=== PATIENT | male | born 1960 | race Caucasian/White ===

== ENCOUNTER 2017-09-04 14:44 | Emergency (ER) | payer BC, SELFPAY ==
[2017-09-04 14:47] VITALS: BP 144/66; PULSE 79; RESP 16; TEMP 37.3; O2SAT 97; BMI 28.1
--- NOTE | 2017-09-04 16:08 | VDLE_ITS ---
Reason For Study: LLE pain RIGHT LEFT CFV is compressible, spontaneous, phasic, GSV is normal. competent and demonstrates normal CFV is compressible, spontaneous, phasic, augmentation. competent, and demonstrates normal Procedure augmentation. Exam performed portable in ED. FV is compressible, spontaneous, phasic, The exam was diagnostic. competent and demonstrates normal A preliminary report was called and/or faxed augmentation. to Dr. Ackerman @ 4:25 pm. T/P Trunk is compressible. Image # 14 is LT PTVs. PTV is compressible. LT PerV is compressible. POP V is partially compressible with area of chronic wall thickening C/W previous DVT. POP V demonstrates reflux > 1.0 seconds upon augmentation. Interpretation Summary Chronic venous changes are noted in the left popliteal vein, which is partially compressible, incompetent, and demonstrates chronic vein wall thickening. The remainder of the left lower extremity deep venous system is patent and compressible. The left common femoral vein and femoral vein are competent. The left greater saphenous vein appears patent and compressible segmentally. Ordering Physician: Alirio Ackerman Referring Physician: Samuel Casarez Performed By: Mckayla Her, LASHAY, RVT
[2017-09-04 16:14] VITALS: BP 144/60; PULSE 90; RESP 14; O2SAT 98
--- NOTE | 2017-09-04 16:30 | ED.VISSUMM ---
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 He reports he has pain in his left calf that began 2 days ago. It is a burning, aching pain that is 5 out of 10 at worst and 2 out of 10 currently. Reports pain is worse when he first begins walking, but improves if he continues moving. She relieved by rest. He denies any paresthesias distally. No trauma. No fall or MVA. Reports he has been on his feet a great deal more than usual over the past 6 months. Physical Examination: Vitals: Stable. Afebrile. General: Well-nourished and well-developed. Head: Normocephalic atraumatic. Neck: Supple, no lymphadenopathy. No JVD. Nontender. Cardiovascular: Regular rate and rhythm. No murmurs. Respiratory: No respiratory distress. Clear to auscultation bilaterally. Abdominal: Soft, nontender, nondistended, normal bowel sounds. No guarding, rebound, or peritoneal signs. Back: Nontender. Extremities: Mild tenderness to palpation over his left calf, no edema. 2+ dorsalis pedis pulses bilaterally. Skin: Normal color, no rash. Neurologic: Alert and oriented ?3. Cranial nerves II through XII are intact. Normal strength and sensation. Psych: Normal affect. Test Results: Left lower extremity Doppler was negative. Emergency Department Course and Treatment: Patient refused pain medications. He is resting comfortably. Treatment Plan: He will be discharged instructions to follow-up Dr. Carpenter in 1 week if not improving. Disposition: To home in improved and stable condition. Impression: 1. Left calf pain, acute. This note was generated with [employer] dictation software. It may contain incorrect words, spelling, and punctuation that were not noted in review of the chart prior to signing ED Disposition - Plan for ED Patient: Chief Complaint: Lower Extremity Injury Instructions: ED Strain Muscle Ext Referrals: Nahum Casarez MD [Primary Care Provider] - 1 Week if not improving
[2017-09-04 16:37] VITALS: BP 135/70; PULSE 85; RESP 14; O2SAT 99
== END 2017-09-04 16:37 | disposition home or self-care (01) ==
PROVIDERS: Emergency Provider Emergency Medicine; Family Provider Family Medicine; PCP Family Medicine
DX: M79.662 Pain in left lower leg (principal); F17.200 Nicotine dependence, unspecified, uncomplicated
CPT/HCPCS: 93971; 99282

== ENCOUNTER → 2018-03-30 16:54 | Outpatient (CLI) | payer BC, SELFPAY ==
--- NOTE | 2018-03-30 16:59 | RAD_ITS ---
STUDY: X-RAY - LUMBAR SPINE REASON FOR EXAM: Male, 57 years old. Back pain. TECHNIQUE: 5 view(s) of the lumbar spine were obtained. COMPARISON: None FINDINGS: Normal lumbar lordosis. There is no substantial scoliosis. There is 1.5 cm anterolisthesis of L5 on S1 probably from bilateral pars defects although this cannot be confirmed on the oblique views because of marked facet joint degenerative disease at all levels. There is multilevel spondylosis. There is moderate to severe multilevel degenerative disc disease and loss of disc height. The soft tissue structures are unremarkable. RAD/L/S Spine Min 4 Views IMPRESSION: Moderate to severe multilevel degenerative changes. 1.5 cm anterolisthesis of L5 on S1. No definite acute abnormalities. Electronically Signed: Narayan Flowers MD at 22:36 EDT , Service support ,
== END ==
PROVIDERS: Family Provider Family Medicine; PCP Family Medicine; Referring Provider Family Medicine; Visit Provider Family Medicine
DX: M54.41 Lumbago with sciatica, right side (principal)
CPT/HCPCS: 72110

== ENCOUNTER 2018-05-31 17:00 | Outpatient (RCR) | payer BC, SELFPAY ==
--- NOTE | 2018-04-24 18:19 | HP.PTEVAL ---
Patient's Visit Information AVRIL ANDERSON is a 57 year old M referred to Physical Therapy by Samuel Casarez with a diagnosis of LB DDD. Date of Evaluation: 04/24/18 Physical Therapist: Angelito Burgess DPT, OC - Visit Plan Frequency: 1-2x /Week Duration: 4-6 Weeks Plan: 1-2x/week for 4-6 for initially weekly progression with list/pics of: LB AROM. HS, piriformis, glut adn quad/hip flexor stretches. Core strength for neutral spine and progression. Next session teach LB AROM and yoga flow. - Subjective Subjective: Has R leg pain whole leg hurts but mostly lateral hip and has been that way all summer. Insidious onset. No specific injury. New job working 50 hrs week on concrete one year ago. Has no back pain. Pain is OK in am and worse as days goes on. Worse on work days. 2 miles dog walk not as bad but worse monday then Monday. Week days are worse. 10 hour days . Walk to truck 50 yards is rough. Sleep is difficult to get comfy but not losing any sleep. Has problems in sciatic 30 years ago and no trouble since. 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 basic ADLs are OK just painful. No hobbies anymore. Lives with and dogs. - Pain R lateral leg. Pain Intensity (Out of 10): 5 Pain Intensity Range: 0, 9 Comment: bettter with stretching(lying) - Objective R leg 8 mm shorter vs L. hunches over to walk and it feels better. LB AROM flexion tight adn not painful, R SB painful and mod limitied, L SB min limited, ext painful and mod limited. gluts, quads and HS mod tight with -30 90/90 test. reflexes 2/3 patella and achilles B. Sensation in LE B grossly WNL to light touch. strength 4+/5 in B LE without myotomal abnormalities. Hunched forward posture but finds post pelvic tilt well. Walks I with slight R antalgia and avoidance of ext of hip at end of swing. - Goals Goal 1:: Pain in LB and R posterior hip 75% better at 2/10 at worst and intermittent. Goal Time Frame: 4-6 Weeks Goal 2:: I approp HEP to limit future problems with his degeneration. Goal Time Frame: 4-6 Weeks Goal 3:: Patient work without noticing increase in LBP Goal Time Frame: 4-6 Weeks Goal 4:: Walk dog on Monday without pain in LB Goal Time Frame: 4-6 Weeks - Rehabilitation Potential Physical Therapy Diagnosis: LB DDD Rehabilitation Potential: Fair - Anticipated Interventions Patient/Client Instruction: Educate patient on: Condition For the Purpose of:: To decrease pain, To increase ROM, To improve ability of physical actions for home/community/work/leisure Therapeutic Exercise to Include: Strength training, Flexibilty training, Gait and locomotor training, Passive ROM, Active ROM, Dynamic Lumbar Stabilization For the Purpose of:: To decrease pain, To improve muscle performance and motor function, To increase tolerance to activity/condition/position, To improve ability of physical actions for home/community/work/leisure Thank you for the opportunity to evaluate your patient. For Medicare and Medicare HMO plans, please review the plan of care and approve it. It will need to be FAXED BACK to us at [phone] for Medicare purposes. Please let me know if there are questions or concerns regarding this plan of care. Physician Signature: Date:
--- NOTE | 2018-05-31 17:31 | HP.PTDCSUM ---
HP - PT D/C Summary It has been my pleasure to treat EMBER ANDERSON under orders from Samuel Casarez, for the diagnosis of LB DDD for a total of 3 visit(s). Discharge Date: 05/31/18 Please see the following information for a summary of their discharge status. - Subjective Subjective: Been doing exercises. Haven't noticed a whole lot of difference. They don't hurt anything. No f/u with doctor. Running around since 3:30 this am. - Pain R lateral leg. Pain Intensity (Out of 10): 10 - Overall Improvement % Improvement: 5 - Objective Objective/Function: Pt not feeling any better or moving any better overall. Limited by few visits due to large co-pay but consistent with HEP and not improving. recommend back to doctor for other options due to lack of progress. - Goals Goal 1:: Pain in LB and R posterior hip 75% better at 2/10 at worst and intermittent. Goal Progress: Not Progressing Goal 2:: I approp HEP to limit future problems with his degeneration. Goal Progress: Goal Met Goal 3:: Patient work without noticing increase in LBP Goal Progress: Not Progressing Goal 4:: Walk dog on Monday without pain in LB Goal Progress: Not Progressing - Plan Plan: D/C, pt to call and schedule with doc. - D/C Information Discharge Comments: Pt back to doctor for next medical step. He has been consistent with home ex but not improving. If there are questions or concerns regarding this patient's physical therapy, please feel free to call me at [phone]. Thank you for the referral of this patient. Sincerely, Angelito Burgess, DPT, OC
== END 2018-05-31 19:00 | disposition home or self-care (01) ==
LOC: PT 17:00
PROVIDERS: Family Provider Family Medicine; PCP Family Medicine; Referring Provider Family Medicine; Visit Provider Family Medicine
DX: M51.36 Other intervertebral disc degeneration, lumbar region (principal)
CPT/HCPCS: 97110; 97162

== ENCOUNTER → 2018-06-08 13:50 | Outpatient (CLI) | payer BC, SELFPAY ==
--- NOTE | 2018-06-10 23:40 | LEAS_ITS ---
Arterial Study - Arterial Study Arterial Study: This is a 57-year-old male with a history of smoking. He presents with an ulceration in the left lower extremity. Suspecting the presence of atherosclerotic peripheral arterial occlusive disease, the patient was brought to the noninvasive vascular laboratory at this time for the purpose of bilateral noninvasive lower extremity arterial assessment. Doppler signal assessment was used to evaluate the pulses at ankle level bilaterally. The posterior tibial and dorsalis pedis pulses were triphasic bilaterally. Segmental limb pressures were obtained at ankle level bilaterally. The right ankle pressure, as determined by posterior tibial pulse, was measured at 169 m mHg. The right ankle pressure, as determined by dorsalis pedis pulse, was measured at 188 mmHg. The left ankle pressure, as determined by posterior tibial pulse, was measured at 186 mmHg. The left ankle pressure, as determined by dorsalis pedis pulse, was measured at 184 mmHg. Pulse?volume recordings were obtained bilaterally and segmentally. Waveform amplitudes appeared to be satisfactory at all levels bilaterally. Resting ankle?brachial indices were calculated bilaterally. The resting right ankle?brachial index was calculated to be 1.14. The resting left ankle?brachial index was calculated to be 1.13. The patient was exercised on a treadmill at 1.8 mph and a 5% grade. Exercise was terminated after 1 minute and 40 seconds due to lower extremity pain. Ankle pressures were obtained 1 minute following cessation of exercise. The right ankle pressure was measured at 175 mmHg. The left ankle pressure was measured at 183 mmHg. Impression: Based upon the findings of this resting and exercise noninvasive lower extremity arterial study, the resting component of this arterial study is normal. Triphasic waveforms were noted at ankle level bilaterally. Resting ankle?brachial indices were bilaterally normal. However, following exercise, ankle pressures diminished slightly bilaterally, which is an abnormal physiological response, and may be indicative of mild arterial occlusive disease in the lower extremities bilaterally, for which clinical correlation is advised.
== END ==
PROVIDERS: Family Provider Family Medicine; PCP Family Medicine; Referring Provider Family Medicine; Visit Provider Family Medicine
DX: I83.003 Varicose veins of unspecified lower extremity with ulcer of ankle (principal)
CPT/HCPCS: 93924

== ENCOUNTER 2018-06-11 16:19 | Emergency (ER) | payer BC, SELFPAY ==
[2018-06-11 16:20] VITALS: BP 142/108; PULSE 85; RESP 16; TEMP 36.4; O2SAT 98; BMI 27.3
--- NOTE | 2018-06-11 16:52 | ED.VIS.GEN ---
History of Present Illness Chief Complaint: Wound Informant: Patient, PCP Onset: Weeks - 1-2 Context: Gradual Onset Timing: Continuous Quality: burning, sore/deep ache Location: left ankle ulcer Current Severity: Moderate Maximum Severity: Severe Worsened by: walking, palpation Relieved by: resting Associated Symptoms: fever of 100 in PCP office today. occasional discharge. Narrative: Patient has had this ulcer on his left ankle for about a month, it spontaneously appeared. He was initially put on a twice daily antibiotic that he does not know what the name of, it was twice daily, it seemed to help, but then it started getting worse on its own again, he was started on Levaquin and he has been on that for 5 days and states in that amount of time, the pain is continued to worsen, no aspect of it has improved, and in the office today he had a fever. Past Medical History - Allergies and Home Meds Allergies/Adverse Reactions: Allergies No Known Allergies Allergy (Verified 09/04/17 14:46) Primary Care Physician: Nahum Casarez MD [Primary Care Provider] - Past Medical History: None Lives: Spouse/ Significant Other Smoking Status: Current every day smoker Review of Systems All systems negative except as indicated General: Reports: Fever. Denies: Malaise, Sweats Eyes: Denies: Visual changes - bilaterally, Diplopia ENT: Denies: Rhinorrhea, Sore throat Cardiovascular: Denies: Chest pain, Palpitations Respiratory: Denies: Dyspnea, Cough, Dyspnea on exertion Gastrointestinal: Denies: Abdominal pain, Nausea, Vomiting, Diarrhea, Melena, Hematochezia Genitourinary: Denies: Dysuria, Hematuria, Frequency Musculoskeletal: Reports: Extremity Pain - left ankle. Denies: Back pain, Swelling Skin: Reports: Wounds - ulcer left ankle. Denies: Rash Neurological: Denies: Headache, Weakness, Numbness Physical Exam Vital Signs/Narrative: Vital Signs Temp Pulse Resp BP Pulse Ox 06/11/18 16:20 97.5 F L 85 16 142/108 H 98 Inital Vital Signs reviewed: Yes General: Well nourished, Well developed Head: Normocephalic, Atraumatic Eyes: Perrl, EOMI ENT: Moist mucous membranes, No rhinorrhea Neck: Supple, Nontender Cardiovascular: Regular rate, Regular rhythm, No murmurs Respiratory: No distress, CTA bilaterally, Chest nontender Abdomen: Soft, Nontender, Nondistended, Normal bowel sounds Back: Nontender, Normal Inspection Extremities: No edema, Tenderness - at left medial-posterior ankle ulceration, containing granulation tissue, no expressible discharge, no abcess. Good ROM of left ankle w/o difficulty., - - no inguinal LAD Skin: Normal color, No rash, - - ulceration as described above LLE. not over malleolus; is posterior to it. mild surrounding erythema, very tender. no lymphangitis or abscess. Neurological: Alert, Oriented x3, Cranial nerves II-XII grossly intact, Normal Strength, Normal Sensation Psychological: Normal affect Diagnostic/Tx/Re-eval Impressions Ankle X-Ray 06/11/18 16:53 IMPRESSION: Normal x-ray examination of the ankle. Electronically Signed: Narayan Flowers MD at 17:25 EST , Service support , 06/11/18 16:53 Ankle min 3 Views [RAD] Stat Laboratory Results 06/11/18 06/11/18 16:44 16:44 WBC 5.8 RBC 3.96 L Hgb 13.7 Hct 38.9 L MCV 98.2 H MCH 34.6 H MCHC 35.2 RDW 12.5 RDW Differential 44.5 H Plt Count 272 MPV 8.6 Immature Gran % (Auto) 0.300 Neut % (Auto) 55.5 Lymph % (Auto) 28.6 [place] % (Auto) 14.6 H Eos % (Auto) 0.5 Baso % (Auto) 0.5 Absolute Neuts (auto) 3.2 Absolute Lymphs (auto) 1.67 Total Counted Not Reportable ESR 17 Sodium 139 Potassium 3.5 Chloride 102 Carbon Dioxide 27.0 Anion Gap 10 BUN 12 Creatinine 0.82 Estim Creat Clear Calc 95.00 Est GFR (MDRD) Af Amer 123 Est GFR (MDRD) Non-Af 102 BUN/Creatinine Ratio 14.6 Glucose 83 Calcium 9.2 C-React Prot Ext Range 4.68 H Clinical Impression(s) from Imaging Studies Ankle X-Ray 06/11/18 16:53 IMPRESSION: Normal x-ray examination of the ankle. Electronically Signed: Narayan Flowers MD at 17:25 EST , Service support , - Medical Decision Making Labs are very normal including a white blood count in the 5 range with no left shift, ESR, CRP which is just barely abnormal around 4. He is feeling better after a [place]. He was given empiric IV vancomycin. His x-ray shows no evidence of osteomyelitis and I am at a low suspicion of early osteomyelitis with these normal labs. I do suspect he could have a soft tissue infection at this ulcer given the pain he is having though. However, I do not think he needs to be admitted. I discussed with Dr. Casarez, who is the patient's PCP and was [facility], he agrees with sending him home on Augmentin, which is what he was on before, for 14 days and following up in the office in about 1 week. They will contact him for the appointment, the patient is okay with this plan. ED Disposition - Plan for ED Patient: Disposition: Home or Assisted Living Chief Complaint: Lower Extremity Injury Diagnosis: Infected ulcer of skin Instructions: ED Infec Skin Cellulitis Prescriptions: Hydrocodone Bitart/Apap 5-325 [[place] 5MG-325MG] 1 tab PO Q6H PRN PRN 4 Days #16 tab PRN Reason: Pain Amox/Clavulanate Tablet [Augmentin Tablet] 875 mg PO Q12H #28 tab Referrals: Nahum Casarez MD [Primary Care Provider] - 1 Week
--- NOTE | 2018-06-11 16:53 | RAD_ITS ---
STUDY: X-RAY - LEFT ANKLE REASON FOR EXAM: Male, 57 years old. Infection. Skin wound. TECHNIQUE: 3 view(s) of the ankle. COMPARISON: None. FINDINGS: Normal visualized distal tibia and fibula. Normal medial and lateral malleoli. Normal tibiotalar articulation and ankle mortise. Normal visualized talus and calcaneus. The visualized subtalar, talonavicular, calcaneocuboid and tarsal articulations are normal. There is no demonstrated fracture. The soft tissue structures are unremarkable. RAD/Ankle min 3 Views IMPRESSION: Normal x-ray examination of the ankle. Electronically Signed: Narayan Flowers MD at 17:25 EST , Service support ,
--- NOTE | 2018-06-11 16:57 | ED.DCSUM_ITS ---
History of Present Illness Chief Complaint: Wound Informant: Patient, PCP Onset: Weeks - 1-2 Context: Gradual Onset Timing: Continuous Quality: burning, sore/deep ache Location: left ankle ulcer Current Severity: Moderate Maximum Severity: Severe Worsened by: walking, palpation Relieved by: resting Associated Symptoms: fever of 100 in PCP office today. occasional discharge. Narrative: Patient has had this ulcer on his left ankle for about a month, it spontaneously appeared. He was initially put on a twice daily antibiotic that he does not know what the name of, it was twice daily, it seemed to help, but then it started getting worse on its own again, he was started on Levaquin and he has been on that for 5 days and states in that amount of time, the pain is continued to worsen, no aspect of it has improved, and in the office today he had a fever. Past Medical History - Allergies and Home Meds Allergies/Adverse Reactions: Allergies No Known Allergies Allergy (Verified 09/04/17 14:46) Primary Care Physician: Nahum Casarez MD [Primary Care Provider] - Past Medical History: None Lives: Spouse/ Significant Other Smoking Status: Current every day smoker Review of Systems All systems negative except as indicated General: Reports: Fever. Denies: Malaise, Sweats Eyes: Denies: Visual changes - bilaterally, Diplopia ENT: Denies: Rhinorrhea, Sore throat Cardiovascular: Denies: Chest pain, Palpitations Respiratory: Denies: Dyspnea, Cough, Dyspnea on exertion Gastrointestinal: Denies: Abdominal pain, Nausea, Vomiting, Diarrhea, Melena, Hematochezia Genitourinary: Denies: Dysuria, Hematuria, Frequency Musculoskeletal: Reports: Extremity Pain - left ankle. Denies: Back pain, Swelling Skin: Reports: Wounds - ulcer left ankle. Denies: Rash Neurological: Denies: Headache, Weakness, Numbness Physical Exam Vital Signs/Narrative: Vital Signs Temp Pulse Resp BP Pulse Ox 06/11/18 16:20 97.5 F L 85 16 142/108 H 98 Inital Vital Signs reviewed: Yes General: Well nourished, Well developed Head: Normocephalic, Atraumatic Eyes: Perrl, EOMI ENT: Moist mucous membranes, No rhinorrhea Neck: Supple, Nontender Cardiovascular: Regular rate, Regular rhythm, No murmurs Respiratory: No distress, CTA bilaterally, Chest nontender Abdomen: Soft, Nontender, Nondistended, Normal bowel sounds Back: Nontender, Normal Inspection Extremities: No edema, Tenderness - at left medial-posterior ankle ulceration, containing granulation tissue, no expressible discharge, no abcess. Good ROM of left ankle w/o difficulty., - - no inguinal LAD Skin: Normal color, No rash, - - ulceration as described above LLE. not over malleolus; is posterior to it. mild surrounding erythema, very tender. no lymphangitis or abscess. Neurological: Alert, Oriented x3, Cranial nerves II-XII grossly intact, Normal Strength, Normal Sensation Psychological: Normal affect Diagnostic/Tx/Re-eval Impressions Ankle X-Ray 06/11/18 16:53 IMPRESSION: Normal x-ray examination of the ankle. Electronically Signed: Narayan Flowers MD at 17:25 EST , Service support , 06/11/18 16:53 Ankle min 3 Views [RAD] Stat Laboratory Results 06/11/18 06/11/18 16:44 16:44 WBC 5.8 RBC 3.96 L Hgb 13.7 Hct 38.9 L MCV 98.2 H MCH 34.6 H MCHC 35.2 RDW 12.5 RDW Differential 44.5 H Plt Count 272 MPV 8.6 Immature Gran % (Auto) 0.300 Neut % (Auto) 55.5 Lymph % (Auto) 28.6 [place] % (Auto) 14.6 H Eos % (Auto) 0.5 Baso % (Auto) 0.5 Absolute Neuts (auto) 3.2 Absolute Lymphs (auto) 1.67 Total Counted Not Reportable ESR 17 Sodium 139 Potassium 3.5 Chloride 102 Carbon Dioxide 27.0 Anion Gap 10 BUN 12 Creatinine 0.82 Estim Creat Clear Calc 95.00 Est GFR (MDRD) Af Amer 123 Est GFR (MDRD) Non-Af 102 BUN/Creatinine Ratio 14.6 Glucose 83 Calcium 9.2 C-React Prot Ext Range 4.68 H Clinical Impression(s) from Imaging Studies Ankle X-Ray 06/11/18 16:53 IMPRESSION: Normal x-ray examination of the ankle. Electronically Signed: Narayan Flowers MD at 17:25 EST , Service support , - Medical Decision Making Labs are very normal including a white blood count in the 5 range with no left shift, ESR, CRP which is just barely abnormal around 4. He is feeling better after a [place]. He was given empiric IV vancomycin. His x-ray shows no evidence of osteomyelitis and I am at a low suspicion of early osteomyelitis with these normal labs. I do suspect he could have a soft tissue infection at this ulcer given the pain he is having though. However, I do not think he needs to be admitted. I discussed with Dr. Casarez, who is the patient's PCP and was [facility]n [facility], he agrees with sending him home on Augmentin, which is what he was on before, for 14 days and following up in the office in about 1 week. They will contact him for the appointment, the patient is okay with this plan. ED Disposition - Plan for ED Patient: Disposition: Home or Assisted Living Chief Complaint: Lower Extremity Injury Diagnosis: Infected ulcer of skin Instructions: ED Infec Skin Cellulitis Prescriptions: Hydrocodone Bitart/Apap 5-325 [[place] 5MG-325MG] 1 tab PO Q6H PRN PRN 4 Days #16 tab PRN Reason: Pain Amox/Clavulanate Tablet [Augmentin Tablet] 875 mg PO Q12H #28 tab Referrals: Nahum Casarez MD [Primary Care Provider] - 1 Week
[2018-06-11 17:01] LABS: Absolute Lymphocyte Count 1.67 X10^3/ul (0.83-4.51); Absolute Neutrophil Count 3.2 X10^3/uL (2.0-7.7); Basophil# 0.03 X10^3/uL; Basophil% 0.5 % (0-1); Eosinophil# 0.03 X10^3/uL; Eosinophils% 0.5 % (0-5); Hematocrit 38.9 % (40-54); Hemoglobin 13.7 g/dl (13.0-16.5); Lymphocyte # 1.67 X10^3/ul (4.0); Lymphocyte % 28.6 % (19-41); Mean Corp Hgb Conc 35.2 g/gl (32-36); Mean Corpuscular Hgb 34.6 pg (27.0-32.0); Mean Corpuscular Volume 98.2 fL (80-94); Mean Platelet Vol. 8.6 fl (6.2-12.0); Monocyte# 0.85 X10^3/uL; Monocyte% 14.6 % (0-10); Neutrophil # 3.24 X10^3/uL (2.7-7.7); Neutrophil % 55.5 % (47-70); Platelet Count 272 K/mm3 (150-450); RBC Distribution Width CV 12.5 % (11.6-14.6); RBC Distribution Width SD 44.5 fl (35.1-43.9); Red Blood Count 3.96 M/mm3 (4.6-6.2); White Blood Count 5.8 K/mm3 (4.4-11.0)
[2018-06-11] MEDS: HYDROcodone Bitartrate/Apap 5/325 Tablet PO (17:07)
[2018-06-11 17:10] LABS: POSITIVE COUNT NO; POSITIVE DIFFERENTIAL NO; POSITIVE MORPHOLOGY NO
[2018-06-11 17:16] LABS: Anion Gap 10 (5-15); BUN 12 mg/dL (7-18); BUN/Creat Ratio 14.6 RATIO (10-20); CRP 4.68 mg/L (0.0-3.0); Calcium,Total 9.2 mg/dL (8.5-10.1); Chloride 102 mmol/L (98-107); Creatinine, Serum 0.82 mg/dL (0.70-1.30); EST Glomerular Filtration Rate 102 mL/min (>60); Est Glom Filt Rate - Afr Amer 123 mL/min (>60); Glucose 83 mg/dL (74-106); Potassium 3.5 mmol/L (3.5-5.1); Sodium Level 139 mmol/L (136-145)
[2018-06-11 17:34] LABS: Erythrocyte Sedimentation Rate 17 mm/hr (0-20)
[2018-06-11 18:23] VITALS: RESP 16
[2018-06-11 19:44] VITALS: BP 131/91; PULSE 97; RESP 18; O2SAT 97
--- OUTSIDE RECORDS SUMMARY | 2018-07-29 02:20 | XMS RPT_ITS ---
:1960 Author Organization [facility] Care Team Providers Name Role Phone Milesdaniela, Christopher Primary Care Unavailable HAL, OSCAR Attending Unavailable Ranney, Christopher Attending Unavailable Ranney, Christopher Referring Unavailable Ranney, Christopher Primary Care Unavailable Kenny, Dinesh Attending Unavailable Ranney, Christopher Primary Care Unavailable Kenny, Dinesh Referring Unavailable Kenny, Dinesh Attending Unavailable Kenny, Dinesh Referring Unavailable Ranney, Christopher Primary Care Unavailable Ranney, Christopher Primary Care Unavailable Alirio Ackerman Attending Unavailable Ranney, Christopher Attending Unavailable Ranney, Christopher Referring Unavailable Ranney, Christopher Primary Care Unavailable Ranney, Christopher Attending Unavailable Ranney, Christopher Referring Unavailable Ranney, Christopher Primary Care Unavailable Ranney, Christopher Attending Unavailable Ranney, Christopher Referring Unavailable Ranney, Christopher Primary Care Unavailable PROBLEMS PROBLEMS DATE TYPE CONDITION / CODE ATTENDING STATUS SOURCE 06/11/2018 Unknown L08.9 - Local OSCAR HONG Active [place] infection of the Community skin and Hospital subcutaneous tissue, Repository unspecified / L08.9(ICD-10) 06/11/2018 Unknown L98.499 - OSCAR HONG Active [place] Non-pressure chronic Community ulcer of skin of Hospital other sites with Repository unspecified severity / L98.499(ICD-10) 06/04/2018 Unknown M51.36 - Other Leida, Active [place] 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, lumbar Hospital region / Repository M51.36(ICD-10) 03/30/2018 Unknown Z72.0 - Tobacco use Leida, Active [place] / Z72.0(ICD-10) [facility] Repository PROCEDURES PROCEDURES No Procedure Records FoundRESULTS RESULTS VENOUS DUPLEX LOWER Observed: 06/27/2018 Status: F Source: [place] EXTREMITY 10:05 PM [facility] HOSPITAL REPOSITORY [facility] Cardiovascular Services [address] [place] [address] Venous Duplex - Cam Extrem 06/27/18 1450 MR#: [id number] Acct: [id number] Name: EMBER ANDERSON Rep #: [id number] : 1960 57 From: Gilbert Shlutz MD Attending Dr: Dinesh Cox DPM Status: REG RCR Ordering Dr: Dinesh Cox DPEliazar Date: 06/27/18 Location: CVS Sex: M C Admitted: Reason For Study: LLE ulcer RIGHT LEFT GSV is normal. GSV is normal. Acute deep vein thrombosis is noted in the CFV is compressible, spontaneous, phasic, right common femoral vein. competent, and demonstrates normal FV is compressible, spontaneous, phasic, augmentation. competent and demonstrates normal FV, POP V and T/P trunk are partially augmentation. compressible with bright intraluminal echoes POP V is compressible, spontaneous, phasic, consistant with chronic clot. POP V competent and demonstrates normal demonstrates INCOMPETENCY with augmentation. augmentation. PTV is compressible T/P Trunk is compressible. PER V is compressible PTV is compressible. SFJ is competent RT PerV is compressible. GSV is INCOMPETENT with refluxgreater than .5 SFJ is competent sec and diameter of .46 x .48 cm GSV is competent SSV is INCOMPETENT with reflux greater SSV is competent. than .5 sec and diameter of .26 x .28 cm. Procedure Exam performed in department. A preliminary report was called and/or faxed to [facility]. Interpretation Summary Acute deep vein thrombosis is noted in the right common femoral vein. The remainder of the right lower extremity deep venous system is patent and compressible. The right femoral vein and popliteal vein are competent. Chronic venous changes are noted in the left femoral vein, popliteal vein, and tibio-peroneal trunk, which are partially compressible and demonstrate bright intraluminal echogenicity. The remainder of the left lower extremity deep venous system is patent and compressible. The left common femoral vein is competent. The greater saphenous veins appear bilaterally patent and compressible segmentally. Sapheno-femoral junctions are bilaterally competent . The right greater saphenous vein appears segmentally competent. The left greater saphenous vein appears segmentally incompetent. The right small saphenous vein is patent and competent. The left small saphenous vein is patent and incompetent. Ordering Physician: Dinesh Cox Referring Physician: Samuel Casarez MD Performed By: Opal Stoddard RVT 06/27/182204 Date Gilbert Shultz MD CC: DPEliazar Cox; Samuel Casarez MD Date Dictated: 06/27/18 1450 Date Transcribed: 06/27/182204 [employer] Laborer: Signed SPINE LUMBAR Observed: 06/22/2018 Status: F Source: [place] (ROUTINE) 4:38 PM [facility] Imaging Services [address] [place] [address] Spine Lumbar (Routine) MR#: [id number] Acct: [id number] Name: JUSTINEMBER Gelacio Rep #: [id number] : 1960 M 57 From: Danis Enciso PCP: Samuel Casarez MD Status: REG CLI Study: Spine Lumbar (Routine) Date of Exam: 06/22/18 Exam# [id number] Ordering Dr: Nahum Casarez MD STUDY: MRI LUMBAR SPINE WITHOUT CONTRAST REASON FOR EXAM: Male, 57 years old. Back pain TECHNIQUE: Standardized fat and water weighted pulse sequences were obtained in the sagittal and axial planes. COMPARISON: None FINDINGS: There is exaggerated lumbar lordosis. There are NO acute compression fractures. There is generalized osteopenia. The conus medullaris ends at L1 and is normal in configuration. L1-2: There is moderate loss of disc height and disc bulging. There is mild facet arthropathy. There is NO spinal stenosis. There is severe LEFT foraminal stenosis. L2-3: There is significant loss of disc height. There is diffuse disc bulging and osteophytic ridging. There is moderate facet arthropathy. There is mild spinal stenosis and severe bilateral lateral recess stenosis and severe bilateral foraminal stenosis worse on the RIGHT. L3-4: There is significant loss of disc height. There is mild diffuse osteophytic ridging. There is mild facet arthropathy. There is moderate bilateral lateral recess stenosis greater on the LEFT. There is NO significant spinal stenosis. There is severe RIGHT foraminal stenosis. L4-5: There is significant loss of disc height. There is a focal posterior central disc herniation. The herniated fragment measures 9 mm. This causes bilateral lateral recess stenosis but NO significant spinal stenosis. There is bilateral facet hypertrophy. There is moderate RIGHT foraminal stenosis and mild LEFT foraminal stenosis. L5-S1: There is grade 1 anterior spondylolisthesis due to bilateral spondylolysis. There is diffuse disc bulging and bilateral facet hypertrophy. There is NO spinal stenosis. There is severe bilateral foraminal stenosis. Sacrum and sacroiliac joints are intact. There is NO paraspinal or epidural soft tissue abnormality or fluid collection. MRI/Spine Lumbar (Routine) IMPRESSION: There are chronic multilevel degenerative changes as described detail above. There is spondylolisthesis at L5-S1 due to spondylolysis. There is NO acute fracture. There is NO cord compression. Electronically Signed: Danis Enciso MD at 4:03 EST , Service support , CC: Samuel Casarez MD [employer] Laborer: Signed WOUND CTR HISTORY Observed: 06/21/2018 Status: F Source: [place] [facility] 12:01 PM [facility] HOSPITAL REPOSITORY [facility] Wound Healing Center [address] [place] [address] Wound Ctr History AND Physical 06/21/18 1145 MR#: [id number] Acct: [id number] Name: EMBER ANDERSON Rep #: [id number] : 1960 57 From: Dinesh Cox DPM PCP: Samuel Casarez MD Status: REG RCR Y Location: WC (1) Ulcer of left lower extremity with fat layer exposed Status: Acute Current Visit: Yes Code(s): L97.922 - Non- pressure chronic ulcer of unspecified part of left lower leg with fat layer exposed (2) Venous (peripheral) insufficiency Status: Acute Current Visit: Yes Code(s): I87.2 - Venous insufficiency (chronic) (peripheral) (3) Pain in left leg Status: Acute Current Visit: Yes Code(s): M79.605 - Pain in left leg (4) Lower extremity edema Status: Acute Current Visit: Yes Code(s): R60.0 - Localized edema (5) Delayed wound healing Status: Acute Current Visit: Yes Code(s): T14.8XXD - Other injury of unspecified body region, subsequent encounter History of Present Illness Date of Service: 06/21/18 Chief Complaint: left lower leg ulcers History of Wound: This 57-year-old male presents to the wound healing center after being referred here for two smaller nonhealing left lower medial leg ulcers. Patient says he had no trauma or injury to the area and that they came on out of nowhere and have stayed about the same for the last month and a half. Patient says about 10 days ago he noticed some slight redness around the area and increased pain so he went to the emergency room. Patient had x-rays taken that were negative for osteomyelitis and he was placed on a 14-day course of Augmentin. Patient says he has been doing well since the visit, but relates that the ulcer sites continue to stay the same size. He admits to using compression stockings in the past, but recently he has not been wearing them. Patient also recently had LEAS study completed and the results of this test are in the patient's chart. Patient denies any purulence to the area and denies any redness since his emergency room visit. Patient currently denies any feelings of nausea, vomiting, fever, chills. Past Medical History Allergies/Adverse Reactions: Allergies No Known Allergies Allergy (Verified 06/21/18 10:11) Home Medications: Ambulatory Orders Medication Instructions Recorded Amox/Clavulanate Tablet [Augmentin 875 mg PO Q12H #28 tab 06/11/18 Tablet] Aspirin [Aspirin, Baby] 81 mg PO DAILY@0800 06/11/18 Hydrocodone/Acetaminophen 1 each PO Q6H PRN 06/21/18 Smoking Status: Current every day smoker Review of Systems Constitutional: Denies: Chills, Fever, Weight Change Cardiovascular: Denies: Chest Pain, Palpitations Respiratory: Denies: Cough, Shortness of Breath Gastrointestinal: Denies: Diarrhea, Nausea, Vomiting Skin: Reports: - - Ulcers to left medial lower leg - Physical Exam Vital Signs Temp Pulse Resp BP 100 F H 77 18 139/87 H 06/21/18 09:48 12 09:48 06/21/18 09:48 06/21/18 09:48 General: Alert, Oriented x3, Cooperative, No apparent distress Extremities: No cyanosis, Capillary Refill Less than 3 Seconds - To distal digits, No Calf Tenderness - Negative Anastasiya and Echevarria sign, Diminished Peripheral Pulses - DP pulses palpable and PT pulses nonpalpable bilateral, Edema - Lower extremity edema appreciated Skin: Ulcer/ Wound - Ulcers with fat layer exposed and noted to left medial ankle one is inferior and one is superior. The base is noted to be a mixture of adherent slough, fibrin, biofilm, hyperkeratotic tissue surrounding. There is no probing to bone, no tracking, no undermining, no purulence, no malodor, no surrounding or extending cellulitis, no increase in warmth. Wound Measurements and Assessment WC - Nurse 1 - General Ulcer Measurement Start: 06/21/18 09:48 Freq: Status: Active Protocol: Activity Type Activity Date Activity User E-Sign Co-Sign Detail Recorded Client Recorded Date Recorded By Document 06/21/18 09:48 [facility] [id number] 06/21/18 10:08 [facility] - Nurse 2 - General Ulcer CM Notes Start: 06/21/18 09:48 Freq: Status: Active Protocol: Activity Type Activity Date Activity User E-Sign Co-Sign Detail Recorded Client Recorded Date Recorded By Document 06/21/18 10:32 DV [id number] 06/21/18 10:44 [facility] Nurse 2 [Procedure/Treatment] #2- LLE MEDIAL -Time 10:33 Musculoskeletal: Tenderness - With manipulation of ulcer sites Neurological: Sensory exam intact to light touch and pain Psych/Mental Status: Normal Affect, Appropriate Debridement Note Post-Debridement Measurements/Treatment WC - Nurse 2 - General Ulcer CM Notes Start: 06/21/18 09:48 Freq: Status: Active Protocol: Activity Type Activity Date Activity User E-Sign Co-Sign Detail Recorded Client Recorded Date Recorded By Document 06/21/18 10:32 DV [id number] 06/21/18 10:44 [facility] W[facility] Nurse 2 #2- LLE MEDIAL -Time 10:33 -Correct Patient Yes -Correct Side, Site, Position Yes -Correct Procedure Yes Wound debrided: Left medial ankle superior Laterality: Left Type of Debridement: Excisional debridement Anesthesia Used: 4% Lidocaine Solution Depth: in the subcutaneous layer Percentage of wound debrided: 100 Tissue Removed: Adherent slough, fibrin, biofilm, hyperkeratotic tissue Severity: Fat Layer Exposed Amount of bleeding with debridement: Mild Bleeding Controlled with: Pressure Patient tolerated procedure well - Additional Wound Wound debrided: Left medial ankle inferior Laterality: Left Type of Debridement: Excisional debridement Anesthesia Used: 4% Lidocaine Solution Depth: in the subcutaneous layer Percentage of wound debrided: 100 Instrument Used: 7mm curette Tissue Removed: Adherent slough, fibrin, biofilm, hyperkeratotic tissue Severity: Fat Layer Exposed Amount of bleeding with debridement: Mild Bleeding Controlled with: Pressure Patient tolerated procedure: Patient tolerated procedure well Assessment/Plan Active Problems Ulcer of left lower extremity with fat layer exposed (Acute) Venous (peripheral) insufficiency (Acute) Pain in left leg (Acute) Lower extremity edema (Acute) Delayed wound healing (Acute) Assessment: Ulcer with fat layer exposed left lower leg, venous insufficiency, lower extremity edema, pain left lower leg Plan: Initial patient examination and evaluation was performed. A subcutaneous debridement was performed as noted in the clinical panel. Once complete, the ulcer sites were carefully cleansed and then dressed with silvercel, followed by dry sterile dressing and Tubigrip for compression. Patient is to change the dressing in this manner on a daily basis. Dressing supplies were ordered for the patient. Keeping compression to the lower extremities was discussed at length today and the importance of this was stressed to the patient. Patient is to offload the ulcer site at all times as well keeping shoe gear from rubbing the area as well as pressure while seated or laying down. Patient still has 4 days left of Augmentin. Currently, there are no signs of acute bacterial infection so no cultures or further antibiotics were prescribed today. Pre-albumin was ordered for the patient. Patient's baseline lab work from the emergency room was reviewed. Results are in the patient's chart. LEAS studies were performed with ABIs in the normal range. The full report is in the patient's chart. X-rays taken at the emergency room show no signs of osteomyelitis or gas in the soft tissue. Venous Doppler studies were ordered today for the patient and we will monitor for the results of the study. I also recommend nutritional supplementation with a high protein diet in order to optimize ulcer healing potential. Smoking cessation was discussed with this patient as well today. Patient was educated on all signs and symptoms of local and systemic infection, and he is instructed to go to the emergency room immediately should he notice any these. All other questions were answered to the patient's satisfaction. The patient will follow up at the wound healing center in 1 week to check on progress, or sooner if needed. 06/21/18 1201 <Electronically signed by Dinesh Cox DPM> Date Dinesh Cox DPM CC: Signed PREALBUMIN Collected: 06/21/2018 Status: F Source: [place] 10:50 AM [facility] TYPE CODE TESTS RESULT OUT OF RANGE REFERENCE UNITS LAB L506.0500 20.0-40.0 mg/dL Normal PREALBUMIN 24.7 Performed By: #### L506.0500 #### [facility] [address] [facility] [place], [address] EMERGENCY DEPARTMENT Observed: 06/11/2018 Status: F Source: [place] SUMMARY 7:34 PM [facility] Medical Records Department [address] [place] [address] Emergency Department Summary 06/11/18 1652 MR#: [id number] Acct: [id number] Name: EMBER ANDERSON Rep #: [id number] : 1960 57 From: Oscar Hong MD PCP: Samuel Casarez MD Status: REG ER History of Present Illness Chief Complaint: Wound Informant: Patient, PCP Onset: Weeks - 1-2 Context: Gradual Onset Timing: Continuous Quality: burning, sore/deep ache Location: left ankle ulcer Current Severity: Moderate Maximum Severity: Severe Worsened by: walking, palpation Relieved by: resting Associated Symptoms: fever of 100 in PCP office today. occasional discharge. Narrative: Patient has had this ulcer on his left ankle for about a month, it spontaneously appeared. He was initially put on a twice daily antibiotic that he does not know what the name of, it was twice daily, it seemed to help, but then it started getting worse on its own again, he was started on Levaquin and he has been on that for 5 days and states in that amount of time, the pain is continued to worsen, no aspect of it has improved, and in the office today he had a fever. Past Medical History - Allergies and Home Meds Allergies/Adverse Reactions: Allergies No Known Allergies Allergy (Verified 09/04/17 14:46) Primary Care Physician: Nahum Casarez MD [Primary Care Provider] - Past Medical History: None Lives: Spouse/ Significant Other Smoking Status: Current every day smoker Review of Systems All systems negative except as indicated General: Reports: Fever. Denies: Malaise, Sweats Eyes: Denies: Visual changes - bilaterally, Diplopia ENT: Denies: Rhinorrhea, Sore throat Cardiovascular: Denies: Chest pain, Palpitations Respiratory: Denies: Dyspnea, Cough, Dyspnea on exertion Gastrointestinal: Denies: Abdominal pain, Nausea, Vomiting, Diarrhea, Melena, Hematochezia Genitourinary: Denies: Dysuria, Hematuria, Frequency Musculoskeletal: Reports: Extremity Pain - left ankle. Denies: Back pain, Swelling Skin: Reports: Wounds - ulcer left ankle. Denies: Rash Neurological: Denies: Headache, Weakness, Numbness Physical Exam Vital Signs/Narrative: Vital Signs 06/11/18 16:20 97.5 F L 85 16 142/108 H 98 Inital Vital Signs reviewed: Yes General: Well nourished, Well developed Head: Normocephalic, Atraumatic Eyes: Perrl, EOMI ENT: Moist mucous membranes, No rhinorrhea Neck: Supple, Nontender Cardiovascular: Regular rate, Regular rhythm, No murmurs Respiratory: No distress, CTA bilaterally, Chest nontender Abdomen: Soft, Nontender, Nondistended, Normal bowel sounds Back: Nontender, Normal Inspection Extremities: No edema, Tenderness - at left medial-posterior ankle ulceration, containing granulation tissue, no expressible discharge, no abcess. Good ROM of left ankle w/o difficulty., - - no inguinal LAD Skin: Normal color, No rash, - - ulceration as described above LLE. not over malleolus; is posterior to it. mild surrounding erythema, very tender. no lymphangitis or abscess. Neurological: Alert, Oriented x3, Cranial nerves II-XII grossly intact, Normal Strength, Normal Sensation Psychological: Normal affect Diagnostic/Tx/Re-eval Impressions Ankle X-Ray 06/11/18 16:53 IMPRESSION: Normal x-ray examination of the ankle. Electronically Signed: Narayan Flowers MD at 17:25 EST , Service support , 06/11/18 16:53 Ankle min 3 Views [RAD] Stat Laboratory Results WBC 5.8 RBC 3.96 L Hgb 13.7 Hct 38.9 L MCV 98.2 H MCH 34.6 H MCHC 35.2 RDW 12.5 RDW Differential 44.5 H Clinical Impression(s) from Imaging Studies Ankle X-Ray 06/11/18 16:53 IMPRESSION: Normal x-ray examination of the ankle. Electronically Signed: Narayan Flowers MD at 17:25 EST , Service support , - Medical Decision Making Labs are very normal including a white blood count in the 5 range with no left shift, ESR, CRP which is just barely abnormal around 4. He is feeling better after a Toluca. He was given empiric IV vancomycin. His x-ray shows no evidence of osteomyelitis and I am at a low suspicion of early osteomyelitis with these normal labs. I do suspect he could have a soft tissue infection at this ulcer given the pain he is having though. However, I do not think he needs to be admitted. I discussed with Dr. Casarez, who is the patient's PCP and was training consultant tonight, he agrees with sending him home on Augmentin, which is what he was on before, for 14 days and following up in the office in about 1 week. They will contact him for the appointment, the patient is okay with this plan. ED Disposition - Plan for ED Patient: Disposition: Home or Assisted Living Chief Complaint: Lower Extremity Injury Diagnosis: Infected ulcer of skin Instructions: ED Infec Skin Cellulitis Prescriptions: Hydrocodone Bitart/Apap 5-325 [Toluca 5MG-325MG] 1 tab PO Q6H PRN PRN 4 Days #16 tab PRN Reason: Pain Amox/Clavulanate Tablet [Augmentin Tablet] 875 mg PO Q12H #28 tab Referrals: Nahum Casarez MD [Primary Care Provider] - 1 Week What to do if you have Problems For any increased pain, shortness of breath, bleeding, nausea or vomiting, chest pain, or any unexpected problems, contact your Primary Care Provider. Call [facility] ([phone]) or report to the closest Emergency Room. Call 911 if necessary. 06/11/181933 <Electronically signed by Oscar Hong MD> Date Oscar Hong MD Cosigner Signature (If Indicated): Date CC: Samuel Casarez MD ANKLE MIN 3 VIEWS Observed: 06/11/2018 Status: F Source: [place] 4:54 PM [facility] Imaging Services [address] [place] [id number] Ankle min 3 Views MR#: [id number] Acct: [id number] Name: EMBER ANDERSON Rep #: [id number] : 1960 M 57 From: Narayan Flowers MD PCP: Samuel Casarez MD Status: REG ER Study: Ankle min 3 Views Date of Exam: 06/11/18 Exam# [id number] Ordering Dr: Oscar Hong MD STUDY: X-RAY - LEFT ANKLE REASON FOR EXAM: Male, 57 years old. Infection. Skin wound. TECHNIQUE: 3 view(s) of the ankle. COMPARISON: None. FINDINGS: Normal visualized distal tibia and fibula. Normal medial and lateral malleoli. Normal tibiotalar articulation and ankle mortise. Normal visualized talus and calcaneus. The visualized subtalar, talonavicular, calcaneocuboid and tarsal articulations are normal. There is no demonstrated fracture. The soft tissue structures are unremarkable. RAD/Ankle min 3 Views IMPRESSION: Normal x-ray examination of the ankle. Electronically Signed: Narayan Flowers MD at 17:25 EST , Service support , CC: OSCAR HONG MD; Samuel Casarez MD [employer] Laborer: Signed CBC W/DIFF, AUTOMATED Collected: 06/11/2018 Status: F Source: [place] 4:44 PM [facility] TYPE CODE TESTS RESULT OUT OF RANGE REFERENCE UNITS LAB L100.1000 4.4-11.0 K/mm3 Normal WBC 5.8 LAB L100.1200 4.6-6.2 M/mm3 Low RBC 3.96 LAB L100.1300 13.0-16.5 g/dl Normal HGB 13.7 LAB L100.1400 40-54 % Low HCT 38.9 LAB L100.1500 80-94 fL High MCV 98.2 LAB L100.1600 27.0-32.0 pg High MCH 34.6 LAB L100.1700 32-36 g/gl Normal MCHC 35.2 LAB L100.1810 11.6-14.6 % Normal RDW CV 12.5 LAB L100.1820 35.1-43.9 fl High RDW SD 44.5 LAB L100.1900 150-450 K/mm3 Normal PLT 272 LAB L100.2000 6.2-12.0 fl Normal MPV 8.6 LAB L100.2100 47-70 % Normal NEUT% 55.5 LAB L100.2200 19-41 % Normal LY% 28.6 LAB L100.2300 0-10 % High MONO% 14.6 LAB L100.2400 0-5 % Normal EO% 0.5 LAB L100.2500 0-1 % Normal BASO% 0.5 LAB L100.2550 0.0-0.9 % Normal IM GRAN % 0.300 Result Comment: IG% - Immature Granulocytes (promyelocytes, myelocytes and metamyelocytes) > 1% indicates that a LEFT SHIFT is Present. LAB L100.2620 2.0-7.7 X10 3/uL Normal Absolute Neut 3.2 LAB L100.2720 0.83-4.51 X10 3/ul Normal Absolute Lymph 1.67 Performed By: #### L100.0100, L101.9900 #### [facility] [address] [place], [address] ERYTHROCYTE SED RATE Collected: 06/11/2018 Status: F Source: [place] 4:44 PM [facility] TYPE CODE TESTS RESULT OUT OF RANGE REFERENCE UNITS LAB L102.0000 0-20 mm/hr Normal SED RATE 17 Performed By: #### L100.0100, L101.9900 #### [facility] [address] [place], [address] BASIC METABOLIC Collected: 06/11/2018 Status: F Source: [place] PROFILE (BMP) 4:44 PM [facility] TYPE CODE TESTS RESULT OUT OF RANGE REFERENCE UNITS LAB L501.0100 74-106 mg/dL Normal GLU 83 Result Comment: Please note revised GLUCOSE reference range effective 2017. LAB L501.1000 7-18 mg/dL Normal BUN 12 LAB L501.1100 0.70-1.30 mg/dL Normal CREAT,SERUM 0.82 Result Comment: The validity of the calculated GFR AND GFRAA in patients over 70 years has not been determined. Clinical correlation is essential. LAB L501.1110 >60 mL/min Normal EST GFR 102 Result Comment: Non- GFR Calc LAB L501.1115 >60 mL/min Normal EST GFR - AA 123 Result Comment: GFR Calc LAB L501.1255 ml/min Normal Estimated CRCL 95.00 LAB L501.1300 10-20 RATIO Normal BUN/CRE 14.6 LAB L501.2200 8.5-10 mg/dL Normal .1 CA 9.2 LAB L501.5300 136-14 mmol/L Normal 5 NA 139 LAB L501.5600 3.5-5. mmol/L Normal 1 K 3.5 LAB L501.5900 98-107 mmol/L Normal CL 102 LAB L501.6100 21.0-3 mmol/L Normal 2.0 CO2 27.0 LAB L501.6200 5-15 Normal GAP 10 Performed By: #### L500.2500, L501.6710 #### [facility] [address] [place], [address] CRP Collected: 06/11/2018 Status: F Source: [place] 4:44 PM [facility] [place] TYPE CODE TESTS RESULT OUT OF RANGE REFERENCE UNITS LAB L501.6710 0.0-3.0 mg/L High 4.68 C-REACTIVE PROT Result Comment: C-Reactive Protein (CRP) provides useful information for the diagnosis, therapy and monitoring of inflammatory processes and associated diseases. For the evaluation of Relative Risk for Cardiovascular Disease, a High Sensitivity CRP (HSCRP) should be ordered. Performed By: #### L500.2500, L501.6710 #### [facility] [address] [place], [address] LOWER EXT ARTERIAL Observed: 06/10/2018 Status: F Source: [facility] 11:40 PM [facility] Cardiovascular Services [address] [place] [address] 06/10/18 2332 MR#: [id number] Acct: [id number] Name: EMBER ANDERSON Rep #: [id number] : 1960 57 From: Gilbert Shultz MD Attending Dr: Samuel Casarez MD Status: [facility] CLI Ordering Dr: Date: 06/10/18 Location: [facility] Sex: M C Admitted: Arterial Study - Arterial Study Arterial Study: This is a 57-year-old male with a history of smoking. He presents with an ulceration in the left lower extremity. Suspecting the presence of atherosclerotic peripheral arterial occlusive disease, the patient was brought to the noninvasive vascular laboratory at this time for the purpose of bilateral noninvasive lower extremity arterial assessment. Doppler signal assessment was used to evaluate the pulses at ankle level bilaterally. The posterior tibial and dorsalis pedis pulses were triphasic bilaterally. Segmental limb pressures were obtained at ankle level bilaterally. The right ankle pressure, as determined by posterior tibial pulse, was measured at 169 mmHg. The right ankle pressure, as determined by dorsalis pedis pulse, was measured at 188 mmHg. The left ankle pressure, as determined by posterior tibial pulse, was measured at 186 mmHg. The left ankle pressure, as determined by dorsalis pedis pulse, was measured at 184 mmHg. Pulse volume recordings were obtained bilaterally and segmentally. Waveform amplitudes appeared to be satisfactory at all levels bilaterally. Resting ankle brachial indices were calculated bilaterally. The resting right ankle brachial index was calculated to be 1.14. The resting left ankle brachial index was calculated to be 1.13. The patient was exercised on a treadmill at 1.8 mph and a 5% grade. Exercise was terminated after 1 minute and 40 seconds due to lower extremity pain. Ankle pressures were obtained 1 minute following cessation of exercise. The right ankle pressure was measured at 175 mmHg. The left ankle pressure was measured at 183 mmHg. Impression: Based upon the findings of this resting and exercise noninvasive lower extremity arterial study, the resting component of this arterial study is normal. Triphasic waveforms were noted at ankle level bilaterally. Resting ankle brachial indices were bilaterally normal. However, following exercise, ankle pressures diminished slightly bilaterally, which is an abnormal physiological response, and may be indicative of mild arterial occlusive disease in the lower extremities bilaterally, for which clinical correlation is advised. 06/10/18 2340 <Electronically signed by Gilbert Shultz MD> Date Gilbert Shlutz MD CC: Samuel Casarez MD Date Dictated: 06/10/182331 Date Transcribed: 06/10/182331 [employer] Laborer: LY Signed PT D/C SUMMARY (1) Observed: 06/04/2018 Status: F Source: [place] 6:49 AM [facility] Physical Therapy [facility] [address] [place] [address]. [address] [place], [place] [address] Fax REHABILITATION SERVICES DISCHARGE SUMMARY MR#: [id number] Acct: [id number] Name: EMBER ANDERSON Rep #: [id number] : 1960 57 From: Angelito Burgess DPT, OCS, CSCS Referring Dr.: Samuel Casarez MD Status: REG RCR Insurance: [employer] SELF PAY INSURANCE HP - PT D/C Summary It has been my pleasure to treat EMBER ANDERSON under orders from Samuel Casarez, for the diagnosis of LB DDD for a total of 3 visit(s). Discharge Date: 05/31/18 Please see the following information for a summary of their discharge status. - Subjective Subjective: Been doing exercises. Haven't noticed a whole lot of difference. They don't hurt anything. No f/u with doctor. Running around since 3:30 this am. - Pain R lateral leg. Pain Intensity (Out of 10): 10 - Overall Improvement % Improvement: 5 - Objective Objective/Function: Pt not feeling any better or moving any better overall. Limited by few visits due to large co-pay but consistent with HEP and not improving. recommend back to doctor for other options due to lack of progress. - Goals Goal 1:: Pain in LB and R posterior hip 75% better at 2/10 at worst and intermittent. Goal Progress: Not Progressing Goal 2:: I approp HEP to limit future problems with his degeneration. Goal Progress: Goal Met Goal 3:: Patient work without noticing increase in LBP Goal Progress: Not Progressing Goal 4:: Walk dog on Monday without pain in LB Goal Progress: Not Progressing - Plan Plan: D/C, pt to call and schedule with doc. - D/C Information Discharge Comments: Pt back to doctor for next medical step. He has been consistent with home ex but not improving. If there are questions or concerns regarding this patient's physical therapy, please feel free to call me at [phone]. Thank you for the referral of this patient. Sincerely, Angelito Burgess, DPT, OC <Electronically signed by Angelito Burgess DPT, OCS, CSCS> 06/04/18 0649 CC: Samuel Casarez MD EBG Signed INITAL EVALUATION (1) Observed: 04/25/2018 Status: F Source: [place] - PT 7:10 AM [facility] Physical Therapy [address] [place] [address] Fax REHABILITATION SERVICES INITIAL EVALUATION MR#: [id number] Acct: [id number] Name: AVRIL ANDERSON Rep #: [id number] : 1960 57 From: Angelito Burgess DPT, OCS, CSCS Referring Dr.: Samuel Casarez MD Status: REG R Insurance: [employer] SELF PAY INSURANCE Patient's Visit Information AVRIL ANDERSON is a 57 year old M referred to Physical Therapy by Samuel Casarez with a diagnosis of LB DDD. Date of Evaluation: 04/24/18 Physical Therapist: Angelito Burgess DPT, OC - Visit Plan Frequency: 1-2x /Week Duration: 4-6 Weeks Plan: 1-2x/week for 4-6 for initially weekly progression with list/pics of: LB AROM. HS, piriformis, glut adn quad/hip flexor stretches. Core strength for neutral spine and progression. Next session teach LB AROM and yoga flow. - Subjective Subjective: Has R leg pain whole leg hurts but mostly lateral hip and has been that way all summer. Insidious onset. No specific injury. New job working 50 hrs week on concrete one year ago. Has no back pain. Pain is OK in am and worse as days goes on. Worse on work days. 2 miles dog walk not as bad but worse monday then Monday. Week days are worse. 10 hour days . Walk to truck 50 yards is rough. Sleep is difficult to get comfy but not losing any sleep. Has problems in sciatic 30 years ago and no trouble since. 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 No hobbies anymore. Lives with and dogs. - Pain R lateral leg. Pain Intensity (Out of 10): 5 Pain Intensity Range: 0, 9 Comment: bettter with stretching(lying) - Objective R leg 8 mm shorter vs L. hunches over to walk and it feels better. LB AROM flexion tight adn not painful, R SB painful and mod limitied, L SB min limited, ext painful and mod limited. gluts, quads and HS mod tight with -30 90/90 test. reflexes 2/3 patella and achilles B. Sensation in LE B grossly WNL to light touch. strength 4+/5 in B LE without myotomal abnormalities. Hunched forward posture but finds post pelvic tilt well. Walks I with slight R antalgia and avoidance of ext of hip at end of swing. - Goals Goal 1:: Pain in LB and R posterior hip 75% better at 2/10 at worst and intermittent. Goal Time Frame: 4-6 Weeks Goal 2:: I approp HEP to limit future problems with his degeneration. Goal Time Frame: 4-6 Weeks Goal 3:: Patient work without noticing increase in LBP Goal Time Frame: 4-6 Weeks Goal 4:: Walk dog on Monday without pain in LB Goal Time Frame: 4-6 Weeks - Rehabilitation Potential Physical Therapy Diagnosis: LB DDD Rehabilitation Potential: Fair - Anticipated Interventions Patient/Client Instruction: Educate patient on: Condition For the Purpose of:: To decrease pain, To increase ROM, To improve ability of physical actions for home/community/work/leisure Therapeutic Exercise to Include: Strength training, Flexibilty training, Gait and locomotor training, Passive ROM, Active ROM, Dynamic Lumbar Stabilization For the Purpose of:: To decrease pain, To improve muscle performance and motor function, To increase tolerance to activity/condition/position, To improve ability of physical actions for home/community/work/leisure Thank you for the opportunity to evaluate your patient. For Medicare and Medicare HMO plans, please review the plan of care and approve it. It will need to be FAXED BACK to us at [phone] for Medicare purposes. Please let me know if there are questions or concerns regarding this plan of care. Physician Signature: Date: <Electronically signed by Angelito SHAHT, OCS, CSCS> 04/25/18 0710 CC: Samuel Casarez MD EBCheryl Signed For Medicare only, by signing this I certify the plan of care. Physicians Signature Date L/S SPINE MIN 4 Observed: 03/30/2018 Status: F Source: [place] VIEWS 4:59 PM [facility] HOSPITAL REPOSITORY [facility] Imaging Services [address] [place] [address] L/S Spine Min 4 Views MR#: [id number] Acct: [id number] Name: AVRIL ANDERSON Rep #: [id number] : 1960 M 57 From: Narayan Flowers MD PCP: Samuel Casarez MD Status: REG CLI Study: L/S Spine Min 4 Views Date of Exam: 03/30/18 Exam# [id number] Ordering Dr: Nahum Casarez MD STUDY: X-RAY - LUMBAR SPINE REASON FOR EXAM: Male, 57 years old. Back pain. TECHNIQUE: 5 view(s) of the lumbar spine were obtained. COMPARISON: None FINDINGS: Normal lumbar lordosis. There is no substantial scoliosis. There is 1.5 cm anterolisthesis of L5 on S1 probably from bilateral pars defects although this cannot be confirmed on the oblique views because of marked facet joint degenerative disease at all levels. There is multilevel spondylosis. There is moderate to severe multilevel degenerative disc disease and loss of disc height. The soft tissue structures are unremarkable. RAD/L/S Spine Min 4 Views IMPRESSION: Moderate to severe multilevel degenerative changes. 1.5 cm anterolisthesis of L5 on S1. No definite acute abnormalities. Electronically Signed: Narayan Flowers MD at 22:36 EDT , Service support , CC: Samuel Casarez MD [employer] Laborer: Signed EMERGENCY DEPARTMENT Observed: 09/05/2017 Status: F Source: [place] SUMMARY 12:46 AM [facility] HOSPITAL REPOSITORY [facility] Medical Records Department [address] [place] [address] Emergency Department Summary 09/04/17 1630 MR#: [id number] Acct: [id number] Name: AVRIL ANDERSON Rep #: [id number] : 1960 56 From: Alirio Ackerman MD PCP: Samuel Casarez MD Status: DEP ER 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 He reports he has pain in his left calf that began 2 days ago. It is a burning, aching pain that is 5 out of 10 at worst and 2 out of 10 currently. Reports pain is worse when he first begins walking, but improves if he continues moving. She relieved by rest. He denies any paresthesias distally. No trauma. No fall or MVA. Reports he has been on his feet a great deal more than usual over the past 6 months. Physical Examination: Vitals: Stable. Afebrile. General: Well-nourished and well-developed. Head: Normocephalic atraumatic. Neck: Supple, no lymphadenopathy. No JVD. Nontender. Cardiovascular: Regular rate and rhythm. No murmurs. Respiratory: No respiratory distress. Clear to auscultation bilaterally. Abdominal: Soft, nontender, nondistended, normal bowel sounds. No guarding, rebound, or peritoneal signs. Back: Nontender. Extremities: Mild tenderness to palpation over his left calf, no edema. 2+ dorsalis pedis pulses bilaterally. Skin: Normal color, no rash. Neurologic: Alert and oriented 3. Cranial nerves II through XII are intact. Normal strength and sensation. Psych: Normal affect. Test Results: Left lower extremity Doppler was negative. Emergency Department Course and Treatment: Patient refused pain medications. He is resting comfortably. Treatment Plan: He will be discharged instructions to follow- up Dr. Carpenter in 1 week if not improving. Disposition: To home in improved and stable condition. Impression: 1. Left calf pain, acute. This note was generated with [employer] dictation software. It may contain incorrect words, spelling, and punctuation that were not noted in review of the chart prior to signing ED Disposition - Plan for ED Patient: Chief Complaint: Lower Extremity Injury Instructions: ED Strain Muscle Ext Referrals: Nahum Casarez MD [Primary Care Provider] - 1 Week if not improving What to do if you have Problems For any increased pain, shortness of breath, bleeding, nausea or vomiting, chest pain, or any unexpected problems, contact your Primary Care Provider. Call [facility] ([phone]) or report to the closest Emergency Room. Call 911 if necessary. 09/05/17 0046 <Electronically signed by Alirio Ackerman MD> Date Aliroi Ackerman MD Cosigner Signature (If Indicated): Date CC: Samuel Casarez MD VENOUS DUPLEX LOWER Observed: 09/04/2017 Status: F Source: [place] EXTREMITY 8:19 PM [facility] Cardiovascular Services [address] [place] [address] Venous Duplex US, Unilateral 09/04/17 1616 MR#: [id number] Acct: [id number] Name: AVRIL ANDERSON Rep #: [id number] : 1960 56 From: Gilbert Shultz MD Attending Dr: Status: DEP ER Ordering Dr: Alirio Ackerman MD Date: 09/04/17 Location: ED Sex: M C Admitted: Reason For Study: LLE pain RIGHT LEFT CFV is compressible, spontaneous, phasic, GSV is normal. competent and demonstrates normal CFV is compressible, spontaneous, phasic, augmentation. competent, and demonstrates normal Procedure augmentation. Exam performed portable in ED. FV is compressible, spontaneous, phasic, The exam was diagnostic. competent and demonstrates normal A preliminary report was called and/or faxed augmentation. to Dr. Ackerman @ 4:25 pm. T/P Trunk is compressible. Image # 14 is LT PTVs. PTV is compressible. LT PerV is compressible. POP V is partially compressible with area of chronic wall thickening C/W previous DVT. POP V demonstrates reflux > 1.0 seconds upon augmentation. Interpretation Summary Chronic venous changes are noted in the left popliteal vein, which is partially compressible, incompetent, and demonstrates chronic vein wall thickening. The remainder of the left lower extremity deep venous system is patent and compressible. The left common femoral vein and femoral vein are competent. The left greater saphenous vein appears patent and compressible segmentally. Ordering Physician: Alirio Ackerman Referring Physician: Samuel Casarez Performed By: Mckayla Her RDCS, RVT 09/04/172018 Date Gilbert Shultz MD CC: Samuel Casarez MD; Alirio Ackerman MD Date Dictated: 09/04/17 1616 Date Transcribed: 09/04/172018 [employer] Laborer: Signed ALLERGIES ALLERGIES DATE TYPE / CODE NAME / CODE REACTION SEVERITY SOURCE 06/21/2018 Drug No Known Unknown [facility] Allergy/4160 Allergies/F00 Hospital 80491(SNOMED 4898711(RXNOR Repository CT) M) ENCOUNTERS ENCOUNTERS ADMIT/DISCHARGE ACCOUNT ADMITTING ENCOUNTER LOCATION SOURCE NUMBER CLASS 07/19/2018 [id number] Ambulatory [place] 6 [facility] ing:WC Repository 06/28/2018/ [id number] Ambulatory [place] 8 1 [facility] ing:WC Repository 06/22/2018 [id number] Ambulatory [place] 6 [facility] ing:MRI Repository 06/11/2018/ [id number] Emergency [place] 8 0 [facility] ing:ED Repository 06/08/2018 [id number] Ambulatory [place] 7 [facility] ing:CVS Repository 05/31/2018/ [id number] Ambulatory [place] 8 2 [facility] ing:PT Repository 03/30/2018 [id number] Ambulatory [place] 0 [facility] ing:MTRAD Repository 09/04/2017/ [id number] Emergency [place] 8 3 [facility] ing:ED Repository PAYERS PAYERS ENCOUNTER GUARANTOR PAYER SUBSCRIBER SOURCE 07/19/2018 EMBER E Primary EMBER E [place] [id number] CAMP Insurance:ANTHEMPolic BROOKSDOB: [facility] id y Number: [id number] Hospital 04[address]Fjb: 330 [id number] Repository [phone] () Date:4185-25-34LU [address] [place] [address] 18380NQ: 07/19/2018 Secondary EMBER E [place] Insurance:STANDARD [place]OOK[place]OB: [facility] LIFE ACCIDENTPolicy [id number] Hospital Number: Repository [id number] Date:7853-00-49NB [address] [address]XM, [place] [address]SK: 07/19/2018 Tertiary NOT GIVENUNK [place] Insurance:SELF PAY [facility] Number: Effective Repository Date:2018-07-03 06/28/2018 EMBER E Primary EMBER E [place] [id number] CAMP Insurance:ANTHEMPolic BROOKSDOB: [facility] id y Number: [id number] Hospital [address]Gsa: (330 [id number] Repository [phone] () Date:5763-41-69GQ [address] [place] [address]IZ: 06/28/2018 Secondary EMBER E [place] Insurance:STANDARD [place]OOK[place]OB: [facility] LIFE ACCIDENTPolicy [id number] Hospital Number: Repository [id number] Date:9654-49-94TK [address] [address], [address]XR: 06/28/2018 Tertiary NOT GIVENUNK [place] Insurance:SELF PAY [facility]: Effective Repository Date:2018-06-19 06/22/2018 EMBER E Primary EMBER E [place] [id number] C[address] Insurance:ANTHEMPolic [place]: [facility] [place] Number: [id number] Hospital [address]Mqv: (709) [id number] Repository [phone] () Date:5483-78-81CH [address] [place] [address]GR: 06/22/2018 Secondary EMBER E [place] Insurance:STANDARD [place]OOK[place]OB: [facility] LIFE ACCIDENTPoly [id number] Hospital Number: Repository [id number] Date:3187-82-33BO [address] [address] GUNNAR [address]ZP: 06/22/2018 Tertiary EMBER E [place] Insurance:[facility] PACKAGE [facility]OB[facility] Number: [id number] Hospital [id number] Repository Date:2018-06-11 06/22/2018 Tertiary NOT GIVENUNK [place] Insurance:SELF PAY [facility] Number: Effective Repository Date:2018-06-11 06/11/2018 EMBER E Primary EMBER E [place] [id number] CAMP Insurance:ANTHEMPolic [place]: [facility] [place] Number: [id number] Hospital 7[address]Mmg: (330 [id number] Repository [phone] () Date:2514-37-13XQ [address]FMQYC, [place] [address]NQ: 06/11/2018 Secondary NOT GIVENUNK [place] Insurance:SELF PAY [facility] Number: Effective Repository Date:2018-06-11 06/08/2018 EMBER E Primary EMBER E [place] [id number] CAMP Insurance:ANTHEMPolic [place]: [facility] [place] Number: [id number] Hospital 184[address]Thn: (111) [id number] Repository [phone] () Date:3978-29-45FX [address], [place] [address]GV: 06/08/2018 Secondary NOT GIVENUNK [place] Insurance:SELF PAY [facility] Number: Effective Repository Date:2018-05-22 05/31/2018 EMBER E Primary EMBER Brizuela [place] [id number] CAMP Insurance:ANTHEMPolic [place]: [facility] [place] Number: [id number] Hospital 34[address]Ulp: (330 [id number] Repository [phone] () Date:2254-32-73YC [address] [place] [address] 15[address]AG: 05/31/2018 Secondary NOT GIVENUNK [place] Insurance:SELF PAY [facility] Number: Effective Repository Date:2018-04-05 03/30/2018 AVRIL E Primary AVRIL Brizuela [place] [id number] CAMP Insurance:ANTHEMPolic [place]: [facility] [place] Number: [id number] Hospital [address]Mfy: (330 [id number] Repository [phone] () Date:3511-64-19JP [address] [place] [address]PW: 03/30/2018 Secondary NOT GIVENUNK [place] Insurance:SELF PAY [facility] Number: Effective Repository Date:2018-03-30 09/04/2017 AVRIL E Primary AVRIL Brizuela Tr[place] [id number] CAMP Insurance:ANTHEMPolic [place] Number: [id number] Hospital [address]Zem: (330 [id number] Repository [phone] () Date:5788-79-85XM [address] [place] [address] 984[address]IF: 09/04/2017 Secondary NOT GIVENUNK [place] Insurance:SELF PAY [facility] Number: Effective Repository Date:2017-09-04
== END 2018-06-11 19:46 | disposition home or self-care (01) ==
PROVIDERS: Emergency Provider Emergency Medicine; Family Provider Family Medicine; PCP Family Medicine
DX: L97.329 Non-pressure chronic ulcer of left ankle with unspecified severity (principal); L08.9 Local infection of the skin and subcutaneous tissue, unspecified; F17.200 Nicotine dependence, unspecified, uncomplicated
CPT/HCPCS: 73610; 80048; 85025; 85652; 86140; 99283; J7050; A4216

== ENCOUNTER → 2018-06-22 16:25 | Outpatient (CLI) | payer BC, OTHER, SELFPAY ==
[2018-06-21 09:48] VITALS: BMI 27.3
--- NOTE | 2018-06-22 16:37 | MRI_ITS ---
STUDY: MRI LUMBAR SPINE WITHOUT CONTRAST REASON FOR EXAM: Male, 57 years old. Back pain TECHNIQUE: Standardized fat and water weighted pulse sequences were obtained in the sagittal and axial planes. COMPARISON: None FINDINGS: There is exaggerated lumbar lordosis. There are NO acute compression fractures. There is generalized osteopenia. The conus medullaris ends at L1 and is normal in configuration. L1-2: There is moderate loss of disc height and disc bulging. There is mild facet arthropathy. There is NO spinal stenosis. There is severe LEFT foraminal stenosis. L2-3: There is significant loss of disc height. There is diffuse disc bulging and osteophytic ridging. There is moderate facet arthropathy. There is mild spinal stenosis and severe bilateral lateral recess stenosis and severe bilateral foraminal stenosis worse on the RIGHT. L3-4: There is significant loss of disc height. There is mild diffuse osteophytic ridging. There is mild facet arthropathy. There is moderate bilateral lateral recess stenosis greater on the LEFT. There is NO significant spinal stenosis. There is severe RIGHT foraminal stenosis. L4-5: There is significant loss of disc height. There is a focal posterior central disc herniation. The herniated fragment measures 9 mm. This causes bilateral lateral recess stenosis but NO significant spinal stenosis. There is bilateral facet hypertrophy. There is moderate RIGHT foraminal stenosis and mild LEFT foraminal stenosis. L5-S1: There is grade 1 anterior spondylolisthesis due to bilateral spondylolysis. There is diffuse disc bulging and bilateral facet hypertrophy. There is NO spinal stenosis. There is severe bilateral foraminal stenosis. Sacrum and sacroiliac joints are intact. There is NO paraspinal or epidural soft tissue abnormality or fluid collection. MRI/Spine Lumbar (Routine) IMPRESSION: There are chronic multilevel degenerative changes as described detail above. There is spondylolisthesis at L5-S1 due to spondylolysis. There is NO acute fracture. There is NO cord compression. Electronically Signed: Danis Enciso MD at 4:03 EST , Service support ,
== END ==
PROVIDERS: Family Provider Family Medicine; PCP Family Medicine; Referring Provider Family Medicine; Visit Provider Family Medicine
DX: M54.41 Lumbago with sciatica, right side (principal)
CPT/HCPCS: 72148

== ENCOUNTER 2018-06-28 09:15 | Outpatient (RCR) | payer BC, OTHER, SELFPAY ==
[2018-06-21 09:48] VITALS: BP 139/87; PULSE 77; RESP 18; TEMP 37.7; BMI 27.3
--- NOTE | 2018-06-21 10:14 | WC ---
DID NOT PERFORM LE EVALUATION. PT HAD ARTERIAL STUDIES JUN 2018.
--- NOTE | 2018-06-21 11:51 | HP.PCM_ITS ---
(1) Ulcer of left lower extremity with fat layer exposed Status: Acute Current Visit: Yes Code(s): L97.922 - Non-pressure chronic ulcer of unspecified part of left lower leg with fat layer exposed (2) Venous (peripheral) insufficiency Status: Acute Current Visit: Yes Code(s): I87.2 - Venous insufficiency (chronic) (peripheral) (3) Pain in left leg Status: Acute Current Visit: Yes Code(s): M79.605 - Pain in left leg (4) Lower extremity edema Status: Acute Current Visit: Yes Code(s): R60.0 - Localized edema (5) Delayed wound healing Status: Acute Current Visit: Yes Code(s): T14.8XXD - Other injury of unspecified body region, subsequent encounter History of Present Illness Date of Service: 06/21/18 Chief Complaint: left lower leg ulcers History of Wound: This 57-year-old male presents to the wound healing center after being referred here for two smaller nonhealing left lower medial leg ulcers. Patient says he had no trauma or injury to the area and that they came on out of nowhere and have stayed about the same for the last month and a half. Patient says about 10 days ago he noticed some slight redness around the area and increased pain so he went to the emergency room. Patient had x-rays taken that were negative for osteomyelitis and he was placed on a 14-day course of Augmentin. Patient says he has been doing well since the visit, but relates that the ulcer sites continue to stay the same size. He admits to using compression stockings in the past, but recently he has not been wearing them. Patient also recently had LEAS study completed and the results of this test are in the patient's chart. Patient denies any purulence to the area and denies any redness since his emergency room visit. Patient currently denies any feelings of nausea, vomiting, fever, chills. Past Medical History Allergies/Adverse Reactions: Allergies No Known Allergies Allergy (Verified 06/21/18 10:11) Home Medications: Ambulatory Orders Medication Instructions Recorded Amox/Clavulanate Tablet [Augmentin 875 mg PO Q12H #28 tab 06/11/18 Tablet] Aspirin [Aspirin, Baby] 81 mg PO DAILY@0800 06/11/18 Hydrocodone/Acetaminophen 1 each PO Q6H PRN 06/21/18 [Hydrocodon-Acetaminophen 5-325] Meloxicam [Mobic] 15 mg PO DAILY 06/21/18 Multivitamin [One Daily 1 each PO DAILY 06/21/18 Multivitamin] Smoking Status: Current every day smoker Review of Systems Constitutional: Denies: Chills, Fever, Weight Change Cardiovascular: Denies: Chest Pain, Palpitations Respiratory: Denies: Cough, Shortness of Breath Gastrointestinal: Denies: Diarrhea, Nausea, Vomiting Skin: Reports: - - Ulcers to left medial lower leg - Physical Exam Vital Signs Temp Pulse Resp BP 100 F H 77 18 139/87 H 06/21/18 09:48 06/21/18 09:48 06/21/18 09:48 06/21/18 09:48 General: Alert, Oriented x3, Cooperative, No apparent distress Extremities: No cyanosis, Capillary Refill Less than 3 Seconds - To distal digits, No Calf Tenderness - Negative Anastasiya and Echevarria sign, Diminished Peripheral Pulses - DP pulses palpable and PT pulses nonpalpable bilateral, Edema - Lower extremity edema appreciated Skin: Ulcer/ Wound - Ulcers with fat layer exposed and noted to left medial ankle one is inferior and one is superior. The base is noted to be a mixture of adherent slough, fibrin, biofilm, hyperkeratotic tissue surrounding. There is no probing to bone, no tracking, no undermining, no purulence, no malodor, no surrounding or extending cellulitis, no increase in warmth. Wound Measurements and Assessment WC - Nurse 1 - General Ulcer Measurement Start: 06/21/18 09:48 Freq: Status: Active Protocol: Activity Type Activity Date Activity User E-Sign Co-Sign Detail Recorded Client Recorded Date Recorded By Document 06/21/18 09:48 [facility] [id number] 06/21/18 10:08 [facility] 06/21/18 09:48 Wound Center Nurse 1 [Ulcer Assessment] #2- LLE MEDIAL -Combined with other wound No -Current Size (cm) - Length 0.4 -Current Size (cm) - Width 1.1 -Current Size (cm) - Depth 0.1 -Total Square Cm 0.44 -Date of Last Picture (Recall this 06/21/18 field) -Photo Taken Yes -Epithelialization None Present -Tunneling No -Undermining/Tunneling No -Circular Undermining No -Exudate Amt Small (1-33%) -Exudate Type Serosanguineous -Wound Margin Distinct, Outline Attached -Granulation Amt Small (1-33%) -Granulation Quality Red -Slough/Fibrin Yes -Necrosis Amt Large (67-100%) -Necrotic Tissue Type Adherent Slough -Texture (Justa-wound Skin Appearance) Scarring -Moisture (Justa-wound Skin Appearance Assessed ) Dry/Scaly -Color (Justa-wound Skin Appearance) Assessed Hemosiderin Staining -Temperature (Justa-wound Skin No Abnormality Appearance) (Pt Warm) -Tenderness on Palpation (Justa-wound No Skin Appearance) -Ulcer Cleansing Rinsed/ Irrigated with Saline -Foul Odor after Cleansing No -Anesthetic Used 5% Lidocaine Gel #1- LT ANKLE -Combined with other wound No -Current Size (cm) - Length 1.2 -Current Size (cm) - Width 1.5 -Current Size (cm) - Depth 0.2 -Total Square Cm 1.80 -Date of Last Picture (Recall this 06/21/18 field) -Photo Taken Yes -Epithelialization None Present -Tunneling No -Undermining/Tunneling No -Circular Undermining No -Exudate Amt Small (1-33%) -Exudate Type Serosanguineous -Wound Margin Distinct, Outline Attached -Granulation Amt Small (1-33%) -Granulation Quality Red -Slough/Fibrin Yes -Necrosis Amt Large (67-100%) -Necrotic Tissue Type Adherent Slough -Texture (Justa-wound Skin Appearance) Scarring -Moisture (Justa-wound Skin Appearance Assessed ) -Color (Justa-wound Skin Appearance) Assessed Hemosiderin Staining -Temperature (Justa-wound Skin No Abnormality Appearance) (Pt Warm) -Tenderness on Palpation (Justa-wound No Skin Appearance) -Ulcer Cleansing Rinsed/ Irrigated with Saline -Foul Odor after Cleansing No -Anesthetic Used 5% Lidocaine Gel [Edema Assessment] -Lower Limb Edema Present Yes -Right Calf (cm) 36.9 -Right Ankle (cm) 22.5 -Left Calf (cm) 38 -Left Ankle (cm) 25.1 WC - Nurse 2 - General Ulcer CM Notes Start: 06/21/18 09:48 Freq: Status: Active Protocol: Activity Type Activity Date Activity User E-Sign Co-Sign Detail Recorded Client Recorded Date Recorded By Document 12/20/18 10:32 DV [id number] 06/21/18 10:44 DV 06/21/18 10:32 Wound Center Nurse 2 [Procedure/Treatment] #2- LLE MEDIAL -Time 10:33 -Correct Patient Yes -Correct Side, Site, Position Yes -Correct Procedure Yes -Procedure Performed Yes -Type of Procedure Debridement -Clinical Debridement Subcutaneous -Post Debridement Size (cm) - Length 0.5 -Post Debridement Size (cm) - Width 1.1 -Post Debridement Size (cm) - Depth 0.2 -Total Square Cm 0.55 -Wound/Ulcer Outcome Not Healed -Ulcer Cleansing Rinsed/ Irrigated with Saline -Foul Odor after Cleansing No -Bioengineered Tissue No -Bleeding Controlled with Pressure -Offloading No -Treatment Response Procedure Not Tolerated Well #1- LT ANKLE -Time 10:34 -Correct Patient Yes -Correct Side, Site, Position Yes -Correct Procedure Yes -Procedure Performed Yes -Type of Procedure Debridement -Clinical Debridement Subcutaneous -Post Debridement Size (cm) - Length 1.5 -Post Debridement Size (cm) - Width 1.5 -Post Debridement Size (cm) - Depth 0.2 -Total Square Cm 2.25 -Wound/Ulcer Outcome Not Healed -Ulcer Cleansing Rinsed/ Irrigated with Saline -Foul Odor after Cleansing No -Bioengineered Tissue No -Bleeding Controlled with Pressure -Offloading No -Treatment Response Procedure Tolerated Well [See Physician Procedure note for Specifics] Pain Scale: 0-10 Numeric [Pain] -Is Patient Pain Free? Yes Musculoskeletal: Tenderness - With manipulation of ulcer sites Neurological: Sensory exam intact to light touch and pain Psych/Mental Status: Normal Affect, Appropriate Debridement Note Post-Debridement Measurements/Treatment WC - Nurse 2 - General Ulcer CM Notes Start: 06/21/18 09:48 Freq: Status: Active Protocol: Activity Type Activity Date Activity User E-Sign Co-Sign Detail Recorded Client Recorded Date Recorded By Document 06/21/18 10:32 DV [id number] 06/21/18 10:44 DV 06/21/18 10:32 Wound Center Nurse 2 #2- LLE MEDIAL -Time 10:33 -Correct Patient Yes -Correct Side, Site, Position Yes -Correct Procedure Yes -Procedure Performed Yes -Type of Procedure Debridement -Clinical Debridement Subcutaneous -Post Debridement Size (cm) - Length 0.5 -Post Debridement Size (cm) - Width 1.1 -Post Debridement Size (cm) - Depth 0.2 -Total Square Cm 0.55 -Wound/Ulcer Outcome Not Healed -Ulcer Cleansing Rinsed/ Irrigated with Saline -Foul Odor after Cleansing No -Bioengineered Tissue No -Bleeding Controlled with Pressure -Offloading No -Treatment Response Procedure Not Tolerated Well #1- LT ANKLE -Time 10:34 -Correct Patient Yes -Correct Side, Site, Position Yes -Correct Procedure Yes -Procedure Performed Yes -Type of Procedure Debridement -Clinical Debridement Subcutaneous -Post Debridement Size (cm) - Length 1.5 -Post Debridement Size (cm) - Width 1.5 -Post Debridement Size (cm) - Depth 0.2 -Total Square Cm 2.25 -Wound/Ulcer Outcome Not Healed -Ulcer Cleansing Rinsed/ Irrigated with Saline -Foul Odor after Cleansing No -Bioengineered Tissue No -Bleeding Controlled with Pressure -Offloading No -Treatment Response Procedure Tolerated Well Pain Scale: 0-10 Numeric Is Patient Pain Free? Yes Wound debrided: Left medial ankle superior Laterality: Left Type of Debridement: Excisional debridement Anesthesia Used: 4% Lidocaine Solution Depth: in the subcutaneous layer Percentage of wound debrided: 100 Tissue Removed: Adherent slough, fibrin, biofilm, hyperkeratotic tissue Severity: Fat Layer Exposed Amount of bleeding with debridement: Mild Bleeding Controlled with: Pressure Patient tolerated procedure well - Additional Wound Wound debrided: Left medial ankle inferior Laterality: Left Type of Debridement: Excisional debridement Anesthesia Used: 4% Lidocaine Solution Depth: in the subcutaneous layer Percentage of wound debrided: 100 Instrument Used: 7mm curette Tissue Removed: Adherent slough, fibrin, biofilm, hyperkeratotic tissue Severity: Fat Layer Exposed Amount of bleeding with debridement: Mild Bleeding Controlled with: Pressure Patient tolerated procedure: Patient tolerated procedure well Assessment/Plan Active Problems Ulcer of left lower extremity with fat layer exposed (Acute) Venous (peripheral) insufficiency (Acute) Pain in left leg (Acute) Lower extremity edema (Acute) Delayed wound healing (Acute) Assessment: Ulcer with fat layer exposed left lower leg, venous insufficiency, lower extremity edema, pain left lower leg Plan: Initial patient examination and evaluation was performed. A subcutaneous debridement was performed as noted in the clinical panel. Once complete, the ulcer sites were carefully cleansed and then dressed with silvercel, followed by dry sterile dressing and Tubigrip for compression. Patient is to change the dressing in this manner on a daily basis. Dressing supplies were ordered for the patient. Keeping compression to the lower extremities was discussed at length today and the importance of this was stressed to the patient. Patient is to offload the ulcer site at all times as well keeping shoe gear from rubbing the area as well as pressure while seated or laying down. Patient still has 4 days left of Augmentin. Currently, there are no signs of acute bacterial infection so no cultures or further antibiotics were prescribed today. Pre- albumin was ordered for the patient. Patient's baseline lab work from the emergency room was reviewed. Results are in the patient's chart. LEAS studies were performed with ABIs in the normal range. The full report is in the patient's chart. X-rays taken at the emergency room show no signs of osteomyelitis or gas in the soft tissue. Venous Doppler studies were ordered today for the patient and we will monitor for the results of the study. I also recommend nutritional supplementation with a high protein diet in order to optimize ulcer healing potential. Smoking cessation was discussed with this patient as well today. Patient was educated on all signs and symptoms of local and systemic infection, and he is instructed to go to the emergency room immediately should he notice any these. All other questions were answered to the patient's satisfaction. The patient will follow up at the wound healing center in 1 week to check on progress, or sooner if needed.
[2018-06-21 16:22] LABS: Prealbumin 24.7 mg/dL (20.0-40.0)
--- NOTE | 2018-06-27 14:47 | VDLE_ITS ---
Reason For Study: LLE ulcer RIGHT LEFT GSV is normal. GSV is normal. Acute deep vein thrombosis is noted in the CFV is compressible, spontaneous, phasic, right common femoral vein. competent, and demonstrates normal FV is compressible, spontaneous, phasic, augmentation. competent and demonstrates normal FV, POP V and T/P trunk are partially augmentation. compressible with bright intraluminal echoes POP V is compressible, spontaneous, phasic, consistant with chronic clot. POP V competent and demonstrates normal demonstrates INCOMPETENCY with augmentation. augmentation. PTV is compressible T/P Trunk is compressible. PER V is compressible PTV is compressible. SFJ is competent RT PerV is compressible. GSV is INCOMPETENT with refluxgreater than .5 SFJ is competent sec and diameter of .46 x .48 cm GSV is competent SSV is INCOMPETENT with reflux greater SSV is competent. than .5 sec and diameter of .26 x .28 cm. Procedure Exam performed in department. A preliminary report was called and/or faxed to [facility]. Interpretation Summary Acute deep vein thrombosis is noted in the right common femoral vein. The remainder of the right lower extremity deep venous system is patent and compressible. The right femoral vein and popliteal vein are competent. Chronic venous changes are noted in the left femoral vein, popliteal vein, and tibio-peroneal trunk, which are partially compressible and demonstrate bright intraluminal echogenicity. The remainder of the left lower extremity deep venous system is patent and compressible. The left common femoral vein is competent. The greater saphenous veins appear bilaterally patent and compressible segmentally. Sapheno-femoral junctions are bilaterally competent . The right greater saphenous vein appears segmentally competent. The left greater saphenous vein appears segmentally incompetent. The right small saphenous vein is patent and competent. The left small saphenous vein is patent and incompetent. Ordering Physician: Dinesh Cox Referring Physician: Samuel Casarez MD Performed By: Opal Stoddard RVT
[2018-06-28 09:13] VITALS: BP 139/85; PULSE 91; RESP 16; TEMP 37.2; BMI 27.3
--- NOTE | 2018-06-28 10:28 | PCM.WC.PN ---
(1) Ulcer of left lower extremity with fat layer exposed Status: Acute Current Visit: Yes Code(s): L97.922 - Non-pressure chronic ulcer of unspecified part of left lower leg with fat layer exposed (2) Venous (peripheral) insufficiency Status: Acute Current Visit: Yes Code(s): I87.2 - Venous insufficiency (chronic) (peripheral) (3) Pain in left leg Status: Acute Current Visit: Yes Code(s): M79.605 - Pain in left leg (4) Lower extremity edema Status: Acute Current Visit: Yes Code(s): R60.0 - Localized edema (5) Delayed wound healing Status: Acute Current Visit: Yes Code(s): T14.8XXD - Other injury of unspecified body region, subsequent encounter Type of Wound Chief Complaint: left lower leg ulcers History of Wound: This 57-year-old male presents to the wound healing center after being referred here for two smaller nonhealing left lower medial leg ulcers. Patient says he had no trauma or injury to the area and that they came on out of nowhere and have stayed about the same for the last month and a half. Patient says about 10 days ago he noticed some slight redness around the area and increased pain so he went to the emergency room. Patient had x-rays taken that were negative for osteomyelitis and he was placed on a 14-day course of Augmentin. Patient says he has been doing well since the visit, but relates that the ulcer sites continue to stay the same size. He admits to using compression stockings in the past, but recently he has not been wearing them. Patient also recently had LEAS study completed and the results of this test are in the patient's chart. Patient denies any purulence to the area and denies any redness since his emergency room visit. Patient currently denies any feelings of nausea, vomiting, fever, chills. Progress of Wound: Ulcers to left lower leg show improvement this week. Patient has been following dressing instructions and denies any feelings of nausea, vomiting, fever, or chills. He also relates his pain is getting a little better as well. - Physical Exam Vital Signs Temp Pulse Resp BP 98.9 F 91 16 139/85 H 06/28/18 09:13 06/28/18 09:13 06/28/18 09:13 06/28/18 09:13 General: Alert, Oriented x3, Cooperative, No apparent distress Extremities: No cyanosis, Capillary Refill Less than 3 Seconds, No Calf Tenderness - Negative Anastasiya and Echevarria sign, Diminished Peripheral Pulses - DP pulses palpable and PT pulses nonpalpable bilateral, Edema - Lower extremity edema noted Skin: Ulcer/ Wound - Ulcers with fat layer exposed and noted to left medial ankle one is inferior and one is superior. Improvement appreciated this week. The bases of each site continue to be a mixture of adherent slough, fibrin, biofilm, hyperkeratotic tissue surrounding. There is no probing to bone, no tracking, no undermining, no purulence, no malodor, no surrounding or extending cellulitis, no increase in warmth. Wound Measurements and Assessment WC - Nurse 1 - General Ulcer Measurement Start: 06/21/18 09:48 Freq: Status: Active Protocol: Activity Type Activity Date Activity User E-Sign Co-Sign Detail Recorded Client Recorded Date Recorded By Document 06/28/18 09:13 [facility] [id number] 06/28/18 09:24 [facility] 06/28/18 09:13 Wound Center Nurse 1 [Ulcer Assessment] #2- LLE MEDIAL -Combined with other wound No -Current Size (cm) - Length 0.3 -Current Size (cm) - Width 1.2 -Current Size (cm) - Depth 0.2 -Total Square Cm 0.36 -Photo Taken No -Epithelialization None Present -Tunneling No -Undermining/Tunneling No -Circular Undermining No -Exudate Amt Small (1-33%) -Exudate Type Serosanguineous -Wound Margin Distinct, Outline Attached -Granulation Amt None Present (0 %) -Slough/Fibrin Yes -Necrosis Amt Large (67-100%) -Necrotic Tissue Type Adherent Slough -Texture (Justa-wound Skin Appearance) Scarring -Moisture (Justa-wound Skin Appearance Dry/Scaly ) -Color (Justa-wound Skin Appearance) Hemosiderin Staining -Temperature (Justa-wound Skin No Abnormality Appearance) (Pt Warm) -Tenderness on Palpation (Justa-wound Yes Skin Appearance) -Ulcer Cleansing Rinsed/ Irrigated with Saline -Foul Odor after Cleansing No -Anesthetic Used 5% Lidocaine Gel #1- LT ANKLE -Combined with other wound No -Current Size (cm) - Length 0.9 -Current Size (cm) - Width 1.5 -Current Size (cm) - Depth 0.2 -Total Square Cm 1.35 -Photo Taken No -Epithelialization None Present -Tunneling No -Undermining/Tunneling No -Circular Undermining No -Exudate Amt Small (1-33%) -Exudate Type Serosanguineous -Wound Margin Distinct, Outline Attached -Granulation Amt None Present (0 %) -Slough/Fibrin Yes -Necrosis Amt Large (67-100%) -Necrotic Tissue Type Adherent Slough -Texture (Justa-wound Skin Appearance) Scarring -Moisture (Justa-wound Skin Appearance Dry/Scaly ) -Color (Justa-wound Skin Appearance) Hemosiderin Staining -Temperature (Justa-wound Skin No Abnormality Appearance) (Pt Warm) -Tenderness on Palpation (Justa-wound Yes Skin Appearance) -Ulcer Cleansing Rinsed/ Irrigated with Saline -Foul Odor after Cleansing No -Anesthetic Used 5% Lidocaine Gel [Edema Assessment] -Lower Limb Edema Present Yes -Right Calf (cm) 36.6 -Right Ankle (cm) 22.3 -Left Calf (cm) 36.6 -Left Ankle (cm) 24.4 WC - Nurse 2 - General Ulcer CM Notes Start: 06/21/18 09:48 Freq: Status: Active Protocol: Activity Type Activity Date Activity User E-Sign Co-Sign Detail Recorded Client Recorded Date Recorded By Document 06/28/18 09:52 DV [id number] 06/28/18 09:54 DV 06/28/18 09:52 Wound Center Nurse 2 [Procedure/Treatment] #2- LLE MEDIAL -Time 09:52 -Correct Patient Yes -Correct Side, Site, Position Yes -Correct Procedure Yes -Procedure Performed Yes -Type of Procedure Debridement -Clinical Debridement Subcutaneous -Post Debridement Size (cm) - Length 0.5 -Post Debridement Size (cm) - Width 1.0 -Post Debridement Size (cm) - Depth 0.2 -Total Square Cm 0.50 -Wound/Ulcer Outcome Not Healed -Ulcer Cleansing Rinsed/ Irrigated with Saline -Foul Odor after Cleansing No -Bioengineered Tissue No -Bleeding Controlled with Pressure -Offloading No -Treatment Response Procedure Tolerated Well #1- LT ANKLE -Time 09:53 -Correct Patient Yes -Correct Side, Site, Position Yes -Correct Procedure Yes -Procedure Performed Yes -Type of Procedure Debridement -Clinical Debridement Subcutaneous -Post Debridement Size (cm) - Length 1.1 -Post Debridement Size (cm) - Width 1.4 -Post Debridement Size (cm) - Depth 0.2 -Total Square Cm 1.54 -Wound/Ulcer Outcome Not Healed -Ulcer Cleansing Rinsed/ Irrigated with Saline -Foul Odor after Cleansing No -Bioengineered Tissue No -Bleeding Controlled with Pressure -Offloading No -Treatment Response Procedure Tolerated Well [See Physician Procedure note for Specifics] Pain Scale: 0-10 Numeric [Pain] -Is Patient Pain Free? Yes Musculoskeletal: Tenderness - With manipulation of ulcer sites Neurological: Sensory exam intact to light touch and pain Psych/Mental Status: Normal Affect, Appropriate Debridement Note Post-Debridement Measurements/Treatment WC - Nurse 2 - General Ulcer CM Notes Start: 06/21/18 09:48 Freq: Status: Active Protocol: Activity Type Activity Date Activity User E-Sign Co-Sign Detail Recorded Client Recorded Date Recorded By Document 06/21/18 10:32 DV [id number] 06/21/18 10:44 DV Document 06/28/18 09:52 DV [id number] 06/28/18 09:54 DV 06/21/18 06/28/18 10:32 09:52 Wound Center Nurse 2 #2- LLE MEDIAL -Time 10:33 09:52 -Correct Patient Yes Yes -Correct Side, Site, Position Yes Yes -Correct Procedure Yes Yes -Procedure Performed Yes Yes -Type of Procedure Debridement Debridement -Clinical Debridement Subcutaneous Subcutaneous -Post Debridement Size (cm) - Length 0.5 0.5 -Post Debridement Size (cm) - Width 1.1 1.0 -Post Debridement Size (cm) - Depth 0.2 0.2 -Total Square Cm 0.55 0.50 -Wound/Ulcer Outcome Not Healed Not Healed -Ulcer Cleansing Rinsed/ Rinsed/ Irrigated with Irrigated with Saline Saline -Foul Odor after Cleansing No No -Bioengineered Tissue No No -Bleeding Controlled with Pressure Pressure -Offloading No No -Treatment Response Procedure Not Procedure Tolerated Well Tolerated Well #1- LT ANKLE -Time 10:34 09:53 -Correct Patient Yes Yes -Correct Side, Site, Position Yes Yes -Correct Procedure Yes Yes -Procedure Performed Yes Yes -Type of Procedure Debridement Debridement -Clinical Debridement Subcutaneous Subcutaneous -Post Debridement Size (cm) - Length 1.5 1.1 -Post Debridement Size (cm) - Width 1.5 1.4 -Post Debridement Size (cm) - Depth 0.2 0.2 -Total Square Cm 2.25 1.54 -Wound/Ulcer Outcome Not Healed Not Healed -Ulcer Cleansing Rinsed/ Rinsed/ Irrigated with Irrigated with Saline Saline -Foul Odor after Cleansing No No -Bioengineered Tissue No No -Bleeding Controlled with Pressure Pressure -Offloading No No -Treatment Response Procedure Procedure Tolerated Well Tolerated Well Pain Scale: 0-10 Numeric Is Patient Pain Free? Yes Yes Wound debrided: Left medial ankle superior Laterality: Left Type of Debridement: Excisional debridement Anesthesia Used: 4% Lidocaine Solution, - - 2cc 1% lidocaine plain with epinephrine Depth: in the subcutaneous layer Percentage of wound debrided: 100 Instrument Used: 7mm curette Tissue Removed: Adherent slough, fibrin, biofilm, hyperkeratotic tissue Severity: Fat Layer Exposed Amount of bleeding with debridement: Mild Bleeding Controlled with: Pressure Patient tolerated procedure well - Additional Wound Wound debrided: Left medial ankle inferior Laterality: Left Type of Debridement: Excisional debridement Anesthesia Used: 4% Lidocaine Solution, - - 2 cc of 1% lidocaine with epinephrine Depth: in the subcutaneous layer Percentage of wound debrided: 100 Instrument Used: 7mm curette Tissue Removed: Adherent slough, fibrin, biofilm, hyperkeratotic tissue Severity: Fat Layer Exposed Amount of bleeding with debridement: Mild Bleeding Controlled with: Pressure Patient tolerated procedure: Patient tolerated procedure well Assessment/Plan Active Problems Ulcer of left lower extremity with fat layer exposed (Acute) Venous (peripheral) insufficiency (Acute) Pain in left leg (Acute) Lower extremity edema (Acute) Delayed wound healing (Acute) Assessment: Ulcer with fat layer exposed left lower leg, venous insufficiency, lower extremity edema, pain left lower leg Plan: Patient was carefully examined and evaluated again today. A subcutaneous debridement was performed as noted in the clinical panel. Once complete, the ulcer sites were carefully cleansed and then dressed with silvercel, followed by dry sterile dressing and Tubigrip for compression. Patient is to continue to change the dressing in this manner on a daily basis. Keeping compression to the left lower extremity was discussed at length today and the importance of this was stressed to the patient. Patient is to offload the ulcer site at all times as well keeping shoe gear from rubbing the area as well as pressure while seated or laying down. Patient finished his prescription of Augmentin. Currently, there are no signs of acute bacterial infection so no cultures or further antibiotics were prescribed today. LEAS studies were performed with ABIs in the normal range. The full report is in the patient's chart. X-rays taken at the emergency room show no signs of osteomyelitis or gas in the soft tissue. Venous Doppler studies were ordered. Acute DVT was noted in the right common femoral vein. Patient was seen by his primary care who placed him on blood thinners and is monitoring the situation. 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 We will discuss potential vascular consult in the future. The remaining venous Doppler report is in the patient's chart. I also recommend nutritional supplementation with a high protein diet in order to optimize ulcer healing potential. Smoking cessation was discussed with this patient again today. Patient was educated on all signs and symptoms of local and systemic infection, and he is instructed to go to the emergency room immediately should he notice any these. All other questions were answered to the patient's satisfaction. The patient will follow up at the wound healing center in 1 week to check on progress, or sooner if needed.
== END 2018-07-02 23:59 ==
LOC: WC 09:15
PROVIDERS: Family Provider Family Medicine; PCP Family Medicine; Referring Provider Podiatrist; Visit Provider Podiatrist
DX: I87.2 Venous insufficiency (chronic) (peripheral) (principal); M79.605 Pain in left leg; R60.0 Localized edema; F17.200 Nicotine dependence, unspecified, uncomplicated; L97.322 Non-pressure chronic ulcer of left ankle with fat layer exposed
CPT/HCPCS: 11042; 84134; 93970; 99214; G0463

== ENCOUNTER 2018-08-02 09:15 | Outpatient (RCR) | payer BC, OTHER, SELFPAY ==
[2018-07-03 01:36] VITALS: BP 139/85; PULSE 91; RESP 16; TEMP 37.2
[2018-07-05 09:13] VITALS: BP 153/85; PULSE 87; RESP 20; TEMP 36.4; BMI 27.3
--- NOTE | 2018-07-05 14:01 | PN.PCM_ITS ---
(1) Ulcer of left lower extremity with fat layer exposed Status: Acute Current Visit: No Code(s): L97.922 - Non-pressure chronic ulcer of unspecified part of left lower leg with fat layer exposed (2) Venous (peripheral) insufficiency Status: Acute Current Visit: No Code(s): I87.2 - Venous insufficiency (chronic) (peripheral) (3) Pain in left leg Status: Acute Current Visit: No Code(s): M79.605 - Pain in left leg (4) Lower extremity edema Status: Acute Current Visit: No Code(s): R60.0 - Localized edema (5) Delayed wound healing Status: Acute Current Visit: No Code(s): T14.8XXD - Other injury of unspecified body region, subsequent encounter Type of Wound Chief Complaint: left lower leg ulcers History of Wound: This 57-year-old male presents to the wound healing center after being referred here for two smaller nonhealing left lower medial leg ulcers. Patient says he had no trauma or injury to the area and that they came on out of nowhere and have stayed about the same for the last month and a half. Patient says about 10 days ago he noticed some slight redness around the area and increased pain so he went to the emergency room. Patient had x-rays taken that were negative for osteomyelitis and he was placed on a 14-day course of Augmentin. Patient says he has been doing well since the visit, but relates that the ulcer sites continue to stay the same size. He admits to using compression stockings in the past, but recently he has not been wearing them. Patient also recently had LEAS study completed and the results of this test are in the patient's chart. Patient denies any purulence to the area and denies any redness since his emergency room visit. Patient currently denies any feelings of nausea, vomiting, fever, chills. Progress of Wound: Ulcers to left lower leg stable. Patient has been following dressing instructions and denies any feelings of nausea, vomiting, fever, or chills. - Physical Exam Vital Signs Temp Pulse Resp BP 97.5 F L 87 20 H 153/85 H 07/05/18 09:13 07/05/18 09:13 07/05/18 09:13 07/05/18 09:13 General: Alert, Oriented x3, Cooperative, No apparent distress Extremities: No cyanosis, Capillary Refill Less than 3 Seconds, No Calf Tenderness, Diminished Peripheral Pulses - Negative Anastasiya and Echevarria sign DP pulses palpable and PT pulses nonpalpable bilateral, Edema - Lower extremity edema noted Skin: Ulcer/ Wound - Ulcers with fat layer exposed and noted to left medial ankle one is inferior and one is superior. Ulcers appear stable this week. The bases of each site continue to be a mixture of adherent slough, fibrin, biofilm, hyperkeratotic tissue surrounding. There is no probing to bone, no tracking, no undermining, no purulence, no malodor, no surrounding or extending cellulitis, no increase in warmth. Wound Measurements and Assessment WC - Nurse 1 - General Ulcer Measurement Start: 07/05/18 09:13 Freq: Status: Active Protocol: Activity Type Activity Date Activity User E-Sign Co-Sign Detail Recorded Client Recorded Date Recorded By Document 07/05/18 09:13 DL [id number] 07/05/18 09:22 DL 07/05/18 09:13 Wound Center Nurse 1 [Ulcer Assessment] #2- LLE MEDIAL -Current Size (cm) - Length 0.7 -Current Size (cm) - Width 1 -Current Size (cm) - Depth 0.2 -Total Square Cm 0.7 -Photo Taken No -Exudate Amt Small (1-33%) -Exudate Type Serosanguineous -Wound Margin Distinct, Outline Attached -Granulation Amt None Present (0 %) -Necrosis Amt Large (67-100%) -Necrotic Tissue Type Adherent Slough -Structure Exposed N/A -Texture (Justa-wound Skin Appearance) Scarring -Moisture (Justa-wound Skin Appearance Dry/Scaly ) -Color (Justa-wound Skin Appearance) Hemosiderin Staining Rubor -Temperature (Justa-wound Skin No Abnormality Appearance) (Pt Warm) -Tenderness on Palpation (Justa-wound Yes Skin Appearance) -Ulcer Cleansing Rinsed/ Irrigated with Saline -Foul Odor after Cleansing No -Anesthetic Used 5% Lidocaine Gel #1- LT ANKLE -Current Size (cm) - Length 1 -Current Size (cm) - Width 1.4 -Current Size (cm) - Depth 0.2 -Total Square Cm 1.4 -Photo Taken No -Exudate Amt Small (1-33%) -Exudate Type Serosanguineous -Wound Margin Distinct, Outline Attached -Granulation Amt Small (1-33%) -Granulation Quality [place] -Necrosis Amt Large (67-100%) -Necrotic Tissue Type Adherent Slough -Structure Exposed N/A -Texture (Justa-wound Skin Appearance) Localized Edema Scarring -Moisture (Justa-wound Skin Appearance Dry/Scaly ) -Color (Justa-wound Skin Appearance) Hemosiderin Staining Rubor -Temperature (Justa-wound Skin No Abnormality Appearance) (Pt Warm) -Tenderness on Palpation (Justa-wound No Skin Appearance) -Ulcer Cleansing Rinsed/ Irrigated with Saline -Foul Odor after Cleansing No -Anesthetic Used 5% Lidocaine Gel [Edema Assessment] -Left Calf (cm) 35 -Left Ankle (cm) 23.3 WC - Nurse 2 - General Ulcer CM Notes Start: 07/05/18 09:13 Freq: Status: Active Protocol: Activity Type Activity Date Activity User E-Sign Co-Sign Detail Recorded Client Recorded Date Recorded By Document 07/05/18 09:54 DV [id number] 07/05/18 09:57 DV 07/05/18 09:54 Wound Center Nurse 2 [Procedure/Treatment] #2- LLE MEDIAL -Time 09:55 -Correct Patient Yes -Correct Side, Site, Position Yes -Correct Procedure Yes -Procedure Performed Yes -Type of Procedure Debridement -Clinical Debridement Subcutaneous -Post Debridement Size (cm) - Length 1.0 -Post Debridement Size (cm) - Width 1.5 -Post Debridement Size (cm) - Depth 0.2 -Total Square Cm 1.50 -Wound/Ulcer Outcome Not Healed -Ulcer Cleansing Rinsed/ Irrigated with Saline -Foul Odor after Cleansing No -Bioengineered Tissue No -Bleeding Controlled with Pressure -Offloading No -Treatment Response Procedure Not Tolerated Well #1- LT ANKLE -Time 09:56 -Correct Patient Yes -Correct Side, Site, Position Yes -Correct Procedure Yes -Procedure Performed Yes -Type of Procedure Debridement -Clinical Debridement Subcutaneous -Post Debridement Size (cm) - Length 0.5 -Post Debridement Size (cm) - Width 1.0 -Post Debridement Size (cm) - Depth 0.2 -Total Square Cm 0.50 -Foul Odor after Cleansing No -Bioengineered Tissue No -Bleeding Controlled with Pressure -Offloading No -Treatment Response Procedure Not Tolerated Well [See Physician Procedure note for Specifics] Pain Scale: 0-10 Numeric [Pain] -Is Patient Pain Free? Yes Musculoskeletal: Tenderness - With manipulation of ulcer sites Neurological: Sensory exam intact to light touch and pain Psych/Mental Status: Normal Affect, Appropriate Debridement Note Post-Debridement Measurements/Treatment WC - Nurse 2 - General Ulcer CM Notes Start: 07/05/18 09:13 Freq: Status: Active Protocol: Activity Type Activity Date Activity User E-Sign Co-Sign Detail Recorded Client Recorded Date Recorded By Document 07/05/18 09:54 DV [id number] 07/05/18 09:57 DV 07/05/18 09:54 Wound Center Nurse 2 #2- LLE MEDIAL -Time 09:55 -Correct Patient Yes -Correct Side, Site, Position Yes -Correct Procedure Yes -Procedure Performed Yes -Type of Procedure Debridement -Clinical Debridement Subcutaneous -Post Debridement Size (cm) - Length 1.0 -Post Debridement Size (cm) - Width 1.5 -Post Debridement Size (cm) - Depth 0.2 -Total Square Cm 1.50 -Wound/Ulcer Outcome Not Healed -Ulcer Cleansing Rinsed/ Irrigated with Saline -Foul Odor after Cleansing No -Bioengineered Tissue No -Bleeding Controlled with Pressure -Offloading No -Treatment Response Procedure Not Tolerated Well #1- LT ANKLE -Time 09:56 -Correct Patient Yes -Correct Side, Site, Position Yes -Correct Procedure Yes -Procedure Performed Yes -Type of Procedure Debridement -Clinical Debridement Subcutaneous -Post Debridement Size (cm) - Length 0.5 -Post Debridement Size (cm) - Width 1.0 -Post Debridement Size (cm) - Depth 0.2 -Total Square Cm 0.50 -Foul Odor after Cleansing No -Bioengineered Tissue No -Bleeding Controlled with Pressure -Offloading No -Treatment Response Procedure Not Tolerated Well Pain Scale: 0-10 Numeric Is Patient Pain Free? Yes Wound debrided: Left medial ankle superior Laterality: Left Type of Debridement: Excisional debridement Anesthesia Used: 4% Lidocaine Solution Depth: in the subcutaneous layer Percentage of wound debrided: 100 Instrument Used: 7mm curette Tissue Removed: Adherent slough, fibrin, biofilm, hyperkeratotic tissue Severity: Fat Layer Exposed Amount of bleeding with debridement: Mild Bleeding Controlled with: Pressure Patient tolerated procedure well - Additional Wound Wound debrided: Left medial ankle inferior Laterality: Left Type of Debridement: Excisional debridement Anesthesia Used: 4% Lidocaine Solution Depth: in the subcutaneous layer Percentage of wound debrided: 100 Instrument Used: 7mm curette Tissue Removed: Adherent slough, fibrin, biofilm, hyperkeratotic tissue Severity: Fat Layer Exposed Amount of bleeding with debridement: Mild Bleeding Controlled with: Pressure Patient tolerated procedure: Patient tolerated procedure well Assessment/Plan Assessment: Ulcer with fat layer exposed left lower leg, venous insufficiency, lower extremity edema, pain left lower leg Plan: Patient was carefully examined and evaluated again today. A subcutaneous debridement was performed as noted in the clinical panel. Once complete, the ulcer sites were carefully cleansed and then dressed with silvercel, followed by dry sterile dressing and Tubigrip for compression. Patient is to continue to change the dressing in this manner on a daily basis. Keeping compression to the left lower extremity was discussed at length today and the importance of this was stressed to the patient. Patient is to offload the ulcer site at all times as well keeping shoe gear from rubbing the area as well as pressure while seated or laying down. LEAS studies were performed with ABIs in the normal range. The full report is in the patient's chart. X-rays taken at the emergency room show no signs of osteomyelitis or gas in the soft tissue. Venous Doppler studies were ordered. Acute DVT was noted in the right common femoral vein. Patient was seen by his primary care who placed him on blood thinners and is monitoring the situation. 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 We will discuss potential vascular consult in the future. The remaining venous Doppler report is in the patient's chart. I also recommend nutritional supplementation with a high protein diet in order to optimize ulcer healing potential. Smoking cessation was discussed with this patient again today. Patient was educated on all signs and symptoms of local and systemic infection, and he is instructed to go to the emergency room immediately should he notice any these. All other questions were answered to the patient's satisfaction. The patient will follow up at the wound healing center in 1 week to check on progress, or sooner if needed.
[2018-07-12 08:06] VITALS: BP 131/87; PULSE 78; RESP 18; TEMP 36.5; BMI 27.3
--- NOTE | 2018-07-12 08:34 | PN.PCM_ITS ---
(1) Ulcer of left lower extremity with fat layer exposed Status: Acute Current Visit: No Code(s): L97.922 - Non-pressure chronic ulcer of unspecified part of left lower leg with fat layer exposed (2) Venous (peripheral) insufficiency Status: Acute Current Visit: No Code(s): I87.2 - Venous insufficiency (chronic) (peripheral) (3) Pain in left leg Status: Acute Current Visit: No Code(s): M79.605 - Pain in left leg (4) Lower extremity edema Status: Acute Current Visit: No Code(s): R60.0 - Localized edema (5) Delayed wound healing Status: Acute Current Visit: No Code(s): T14.8XXD - Other injury of unspecified body region, subsequent encounter Type of Wound Chief Complaint: left lower leg ulcers History of Wound: This 57-year-old male presents to the wound healing center after being referred here for two smaller nonhealing left lower medial leg ulcers. Patient says he had no trauma or injury to the area and that they came on out of nowhere and have stayed about the same for the last month and a half. Patient says about 10 days ago he noticed some slight redness around the area and increased pain so he went to the emergency room. Patient had x-rays taken that were negative for osteomyelitis and he was placed on a 14-day course of Augmentin. Patient says he has been doing well since the visit, but relates that the ulcer sites continue to stay the same size. He admits to using compression stockings in the past, but recently he has not been wearing them. Patient also recently had LEAS study completed and the results of this test are in the patient's chart. Patient denies any purulence to the area and denies any redness since his emergency room visit. Patient currently denies any feelings of nausea, vomiting, fever, chills. Progress of Wound: Ulcers to left lower leg stable. Patient says he stopped using the silvercel 3 days after his last visit and just switched to neosporin and bandage. He said that he also is refusing debridement today. He denies any feelings of nausea, vomiting, fever, or chills. - Physical Exam Vital Signs Temp Pulse Resp BP 97.7 F L 78 18 131/87 H 07/12/18 08:06 07/12/18 08:06 07/12/18 08:06 07/12/18 08:06 General: Alert, Oriented x3, Cooperative, No apparent distress Extremities: Capillary Refill Less than 3 Seconds, No Calf Tenderness - Negative Anastasiya and Echevarria sign, Diminished Peripheral Pulses - DP pulses palpable and PT pulses nonpalpable bilateral, Edema - Slight lower extremity edema Skin: Ulcer/ Wound - Ulcers with fat layer exposed noted to left medial ankle with one inferior and one superior. Ulcer stable this week again. The bases of each ulcer site are a mixture of adherent slough, fibrin, biofilm, hyp erkeratotic tissue. There continues to be no probing to bone, no tracking, no undermining, no purulence, no malodor, no surrounding or extending cellulitis, no increase in warmth. Wound Measurements and Assessment WC - Nurse 1 - General Ulcer Measurement Start: 07/05/18 09:13 Freq: Status: Active Protocol: Activity Type Activity Date Activity User E-Sign Co-Sign Detail Recorded Client Recorded Date Recorded By Document 07/12/18 08:06 DV [id number] 07/12/18 08:15 DV 07/12/18 08:06 Wound Center Nurse 1 [Ulcer Assessment] #2- LLE MEDIAL -Combined with other wound No -Current Size (cm) - Length 0.6 -Current Size (cm) - Width 1.0 -Current Size (cm) - Depth 0.2 -Total Square Cm 0.60 -Photo Taken No -Epithelialization Small 1-33% -Tunneling No -Undermining/Tunneling No -Circular Undermining No -Classification - Thickness Full Thickness without Exposed Support Structure -Exudate Amt None Present -Exudate Type Serosanguineous -Wound Margin Indistinct, Non -Visible -Granulation Amt None Present (0 %) -Granulation Quality N/A -Slough/Fibrin Yes -Necrosis Amt Large (67-100%) -Necrotic Tissue Type Adherent Slough -Structure Exposed None/Limited to Skin Breakdown -Texture (Justa-wound Skin Appearance) Assessed Localized Edema Scarring -Moisture (Justa-wound Skin Appearance No Abnormality ) Assessed -Color (Justa-wound Skin Appearance) Assessed Erythema -Temperature (Justa-wound Skin No Abnormality Appearance) (Pt Warm) -Tenderness on Palpation (Justa-wound Yes Skin Appearance) -Ulcer Cleansing Rinsed/ Irrigated with Saline -Foul Odor after Cleansing No #1- LT ANKLE -Combined with other wound No -Current Size (cm) - Length 0.9 -Current Size (cm) - Width 1.4 -Current Size (cm) - Depth 0.2 -Total Square Cm 1.26 -Photo Taken No -Epithelialization None Present -Tunneling No -Undermining/Tunneling No -Circular Undermining No -Classification - Thickness Full Thickness without Exposed Support Structure -Exudate Amt Small -Exudate Type Serosanguineous -Granulation Amt None Present (0 %) -Granulation Quality N/A -Slough/Fibrin Yes -Necrosis Amt Large (67-100%) -Necrotic Tissue Type Adherent Slough -Structure Exposed None/Limited to Skin Breakdown -Texture (Justa-wound Skin Appearance) Assessed Localized Edema Scarring -Moisture (Justa-wound Skin Appearance Assessed ) -Color (Justa-wound Skin Appearance) Assessed -Temperature (Justa-wound Skin No Abnormality Appearance) (Pt Warm) -Tenderness on Palpation (Justa-wound No Skin Appearance) -Ulcer Cleansing Rinsed/ Irrigated with Saline -Foul Odor after Cleansing No WC - Nurse 2 - General Ulcer CM Notes Start: 07/05/18 09:13 Freq: Status: Active Protocol: Activity Type Activity Date Activity User E-Sign Co-Sign Detail Recorded Client Recorded Date Recorded By Document 07/12/18 08:16 DV [id number] 07/12/18 08:26 DV 07/12/18 08:16 Wound Center Nurse 2 [Procedure/Treatment] #2- LLE MEDIAL -Time 08:18 -Correct Patient Yes -Correct Side, Site, Position Yes -Procedure Performed No -Wound/Ulcer Outcome Not Healed -Other Pt refused treatment #1- LT ANKLE -Time 08:18 -Correct Patient Yes -Correct Side, Site, Position Yes -Procedure Performed No -Wound/Ulcer Outcome Not Healed -Other Pt refused treatment [See Physician Procedure note for Specifics] Pain Scale: 0-10 Numeric [Pain] -Is Patient Pain Free? Yes Musculoskeletal: Tenderness - With manipulation of ulcer sites Neurological: Sensory exam intact to light touch and pain Psych/Mental Status: Normal Affect, Appropriate Debridement Note Post-Debridement Measurements/Treatment WC - Nurse 2 - General Ulcer CM Notes Start: 07/05/18 09:13 Freq: Status: Active Protocol: Activity Type Activity Date Activity User E-Sign Co-Sign Detail Recorded Client Recorded Date Recorded By Document 07/05/18 09:54 DV [id number] 07/05/18 09:57 DV Document 07/12/18 08:16 DV [id number] 07/12/18 08:26 DV 07/05/18 07/12/18 09:54 08:16 Wound Center Nurse 2 #2- LLE MEDIAL -Time 09:55 08:18 -Correct Patient Yes Yes -Correct Side, Site, Position Yes Yes -Correct Procedure Yes -Procedure Performed Yes No -Type of Procedure Debridement -Clinical Debridement Subcutaneous -Post Debridement Size (cm) - Length 1.0 -Post Debridement Size (cm) - Width 1.5 -Post Debridement Size (cm) - Depth 0.2 -Total Square Cm 1.50 -Wound/Ulcer Outcome Not Healed Not Healed -Ulcer Cleansing Rinsed/ Irrigated with Saline -Foul Odor after Cleansing No -Bioengineered Tissue No -Bleeding Controlled with Pressure -Other Pt refused treatment -Offloading No -Treatment Response Procedure Not Tolerated Well #1- LT ANKLE -Time 09:56 08:18 -Correct Patient Yes Yes -Correct Side, Site, Position Yes Yes -Correct Procedure Yes -Procedure Performed Yes No -Type of Procedure Debridement -Clinical Debridement Subcutaneous -Post Debridement Size (cm) - Length 0.5 -Post Debridement Size (cm) - Width 1.0 -Post Debridement Size (cm) - Depth 0.2 -Total Square Cm 0.50 -Wound/Ulcer Outcome Not Healed -Foul Odor after Cleansing No -Bioengineered Tissue No -Bleeding Controlled with Pressure -Other Pt refused treatment -Offloading No -Treatment Response Procedure Not Tolerated Well Pain Scale: 0-10 Numeric Is Patient Pain Free? Yes Yes No debridement was completed today Assessment/Plan Assessment: Ulcer with fat layer exposed left lower leg, venous insufficiency, lower extremity edema, pain left lower leg Plan: Patient was carefully examined and evaluated again today. Patient has been noncompliant in his care over the last week. He stopped daily dressing changes with silvercel as instructed. Patient also denies debridement today. He is wondering what other options he has other than debridement. I again discussed the reason for debriding on a weekly basis as well as its importance in ulcer healing. Patient still denies at this time. We will proceed with prescribing the patient Santyl. Santyl will be applied to the base per recommended guidelines, and then dressed with a dry sterile dressing. Patient is to continue to change the dressing in this manner on a daily basis. Keeping compression to the left lower extremity was discussed at length today and the importance of this was stressed to the patient. Patient is to offload the ulcer site at all times as well keeping shoe gear from rubbing the area as well as pressure while seated or laying down. LEAS studies were performed with ABIs in the normal range. The full report is in the patient's chart. X-rays taken at the emergency room show no signs of osteomyelitis or gas in the soft tissue. Venous Doppler studies were ordered. Acute DVT was noted in the right common femoral vein. Patient was seen by his primary care who placed him on blood thinners and is monitoring the situation. 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 We will discuss potential vascular consult in the future. The remaining venous Doppler report is in the patient's chart. I also recommend nutritional supplementation with a high protein diet in order to optimize ulcer healing potential. Smoking cessation was discussed with this patient again today. Patient was educated on all signs and symptoms of local and systemic infection, and he is instructed to go to the emergency room immediately should he notice any these. All other questions were answered to the patient's satisfaction. The patient will follow up at the wound healing center in 1 week to check on progress, or sooner if needed.
[2018-07-19 09:15] VITALS: RESP 16; TEMP 37.2; BMI 27.3
--- NOTE | 2018-07-19 09:41 | PN.PCM_ITS ---
(1) Ulcer of left lower extremity with fat layer exposed Status: Acute Current Visit: No Code(s): L97.922 - Non-pressure chronic ulcer of unspecified part of left lower leg with fat layer exposed (2) Venous (peripheral) insufficiency Status: Acute Current Visit: No Code(s): I87.2 - Venous insufficiency (chronic) (peripheral) (3) Pain in left leg Status: Acute Current Visit: No Code(s): M79.605 - Pain in left leg (4) Lower extremity edema Status: Acute Current Visit: No Code(s): R60.0 - Localized edema (5) Delayed wound healing Status: Acute Current Visit: No Code(s): T14.8XXD - Other injury of unspecified body region, subsequent encounter Type of Wound Chief Complaint: left lower leg ulcers History of Wound: This 57-year-old male presents to the wound healing center after being referred here for two smaller nonhealing left lower medial leg ulcers. Patient says he had no trauma or injury to the area and that they came on out of nowhere and have stayed about the same for the last month and a half. Patient says about 10 days ago he noticed some slight redness around the area and increased pain so he went to the emergency room. Patient had x-rays taken that were negative for osteomyelitis and he was placed on a 14-day course of Augmentin. Patient says he has been doing well since the visit, but relates that the ulcer sites continue to stay the same size. He admits to using compression stockings in the past, but recently he has not been wearing them. Patient also recently had LEAS study completed and the results of this test are in the patient's chart. Patient denies any purulence to the area and denies any redness since his emergency room visit. Patient currently denies any feelings of nausea, vomiting, fever, chills. Progress of Wound: Ulcers to left lower leg stable with maybe slight improvement since last week. Patient has been using santyl. Patient refusing debridement again today. He denies any feelings of nausea, vomiting, fever, or chills. - Physical Exam Vital Signs Temp Pulse Resp BP 98.9 F 78 16 131/87 H 07/19/18 09:15 07/12/18 08:06 07/19/18 09:15 07/12/18 08:06 General: Alert, Oriented x3, Cooperative, No apparent distress Extremities: Capillary Refill Less than 3 Seconds, No Calf Tenderness, Diminished Peripheral Pulses - Negative Anastasiya and Echevarria sign DP pulses palpable PT pulses nonpalpable bilateral, Edema - Slight lower extremity edema Skin: Ulcer/ Wound - Ulcers with fat layer exposed noted to left medial ankle with one inferior and one superior. Ulcers stable again this week with very slight improvement noted. The bases of each site are noted to be a mixture of adherent slough, fibrin, biofilm, hyperkeratotic tissue. There continues to be no probing to bone, no tracking, no undermining, no purulence, no malodor, no surrounding or extending cellulitis, no increase in warmth. Wound Measurements and Assessment WC - Nurse 1 - General Ulcer Measurement Start: 07/05/18 09:13 Freq: Status: Active Protocol: Activity Type Activity Date Activity User E-Sign Co-Sign Detail Recorded Client Recorded Date Recorded By Document 07/19/18 09:15 [facility] [id number] 07/19/18 09:23 [facility] 07/19/18 09:15 Wound Center Nurse 1 [Ulcer Assessment] #2- LLE MEDIAL -Combined with other wound No -Current Size (cm) - Length 0.3 -Current Size (cm) - Width 1 -Current Size (cm) - Depth 0.2 -Total Square Cm 0.3 -Photo Taken No -Epithelialization None Present -Tunneling No -Undermining/Tunneling No -Circular Undermining No -Exudate Amt Small -Exudate Type Serous -Wound Margin Distinct, Outline Attached -Granulation Amt Medium (34-66%) -Granulation Quality Red -Slough/Fibrin Yes -Necrosis Amt Medium (34-66%) -Necrotic Tissue Type Adherent Slough -Texture (Justa-wound Skin Appearance) Scarring -Moisture (Justa-wound Skin Appearance Dry/Scaly ) -Color (Justa-wound Skin Appearance) Hemosiderin Staining -Temperature (Justa-wound Skin No Abnormality Appearance) (Pt Warm) -Tenderness on Palpation (Justa-wound Yes Skin Appearance) -Ulcer Cleansing Rinsed/ Irrigated with Saline -Foul Odor after Cleansing No -Anesthetic Used 5% Lidocaine Gel #1- LT ANKLE -Combined with other wound No -Current Size (cm) - Length 1.1 -Current Size (cm) - Width 1.4 -Current Size (cm) - Depth 0.2 -Total Square Cm 1.54 -Photo Taken No -Epithelialization None Present -Tunneling No -Undermining/Tunneling No -Circular Undermining No -Exudate Amt Small -Exudate Type Serous -Wound Margin Distinct, Outline Attached -Granulation Amt None Present (0 %) -Slough/Fibrin Yes -Necrosis Amt Large (67-100%) -Necrotic Tissue Type Adherent Slough -Texture (Justa-wound Skin Appearance) Scarring -Moisture (Justa-wound Skin Appearance Dry/Scaly ) -Color (Justa-wound Skin Appearance) Hemosiderin Staining -Temperature (Justa-wound Skin No Abnormality Appearance) (Pt Warm) -Tenderness on Palpation (Justa-wound Yes Skin Appearance) -Ulcer Cleansing Rinsed/ Irrigated with Saline -Foul Odor after Cleansing No -Anesthetic Used 5% Lidocaine Gel [Edema Assessment] -Lower Limb Edema Present Yes -Left Calf (cm) 37.5 -Left Ankle (cm) 24 Musculoskeletal: Tenderness - With manipulation of ulcer sites Neurological: Sensory exam intact to light touch and pain Psych/Mental Status: Normal Affect, Appropriate Debridement Note Post-Debridement Measurements/Treatment WC - Nurse 2 - General Ulcer CM Notes Start: 07/05/18 09:13 Freq: Status: Active Protocol: Activity Type Activity Date Activity User E-Sign Co-Sign Detail Recorded Client Recorded Date Recorded By Document 07/05/18 09:54 DV [id number] 07/05/18 09:57 DV Document 07/12/18 08:16 DV [id number] 07/12/18 08:26 DV 07/05/18 07/12/18 09:54 08:16 Wound Center Nurse 2 #2- LLE MEDIAL -Time 09:55 08:18 -Correct Patient Yes Yes -Correct Side, Site, Position Yes Yes -Correct Procedure Yes -Procedure Performed Yes No -Type of Procedure Debridement -Clinical Debridement Subcutaneous -Post Debridement Size (cm) - Length 1.0 -Post Debridement Size (cm) - Width 1.5 -Post Debridement Size (cm) - Depth 0.2 -Total Square Cm 1.50 -Wound/Ulcer Outcome Not Healed Not Healed -Ulcer Cleansing Rinsed/ Irrigated with Saline -Foul Odor after Cleansing No -Bioengineered Tissue No -Bleeding Controlled with Pressure -Other Pt refused treatment -Offloading No -Treatment Response Procedure Not Tolerated Well #1- LT ANKLE -Time 09:56 08:18 -Correct Patient Yes Yes -Correct Side, Site, Position Yes Yes -Correct Procedure Yes -Procedure Performed Yes No -Type of Procedure Debridement -Clinical Debridement Subcutaneous -Post Debridement Size (cm) - Length 0.5 -Post Debridement Size (cm) - Width 1.0 -Post Debridement Size (cm) - Depth 0.2 -Total Square Cm 0.50 -Wound/Ulcer Outcome Not Healed -Foul Odor after Cleansing No -Bioengineered Tissue No -Bleeding Controlled with Pressure -Other Pt refused treatment -Offloading No -Treatment Response Procedure Not Tolerated Well Pain Scale: 0-10 Numeric Is Patient Pain Free? Yes Yes No debridement was completed today Assessment/Plan Assessment: Ulcer with fat layer exposed left lower leg, venous insufficiency, lower extremity edema, pain left lower leg Plan: Patient was carefully examined and evaluated again today. Patient refuses debridement again today. I again discussed the reason for debriding on a weekly basis as well as its importance in ulcer healing. We will continue with Santyl. Santyl will be applied to the base per recommended guidelines, and then dressed with a dry sterile dressing. Patient is to continue to change the dressing in this manner on a daily basis. Keeping compression to the left lower extremity was discussed at length today and the importance of this was stressed to the patient. Patient is to offload the ulcer site at all times as well keeping shoe gear from rubbing the area as well as pressure while seated or laying down. LEAS studies were performed with ABIs in the normal range. The full report is in the patient's chart. X-rays taken at the emergency room show no signs of osteomyelitis or gas in the soft tissue. Venous Doppler studies were ordered. Acute DVT was noted in the right common femoral vein. Patient was seen by his primary care who placed him on blood thinners and is monitoring the situation. 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 We will discuss potential vascular consult in the future. The remaining venous Doppler report is in the patient's chart. I also recommend nutritional supplementation with a high protein diet in order to optimize ulcer healing potential. Smoking cessation was discussed with this patient again today. Patient was educated on all signs and symptoms of local and systemic infection, and he is instructed to go to the emergency room immediately should he notice any these. All other questions were answered to the patient's satisfaction. The patient will follow up at the wound healing center in 1 week to check on progress, or sooner if needed.
[2018-08-02 09:15] VITALS: BP 131/81; PULSE 78; RESP 18; TEMP 36.4; BMI 27.3
--- NOTE | 2018-08-02 09:57 | PN.PCM_ITS ---
(1) Ulcer of left lower extremity with fat layer exposed Status: Acute Current Visit: No Code(s): L97.922 - Non-pressure chronic ulcer of unspecified part of left lower leg with fat layer exposed (2) Venous (peripheral) insufficiency Status: Acute Current Visit: No Code(s): I87.2 - Venous insufficiency (chronic) (peripheral) (3) Pain in left leg Status: Acute Current Visit: No Code(s): M79.605 - Pain in left leg (4) Lower extremity edema Status: Acute Current Visit: No Code(s): R60.0 - Localized edema (5) Delayed wound healing Status: Acute Current Visit: No Code(s): T14.8XXD - Other injury of unspecified body region, subsequent encounter Type of Wound Chief Complaint: left lower leg ulcers History of Wound: This 57-year-old male presents to the wound healing center after being referred here for two smaller nonhealing left lower medial leg ulcers. Patient says he had no trauma or injury to the area and that they came on out of nowhere and have stayed about the same for the last month and a half. Patient says about 10 days ago he noticed some slight redness around the area and increased pain so he went to the emergency room. Patient had x-rays taken that were negative for osteomyelitis and he was placed on a 14-day course of Augmentin. Patient says he has been doing well since the visit, but relates that the ulcer sites continue to stay the same size. He admits to using compression stockings in the past, but recently he has not been wearing them. Patient also recently had LEAS study completed and the results of this test are in the patient's chart. Patient denies any purulence to the area and denies any redness since his emergency room visit. Patient currently denies any feelings of nausea, vomiting, fever, chills. Progress of Wound: Ulcers to left lower leg show improvement since patient was last seen. Patient has been using santyl daily to the areas. Patient refusing debridement again today. Patient missed his appointment last week. He denies any feelings of nausea, vomiting, fever, or chills. - Physical Exam Vital Signs Temp Pulse Resp BP 97.5 F L 78 18 131/81 H 08/02/18 09:15 08/02/18 09:15 08/02/18 09:15 08/02/18 09:15 General: Alert, Oriented x3, Cooperative, No apparent distress Extremities: Capillary Refill Less than 3 Seconds, No Calf Tenderness - Negative Anastasiya and Echevarria sign, Diminished Peripheral Pulses - DP pulses palpable and PT pulses nonpalpable bilateral, Edema - Slight lower extremity edema Skin: Ulcer/ Wound - Ulcers with fat layer exposed noted to left medial ankle with one inferior and one superior. Ulcers show improvement this week. The bases of each site are noted to be a mixture of adherent slough, fibrin, granular tissue, and surrounding hyperkeratotic tissue. There continues to be no probing to bone, no tracking, no undermining, no purulence, no malodor, no surrounding or extending cellulitis, no increase in warmth. Wound Measurements and Assessment WC - Nurse 1 - General Ulcer Measurement Start: 07/05/18 09:13 Freq: Status: Active Protocol: Activity Type Activity Date Activity User E-Sign Co-Sign Detail Recorded Client Recorded Date Recorded By Document 08/02/18 09:15 DL [id number] 08/02/18 09:21 DL 08/02/18 09:15 Wound Center Nurse 1 [Ulcer Assessment] #2- LLE MEDIAL -Current Size (cm) - Length 0.4 -Current Size (cm) - Width 0.6 -Current Size (cm) - Depth 0.1 -Total Square Cm 0.24 -Photo Taken No -Exudate Amt None Present -Wound Margin Flat & Intact -Granulation Amt Small (1-33%) -Granulation Quality [place] -Necrosis Amt Small (1-33%) -Necrotic Tissue Type Adherent Slough -Structure Exposed N/A -Texture (Justa-wound Skin Appearance) Scarring -Moisture (Justa-wound Skin Appearance No Abnormality ) -Color (Justa-wound Skin Appearance) Hemosiderin Staining -Temperature (Justa-wound Skin No Abnormality Appearance) (Pt Warm) -Tenderness on Palpation (Justa-wound No Skin Appearance) -Ulcer Cleansing Rinsed/ Irrigated with Saline -Foul Odor after Cleansing No -Anesthetic Used 5% Lidocaine Gel #1- LT ANKLE -Current Size (cm) - Length 0.3 -Current Size (cm) - Width 0.7 -Current Size (cm) - Depth 0.1 -Total Square Cm 0.21 -Photo Taken No -Exudate Amt Small -Exudate Type Serosanguineous -Wound Margin Flat & Intact -Granulation Amt Small (1-33%) -Granulation Quality [place] -Necrosis Amt Small (1-33%) -Necrotic Tissue Type Adherent Slough -Structure Exposed N/A -Texture (Justa-wound Skin Appearance) Scarring -Moisture (Justa-wound Skin Appearance No Abnormality ) -Color (Justa-wound Skin Appearance) Hemosiderin Staining -Temperature (Justa-wound Skin No Abnormality Appearance) (Pt Warm) -Tenderness on Palpation (Justa-wound No Skin Appearance) -Ulcer Cleansing Rinsed/ Irrigated with Saline -Foul Odor after Cleansing No -Anesthetic Used 5% Lidocaine Gel [Edema Assessment] -Left Calf (cm) 35 -Left Ankle (cm) 23.5 - Nurse 2 - General Ulcer CM Notes Start: 07/05/18 09:13 Freq: Status: Active Protocol: Activity Type Activity Date Activity User E-Sign Co-Sign Detail Recorded Client Recorded Date Recorded By Document 08/02/18 09:34 HALIE [id number] 08/02/18 09:35 08/02/18 09:34 Wound Center Nurse 2 [Procedure/Treatment] #2- LLE MEDIAL -Correct Patient No -Correct Side, Site, Position No -Correct Procedure No -Procedure Performed No -Wound/Ulcer Outcome Not Healed #1- LT ANKLE -Correct Patient No -Correct Side, Site, Position No -Correct Procedure No -Procedure Performed No -Wound/Ulcer Outcome Not Healed [See Physician Procedure note for Specifics] Pain Scale: 0-10 Numeric [Pain] -Is Patient Pain Free? Yes Musculoskeletal: Tenderness - With manipulation of ulcer sites Neurological: Sensory exam intact to light touch and pain Psych/Mental Status: Normal Affect, Appropriate Debridement Note Post-Debridement Measurements/Treatment - Nurse 2 - General Ulcer CM Notes Start: 07/05/18 09:13 Freq: Status: Active Protocol: Activity Type Activity Date Activity User E-Sign Co-Sign Detail Recorded Client Recorded Date Recorded By Document 07/05/18 09:54 DV [id number] 07/05/18 09:57 DV Document 07/12/18 08:16 DV [id number] 07/12/18 08:26 DV Document 08/02/18 09:34 JF [id number] 08/02/18 09:35 JF 07/05/18 07/12/18 08/02/18 09:54 08:16 09:34 Wound Center Nurse 2 #2- LLE MEDIAL -Time 09:55 08:18 -Correct Patient Yes Yes No -Correct Side, Site, Position Yes Yes No -Correct Procedure Yes No -Procedure Performed Yes No No -Type of Procedure Debridement -Clinical Debridement Subcutaneous -Post Debridement Size (cm) - Length 1.0 -Post Debridement Size (cm) - Width 1.5 -Post Debridement Size (cm) - Depth 0.2 -Total Square Cm 1.50 -Wound/Ulcer Outcome Not Healed Not Healed Not Healed -Ulcer Cleansing Rinsed/ Irrigated with Saline -Foul Odor after Cleansing No -Bioengineered Tissue No -Bleeding Controlled with Pressure -Other Pt refused treatment -Offloading No -Treatment Response Procedure Not Tolerated Well #1- LT ANKLE -Time 09:56 08:18 -Correct Patient Yes Yes No -Correct Side, Site, Position Yes Yes No -Correct Procedure Yes No -Procedure Performed Yes No No -Type of Procedure Debridement -Clinical Debridement Subcutaneous -Post Debridement Size (cm) - Length 0.5 -Post Debridement Size (cm) - Width 1.0 -Post Debridement Size (cm) - Depth 0.2 -Total Square Cm 0.50 -Wound/Ulcer Outcome Not Healed Not Healed -Foul Odor after Cleansing No -Bioengineered Tissue No -Bleeding Controlled with Pressure -Other Pt refused treatment -Offloading No -Treatment Response Procedure Not Tolerated Well Pain Scale: 0-10 Numeric Is Patient Pain Free? Yes Yes Yes No debridement was completed today Assessment/Plan Assessment: Ulcer with fat layer exposed left lower leg, venous insufficiency, lower extremity edema, pain left lower leg Plan: Patient was carefully examined and evaluated again today after missing his appointment last week. Improvement appreciated today. Patient refuses debridement again today. I again discussed the reason for debriding on a weekly basis as well as its importance in ulcer healing. We will continue with Santyl again at this time. Santyl will be applied to the base per recommended guidelines, and then dressed with a dry sterile dressing. Patient is to continue to change the dressing in this manner on a daily basis. Keeping compression to the left lower extremity was discussed at length today and the importance of this was stressed to the patient again today. Patient is to offload the ulcer site at all times as well keeping shoe gear from rubbing the area as well as pressure while seated or laying down. LEAS studies were performed with ABIs in the normal range. The full report is in the patient's chart. X-rays taken at the emergency room show no signs of osteomyelitis or gas in the soft tissue. Venous Doppler studies were ordered. Acute DVT was noted in the right common femoral vein. Patient was seen by his primary care who placed him on blood thinners and is monitoring the situation. 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 We will discuss potential vascular consult in the future. The remaining venous Doppler report is in the patient's chart. I also recommend nutritional supplementation with a high protein diet in order to optimize ulcer healing potential. Smoking cessation was discussed with this patient again today. Patient was educated on all signs and symptoms of local and systemic infection, and he is instructed to go to the emergency room immediately should he notice any these. All other questions were answered to the patient's satisfaction. The patient will follow up at the wound healing center in 1 week to check on progress, or sooner if needed.
== END 2018-08-02 23:59 ==
LOC: WC 09:15
PROVIDERS: Family Provider Family Medicine; PCP Family Medicine; Referring Provider Podiatrist; Visit Provider Podiatrist
DX: I87.2 Venous insufficiency (chronic) (peripheral) (principal); M79.605 Pain in left leg; R60.0 Localized edema; F17.200 Nicotine dependence, unspecified, uncomplicated; L97.322 Non-pressure chronic ulcer of left ankle with fat layer exposed
CPT/HCPCS: 11042; 97602; 99213; 99214; G0463

== ENCOUNTER → 2018-08-09 09:39 | Outpatient (CLI) | payer BC, OTHER, SELFPAY ==
[2018-08-09 08:46] VITALS: BMI 27.3
--- NOTE | 2018-08-09 09:44 | VDLE_ITS ---
Reason For Study: F/U RT CFV clot RIGHT LEFT GSV is normal. CFV is compressible, spontaneous, phasic, CFV is compressible, spontaneous, phasic, competent, and demonstrates normal competent and demonstrates normal augmentation. augmentation. FV is compressible, spontaneous, phasic, competent and demonstrates normal augmentation. POP V is compressible, spontaneous, phasic, competent and demonstrates normal augmentation. T/P Trunk is compressible. PTV is compressible. RT PerV is compressible. Apparent resolution of CFV thrombus. CFV is now compressible. Procedure Exam performed in department. A preliminary report was called and/or faxed to Dr. Casarez. Interpretation Summary Deep veins of the right lower extremity are patent and compressible segmentally. There is no evidence of right lower extremity deep vein thrombosis. Valvular competence appears intact within the proximal deep venous system on the right . The right greater saphenous vein appears patent and compressible segmentally. There has been resolution of the acute deep vein thrombosis in the right common femoral vein which was previously noted on a prior study dated 06/27/2018. Ordering Physician: Samuel Casarez Referring Physician: Nahum Casarez Performed By: Opal Stoddard RVT
== END ==
PROVIDERS: Family Provider Family Medicine; PCP Family Medicine; Referring Provider Family Medicine; Visit Provider Family Medicine
DX: I82.409 Acute embolism and thrombosis of unspecified deep veins of unspecified lower extremity (principal)
CPT/HCPCS: 93971

== ENCOUNTER 2018-08-23 09:15 | Outpatient (RCR) | payer BC, OTHER, SELFPAY ==
[2018-08-03 01:35] VITALS: BP 131/81; PULSE 78; RESP 18; TEMP 36.4
[2018-08-09 08:46] VITALS: BP 145/76; PULSE 72; RESP 18; TEMP 36.9; BMI 27.3
--- NOTE | 2018-08-09 09:00 | PCM.WC.PN ---
(1) Ulcer of left lower extremity with fat layer exposed Status: Acute Current Visit: No Code(s): L97.922 - Non-pressure chronic ulcer of unspecified part of left lower leg with fat layer exposed (2) Venous (peripheral) insufficiency Status: Acute Current Visit: No Code(s): I87.2 - Venous insufficiency (chronic) (peripheral) (3) Pain in left leg Status: Acute Current Visit: No Code(s): M79.605 - Pain in left leg (4) Lower extremity edema Status: Acute Current Visit: No Code(s): R60.0 - Localized edema (5) Delayed wound healing Status: Acute Current Visit: No Code(s): T14.8XXD - Other injury of unspecified body region, subsequent encounter Type of Wound Chief Complaint: left lower leg ulcers History of Wound: This 57-year-old male presents to the wound healing center after being referred here for two smaller nonhealing left lower medial leg ulcers. Patient says he had no trauma or injury to the area and that they came on out of nowhere and have stayed about the same for the last month and a half. Patient says about 10 days ago he noticed some slight redness around the area and increased pain so he went to the emergency room. Patient had x-rays taken that were negative for osteomyelitis and he was placed on a 14-day course of Augmentin. Patient says he has been doing well since the visit, but relates that the ulcer sites continue to stay the same size. He admits to using compression stockings in the past, but recently he has not been wearing them. Patient also recently had LEAS study completed and the results of this test are in the patient's chart. Patient denies any purulence to the area and denies any redness since his emergency room visit. Patient currently denies any feelings of nausea, vomiting, fever, chills. Progress of Wound: Ulcers to left lower leg show improvement again this week. Patient has continued santyl daily to the areas. Patient refusing debridement again today. Patient missed his appointment last week. He denies any feelings of nausea, vomiting, fever, or chills. - Physical Exam Vital Signs Temp Pulse Resp BP 98.4 F 72 18 145/76 H 08/09/18 08:46 08/09/18 08:46 08/09/18 08:46 08/09/18 08:46 General: Alert, Oriented x3, Cooperative, No apparent distress Extremities: Capillary Refill Less than 3 Seconds, No Calf Tenderness, Diminished Peripheral Pulses - Negative Anastasiya and Echevarria sign DP pulses palpable and PT pulses nonpalpable bilateral, Edema - Slight lower extremity edema Skin: Ulcer/ Wound - Ulcers with fat layer exposed noted to left medial ankle with one inferior and one superior. Ulcers show improvement again this week. The bases of each site are noted to be a mixture of adherent slough, fibrin, granular tissue, and surrounding hyperkeratotic tissue. There continues to be no probing to bone, no tracking, no undermining, no purulence, no malodor, no surrounding or extending cellulitis, no increase in warmth. Wound Measurements and Assessment WC - Nurse 1 - General Ulcer Measurement Start: 08/09/18 08:46 Freq: Status: Active Protocol: Activity Type Activity Date Activity User E-Sign Co-Sign Detail Recorded Client Recorded Date Recorded By Document 08/09/18 08:46 RB [id number] 08/09/18 08:57 RB 08/09/18 08:46 Wound Center Nurse 1 [Ulcer Assessment] #2- LLE MEDIAL -Combined with other wound No Musculoskeletal: Tenderness - With manipulation of ulcer sites Neurological: Sensory exam intact to light touch and pain Psych/Mental Status: Normal Affect, Appropriate Debridement Note No debridement was completed today Assessment/Plan Assessment: Ulcer with fat layer exposed left lower leg, venous insufficiency, lower extremity edema, pain left lower leg Plan: Patient was carefully examined and evaluated again today. Improvement appreciated again today. Patient refuses debridement again today. I again discussed the reason for debriding on a weekly basis as well as its importance in ulcer healing. We will continue with Santyl again at this time. Santyl will be applied to the base per recommended guidelines, and then dressed with a dry sterile dressing. Patient is to continue to change the dressing in this manner on a daily basis. Keeping compression to the left lower extremity was discussed at length today and the importance of this was stressed to the patient again today. Patient is to offload the ulcer site at all times as well keeping shoe gear from rubbing the area as well as pressure while seated or laying down. LEAS studies were performed with ABIs in the normal range. The full report is in the patient's chart. X-rays taken at the emergency room show no signs of osteomyelitis or gas in the soft tissue. Venous Doppler studies were ordered. Acute DVT was noted in the right common femoral vein. Patient was seen by his primary care who placed him on blood thinners and is monitoring the situation. 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 We will discuss potential vascular consult in the future. The remaining venous Doppler report is in the patient's chart. Patient has follow up study for DVT again today. I also recommend nutritional supplementation with a high protein diet in order to optimize ulcer healing potential. Smoking cessation was discussed with this patient again today. Patient was educated on all signs and symptoms of local and systemic infection, and he is instructed to go to the emergency room immediately should he notice any these. All other questions were answered to the patient's satisfaction. The patient will follow up at the wound healing center in 1 week to check on progress, or sooner if needed.
[2018-08-23 09:17] VITALS: BP 142/88; PULSE 92; RESP 16; TEMP 37.2; BMI 27.3
--- NOTE | 2018-08-23 09:35 | PCM.WC.PN ---
(1) Ulcer of left lower extremity with fat layer exposed Status: Acute Current Visit: No Code(s): L97.922 - Non-pressure chronic ulcer of unspecified part of left lower leg with fat layer exposed (2) Venous (peripheral) insufficiency Status: Acute Current Visit: No Code(s): I87.2 - Venous insufficiency (chronic) (peripheral) (3) Pain in left leg Status: Acute Current Visit: No Code(s): M79.605 - Pain in left leg (4) Lower extremity edema Status: Acute Current Visit: No Code(s): R60.0 - Localized edema (5) Delayed wound healing Status: Acute Current Visit: No Code(s): T14.8XXD - Other injury of unspecified body region, subsequent encounter Type of Wound Chief Complaint: left lower leg ulcers History of Wound: This 57-year-old male presents to the wound healing center after being referred here for two smaller nonhealing left lower medial leg ulcers. Patient says he had no trauma or injury to the area and that they came on out of nowhere and have stayed about the same for the last month and a half. Patient says about 10 days ago he noticed some slight redness around the area and increased pain so he went to the emergency room. Patient had x-rays taken that were negative for osteomyelitis and he was placed on a 14-day course of Augmentin. Patient says he has been doing well since the visit, but relates that the ulcer sites continue to stay the same size. He admits to using compression stockings in the past, but recently he has not been wearing them. Patient also recently had LEAS study completed and the results of this test are in the patient's chart. Patient denies any purulence to the area and denies any redness since his emergency room visit. Patient currently denies any feelings of nausea, vomiting, fever, chills. Progress of Wound: Ulcers to left lower leg appear healed without any signs of local infection appreciated. - Physical Exam Vital Signs Temp Pulse Resp BP 98.9 F 92 16 142/88 H 08/23/18 09:17 08/23/18 09:17 08/23/18 09:17 08/23/18 09:17 General: Alert, Oriented x3, Cooperative, No apparent distress Extremities: Capillary Refill Less than 3 Seconds, No Calf Tenderness - Negative Anastasiya and Echevarria sign, Diminished Peripheral Pulses - DP pulses palpable and PT pulses nonpalpable, Edema - Slight lower extremity edema Skin: Ulcer/ Wound - Previous ulcers to left medial ankle are healed today without any surrounding signs or symptoms of local infection appreciated. Wound Measurements and Assessment WC - Nurse 1 - General Ulcer Measurement Start: 08/09/18 08:46 Freq: Status: Active Protocol: Activity Type Activity Date Activity User E-Sign Co-Sign Detail Recorded Client Recorded Date Recorded By Document 08/23/18 09:17 [facility] [id number] 08/23/18 09:22 [facility] 08/23/18 09:17 Wound Center Nurse 1 [Ulcer Assessment] #2- LLE MEDIAL -Combined with other wound No -Current Size (cm) - Length 0.1 -Current Size (cm) - Width 0.1 -Current Size (cm) - Depth 0.1 -Total Square Cm 0.01 -Date of Last Picture (Recall this 08/23/18 field) -Epithelialization Large 67-100% -Tunneling No -Undermining/Tunneling No -Circular Undermining No #1- LT ANKLE -Combined with other wound No -Current Size (cm) - Length 0.1 -Current Size (cm) - Width 0.1 -Current Size (cm) - Depth 0.1 -Total Square Cm 0.01 -Date of Last Picture (Recall this 08/23/18 field) -Photo Taken Yes -Epithelialization Large 67-100% -Tunneling No -Undermining/Tunneling No -Circular Undermining No [Edema Assessment] -Lower Limb Edema Present No -Left Calf (cm) 36.5 -Left Ankle (cm) 23.5 Musculoskeletal: - - Improved tenderness in areas of previous ulcers Neurological: Sensory exam intact to light touch and pain Psych/Mental Status: Normal Affect, Appropriate Debridement Note Post-Debridement Measurements/Treatment WC - Nurse 2 - General Ulcer CM Notes Start: 08/09/18 08:46 Freq: Status: Active Protocol: Activity Type Activity Date Activity User E-Sign Co-Sign Detail Recorded Client Recorded Date Recorded By Document 08/09/18 09:02 [id number] 08/09/18 09:03 DV 08/09/18 09:02 Wound Center Nurse 2 #2- LLE MEDIAL -Time 09:02 -Correct Patient Yes -Correct Side, Site, Position Yes -Procedure Performed No -Wound/Ulcer Outcome Not Healed #1- LT ANKLE -Time 09:02 -Correct Patient Yes -Correct Side, Site, Position Yes -Procedure Performed No -Wound/Ulcer Outcome Not Healed Pain Scale: 0-10 Numeric Is Patient Pain Free? Yes No debridement was completed today Assessment/Plan Assessment: Ulcer with fat layer exposed left lower leg, venous insufficiency, lower extremity edema, pain left lower leg Plan: Patient was carefully examined and evaluated again today. Patient appears healed at this time without any signs or symptoms of local bacterial infection noted. Patient said an area to his lower leg looked as though it was breaking out over a week ago, but he saw a doctor at [place] who prescribed him triamcinolone and he says this cleared everything up quickly. He is to continue this as prescribed by his other doctor. Keeping compression to the left lower extremity was discussed at length today and discussed the importance in this in keeping his lower legs from breaking down in the future. Patient is to offload the previous ulcer site while the skin continues to strengthen and remodel. Smoking cessation was discussed with this patient again today. Patient was educated on all signs and symptoms of local and systemic infection, and he is instructed to go to the emergency room immediately should he notice any these. All other questions were answered to the patient's satisfaction. The patient will follow up at the wound healing center at this time on an as needed basis, or sooner if needed.
== END 2018-08-30 23:59 ==
LOC: WC 09:15
PROVIDERS: Family Provider Family Medicine; PCP Family Medicine; Referring Provider Podiatrist; Visit Provider Podiatrist
DX: I87.2 Venous insufficiency (chronic) (peripheral) (principal); L97.322 Non-pressure chronic ulcer of left ankle with fat layer exposed; M79.605 Pain in left leg; R60.0 Localized edema
CPT/HCPCS: 97602; 99212; 99213; G0463

== ENCOUNTER → 2018-09-19 10:10 | Outpatient (CLI) | payer BC, OTHER, SELFPAY ==
[2018-08-23 09:17] VITALS: BMI 27.3
[2018-09-19 12:51] LABS: Absolute Lymphocyte Count 1.24 X10^3/ul (0.83-4.51); Absolute Neutrophil Count 4.9 X10^3/uL (2.0-7.7); Basophil# 0.04 X10^3/uL; Basophil% 0.6 % (0-1); Eosinophil# 0.14 X10^3/uL; Erythrocyte Sedimentation Rate 7 mm/hr (0-20); Hematocrit 40.1 % (40-54); Hemoglobin 13.5 g/dl (13.0-16.5); Lymphocyte # 1.24 X10^3/ul (4.0); Lymphocyte % 17.8 % (19-41); Mean Corp Hgb Conc 33.7 g/gl (32-36); Mean Corpuscular Hgb 33.8 pg (27.0-32.0); Mean Corpuscular Volume 100.5 fL (80-94); Mean Platelet Vol. 9.1 fl (6.2-12.0); Monocyte# 0.63 X10^3/uL; Neutrophil # 4.93 X10^3/uL (2.7-7.7); Neutrophil % 70.6 % (47-70); POSITIVE COUNT NO; POSITIVE DIFFERENTIAL NO; POSITIVE MORPHOLOGY NO; Platelet Count 339 K/mm3 (150-450); RBC Distribution Width CV 13.3 % (11.6-14.6); RBC Distribution Width SD 49.1 fl (35.1-43.9); Red Blood Count 3.99 M/mm3 (4.6-6.2)
[2018-09-19 13:02] LABS: CRP < 2.90 mg/L (0.0-3.0)
== END ==
PROVIDERS: Family Provider Family Medicine; PCP Family Medicine; Referring Provider Family Medicine; Visit Provider Family Medicine
DX: L30.9 Dermatitis, unspecified (principal)
CPT/HCPCS: 36415; 85025; 85652; 86140

== ENCOUNTER → 2018-10-05 13:43 | Outpatient (CLI) | payer BC, OTHER, SELFPAY ==
--- NOTE | 2018-10-05 13:45 | BI_ITS ---
MAMMOGRAPHY - BILATERAL DIAGNOSTIC REASON FOR EXAM: Male, 58 years old. One-month history of a right breast lump. PERTINENT HISTORY: Non-contributory. TECHNIQUE: Digital bilateral breast maurice (3D mammographic acquisition) in the CC and MLO projections. 2-D mediolateral oblique (MLO) and craniocaudad (CC) views of both breasts were obtained. CAD: Full Field Digital Mammography with Computer Added Detection was performed. COMPARISON: None. Baseline examination. FINDINGS: Breast Composition: The breasts are heterogeneously dense, which may obscure small masses. There are no dominant masses or suspicious calcifications. No other significant abnormalities are identified. BI/DIAG MAMM W/CAD, BILAT IMPRESSION: Prominent retroareolar breast tissue more prominent on the right side. Correlation with ultrasound of both breasts is recommended for further evaluation. ASSESSMENT CATEGORY: BIRADS Category 0: Incomplete. Need additional imaging evaluation. A letter regarding these results will be sent to the patient by the facility within 30 days. Approximately 10% of breast cancers are not detected by mammography. A normal mammogram should not delay biopsy of a clinically suspicious abnormality. Electronically Signed: Jason Eduardo, at 8:25 EDT , Service support ,
--- NOTE | 2018-10-05 13:45 | US_ITS ---
STUDY: ULTRASOUND BREAST - RIGHT REASON FOR EXAM: Male, 58 years old. Palpable lump in the right breast. TECHNIQUE: Axial and longitudinal images of the RIGHT breast were performed with a high resolution ultrasound transducer. COMPARISON: Comparison is made with prior mammogram done earlier today. FINDINGS: RIGHT Breast: The palpable abnormality corresponds to a 3.6 cm x 3.9 cm x 1.5 slightly irregular hypoechoic nodular density with increased vascularity. A biopsy is recommended for further evaluation. IMPRESSION: Suspicious palpable abnormality in the retroareolar region of the right breast as described. A biopsy recommended. ASSESSMENT CATEGORY: BIRADS Category 4: Suspicious - Biopsy Should Be Considered. A letter regarding these results will be sent to the patient by the facility within 30 days. Electronically Signed: Jason Eduardo, at 8:19 EDT , Service support , STUDY: ULTRASOUND BREAST - LEFT REASON FOR EXAM: Male, 58 years old. Comparison views. TECHNIQUE: Axial and longitudinal images of the LEFT breast were performed with a high resolution ultrasound transducer. COMPARISON: Comparison is made with prior mammogram done earlier in the day. FINDINGS: LEFT Breast: In the retroareolar region of the left breast, there is a 4.3 cm x 4.8 cm x 0.9 cm hypoechoic density suggestive of gynecomastia. No significant increase in vascularity is seen. US/Breast Limited Unilateral IMPRESSION: Findings suggestive of gynecomastia in the retroareolar region of the left breast. ASSESSMENT CATEGORY: BIRADS Category 2: Benign. A letter regarding these results will be sent to the patient by the facility within 30 days. Electronically Signed: Jason Eduardo, at 8:21 EDT , Service support ,
== END ==
PROVIDERS: Family Provider Family Medicine; PCP Family Medicine; Referring Provider Family Medicine; Visit Provider Family Medicine
DX: N63.10 Unspecified lump in the right breast, unspecified quadrant (principal)
CPT/HCPCS: 76642; 77062; 77066; G0279

== ENCOUNTER → 2018-10-20 11:24 | Outpatient (CLI) | payer BC, OTHER, SELFPAY ==
[2018-10-12 08:51] VITALS: BMI 27.3
--- NOTE | 2018-10-20 08:50 | BRBX_PTH ---
PATIENT: EMBER ANDERSON LOC: [facility] U#:[id number] AGE/SX: 64/M ROOM: RE10/20/[address]: Dr. Omar Burks MD : 1960 BED: DIS: SPEC #: [id number] RECD: 10/20/18 11:09 STATUS: TRISH JIMY #: [id number] MATTIE: 10/20/18 08:[address]: Omar Burks DEPT: SURGICAL PATHOLOGY RECD BY: Fausto Cary Tissues: Right breast, NOS Procedures: Surgery Specimen Level IV HEADER OPERATION: Ultrasound-guided needle core biopsy of right breast PRE-OP DIAGNOSIS: Right breast mass N63.10 TISSUE SUBMITTED: Right breast tissue ISCHEMIC TIME: <1 minute FIXATION TIME: 59 hours MICROSCOPIC DIAGNOSIS Right breast mass, ultrasound-guided needle core biopsy: Benign male breast tissue with dense fibrosis and focal mild chronic inflammation. Negative for atypia or malignancy. SJ:hipolito 10/23/18 COMMENT Case has been reviewed in consultation with Dr. Montesinos who concurs with the above diagnosis. IDC:AM MICROSCOPIC DESCRIPTION Slides are reviewed. GROSS DESCRIPTION Received in fixative is one container labeled with the patient's name and designated right breast biopsy. The specimen consists of three elongated fragments of hernandez-yellow fibroadipose tissue that in aggregate measure 1.5 x 0.3 x 0.1 cm. The entire specimen is submitted in one cassette. / SJ:rg 10/22/18 TC:5 CPT: 63309
== END ==
PROVIDERS: Visit Provider Surgery
DX: N63.10 Unspecified lump in the right breast, unspecified quadrant (principal)
CPT/HCPCS: 88305

== ENCOUNTER → 2019-02-06 15:37 | Outpatient (CLI) | payer BC, OTHER, SELFPAY ==
[2018-10-12 08:51] VITALS: BMI 27.3
--- NOTE | 2019-02-06 15:41 | RAD_ITS ---
STUDY: X-RAY CHEST REASON FOR EXAM: Male, 58 years old. Preop back surgery. TECHNIQUE: Frontal and lateral views of the chest. COMPARISON: None. FINDINGS: There is hyperinflation of the lungs consistent with chronic obstructive lung disease (COPD). No infiltrates or effusions. There is no demonstrated pleural abnormality. Normal size heart. Normal mediastinum and veena. Normal visualized pulmonary arteries. Normal visualized aortic arch and descending thoracic aorta. There are diffuse degenerative changes of the visualized thoracic spine. Normal visualized ribs, clavicles, and shoulders. There is no demonstrated abnormality of the visualized soft tissue structures of the upper abdomen. RAD/Chest PA and Lateral IMPRESSION: There are findings consistent with COPD. There is no evidence of acute chest disease. Electronically Signed: Narayan Flowers MD at 17:55 EDT , Service support ,
== END ==
PROVIDERS: Family Provider Family Medicine; PCP Family Medicine; Referring Provider Family Medicine; Visit Provider Family Medicine
DX: Z01.818 Encounter for other preprocedural examination (principal)
CPT/HCPCS: 71046

== ENCOUNTER → 2019-02-27 13:45 | Outpatient (CLI) | payer BC, OTHER, SELFPAY ==
[2018-10-12 08:51] VITALS: BMI 27.3
--- NOTE | 2019-02-27 13:48 | VDLE_ITS ---
Reason For Study: LLE Pain RIGHT LEFT CFV is compressible, spontaneous, phasic, Lt CFV, Lt DFV, Lt FV, Lt PopV, Lt GastrocV, competent and demonstrates normal and Lt PTV are dilated and non compressible augmentation. consistent with acute DVT Procedure Exam performed in department. Thrombus in the Lt groin is not well adhered A preliminary report was called and/or faxed to vein wall and appears somewhat unstable. to Edgar at [facility], Pt taken to ED. GSV is normal. LT PerV is compressible. Interpretation Summary Acute deep vein thrombosis is noted in the left common femoral vein. Acute deep vein thrombosis is noted in the left femoral vein. Acute deep vein thrombosis is noted in the left profunda femoris vein. Acute deep vein thrombosis is noted in the left popliteal vein. Acute deep vein thrombosis is noted in the left posterior tibial vein. Acute deep vein thrombosis is noted in the left gastrocnemius vein. The left peroneal vein is patent and compressible. The left great saphenous vein is patent and compressible. Ordering Physician: Sol Avila Referring Physician: Samuel Casarez Performed By: Sri Tapia, LASHAY, RVT
== END ==
PROVIDERS: Family Provider Family Medicine; PCP Family Medicine; Referring Provider Nurse Practitioner; Visit Provider Nurse Practitioner
DX: M79.605 Pain in left leg (principal)
CPT/HCPCS: 93971

== ENCOUNTER 2019-02-27 14:40 | Emergency (ER) | payer BC, OTHER, SELFPAY ==
[2018-10-12 08:51] VITALS: BMI 27.3
[2019-02-27 14:41] VITALS: BP 115/51; PULSE 85; RESP 16; TEMP 36.9; O2SAT 99; BMI 28.6
[2019-02-27 14:53] VITALS: RESP 16
--- NOTE | 2019-02-27 15:22 | NURSING ---
LEFT MESSAGE FOR DR SHANNAN BLANC AT [facility] [phone]
--- NOTE | 2019-02-27 15:39 | ED.VIS.GEN ---
History of Present Illness Chief Complaint: Lower Extremity Injury Narrative: Patient presenting due to a DVT. Patient had a microdiscectomy performed 2 weeks ago. Patient reports that he had a gradual onset of left-sided leg pain over the course of the last couple of days. He had a duplex ultrasound today that showed positive DVT. Patient denies any chest pain or shortness of breath. He does have a history of this in the past. Pain is mild worse with movement. Past Medical History - Allergies and Home Meds Allergies/Adverse Reactions: Allergies No Known Allergies Allergy (Verified 02/27/19 14:43) Primary Care Physician: Nahum Casarez MD [Primary Care Provider] - Past Medical History: - - Prior history of DVT Smoking Status: Current every day smoker Review of Systems All systems negative except as indicated Cardiovascular: Denies: Chest pain, Palpitations Musculoskeletal: Reports: - - Leg pain. Denies: Back pain, Extremity Pain Physical Exam Vital Signs/Narrative: Vital Signs Temp Pulse Resp BP Pulse Ox 02/27/19 14:53 16 02/27/19 14:41 98.5 F 85 16 115/51 L 99 General: Well nourished, Well developed, No Acute Distress Head: Normocephalic, Atraumatic Eyes: Perrl, EOMI ENT: Moist mucous membranes, No rhinorrhea Neck: Supple, Nontender Cardiovascular: Regular rate, Regular rhythm, No murmurs Respiratory: No distress, CTA bilaterally, Chest nontender Abdomen: Soft, Nontender, Nondistended, Normal bowel sounds Back: - - Back exam shows a well-healing surgical incision no evidence of erythema or drainage Extremities: - - Chronic venous stasis changes of the left leg which the patient states are not new and are not unchanged. No reproducible tenderness to palpation. 2+ DP and PT pulses. Skin: Normal color, No rash Neurological: Alert, Oriented x3, Cranial nerves II-XII grossly intact, Normal Strength, Normal Sensation Psychological: Normal affect, Normal Mood Diagnostic/Tx/Re-eval - Medical Decision Making Patient presented secondary to a DVT. The reading of this since it that the proximal portion of the clot was not well adhered. I discussed this with the covering provider for the patient's spine surgeon who states that he is cleared for anticoagulation. I discussed this with vascular surgery who states that the patient does not require admission or IVC filter for this, but rather can be placed directly on Eliquis and follow-up in 6 weeks. Patient will be discharged with a course of Eliquis. ED Disposition - Plan for ED Patient: Disposition: Home or Assisted Living Diagnosis: DVT (deep venous thrombosis) Instructions: Deep Vein Thrombosis Prescriptions: Compr.stocking,Thigh,Reg,Large [Compression Thigh Stocking] 1 ea MC DAILY #1 ea Prescription Printed Apixaban [Eliquis] 5 mg PO BID #74 tab Prescription Printed Referrals: Can Rodriguez MD [STAFF PHYSICIAN] - (Followup in 6 weeks)
== END 2019-02-27 15:55 | disposition home or self-care (01) ==
PROVIDERS: Emergency Provider Emergency Medicine; Family Provider Family Medicine; PCP Family Medicine
DX: I82.4Z2 Acute embolism and thrombosis of unspecified deep veins of left distal lower extremity (principal); F17.200 Nicotine dependence, unspecified, uncomplicated; Z86.718 Personal history of other venous thrombosis and embolism
CPT/HCPCS: 99282

== ENCOUNTER → 2019-04-01 13:02 | Outpatient (CLI) | payer BC, OTHER, SELFPAY ==
--- NOTE | 2019-04-01 13:04 | VDLE_ITS ---
Reason For Study: LLE DVT (02/27/2019) RIGHT LEFT CFV is compressible, spontaneous, phasic, Acute deep vein thrombosis is noted in the competent and demonstrates normal left common femoral vein. augmentation. Acute deep vein thrombosis is noted in the left femoral vein. Acute deep vein thrombosis is noted in the left popliteal vein. Acute deep vein thrombosis is noted in the left deep profunda femoris vein. There appears to be a partial occlusion of the left gastrocnemius vein. There appears to be a partial occlusion of the left peroneal vein. There appears to be a partial occlusion of the left posterior tibial vein. GSV is normal. Interpretation Summary Acute deep vein thrombosis is noted in the left common femoral vein. Acute deep vein thrombosis is noted in the left femoral vein. Acute deep vein thrombosis is noted in the left profunda femoris vein. Acute deep vein thrombosis is noted in the left popliteal vein. Acute deep vein thrombosis is noted in the left tibio-peroneal trunk. Acute deep vein thrombosis is noted in the left peroneal vein. Acute deep vein thrombosis is noted in the left posterior tibial vein. Acute deep vein thrombosis is noted in the left gastrocnemius vein. The left great saphenous vein appears patent and compressible segmentally. There has been only slight improvement since a prior study on 02/27/2019. Ordering Physician: Nahum Casarez Referring Physician: Nahum Casarez Performed By: Mckayla Her, LASHAY, RVT
== END ==
PROVIDERS: Family Provider Family Medicine; PCP Family Medicine; Referring Provider Family Medicine; Visit Provider Family Medicine
DX: I82.409 Acute embolism and thrombosis of unspecified deep veins of unspecified lower extremity (principal)
CPT/HCPCS: 93971

== ENCOUNTER → 2019-06-18 07:42 | Outpatient (CLI) | payer BC, OTHER, SELFPAY ==
--- NOTE | 2019-06-18 07:44 | VDLE_ITS ---
Reason For Study: DVT RIGHT LEFT CFV is compressible, spontaneous, phasic, GSV is normal. competent and demonstrates normal CFV, FV, and POP V are partially compressible augmentation. with decreased flow. Procedure Profunda V, T/P Trunk, and Gastroc V are Exam performed in department. noncompressible. The exam was diagnostic. PTV and Peroneal V are now compressible. Improvement from previous study done 04/01/2019. Interpretation Summary Chronic venous changes are noted in the left common femoral vein, femoral vein, popliteal vein, profunda femoris vein, tibio-peroneal trunk, and gastrocnemius vein. The left posterior tibial vein and peroneal vein are patent and compressible. The left great saphenous vein appears patent and compressible segmentally. There has been improvement since a prior study on 04/01/2019. Ordering Physician: Nahum Casarez Performed By: Randall Villeda RVT
== END ==
PROVIDERS: Family Provider Family Medicine; PCP Family Medicine; Referring Provider Family Medicine; Visit Provider Family Medicine
DX: I82.409 Acute embolism and thrombosis of unspecified deep veins of unspecified lower extremity (principal)
CPT/HCPCS: 93971

== ENCOUNTER → 2019-11-04 12:16 | Outpatient (CLI) | payer BC, OTHER, SELFPAY ==
[2019-11-04 15:17] LABS: Absolute Lymphocyte Count 1.92 X10^3/uL (0.83-4.51); Absolute Neutrophil Count 7.3 X10^3/uL (2.0-7.7); Basophil# 0.06 X10^3/uL; Basophil% 0.6 % (0-1); Eosinophil# 0.16 X10^3/uL; Eosinophils% 1.6 % (0-5); Hematocrit 40.4 % (40-54); Hemoglobin 13.7 g/dL (13.0-16.5); Lymphocyte # 1.92 X10^3/ul (4.0); Lymphocyte % 18.8 % (19-41); Mean Corp Hgb Conc 33.9 g/dL (32-36); Mean Corpuscular Hgb 32.8 pg (27.0-32.0); Mean Corpuscular Volume 96.7 fL (80-94); Mean Platelet Vol. 9.5 fl (6.2-12.0); Monocyte% 6.8 % (0-10); NRBC Flagged by Analyzer 0 % (0-5); Neutrophil # 7.34 X10^3/uL (2.7-7.7); Neutrophil % 71.8 % (47-70); Platelet Count 361 K/mm3 (150-450); RBC Distribution Width CV 12.9 % (11.6-14.6); RBC Distribution Width SD 46.5 fl (35.1-43.9); Red Blood Count 4.18 M/mm3 (4.6-6.2); White Blood Count 10.2 K/mm3 (4.4-11.0)
[2019-11-04 15:39] LABS: ALB/GLOB Ratio 1.1 RATIO (0.9-2.4); AST(SGOT) 22 U/L (15-37); Alanine Aminotransfer ALT/SGPT 27 U/L (16-61); Albumin, Serum 3.8 g/dL (3.2-5.0); Alkaline Phosphatase 79 U/L (45-117); Anion Gap 6 (5-15); BUN 10 mg/dL (7-18); BUN/Creat Ratio 12.3 RATIO (10-20); Calcium,Total 9.4 mg/dL (8.5-10.1); Chloride 105 mmol/L (98-107); Cholesterol 214 mg/dL (200); Creatinine, Serum 0.81 mg/dL (0.70-1.30); EST Glomerular Filtration Rate 103 mL/min (>60); Est Glom Filt Rate - Afr Amer 124 mL/min (>60); Globulin 3.5 g/dL (2.2-4.2); Glucose 94 mg/dL (74-106); High Density Lipoprotein 72 mg/dL; PSA,Total - Annual Screen 3.14 ng/mL (0.00-4.00); Potassium 3.5 mmol/L (3.5-5.1); Protein, Total 7.3 g/dL (6.4-8.2); Sodium Level 137 mmol/L (136-145); Thyroid Stim Hormone (TSH) 1.12 uIU/mL (0.358-3.74); Triglycerides 82 mg/dL; Very Low Density Lipoprotein 16 mg/dL (5-40)
[2019-11-04 15:43] LABS: Erythrocyte Sedimentation Rate 18 mm/hr (0-20)
== END ==
PROVIDERS: PCP Family Medicine; Referring Provider Family Medicine; Visit Provider Family Medicine
DX: R53.83 Other fatigue (principal); R19.5 Other fecal abnormalities; Z13.220 Encounter for screening for lipoid disorders; Z12.5 Encounter for screening for malignant neoplasm of prostate
CPT/HCPCS: 36415; 80053; 80061; 84153; 84443; 85025; 85652; G0103

== ENCOUNTER 2019-11-30 14:04 | Emergency (ER) | payer BC, OTHER, SELFPAY ==
[2019-11-30 14:05] VITALS: BP 176/64; PULSE 72; RESP 18; TEMP 36.6; O2SAT 100; BMI 30.2
--- NOTE | 2019-11-30 14:20 | CT_ITS ---
STUDY: CT ABDOMEN AND PELVIS WITHOUT CONTRAST REASON FOR EXAM: Male, 59 years old. General abdomen pain today, nausea. No prior surgery. RADIATION DOSAGE (If Supplied By Facility): CTDIvol = ( 13.15 ) mGy, DLP = ( 591.25 ) mGycm TECHNIQUE: Transaxial images were obtained from the dome of the diaphragm to the symphysis pubis without oral contrast, and without intravenous contrast. Sagittal and coronal images were reconstructed. Individualized dose optimization techniques were used for this CT. COMPARISON: None. FINDINGS: The visualized lung bases are unremarkable. The visualized portions of the heart are within normal limits. Normal liver. Normal gallbladder and extrahepatic biliary system. Normal spleen. Normal pancreas. Normal bilateral adrenal glands. Normal right kidney. Normal left kidney. The stomach is distended with fluid. There is thickening of the distal stomach (coronal image #32 of series 601) Evaluation is limited without IV and oral contrast. There is thickening of the distal sigmoid. There is suggestion of sigmoid mass (axial image #114 series 2). Evaluation is limited without IV and oral contrast. There is non-visualization of the appendix. There is diffuse atherosclerotic calcification of the abdominal aorta, without a demonstrated aneurysm. Normal inferior vena cava. Normal retroperitoneum. Normal urinary bladder. Normal abdominal wall. Additionally there is spondylolysis with grade 2 anterolisthesis at L5/S2 CT/Abdomen/Pelvis without Cont IMPRESSION: Stomach thickening. Sigmoid thickening/mass. Differential considerations are infectious, inflammatory and neoplastic disease. Further evaluation with IV and oral contrast is recommended. Electronically Signed: Jesus Billings MD at 15:15 EDT Tel , Service support ,
--- NOTE | 2019-11-30 14:21 | ED.DCSUM_ITS ---
History of Present Illness Informant: Patient - Abdominal Pain/Flank Pain Onset: Today - 5-6 hrs [employer] Context: Sudden Onset - about an hour after eating breakfast, sausage Quality: Aching Location: - - left of middle / LUQ area, no radiation Current Severity: Moderate Maximum Severity: Severe Worsened by: Nothing Relieved by: Nothing - Nausea/Vomiting/Emesis GI Symptom: Negative for: Nausea, Vomiting - Diarrhea/Melena/Hematochezia GI Symptom: Diarrhea - off and on for several months; loose/watery once this AM. Negative for: Melena, Hematochezia Associated Symptoms: Negative for: Dysuria, Frequency, Hematuria, Urgency Narrative: Patient states his pain was sudden in its onset today. Initially points diffusely bilaterally mid abdomen, but then states that it really seems focused just left of the umbilicus. Never had this before. No history of abdominal surgeries or stones that he knows of. History of blood clots in the past, he is no longer anticoagulated. <Salinas Hodge - Last Filed: 11/30/19 15:38> <Chong Rodarte - Last Filed: 11/30/19 18:49> Chief Complaint: Abd Pain - Past Medical History (1) Arthritis Status: Chronic (2) Hx of blood clots Status: Chronic (3) Venous (peripheral) insufficiency Status: Chronic <Salinas Hodge - Last Filed: 11/30/19 15:38> Past Medical History Smoking Status: Current every day smoker <Salinas Hodge - Last Filed: 11/30/19 15:38> <Chong Rodarte - Last Filed: 11/30/19 18:49> - Allergies and Home Meds Allergies/Adverse Reactions: Allergies No Known Allergies Allergy (Verified 11/30/19 14:07) Primary Care Physician: Nahum Casarez MD [Primary Care Provider] - Review of Systems General: Denies: Chills, Fever, Sweats Eyes: Denies: Visual changes - bilaterally, Diplopia ENT: Denies: Rhinorrhea, Sore throat Cardiovascular: Denies: Chest pain, Palpitations Respiratory: Denies: Dyspnea, Cough, Dyspnea on exertion Gastrointestinal: Reports: Abdominal pain, Diarrhea. Denies: Nausea, Vomiting, Melena, Hematochezia Genitourinary: Denies: Dysuria, Hematuria, Frequency Musculoskeletal: Denies: Neck pain, Back pain, Swelling, Extremity Pain Skin: Denies: Rash, Wounds Neurological: Denies: Headache, Weakness, Numbness <Salinas Hodge - Last Filed: 11/30/19 15:38> Physical Exam Vital Signs/Narrative: Vital Signs Temp Pulse Resp BP Pulse Ox 11/30/19 14:05 98 F 72 18 176/64 H 100 Inital Vital Signs reviewed: Yes General: Well nourished, Well developed, No Acute Distress Head: Normocephalic, Atraumatic Eyes: Perrl, EOMI ENT: Moist mucous membranes, No rhinorrhea Neck: Supple, Nontender Cardiovascular: Regular rate, Regular rhythm, No murmurs Respiratory: No distress, CTA bilaterally, Chest nontender Abdomen: Soft, Nondistended, Normal bowel sounds, Tender - Mild left upper quadrant only. Negative for: Guarding, Rebound tenderness, Pulsatile mass Back: Nontender, Normal Inspection. Negative for: CVA tenderness Extremities: Nontender, No edema. Negative for: Calf Tenderness Skin: Normal color, No rash, No Trauma Neurological: Alert, Oriented x3, Cranial nerves II-XII grossly intact, Normal Strength, Normal Sensation, Normal Gait Psychological: Normal affect, Normal Mood <NaveenSalinas - Last Filed: 11/30/19 15:38> Vital Signs/Narrative: Vital Signs Pulse Resp BP Pulse Ox 11/30/19 17:15 60 19 H 133/58 H 99 <RodarteChong - Last Filed: 11/30/19 18:49> Diagnostic/Tx/Re-eval Impressions Abdomen/Pelvis CT 11/30/19 14:20 IMPRESSION: Stomach thickening. Sigmoid thickening/mass. Differential considerations are infectious, inflammatory and neoplastic disease. Further evaluation with IV and oral contrast is recommended. Electronically Signed: Jesus Billings MD at 15:15 EDT Tel , Service support , 11/30/19 14:20 Abdomen/Pelvis without Cont [CT] Stat 11/30/19 15:24 CT Abd [Abdomen/Pelvis WITH Contrast] [CT] Stat Laboratory Results 11/30/19 11/30/19 11/30/19 14:20 14:25 14:25 WBC 13.8 H RBC 4.32 L Hgb 14.4 Hct 43.8 MCV 101.4 H MCH 33.3 H MCHC 32.9 RDW Std Deviation 48.0 H RDW Coeff of Cynthia 12.7 Plt Count 373 MPV 9.0 Immature Gran % (Auto) 0.400 Neut % (Auto) 84.2 H Lymph % (Auto) 10.6 L Loup % (Auto) 3.5 Eos % (Auto) 0.9 Baso % (Auto) 0.4 Absolute Neuts (auto) 11.7 H Absolute Lymphs (auto) 1.47 Nucleated RBC % 0 Sodium 138 Potassium 3.6 Chloride 105 Carbon Dioxide 28.0 Anion Gap 5 BUN 15 Creatinine 0.77 Estim Creat Clear Calc 98.70 Est GFR (MDRD) Af Amer 133 Est GFR (MDRD) Non-Af 110 BUN/Creatinine Ratio 19.5 Glucose 113 H Calcium 9.4 Total Bilirubin 0.30 AST 27 ALT 29 Alkaline Phosphatase 85 Total Protein 7.7 Albumin 3.8 Globulin 3.9 Albumin/Globulin Ratio 1.0 Lipase 67 L Urine Color Straw Urine Clarity Cloudy Urine pH 8.0 Ur Specific [place] 1.015 Urine Protein Negative Urine Glucose (UA) Normal Urine Ketones 15 H Urine Occult Blood Negative Urine Nitrite Negative Urine Bilirubin Negative Urine Urobilinogen Normal Ur Leukocyte Esterase Negative Urine RBC 0 SEEN Urine WBC 0-5 SEEN Ur Squamous Epith Cells 0 SEEN Amorphous Sediment 4+ Urine Bacteria 0 SEEN Fine Granular Casts 0-5 SEEN Urine Mucus 0 SEEN - Medical Decision Making After morphine and toradol for pain, he states his pain seemed to worsen and he became nauseated; this was treated with ondansetron and then hydromorphone. He has a leukocytosis, and initially he was CT'd without contrast, given the sudden onset nature of the discomfort in a gentleman who has never had surgery in his abdomen it was thought that a kidney stone would be more likely a bowel obstruction. There is no urolithiasis, however there were some suspicious findings in the lining of the stomach and the sigmoid colon with the possibility of a mass. Evaluation is limited for these issues without IV and oral contrast, so was recommended that this can be repeated with those. Of note, patient states he has never had a colonoscopy. CT is being done and will be checked out to oncoming physician. Of note, he does not seem to have pain out of proportion to exam and pain is relatively localized toward LUQ / left middle abdomen; mesenteric ischemia is thought to be less likely, I will add a lactic acid, but I think given the initial CT read, an oral and IV contrasted repeat CT will be more valuable than a CTA at this time. <Salinas Hodge - Last Filed: 11/30/19 15:38> Impressions Abdomen/Pelvis CT 11/30/19 15:24 IMPRESSION: Suspicion for a mass at the rectosigmoid colon. Further evaluation is required. Questionable central mesenteric edema in the left side of the abdomen. Electronically Signed: Atif Vance DO at 17:38 EDT Tel [phone], Service support , 11/30/19 14:20 Abdomen/Pelvis without Cont [CT] Stat 11/30/19 15:24 CT Abd [Abdomen/Pelvis WITH Contrast] [CT] Stat Laboratory Results 11/30/19 11/30/19 11/30/19 14:20 14:25 14:25 WBC 13.8 H RBC 4.32 L Hgb 14.4 Hct 43.8 MCV 101.4 H MCH 33.3 H MCHC 32.9 RDW Std Deviation 48.0 H RDW Coeff of Cynthia 12.7 Plt Count 373 MPV 9.0 Immature Gran % (Auto) 0.400 Neut % (Auto) 84.2 H Lymph % (Auto) 10.6 L Loup % (Auto) 3.5 Eos % (Auto) 0.9 Baso % (Auto) 0.4 Absolute Neuts (auto) 11.7 H Absolute Lymphs (auto) 1.47 Nucleated RBC % 0 Sodium 138 Potassium 3.6 Chloride 105 Carbon Dioxide 28.0 Anion Gap 5 BUN 15 Creatinine 0.77 Estim Creat Clear Calc 98.70 Est GFR (MDRD) Af Amer 133 Est GFR (MDRD) Non-Af 110 BUN/Creatinine Ratio 19.5 Glucose 113 H Lactic Acid Calcium 9.4 Total Bilirubin 0.30 AST 27 ALT 29 Alkaline Phosphatase 85 Total Protein 7.7 Albumin 3.8 Globulin 3.9 Albumin/Globulin Ratio 1.0 Lipase 67 L Urine Color Straw Urine Clarity Cloudy Urine pH 8.0 Ur Specific [place] 1.015 Urine Protein Negative Urine Glucose (UA) Normal Urine Ketones 15 H Urine Occult Blood Negative Urine Nitrite Negative Urine Bilirubin Negative Urine Urobilinogen Normal Ur Leukocyte Esterase Negative Urine RBC 0 SEEN Urine WBC 0-5 SEEN Ur Squamous Epith Cells 0 SEEN Amorphous Sediment 4+ Urine Bacteria 0 SEEN Fine Granular Casts 0-5 SEEN Urine Mucus 0 SEEN 11/30/19 15:50 WBC RBC Hgb Hct MCV MCH MCHC RDW Std Deviation RDW Coeff of Cynthia Plt Count MPV Immature Gran % (Auto) Neut % (Auto) Lymph % (Auto) [place]oup % (Auto) Eos % (Auto) Baso % (Auto) Absolute Neuts (auto) Absolute Lymphs (auto) Nucleated RBC % Sodium Potassium Chloride Carbon Dioxide Anion Gap BUN Creatinine Estim Creat Clear Calc Est GFR (MDRD) Af Amer Est GFR (MDRD) Non-Af BUN/Creatinine Ratio Glucose Lactic Acid 1.1 Calcium Total Bilirubin AST ALT Alkaline Phosphatase Total Protein Albumin Globulin Albumin/Globulin Ratio Lipase Urine Color Urine Clarity Urine pH Ur Specific [place] Urine Protein Urine Glucose (UA) Urine Ketones Urine Occult Blood Urine Nitrite Urine Bilirubin Urine Urobilinogen Ur Leukocyte Esterase Urine RBC Urine WBC Ur Squamous Epith Cells Amorphous Sediment Urine Bacteria Fine Granular Casts Urine Mucus There is a mass noted on CAT scan. Case was discussed with Dr. Keysha bartlett. She reviewed scan. She asked that patient have COVID-19 test for colonoscopy clearance. Patient is willing to have colonoscopy on Monday. She stated she would email bowel prep instructions. She requested patient have only clear liquids today. Patient was informed planned. He is agreeable to have colonoscopy on Monday. <Rodarte,Chong - Last Filed: 11/30/19 18:49> ED Disposition <Salinas Hodge - Last Filed: 11/30/19 15:38> <CaydenChong - Last Filed: 11/30/19 18:49> - Plan for ED Patient: Disposition: Home or Assisted Living Diagnosis: Left sided abdominal pain, Intestinal mass Instructions: Colonoscopy Referrals: Nahum Casarez MD [Primary Care Provider] - Additional Instructions: Dr. Elaine Ribeiro's phone number is on the paperwork you were given. You have any questions contact her
[2019-11-30 14:39] LABS: Bacteria 0 SEEN /hpf (None Seen); Mucous, Urine 0 SEEN /hpf (<or=2+); Red Blood Cells-Urine 0 SEEN /hpf (0-5); Squamous Epithelial Cells - UA 0 SEEN /hpf (0-5)
[2019-11-30] MEDS: Morphine 4 MG/ML Syringe IV (14:40)
[2019-11-30] MEDS: 0.9% Normal Saline 1,000 ML 125 ML IV (14:41)
[2019-11-30] MEDS: Ketorolac 30 MG/ML Syringe 15 MG IV (14:41)
[2019-11-30 14:42] LABS: Absolute Lymphocyte Count 1.47 X10^3/uL (0.83-4.51); Absolute Neutrophil Count 11.7 X10^3/uL (2.0-7.7); Basophil# 0.05 X10^3/uL; Basophil% 0.4 % (0-1); Eosinophil# 0.12 X10^3/uL; Eosinophils% 0.9 % (0-5); Hematocrit 43.8 % (40-54); Hemoglobin 14.4 g/dL (13.0-16.5); Lymphocyte # 1.47 X10^3/ul (4.0); Lymphocyte % 10.6 % (19-41); Mean Corp Hgb Conc 32.9 g/dL (32-36); Mean Corpuscular Hgb 33.3 pg (27.0-32.0); Mean Corpuscular Volume 101.4 fL (80-94); Monocyte# 0.48 X10^3/uL; Monocyte% 3.5 % (0-10); NRBC Flagged by Analyzer 0 % (0-5); Neutrophil # 11.66 X10^3/uL (2.7-7.7); Neutrophil % 84.2 % (47-70); Platelet Count 373 K/mm3 (150-450); RBC Distribution Width CV 12.7 % (11.6-14.6); Red Blood Count 4.32 M/mm3 (4.6-6.2); White Blood Count 13.8 K/mm3 (4.4-11.0)
[2019-11-30 14:43] LABS: Color, Urine Straw (Yellow); Glucose, Dipstick Normal (Normal); Ketone-Dipstick 15 mg/dl (Negative); Leukocyte Esterase-Dipstick Negative /ul (Negative); Nitrite-Dipstick Negative (Negative); Occult Blood-Urine Negative /ul (Negative); Protein-Dipstick Negative (Negative); Specific Gravity, Urine 1.015 (1.002-1.030); Urine Bilirubin Dipstick Negative (Negative); Urine Clarity Cloudy (Clear); Urine Urobilinogen Normal (Normal)
[2019-11-30] MEDS: Ondansetron 4 MG/2 ML Vial IV (14:52)
[2019-11-30 14:54] LABS: Fine Granular Cast- Urine 0-5 SEEN /lpf (0-5); White Blood Cells 0-5 SEEN /hpf (0-5)
[2019-11-30 14:55] LABS: Amorphous Sediment 4+
[2019-11-30 14:58] LABS: AST(SGOT) 27 U/L (15-37); Alanine Aminotransfer ALT/SGPT 29 U/L (16-61); Albumin, Serum 3.8 g/dL (3.2-5.0); Alkaline Phosphatase 85 U/L (45-117); Anion Gap 5 (5-15); BUN 15 mg/dL (7-18); BUN/Creat Ratio 19.5 RATIO (10-20); Calcium,Total 9.4 mg/dL (8.5-10.1); Chloride 105 mmol/L (98-107); Creatinine, Serum 0.77 mg/dL (0.70-1.30); EST Glomerular Filtration Rate 110 mL/min (>60); Est Glom Filt Rate - Afr Amer 133 mL/min (>60); Globulin 3.9 g/dL (2.2-4.2); Glucose 113 mg/dL (74-106); Lipase 67 U/L (73-393); Potassium 3.6 mmol/L (3.5-5.1); Protein, Total 7.7 g/dL (6.4-8.2); Sodium Level 138 mmol/L (136-145)
--- NOTE | 2019-11-30 15:24 | CT_ITS ---
STUDY: CT ABDOMEN AND PELVIS WITH CONTRAST REASON FOR EXAM: Male, 59 years old. Mid abdomen pain today, nausea, abnormal non-contrast CT earlier today. No prior surgery, diabetes, hypertension or cancer. RADIATION DOSAGE (If Supplied By Facility): CTDIvol = ( 22.21 ) mGy, DLP = ( 1063.01 ) mGycm TECHNIQUE: Transaxial images were obtained from the dome of the diaphragm to the symphysis pubis without oral contrast. Oral and amp; IV Gastrografin and amp; 100mL Isovue-300 was administered. Sagittal and coronal images were reconstructed. Individualized dose optimization techniques were used for this CT. COMPARISON: November 30, 2019 at 14:57 hours. FINDINGS: The visualized lung bases are unremarkable. The visualized portions of the heart are within normal limits. Normal liver. Normal gallbladder and extrahepatic biliary system. Normal spleen. Normal pancreas. Normal bilateral adrenal glands. Normal right kidney. Normal left kidney. Normal visualized stomach. Normal small intestine. Suspicion for an eccentric mass at the rectosigmoid colon. The appendix is visualized and appears normal. Calcified abdominal aorta. Normal inferior vena cava. Normal retroperitoneum. Questionable central mesenteric edema in the left side of the abdomen. Normal urinary bladder. Mild fatty density in the inguinal canals. Normal abdominal wall. Degenerative vertebral changes. Grade 1 spondylolisthesis at L5-S1. Spondylolysis of L5. CT/Abdomen/Pelvis WITH Contrast IMPRESSION: Suspicion for a mass at the rectosigmoid colon. Further evaluation is required. Questionable central mesenteric edema in the left side of the abdomen. Electronically Signed: Atif Vance DO at 17:38 EDT Tel [phone], Service support ,
[2019-11-30] MEDS: HYDROmorphone 1 MG/ML Syringe IV (15:31)
[2019-11-30 16:25] LABS: Lactic Acid 1.1 mmol/L (0.4-1.9)
[2019-11-30 17:15] VITALS: BP 133/58; PULSE 60; RESP 19; O2SAT 99
[2019-11-30 19:00] VITALS: BP 146/88
--- NOTE | 2019-11-30 19:06 | ED.DCSUM_ITS ---
- ER Visit Summary Date of Service: 11/30/19 Chief Complaint: [] History of Present Illness: The patient is a 59 M [] Physical Examination: [] Test Results: [] Emergency Department Course and Treatment: [] Treatment Plan: [] Disposition: [] Impression: [] This note was generated with [employer] dictation software. It may contain incorrect words, spelling, and punctuation that were not noted in review of the chart prior to signing ED Disposition - Plan for ED Patient: Disposition: Home or Assisted Living Diagnosis: Left sided abdominal pain, Intestinal mass Instructions: Colonoscopy Prescriptions: Hydrocodone Bitart/Apap 5-325 [[place] 5MG-325MG] 1 tab PO Q6H PRN PRN 3 Days #10 tab PRN Reason: Pain Prescription Printed Referrals: Nahum Casarez MD [Primary Care Provider] - Additional Instructions: Dr. Elaine Ribeiro's phone number is on the paperwork you were given. You have any questions contact her
[2019-11-30 19:11] VITALS: BP 146/88
== END 2019-11-30 19:11 | disposition home or self-care (01) ==
PROVIDERS: Emergency Medicine; Emergency Provider Emergency Medicine; PCP Family Medicine
DX: R10.9 Unspecified abdominal pain (principal); K63.89 Other specified diseases of intestine; M19.90 Unspecified osteoarthritis, unspecified site; F17.200 Nicotine dependence, unspecified, uncomplicated; Z86.718 Personal history of other venous thrombosis and embolism
CPT/HCPCS: 74176; 74177; 80053; 81001; 83605; 83690; 85025; 87635; 96361; 96374; 96375; 99283; G2023; J7030; Q9967; A4216; J2405; U0004

== ENCOUNTER 2019-12-01 15:05 | Inpatient (IN) | payer BC, OTHER, SELFPAY ==
[2019-11-30 14:05] VITALS: BMI 30.2
[2019-12-01 15:06] VITALS: BP 134/84; PULSE 73; RESP 16; TEMP 36.4; O2SAT 100; BMI 30.2
--- NOTE | 2019-12-01 15:20 | CT_ITS ---
STUDY: CT ABDOMEN AND PELVIS WITH CONTRAST REASON FOR EXAM: Male, 59 years old. Upper abdomen pain, nausea/vomiting, elevated WBC, seen yesterday for same symptoms. RADIATION DOSAGE (If Supplied By Facility): CTDIvol = ( 21.31 ) mGy, DLP = ( 1107.54 ) mGycm TECHNIQUE: Transaxial images were obtained from the dome of the diaphragm to the symphysis pubis without oral contrast. Oral and amp; IV Gastrografin and amp; 100mL Isovue-300 was administered. Sagittal and coronal images were reconstructed. Individualized dose optimization techniques were used for this CT. COMPARISON: CT of abdomen and pelvis dated November 30, 2019 FINDINGS: Diffuse left gynecomastia is partially visualized. The visualized lung bases are unremarkable. The visualized portions of the heart are within normal limits. Normal liver. Normal gallbladder and extrahepatic biliary system. Normal spleen. Normal pancreas. Normal bilateral adrenal glands. Normal right kidney. Normal left kidney. Normal visualized stomach. There is interval development of small bowel obstruction/Mild to moderate fluid distention of the small bowel starting at the third portion of duodenum and extending to the distal one third aspect of the ileum where there is transition fluid dilated bowel loop to collapsed bowel loop in the right lower quadrant, possibly due to an extrinsic adhesion. A circumferential masslike process is present in the distal sigmoid colon most prominent on the left side of the wall where the mass maximally measures 3.48 cm. This is highly concerning for a malignant mass. The process is located 4.1 cm above the anal opening. The appendix is visualized and appears normal. Moderate mesenteric edema is present in the right lower quadrant. There is diffuse atherosclerotic calcification of the abdominal aorta, without a demonstrated aneurysm. Normal inferior vena cava. Normal retroperitoneum. Normal urinary bladder. Normal abdominal wall. There are diffuse degenerative changes of the visualized lumbar spine. CT/Abdomen/Pelvis WITH Contrast IMPRESSION: 1. There is interval development of small bowel obstruction/Mild to moderate fluid distention of the small bowel starting at the third portion of duodenum and extending to the distal one third aspect of the ileum where there is transition fluid dilated bowel loop to collapsed bowel loop in the right lower quadrant, possibly due to an extrinsic adhesion. 2. A circumferential masslike process is present in the distal sigmoid colon most prominent on the left side of the wall where the mass maximally measures 3.48 cm. This is highly concerning for a malignant mass. The process is located 4.1 cm above the anal opening. 3. Moderate mesenteric edema is present in the right lower quadrant. Electronically Signed: Elvin Zhao MD at 19:02 EDT , Service support ,
--- NOTE | 2019-12-01 15:25 | ED.VIS.GI ---
History of Present Illness Chief Complaint: Abd Pain Informant: Patient - Abdominal Pain/Flank Pain Onset: Days - 2 Context: Sudden Onset Timing: Continuous Quality: Aching, Cramping Location: Epigastric - today, without radiation Current Severity: Moderate Maximum Severity: Severe Worsened by: Food Relieved by: Nothing - Nausea/Vomiting/Emesis GI Symptom: Nausea, Vomiting Onset: Yesterday Quality: Nonbilious. Negative for: Blood streaks, Coffee ground, Hematemesis Severity: Severe - Diarrhea/Melena/Hematochezia GI Symptom: - - no BM since here in ED yesterday; had been having diarrhea most days x several months. Negative for: Melena, Hematochezia Associated Symptoms: Negative for: Dysuria, Frequency, Hematuria, Urgency Narrative: Patient was seen here yesterday for similar abdominal pain, contrasted CT showed a sigmoid mass, he was starting colonoscopy prep today in preparation for a scope tomorrow. However yesterday when he went home, he started vomiting 30 seconds after starting the prep, and has continued vomiting all night, nonbilious, having increasing pain now. He has had no bowel movement yet. He called the surgeon, who advised him to come back to the ER and have a repeat CT scan with contrast to evaluate for possibility of progression to a bowel obstruction. - Past Medical History (1) Arthritis Status: Chronic (2) Hx of blood clots Status: Chronic (3) Venous (peripheral) insufficiency Status: Chronic Past Medical History - Allergies and Home Meds Allergies/Adverse Reactions: Allergies No Known Allergies Allergy (Verified 12/01/19 15:06) Primary Care Physician: Nahum Casarez MD [Primary Care Provider] - Lives: Spouse/ Significant Other Smoking Status: Current every day smoker Review of Systems General: Reports: Malaise. Denies: Chills, Fever, Sweats Eyes: Denies: Visual changes - bilaterally, Diplopia ENT: Denies: Rhinorrhea, Sore throat Cardiovascular: Denies: Chest pain, Palpitations Respiratory: Denies: Dyspnea, Cough, Dyspnea on exertion Gastrointestinal: Reports: Abdominal pain, Nausea, Vomiting, Diarrhea - Off and on for several months. Denies: Melena, Hematochezia Genitourinary: Denies: Dysuria, Hematuria, Frequency Musculoskeletal: Denies: Neck pain, Back pain, Swelling, Extremity Pain Skin: Denies: Rash, Wounds Neurological: Denies: Headache, Weakness, Numbness Physical Exam Vital Signs/Narrative: Vital Signs Temp Pulse Resp BP Pulse Ox 12/01/19 15:06 97.5 F L 73 16 134/84 H 100 Inital Vital Signs reviewed: Yes General: Well nourished, Well developed, No Acute Distress Head: Normocephalic, Atraumatic Eyes: Perrl, EOMI ENT: Moist mucous membranes, No rhinorrhea Neck: Supple, Nontender Cardiovascular: Regular rate, Regular rhythm, No murmurs Respiratory: No distress, CTA bilaterally, Chest nontender Abdomen: Soft, No masses, Tender - Epigastrium only, Hypoactive bowel sounds. Negative for: Nondistended - Mildly distended, Guarding, Rebound tenderness, Ventral hernia, Shelton's sign Back: Nontender, Normal Inspection. Negative for: CVA tenderness Extremities: Nontender, No edema Skin: Normal color, No rash, No Trauma Neurological: Alert, Oriented x3, Cranial nerves II-XII grossly intact, Normal Strength, Normal Sensation, Normal Gait Psychological: Normal affect, Normal Mood Diagnostic/Tx/Re-eval Impressions Abdomen/Pelvis CT 12/01/19 15:20 IMPRESSION: 1. There is interval development of small bowel obstruction/Mild to moderate fluid distention of the small bowel starting at the third portion of duodenum and extending to the distal one third aspect of the ileum where there is transition fluid dilated bowel loop to collapsed bowel loop in the right lower quadrant, possibly due to an extrinsic adhesion. 2. A circumferential masslike process is present in the distal sigmoid colon most prominent on the left side of the wall where the mass maximally measures 3.48 cm. This is highly concerning for a malignant mass. The process is located 4.1 cm above the anal opening. 3. Moderate mesenteric edema is present in the right lower quadrant. Electronically Signed: Elvin Zhao MD at 19:02 EDT , Service support , 12/01/19 15:20 Abdomen/Pelvis WITH Contrast [CT] Stat 12/01/19 18:59 Abdomen Single View (Portable) [RAD] Stat Laboratory Results 12/01/19 12/01/19 12/01/19 15:25 15:25 15:25 WBC 13.7 H RBC 4.59 L Hgb 15.4 Hct 45.3 MCV 98.7 H MCH 33.6 H MCHC 34.0 RDW Std Deviation 46.0 H RDW Coeff of Cynthia 12.7 Plt Count 363 MPV 8.9 Immature Gran % (Auto) 0.400 Neut % (Auto) 85.4 H Lymph % (Auto) 8.2 L [place] % (Auto) 5.9 Eos % (Auto) 0.0 Baso % (Auto) 0.1 Absolute Neuts (auto) 11.7 H Absolute Lymphs (auto) 1.12 Nucleated RBC % 0 Sodium 138 Potassium 3.7 Chloride 103 Carbon Dioxide 26.0 Anion Gap 9 BUN 20 H Creatinine 0.74 Estim Creat Clear Calc 102.70 Est GFR (MDRD) Af Amer 138 Est GFR (MDRD) Non-Af 114 BUN/Creatinine Ratio 26.8 H Glucose 113 H Lactic Acid 1.7 Calcium 9.7 Total Bilirubin 0.40 AST 21 ALT 27 Alkaline Phosphatase 86 Total Protein 7.3 Albumin 3.5 Globulin 3.8 Albumin/Globulin Ratio 0.9 Lipase 65 L - Medical Decision Making CT repeated as recommended, now showing more of a small bowel obstruction pattern. Mass is still noted in the sigmoid colon. Discussed with Dr. morgan, she looked at the images and recommends an NG tube which was placed, and admission to medicine. Discussed with hospitalist. Patient's pain treated. ED Disposition - Plan for ED Patient: Disposition: Acute Care Hospital [facility] Diagnosis: Small bowel obstruction, Mass of colon Referrals: Nahum Casarez MD [Primary Care Provider] -
[2019-12-01 15:36] LABS: Absolute Lymphocyte Count 1.12 X10^3/uL (0.83-4.51); Absolute Neutrophil Count 11.7 X10^3/uL (2.0-7.7); Basophil# 0.02 X10^3/uL; Basophil% 0.1 % (0-1); Hematocrit 45.3 % (40-54); Hemoglobin 15.4 g/dL (13.0-16.5); Lymphocyte # 1.12 X10^3/ul (4.0); Lymphocyte % 8.2 % (19-41); Mean Corpuscular Hgb 33.6 pg (27.0-32.0); Mean Corpuscular Volume 98.7 fL (80-94); Mean Platelet Vol. 8.9 fl (6.2-12.0); Monocyte# 0.81 X10^3/uL; Monocyte% 5.9 % (0-10); NRBC Flagged by Analyzer 0 % (0-5); Neutrophil % 85.4 % (47-70); Platelet Count 363 K/mm3 (150-450); RBC Distribution Width CV 12.7 % (11.6-14.6); Red Blood Count 4.59 M/mm3 (4.6-6.2); White Blood Count 13.7 K/mm3 (4.4-11.0)
[2019-12-01] MEDS: 0.9% Normal Saline 1,000 ML 1000 ML IV (15:36)
[2019-12-01] MEDS: Metoclopramide 10 MG/2 ML Vial IV (15:37)
[2019-12-01] MEDS: HYDROmorphone 1 MG/ML Syringe IV ×2 (15:38→20:04)
[2019-12-01 15:54] LABS: ALB/GLOB Ratio 0.9 RATIO (0.9-2.4); AST(SGOT) 21 U/L (15-37); Alanine Aminotransfer ALT/SGPT 27 U/L (16-61); Albumin, Serum 3.5 g/dL (3.2-5.0); Alkaline Phosphatase 86 U/L (45-117); Anion Gap 9 (5-15); BUN 20 mg/dL (7-18); BUN/Creat Ratio 26.8 RATIO (10-20); Calcium,Total 9.7 mg/dL (8.5-10.1); Chloride 103 mmol/L (98-107); Creatinine, Serum 0.74 mg/dL (0.70-1.30); EST Glomerular Filtration Rate 114 mL/min (>60); Est Glom Filt Rate - Afr Amer 138 mL/min (>60); Globulin 3.8 g/dL (2.2-4.2); Glucose 113 mg/dL (74-106); Lipase 65 U/L (73-393); Potassium 3.7 mmol/L (3.5-5.1); Protein, Total 7.3 g/dL (6.4-8.2); Sodium Level 138 mmol/L (136-145)
[2019-12-01 16:19] LABS: Lactic Acid 1.7 mmol/L (0.4-1.9)
[2019-12-01 17:05] VITALS: BP 121/81; PULSE 73; RESP 18; O2SAT 97
[2019-12-01] MEDS: Mixture 30 ML Bottle 5 ML TOPICAL (19:17)
--- NOTE | 2019-12-01 19:50 | RAD_ITS ---
STUDY: X-RAY - ABDOMEN/PELVIS REASON FOR EXAM: Male, 59 years old. NG PLACEMENT TECHNIQUE: Two AP supine views of the abdomen and pelvis. COMPARISON: CT of the abdomen and pelvis dated December 01, 2019 FINDINGS: Normal visualized lung bases. There is mild gaseous distention of multiple small bowel loops across the upper abdomen. The tip of the NG tube is in the proximal stomach. The pelvis is collimated from the field of view and not visualized. Normal soft tissue structures. Normal visualized osseous structures. RAD/Abdomen Single View (Portable) IMPRESSION: Mild diffuse gaseous distention of small bowel loops Electronically Signed: Elvin Zhao MD at 21:17 EDT , Service support ,
[2019-12-01 19:59] VITALS: BP 146/80; PULSE 81; RESP 16; TEMP 36.8; O2SAT 98
--- NOTE | 2019-12-01 20:12 | PCM.HP.STD ---
Problem List (1) Hyperlipidemia Status: Chronic (2) Small bowel obstruction Status: Acute (3) Mass of colon Status: Acute (4) Arthritis Status: Chronic (5) Venous (peripheral) insufficiency Status: Chronic History of Present Illness Date of Admission: 12/01/19 Chief Complaint: Abdominal pain. The patient is a 59 year old M with past medical history as mentioned above presented to the emergency room because of abdominal pain. His illness started yesterday with abdominal pain, upper abdominal and epigastric, described as cramping, 7 out of 10 in severity, intermittent, not radiating, associated with nausea and vomiting as well as diarrhea and without aggravating or relieving factors. He mentioned that yesterday, he had diarrhea about twice, loose stools without blood. He denied fever or chills. He denied cough or sputum production. In the emergency department, his vital signs were stable. His routine blood work was remarkable for leukocytosis, otherwise normal. LFT and lipase were unremarkable. Lactic acid was normal. CT scan abdomen and pelvis with contrast revealed small bowel obstruction and distal sigmoid colon mass. Patient is being admitted for small bowel obstruction and sigmoid colon mass for evaluation and treatment. Past Medical History Past Medical History (Chronic Problems): Chronic Problems (Last Updated 12/01/19 @ 20:[address] Shayan Marques MD) Hyperlipidemia (Chronic) Hx of blood clots (Chronic) Arthritis (Chronic) Venous (peripheral) insufficiency (Chronic) Medical History: Medical History (Last Updated 12/01/19 @ 20:[address] Shayan Marques MD) Hx of blood clots (Chronic) Z86.718 Venous (peripheral) insufficiency (Chronic) I87.2 Delayed wound healing (Inactive) T14.8XXD Ulcer of left lower extremity with fat layer exposed (Inactive) L97.922 Allergies No Known Allergies Allergy (Verified 12/01/19 15:06) Home Medications: Ambulatory Orders Medication Instructions Recorded Aspirin [Aspirin, Baby] 81 mg PO DAILY@0800 06/11/18 Atorvastatin Calcium 10 mg PO QHS 11/30/19 Hydrocodone Bitart/Apap 5-325 1 tab PO Q6H PRN PRN 3 Days #10 tab 11/30/19 [[place] 5MG-325MG] Surgical History: Surgical History (Last Updated 12/01/19 @ 20:[address] Shayan Marques MD) Hx of breast biopsy (Inactive) Z98.890 Right- 10/20/18 Hx of right cataract extraction (Inactive) Z98.41 Surgical History: cataract, - - Back surgery. Psychiatric History: No pertinent psych hx Lives: Spouse/ Significant Other Smoking Status: Current every day smoker Tobacco Use: Cigarettes Alcohol: Occasional Drugs: None - *Family History Maternal Family History: Family History (Last Reviewed 12/01/19 @ 20:[address] Shayan Marques MD) Mother Throat cancer Father Heart disease Brother Mouth cancer Review of Systems Constitutional: Denies: Anorexia, Chills, Fever, Weakness Eyes: Denies: Blurred vision, Double vision, Drainage, Redness HEENT: Denies: Difficulty Hearing, Ear Pain, Eye Pain, Post Nasal Drip, Sore Throat Cardiovascular: Denies: Chest Pain, Chest Pressure, Edema, Heaviness, Palpitations, Syncope Respiratory: Denies: Cough, Pleuritic Pain, Shortness of Breath, Sputum production, Wheezing Gastrointestinal: Reports: Abdominal Pain, Diarrhea, Nausea, Vomiting. Denies: Constipation, Hematochezia, Melena Genitourinary: Denies: Dysuria, Frequency, Hematuria Musculoskeletal: Denies: Arm Pain, Back Pain, Foot Pain Skin: Denies: Dryness, Rash Neurological: Denies: Balance problems, Blurred vision, Double vision, Change in Speech, Slurred speech, Confusion, Headaches, Incoordination Psychiatric: Denies: Anxiety, Depression Endocrine: Denies: Change in Body Habitus, Polydipsia, Polyuria VTE Information - Inpt Only VTE Present on Admission: No VTE Mechan Device Prophylaxis: None VTE Pharm Prophylaxis ordered?: Yes Patient Problems: Active and Suspected Problems (Last Updated 12/01/19 @ 20:[address] Shayan Marques MD) Small bowel obstruction (Acute) Mass of colon (Acute) - Physical Exam Vitals/I&O's: Vital Signs Temp Pulse Resp BP Pulse Ox 98.2 F 81 16 146/80 H 98 12/01/19 19:59 12/01/19 19:59 12/01/19 19:59 12/01/19 19:59 12/01/19 19:59 Oxygen Delivery Method Room Air Weight: 198 lb 6.656 oz Body Mass Index (BMI) 30.2 Intake and Output for Last 24 Hours 11/29/19 11/30/19 12/01/19 23:59 23:59 23:59 Intake Total 999 Balance 999 General: Alert, Oriented x3, Cooperative, No apparent distress HEENT: Atraumatic, PERRLA, EOMI, Normocephalic Oral: Moist Mucosa, No Gingival or Mucosal Lesions/ Ulcerations Neck: Supple, No JVD, Negative Carotid Bruits, Trachea Midline, Thyroid Normal Size and Texture Lungs: Clear to auscultation, Normal air movement, No rhonchi, No wheeze, No rales, Diminished Cardiovascular: Regular rate, Regular Rhythm, Normal S1, Normal S2, PMI Normal Abdomen: Soft, Non-Distended, No Hepato-splenomegaly, Hypoactive Bowel Sounds, Tender - Minimal upper tenderness, no guarding or rigidity. Extremities: No clubbing, No cyanosis, No edema Skin: No rashes, No breakdown Lymphatic: No Cervical, Supraclavicular, or Inguinal Adenopathy Neurological: Cranial nerves II-XII grossly intact, Motor Exam 5/5 strength throughout Psych/Mental Status: Normal Affect, Appropriate, Alert and oriented to time, place, person, mood and affect Laboratory Results 12/01/19 15:25: WBC 13.7 H, RBC 4.59 L, Hgb 15.4, Hct 45.3, MCV 98.7 H, MCH 33.6 H, MCHC 34.0, RDW Std Deviation 46.0 H, RDW Coeff of Cynthia 12.7, Plt Count 363, MPV 8.9, Immature Gran % (Auto) 0.400, Neut % (Auto) 85.4 H, Lymph % (Auto) 8.2 L, [place] % (Auto) 5.9, Eos % (Auto) 0.0, Baso % (Auto) 0.1, Absolute Neuts (auto) 11.7 H, Absolute Lymphs (auto) 1.12, Nucleated RBC % 0 12/01/19 15:25: Sodium 138, Potassium 3.7, Chloride 103, Carbon Dioxide 26.0, Anion Gap 9, BUN 20 H, Creatinine 0.74, Estim Creat Clear Calc 102.70, Est GFR (MDRD) Af Amer 138, Est GFR (MDRD) Non-Af 114, BUN/Creatinine Ratio 26.8 H, Glucose 113 H, Calcium 9.7, Total Bilirubin 0.40, AST 21, ALT 27, Alkaline Phosphatase 86, Total Protein 7.3, Albumin 3.5, Globulin 3.8, Albumin/Globulin Ratio 0.9, Lipase 65 L 12/01/19 15:25: Lactic Acid 1.7 Clinical Impression(s) from Imaging Studies Abdomen/Pelvis CT 12/01/19 15:20 IMPRESSION: 1. There is interval development of small bowel obstruction/Mild to moderate fluid distention of the small bowel starting at the third portion of duodenum and extending to the distal one third aspect of the ileum where there is transition fluid dilated bowel loop to collapsed bowel loop in the right lower quadrant, possibly due to an extrinsic adhesion. 2. A circumferential masslike process is present in the distal sigmoid colon most prominent on the left side of the wall where the mass maximally measures 3.48 cm. This is highly concerning for a malignant mass. The process is located 4.1 cm above the anal opening. 3. Moderate mesenteric edema is present in the right lower quadrant. Electronically Signed: Elvin Zhao MD at 19:02 EDT , Service support , Assessment/Plan All Active Problems (Last Updated 12/01/19 @ 20:[address] Shayan Marques MD) Small bowel obstruction (Acute) Mass of colon (Acute) This is a 59 years old male patient presented to the emergency room because of abdominal pain, found to have findings consistent with small bowel obstruction and also found to have sigmoid colon mass and he is being admitted for evaluation and treatment. #1 small bowel obstruction: Patient had no history of prior abdominal surgeries. CT scan abdomen and pelvis reviewed. His vital signs are stable. Apart from mild leukocytosis, routine blood work was unremarkable. Serum electrolytes are within normal limits. Lactic acid was normal. LFT and lipase were unremarkable. Plan: Admit to MedSurg floor, clear liquids, IV fluids, IV Dilaudid for pain, IV Zofran PRN, IV Phenergan as needed, IV Pepcid twice daily, general surgery consult, maintain NG tube, repeat KUB tomorrow morning, repeat CBC and BMP tomorrow morning. #2 sigmoid colon mass: Unclear etiology, cancer cannot be ruled out. General surgery consulted, recommended small bowel follow-through with Gastrografin, patient may need to go for colonoscopy. #3 hyperlipidemia: Hold statins for now. #4 history of DVT: Remote history, completed anticoagulation long time ago. #5 DVT prophylaxis: Subcu heparin. This note was generated with [employer] dictation software. It may contain incorrect words, spelling, and punctuation that were not noted in checking the note before signing. Inpatient E&M: 40453 Init Hosp L3
[2019-12-01 20:48] VITALS: BMI 29.6
[2019-12-01 20:51] VITALS: BP 145/100; PULSE 76; RESP 18; TEMP 37.3; O2SAT 99
[2019-12-01 21:31] VITALS: BMI 29.6
[2019-12-01] MEDS: Lactated Ringers 1,000 ML 100 ML IV (21:34)
[2019-12-01] MEDS: Heparin Injection (Vial) 5,000 UNIT/ML VIAL 5000 UNIT SC (21:35)
[2019-12-01] MEDS: Famotidine 200 MG/20 ML MDV 20 MG in 0.9% Normal Saline (Pres. free 8 ML 300 MG IV (21:35)
--- NOTE | 2019-12-01 21:40 | PCM.CONS.GEN ---
Reason for Consult Date of Consultation: 12/01/19 History of Present Illness: The patient is a 59 year old M presented to ER due to nausea vomiting abdominal pain. Patient was in the ER yesterday as he had generalized abdominal pain starting after breakfast. Patient describes the abdominal pain as cramping. He denies ever having this type of pain previously. Patient is never had any abdominal surgeries, denies history of EGD or colonoscopy. Denies any family history of colon cancer. CT abdomen pelvis done yesterday did show a rectosigmoid mass plan was for him to complete a bowel prep for colonoscopy today however he was unable to keep any of the prep down or even liquids after he left the ER yesterday. Patient returned to the ER had another CT abdomen pelvis which interval change of possible bowel small bowel obstruction along with the sigmoid mass. Patient's white blood cell count 13.7. Patient did have an NG placed for about a liter in the ER, patient states his abdomen does feel better with the NG rated his pain a 2?3/10. Patient states he typically had bowel movements daily until of couple months ago started having diarrhea denies any blood in the stool. Patient states he did see his PCP about a month ago and got some antibiotics looks like Augmentin however patient completed antibiotics and still had diarrhea. Patient denies any abdominal pain with this diarrhea initially. 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 Patient states his last DVT was maybe about 6 months ago patient did complete anticoagulation for about 3 months and was told by a physician that he needs to be on it lifelong patient did not want to do that as the Eliquis and Xarelto both made him sick. Patient denies any coagulation work-up. Past Medical History Past Medical History (Chronic Problems): Chronic Problems (Last Updated 12/01/19 @ 20:[address] Shayan Marques MD) Hyperlipidemia (Chronic) Hx of blood clots (Chronic) Arthritis (Chronic) Venous (peripheral) insufficiency (Chronic) Medical History: Medical History (Last Updated 12/01/19 @ 20:[address] Shayan Marques MD) Hx of blood clots (Chronic) Z86.718 Venous (peripheral) insufficiency (Chronic) I87.2 Delayed wound healing (Inactive) T14.8XXD Ulcer of left lower extremity with fat layer exposed (Inactive) L97.922 Allergies No Known Allergies Allergy (Verified 12/01/19 15:06) Home Medications: Ambulatory Orders Medication Instructions Recorded Aspirin [Aspirin, Baby] 81 mg PO DAILY@0800 06/11/18 Atorvastatin Calcium 10 mg PO QHS 11/30/19 Hydrocodone Bitart/Apap 5-325 1 tab PO Q6H PRN PRN 3 Days #10 tab 11/30/19 [[place] 5MG-325MG] Surgical History: Surgical History (Last Updated 12/01/19 @ 20:[address] Shayan Marques MD) Hx of breast biopsy (Inactive) Z98.890 Right- 10/20/18 Hx of right cataract extraction (Inactive) Z98.41 Surgical History: cataract, - - Back surgery. Psychiatric History: No pertinent psych hx Lives: Spouse/ Significant Other Smoking Status: Current every day smoker Tobacco Use: Cigarettes Alcohol: Occasional Drugs: None - *Family History Maternal Family History: Family History (Last Reviewed 12/01/19 @ 20:[address] Shayan Marques MD) Mother Throat cancer Father Heart disease Brother Mouth cancer Review of Systems Constitutional: Reports: Anorexia. Denies: Fever Eyes: Denies: Blurred vision HEENT: Denies: Difficulty Swallowing Cardiovascular: Denies: Chest Pain Respiratory: Denies: Shortness of Breath Gastrointestinal: Reports: Abdominal Pain, Constipation, Nausea, Vomiting Musculoskeletal: Denies: Joint swelling Skin: Denies: Rash Neurological: Denies: Balance problems Psychiatric: Denies: Anxiety, Depression Hematologic/ Lymphatic: Denies: Easy Bruising, Easy Bleeding Patient Problems: Active and Suspected Problems (Last Updated 12/01/19 @ 20:[address] Shayan Marques MD) Small bowel obstruction (Acute) Mass of colon (Acute) - Physical Exam Vitals/I&O's: Vital Signs Temp Pulse Resp BP Pulse Ox 99.2 F H 76 18 145/100 H 99 12/01/19 20:51 12/01/19 20:51 12/01/19 20:51 12/01/19 20:51 12/01/19 20:51 Oxygen Delivery Method Room Air Weight: 195 lb Body Mass Index (BMI) 29.6 Intake and Output for Last 24 Hours 11/29/19 11/30/19 12/01/19 23:59 23:59 23:59 Intake Total 999 / 999 Balance 999 / 999 General: Alert, Oriented x3, Cooperative, No apparent distress HEENT: Atraumatic, - - NG in place Lungs: Normal air movement Cardiovascular: Regular rate Abdomen: Soft, Distended - Moderate, Tender - Mild epigastric, no peritoneal signs Extremities: No clubbing, No cyanosis, No edema Neurological: Cranial nerves II-XII grossly intact Psych/Mental Status: Normal Affect Laboratory Results 12/01/19 15:25: WBC 13.7 H, RBC 4.59 L, Hgb 15.4, Hct 45.3, MCV 98.7 H, MCH 33.6 H, MCHC 34.0, RDW Std Deviation 46.0 H, RDW Coeff of Cynthia 12.7, Plt Count 363, MPV 8.9, Immature Gran % (Auto) 0.400, Neut % (Auto) 85.4 H, Lymph % (Auto) 8.2 L, [place] % (Auto) 5.9, Eos % (Auto) 0.0, Baso % (Auto) 0.1, Absolute Neuts (auto) 11.7 H, Absolute Lymphs (auto) 1.12, Nucleated RBC % 0 12/01/19 15:25: Sodium 138, Potassium 3.7, Chloride 103, Carbon Dioxide 26.0, Anion Gap 9, BUN 20 H, Creatinine 0.74, Estim Creat Clear Calc 102.70, Est GFR (MDRD) Af Amer 138, Est GFR (MDRD) Non-Af 114, BUN/Creatinine Ratio 26.8 H, Glucose 113 H, Calcium 9.7, Total Bilirubin 0.40, AST 21, ALT 27, Alkaline Phosphatase 86, Total Protein 7.3, Albumin 3.5, Globulin 3.8, Albumin/Globulin Ratio 0.9, Lipase 65 L 12/01/19 15:25: Lactic Acid 1.7 Current Medications Acetaminophen (Tylenol) 650 mg PO Q6H PRN PRN PRN Reason: Pain Score 1-10/Temp > 100.7 F Albuterol Sulfate (Ventolin Aerosols) 2.5 mg INHALATION Q2H PRN PRN PRN Reason: Shortness of Breath/Wheezing Heparin Sodium (Porcine) (Heparin Na) 5,000 unit SC Q8 COUNTS INCLUDE 234 BEDS AT THE [facility] Last Admin: 12/01/19 21:35 Dose: 5,000 unit Documented by: Lactated Ringer's () 1,000 mls @ 100 mls/hr IV .Q10H COUNTS INCLUDE 234 BEDS AT THE [facility] Last Admin: 12/01/19 21:34 Dose: 100 mls/hr Documented by: Famotidine 20 mg/ Sodium (Chloride) 10 mls @ 300 mls/hr IV Q12 COUNTS INCLUDE 234 BEDS AT THE [facility] Last Admin: 12/01/19 21:35 Dose: 300 mls/hr Documented by: Morphine Sulfate () 2 mg IV Q3H PRN PRN PRN Reason: Pain Score 6-10/10 Ondansetron HCl (Zofran) 4 mg IV Q8H PRN PRN PRN Reason: NAUSEA/VOMITING Promethazine HCl (Phenergan) 6.25 mg IV Q6H PRN PRN PRN Reason: NAUSEA/VOMITING Sodium Chloride () 10 - 40 ml IV UD PRN PRN Reason: Midline Flush Sodium Chloride (0.9% Nacl (Sterile) Posiflush) 10 - 40 ml IV UD PRN PRN Reason: Port access or dressing change Sodium Chloride () 10 - 40 ml IV UD PRN PRN Reason: SALINE FLUSH Throat Lozenges (Cepacol Sore Throat Lozenge) 2 lozenge MUCOUS MEM Q2H PRN PRN PRN Reason: sore throat Assessment/Plan All Active Problems (Last Updated 12/01/19 @ 20:[address] Shayan Marques MD) Small bowel obstruction (Acute) Mass of colon (Acute) 59-year-old male with small bowel obstruction, rectosigmoid mass 1. Patient NG placed in the ER -got about a liter out initially. We will continue NG to low intermittent suction. Did review the CT abdomen pelvis with the patient. We will plan for small bowel follow-through with Gastrografin tomorrow. Did discuss with patient that if this does not seem to go anywhere he may need surgery to investigate the cause of the small bowel obstruction which would not be dealing with this rectosigmoid mass at that time set for may be a biopsy. 2. Okay for sips and chips 3. Continue pain control Keysha Ribeiro M.D. Pager: [phone] [facility] [address] [place] [address], Outpatient [place], [address] [place] [address] Office: [phone] Inpatient E&M: 91783 Init Hosp L2
[2019-12-01 22:10] VITALS: O2SAT 99
[2019-12-02 00:12] VITALS: O2SAT 99
[2019-12-02] MEDS: Morphine 2 MG/ML Syringe IV ×2 (01:57→08:11)
[2019-12-02 03:08] VITALS: BP 144/81; PULSE 71; RESP 16; TEMP 36.5; O2SAT 100
--- NOTE | 2019-12-02 05:00 | RAD_ITS ---
STUDY: X-RAY - ABDOMEN/PELVIS REASON FOR EXAM: Male, 59 years old. small bowel obstruction TECHNIQUE: AP supine abdomen. COMPARISON: December 01, 2019. CT abdomen and pelvis December 01, 2019. FINDINGS: Normal visualized lung bases. Nasogastric tube tip in the gastric fundus. Distal small bowel obstruction not significantly changed. There is no demonstrated free abdominal air. The visualized liver, spleen and kidneys are grossly normal in size and morphology. Intravenous contrast within the bladder from recent CT scan. Normal soft tissue structures. Osseous structures unchanged. RAD/Abdomen Single View (Portable) IMPRESSION: Distal small bowel obstruction unchanged. Nasogastric tube tip in the gastric fundus. Electronically Signed: Garcia Oliveira MD at 5:28 EDT , Service support ,
[2019-12-02] MEDS: 0.9% Saline Lock 10 ML Syringe IV ×3 (05:25→09:44)
[2019-12-02 06:15] LABS: Absolute Lymphocyte Count 0.83 X10^3/uL (0.83-4.51); Absolute Neutrophil Count 9.9 X10^3/uL (2.0-7.7); Basophil# 0.03 X10^3/uL; Basophil% 0.3 % (0-1); Hematocrit 41.9 % (40-54); Hemoglobin 14.5 g/dL (13.0-16.5); Lymphocyte # 0.83 X10^3/ul (4.0); Lymphocyte % 7.1 % (19-41); Mean Corp Hgb Conc 34.6 g/dL (32-36); Mean Corpuscular Hgb 33.7 pg (27.0-32.0); Mean Corpuscular Volume 97.4 fL (80-94); Monocyte% 7.7 % (0-10); NRBC Flagged by Analyzer 0 % (0-5); Neutrophil # 9.89 X10^3/uL (2.7-7.7); Neutrophil % 84.5 % (47-70); Platelet Count 340 K/mm3 (150-450); RBC Distribution Width CV 12.7 % (11.6-14.6); RBC Distribution Width SD 45.5 fl (35.1-43.9); White Blood Count 11.7 K/mm3 (4.4-11.0)
[2019-12-02 06:40] LABS: Anion Gap 6 (5-15); BUN 22 mg/dL (7-18); BUN/Creat Ratio 31.8 RATIO (10-20); Calcium,Total 9.1 mg/dL (8.5-10.1); Chloride 104 mmol/L (98-107); Creatinine, Serum 0.69 mg/dL (0.70-1.30); EST Glomerular Filtration Rate 124 mL/min (>60); Est Glom Filt Rate - Afr Amer 150 mL/min (>60); Estimated Creatinine Clearance 110.14 ml/min; Glucose 112 mg/dL (74-106); Potassium 3.9 mmol/L (3.5-5.1); Sodium Level 139 mmol/L (136-145)
[2019-12-02] MEDS: Lactated Ringers 1,000 ML 100 ML IV (07:12)
[2019-12-02 07:38] VITALS: O2SAT 97
[2019-12-02 08:00] VITALS: BP 135/80; PULSE 64; RESP 18; TEMP 36.7; O2SAT 98
--- NOTE | 2019-12-02 08:38 | PN.SURG_ITS ---
Patient Problems: Active and Suspected Problems (Last Updated 12/01/19 @ 20:[address] Shayan Marques MD) Small bowel obstruction (Acute) Mass of colon (Acute) Subjective: Patient still denies any flatus or bowel function, patient states abdominal pain is still only about 2/10, NG only put about 250 overnight - Physical Exam Vitals/I&O's: Vital Signs Temp Pulse Resp BP Pulse Ox 97.7 F L 71 16 144/81 H 97 12/02/19 03:08 12/02/19 03:08 12/02/19 03:08 12/02/19 03:08 12/02/19 07:38 Oxygen Delivery Method Room Air Weight: 195 lb Body Mass Index (BMI) 29.6 Intake and Output for Last 24 Hours 11/30/19 12/01/19 12/02/19 23:59 23:59 23:59 Intake Total 1070 / 1120 1030 / 1030 Output Total 250 / 250 Balance 1070 / 920 780 / 780 General: Alert, Oriented x3, Cooperative, No apparent distress HEENT: Atraumatic, - - NG in place Lungs: Normal air movement Cardiovascular: Regular rate Abdomen: Soft, Distended - L2 moderate, Tender - No epigastric, no peritoneal signs Extremities: No clubbing, No cyanosis, No edema Neurological: Cranial nerves II-XII grossly intact Psych/Mental Status: Normal Affect Laboratory Results 12/01/19 15:25: WBC 13.7 H, RBC 4.59 L, Hgb 15.4, Hct 45.3, MCV 98.7 H, MCH 33.6 H, MCHC 34.0, RDW Std Deviation 46.0 H, RDW Coeff of Cynthia 12.7, Plt Count 363, MPV 8.9, Immature Gran % (Auto) 0.400, Neut % (Auto) 85.4 H, Lymph % (Auto) 8.2 L, [place] % (Auto) 5.9, Eos % (Auto) 0.0, Baso % (Auto) 0.1, Absolute Neuts (auto) 11.7 H, Absolute Lymphs (auto) 1.12, Nucleated RBC % 0 12/01/19 15:25: Sodium 138, Potassium 3.7, Chloride 103, Carbon Dioxide 26.0, Anion Gap 9, BUN 20 H, Creatinine 0.74, Estim Creat Clear Calc 102.70, Est GFR (MDRD) Af Amer 138, Est GFR (MDRD) Non-Af 114, BUN/Creatinine Ratio 26.8 H, Glucose 113 H, Calcium 9.7, Total Bilirubin 0.40, AST 21, ALT 27, Alkaline Phosphatase 86, Total Protein 7.3, Albumin 3.5, Globulin 3.8, Albumin/Globulin Ratio 0.9, Lipase 65 L 12/01/19 15:25: Lactic Acid 1.7 12/02/19 06:00: WBC 11.7 H, RBC 4.30 L, Hgb 14.5, Hct 41.9, MCV 97.4 H, MCH 33.7 H, MCHC 34.6, RDW Std Deviation 45.5 H, RDW Coeff of Cynthia 12.7, Plt Count 340, MPV 9.0, Immature Gran % (Auto) 0.400, Neut % (Auto) 84.5 H, Lymph % (Auto) 7.1 L, [place] % (Auto) 7.7, Eos % (Auto) 0.0, Baso % (Auto) 0.3, Absolute Neuts (auto) 9.9 H, Absolute Lymphs (auto) 0.83, Nucleated RBC % 0 12/02/19 06:00: Sodium 139, Potassium 3.9, Chloride 104, Carbon Dioxide 29.0, Anion Gap 6, BUN 22 H, Creatinine 0.69 L, Estim Creat Clear Calc 110.14, Est GFR (MDRD) Af Amer 150, Est GFR (MDRD) Non-Af 124, BUN/Creatinine Ratio 31.8 H, Glucose 112 H, Calcium 9.1 Current Medications Acetaminophen (Tylenol) 650 mg PO Q6H PRN PRN PRN Reason: Pain Score 1-10/Temp > 100.7 F Albuterol Sulfate (Ventolin Aerosols) 2.5 mg INHALATION Q2H PRN PRN PRN Reason: Shortness of Breath/Wheezing Heparin Sodium (Porcine) (Heparin Na) 5,000 unit SC Q8 [facility] Last Admin: 12/01/19 21:54 Dose: Not Given Documented by: Lactated Ringer's () 1,000 mls @ 100 mls/hr IV .Q10H [facility] Last Admin: 12/02/19 07:12 Dose: 100 mls/hr Documented by: Famotidine 20 mg/ Sodium (Chloride) 10 mls @ 300 mls/hr IV Q12 [facility] Last Infusion: 12/01/19 21:37 Dose: Infused Documented by: Morphine Sulfate () 2 mg IV Q3H PRN PRN PRN Reason: Pain Score 6-10/10 Last Admin: 12/02/19 08:11 Dose: 2 mg Documented by: Ondansetron HCl (Zofran) 4 mg IV Q8H PRN PRN PRN Reason: NAUSEA/VOMITING Promethazine HCl (Phenergan) 6.25 mg IV Q6H PRN PRN PRN Reason: NAUSEA/VOMITING Sodium Chloride () 10 - 40 ml IV UD PRN PRN Reason: Midline Flush Last Admin: 12/02/19 08:11 Dose: 10 ml Documented by: Sodium Chloride (0.9% Nacl (Sterile) Posiflush) 10 - 40 ml IV UD PRN PRN Reason: Port access or dressing change Sodium Chloride () 10 - 40 ml IV UD PRN PRN Reason: SALINE FLUSH Throat Lozenges (Cepacol Sore Throat Lozenge) 2 lozenge MUCOUS MEM Q2H PRN PRN PRN Reason: sore throat Medical Necessity - Tobacco Use Smoking Status: Current every day smoker Tobacco Use: Cigarettes Assessment/Plan All Active Problems (Last Updated 12/01/19 @ 20:[address] Shayan Marques MD) Small bowel obstruction (Acute) Mass of colon (Acute) 59-year-old male with small bowel obstruction, rectosigmoid mass 1. Patient NG only put out about 250 overnight, KUB still has quite dilated small bowel did advance NG this morning. Will cancel small bowel follow-through as likely this is not going to go thru. Patient would likely need surgery however due to also having the rectosigmoid mass he may be able to have this possibly dealt with at the same time or at least have a better plan for future surgery as the rectosigmoid mass is suspicious for cancer. Did discuss this with Dr. Carrillo, a colorectal surgeon at [facility] he was agreeable for transfer. Patient was also agreeable and did also discuss with patient's over the phone. 2. N.p.o. 3. Continue pain control Gilberto Fraser: [phone] [facility] [address] [place] [address], [address] [place] [address] Office: [phone]
--- NOTE | 2019-12-02 08:38 | CASEMGMT ---
LOIS CM Note: InNetwork facilities for [place]: [facility], [facility], [facility], [facility], [facility]. Desi MORRISONN RN ACM
--- NOTE | 2019-12-02 09:00 | PN_ITS ---
Reason for Visit: Small bowel obstruction. Rectosigmoid mass Objective: Patient has abdominal distention but denies chest pain or shortness of breath. Patient is a smoker, cigarette smoking 1 pack/day since teenage. Vitals/I&O's: Vital Signs Temp Pulse Resp BP Pulse Ox 97.7 F L 71 16 144/81 H 97 12/02/19 03:08 12/02/19 03:08 12/02/19 03:08 12/02/19 03:08 12/02/19 07:38 Oxygen Delivery Method Room Air Weight: 195 lb Body Mass Index (BMI) 29.6 Intake and Output for Last 24 Hours 11/30/19 12/01/19 12/02/19 23:59 23:59 23:59 Intake Total 1070 / 1120 1030 / 1030 Output Total 250 / 250 Balance 1070 / 920 780 / 780 General: Alert, Oriented x3, Cooperative HEENT: Atraumatic, PERRLA, EOMI, Normocephalic Neck: Supple, No JVD, Negative Carotid Bruits Lungs: Clear to auscultation, No rhonchi, No wheeze, No rales Cardiovascular: Regular rate, Regular Rhythm, Normal S1, Normal S2, No murmurs Abdomen: Bowel Sounds Present, Soft, Hypoactive Bowel Sounds, Distended Extremities: No edema, Capillary Refill Less than 3 Seconds Skin: No rashes, No breakdown Musculoskeletal: No Tenderness to Palpation of Joints or Extremities Neurological: Cranial nerves II-XII grossly intact, Deep Tendon Reflexes 2+/4 and Symmetrical, Neuro grossly intact Psych/Mental Status: Normal Affect, Appropriate Laboratory Results 12/01/19 15:25: WBC 13.7 H, RBC 4.59 L, Hgb 15.4, Hct 45.3, MCV 98.7 H, MCH 33.6 H, MCHC 34.0, RDW Std Deviation 46.0 H, RDW Coeff of Cynthia 12.7, Plt Count 363, MPV 8.9, Immature Gran % (Auto) 0.400, Neut % (Auto) 85.4 H, Lymph % (Auto) 8.2 L, [place] % (Auto) 5.9, Eos % (Auto) 0.0, Baso % (Auto) 0.1, Absolute Neuts (auto) 11.7 H, Absolute Lymphs (auto) 1.12, Nucleated RBC % 0 12/01/19 15:25: Sodium 138, Potassium 3.7, Chloride 103, Carbon Dioxide 26.0, Anion Gap 9, BUN 20 H, Creatinine 0.74, Estim Creat Clear Calc 102.70, Est GFR (MDRD) Af Amer 138, Est GFR (MDRD) Non-Af 114, BUN/Creatinine Ratio 26.8 H, Glucose 113 H, Calcium 9.7, Total Bilirubin 0.40, AST 21, ALT 27, Alkaline Phosphatase 86, Total Protein 7.3, Albumin 3.5, Globulin 3.8, Albumin/Globulin Ratio 0.9, Lipase 65 L 12/01/19 15:25: Lactic Acid 1.7 12/02/19 06:00: WBC 11.7 H, RBC 4.30 L, Hgb 14.5, Hct 41.9, MCV 97.4 H, MCH 33.7 H, MCHC 34.6, RDW Std Deviation 45.5 H, RDW Coeff of Cynthia 12.7, Plt Count 340, MPV 9.0, Immature Gran % (Auto) 0.400, Neut % (Auto) 84.5 H, Lymph % (Auto) 7.1 L, [place] % (Auto) 7.7, Eos % (Auto) 0.0, Baso % (Auto) 0.3, Absolute Neuts (auto) 9.9 H, Absolute Lymphs (auto) 0.83, Nucleated RBC % 0 12/02/19 06:00: Sodium 139, Potassium 3.9, Chloride 104, Carbon Dioxide 29.0, Anion Gap 6, BUN 22 H, Creatinine 0.69 L, Estim Creat Clear Calc 110.14, Est GFR (MDRD) Af Amer 150, Est GFR (MDRD) Non-Af 124, BUN/Creatinine Ratio 31.8 H, Glucose 112 H, Calcium 9.1 Current Medications Acetaminophen (Tylenol) 650 mg PO Q6H PRN PRN PRN Reason: Pain Score 1-10/Temp > 100.7 F Albuterol Sulfate (Ventolin Aerosols) 2.5 mg INHALATION Q2H PRN PRN PRN Reason: Shortness of Breath/Wheezing Heparin Sodium (Porcine) (Heparin Na) 5,000 unit SC Q8 [facility] Last Admin: 12/01/19 21:54 Dose: Not Given Documented by: Lactated Ringer's () 1,000 mls @ 100 mls/hr IV .Q10H [facility] Last Admin: 12/02/19 07:12 Dose: 100 mls/hr Documented by: Famotidine 20 mg/ Sodium (Chloride) 10 mls @ 300 mls/hr IV Q12 [facility] Last Infusion: 12/01/19 21:37 Dose: Infused Documented by: Morphine Sulfate () 2 mg IV Q3H PRN PRN PRN Reason: Pain Score 6-10/10 Last Admin: 12/02/19 01:57 Dose: 2 mg Documented by: Ondansetron HCl (Zofran) 4 mg IV Q8H PRN PRN PRN Reason: NAUSEA/VOMITING Promethazine HCl (Phenergan) 6.25 mg IV Q6H PRN PRN PRN Reason: NAUSEA/VOMITING Sodium Chloride () 10 - 40 ml IV UD PRN PRN Reason: Midline Flush Last Admin: 12/02/19 05:25 Dose: 10 ml Documented by: Sodium Chloride (0.9% Nacl (Sterile) Posiflush) 10 - 40 ml IV UD PRN PRN Reason: Port access or dressing change Sodium Chloride () 10 - 40 ml IV UD PRN PRN Reason: SALINE FLUSH Throat Lozenges (Cepacol Sore Throat Lozenge) 2 lozenge MUCOUS MEM Q2H PRN PRN PRN Reason: sore throat STROKE Vital Signs/Narrative: Vital Signs Pulse Ox 12/02/19 07:38 97 Medical Necessity - Tobacco Use Smoking Status: Current every day smoker Tobacco Use: Cigarettes Assessment/Plan All Active Problems (Last Updated 12/01/19 @ 20:[address] Shayan Marques MD) Small bowel obstruction (Acute) Mass of colon (Acute) This is a 59 years old male patient presented to the emergency room because of abdominal pain, found to have findings consistent with small bowel obstruction and also found to have sigmoid colon mass and he is being admitted for evaluation and treatment. #1 small bowel obstruction: Patient had no history of prior abdominal surgeries. CT scan abdomen and pelvis reviewed. Discussed with surgeon. Patient did not had flatus or bowel movement since Monday morning. CT abdomen pelvis showed dilated small bowel with decompressed colon with stool in right colon. Rectal mass seen. The surgeon Dr. Robotham discussed with Dr. Carrillo, [facility] who agreed to accept the patient. Patient is in the process of getting transferred to [facility]. Leukocytosis is improved. #2 Rectosigmoid mass: Unclear etiology, cancer cannot be ruled out. As mentioned above #3 hyperlipidemia: #4 history of DVT: Remote history, completed anticoagulation long time ago. #5 DVT prophylaxis: Subcu heparin. Discharge summary completed by surgeon. Inpatient E&M: 54310 Subs Hosp L2
--- NOTE | 2019-12-02 09:08 | DS.PCM_ITS ---
Discharge Date and Diagnosis - Problem List Patient Problems: Active and Suspected Problems (Last Updated 12/01/19 @ 20:[address] Shayan Marques MD) Small bowel obstruction (Acute) Mass of colon (Acute) Date of Admission: 12/01/19 Date of Discharge: 12/02/19 - Primary Discharge Diagnosis Acute Problems: Active Problems (Last Updated 12/01/19 @ 20:[address] Shayan Marques MD) Small bowel obstruction (Acute) Mass of colon (Acute) Suspected Problems: Small bowel obstruction Rectal mass - Secondary Discharge Diagnosis Chronic Problems: Chronic Problems (Last Updated 12/01/19 @ 20:[address] Shayan Marques MD) Hyperlipidemia (Chronic) Hx of blood clots (Chronic) Arthritis (Chronic) Venous (peripheral) insufficiency (Chronic) Hospital Course and Treatment Imaging Results: 12/02/19 05:00 KUB [Abdomen Single View (Portable)] [RAD] AM (NON MEDS) Surgery Operations: None Procedures: None Summary of Care Provided: The patient is a 59 year old M patient presented to the ER due to epigastric discomfort CT abdomen pelvis initially revealed on Monday sigmoid rectal mass, patient was discharged from the ER plan to follow-up for colonoscopy for biopsy. However patient was unable to keep down any of the bowel prep. Patient came back to the ER yesterday due to the nausea vomiting and abdominal pain. Patient denies any flatus or bowel movements since Monday morning. Patient has been having diarrhea for 2 months. Patient is never had a colonoscopy denies any family history of colon cancer. Patient denies any chronic history of abdominal pain or blood in stool. CT abdomen pelvis on Monday in the ER showed dilated small bowel and report called decompressed ileum, stool seen in the right colon the transverse and left colon are decompressed and the rectal mass again is seen. Patient had an NG placed yesterday put about a liter initially only put about 250 cc last night this was advanced. Patient's KUB from this morning looks virtually unchanged with still very dilated small bowel. Pt has never had any abdominal surgeries in patient's rectal masses very suspicious for cancer, unsure the cause of small bowel obstruction no obvious additional mass seen on CT abdomen pelvis. Did discussed with Dr. Carrillo colorectal surgeon at [facility] who agreed to accept patient. Patient Problems: Active and Suspected Problems (Last Updated 12/01/19 @ 20:[address] Shayan Marques MD) Small bowel obstruction (Acute) Mass of colon (Acute) - Physical Exam Vitals/I&O's: Vital Signs Temp Pulse Resp BP Pulse Ox 97.7 F L 71 16 144/81 H 97 12/02/19 03:08 12/02/19 03:08 12/02/19 03:08 12/02/19 03:08 12/02/19 07:38 Oxygen Delivery Method Room Air Weight: 195 lb Body Mass Index (BMI) 29.6 Intake and Output for Last 24 Hours 11/30/19 12/01/19 12/02/19 23:59 23:59 23:59 Intake Total 1070 / 1120 1030 / 1030 Output Total 250 / 250 Balance 1070 / 920 780 / 780 General: Alert, Oriented x3, Cooperative, No apparent distress HEENT: Atraumatic Lungs: Normal air movement Cardiovascular: Regular rate Abdomen: Soft, Distended - Mild to moderate, Tender - Mild epigastric, no peritoneal signs Extremities: No clubbing, No cyanosis, No edema Skin: No rashes Neurological: Cranial nerves II-XII grossly intact Psych/Mental Status: Normal Affect Laboratory Results 12/01/19 15:25: WBC 13.7 H, RBC 4.59 L, Hgb 15.4, Hct 45.3, MCV 98.7 H, MCH 33.6 H, MCHC 34.0, RDW Std Deviation 46.0 H, RDW Coeff of Cynthia 12.7, Plt Count 363, MPV 8.9, Immature Gran % (Auto) 0.400, Neut % (Auto) 85.4 H, Lymph % (Auto) 8.2 L, Banner % (Auto) 5.9, Eos % (Auto) 0.0, Baso % (Auto) 0.1, Absolute Neuts (auto) 11.7 H, Absolute Lymphs (auto) 1.12, Nucleated RBC % 0 12/01/19 15:25: Sodium 138, Potassium 3.7, Chloride 103, Carbon Dioxide 26.0, Anion Gap 9, BUN 20 H, Creatinine 0.74, Estim Creat Clear Calc 102.70, Est GFR (MDRD) Af Amer 138, Est GFR (MDRD) Non-Af 114, BUN/Creatinine Ratio 26.8 H, Glucose 113 H, Calcium 9.7, Total Bilirubin 0.40, AST 21, ALT 27, Alkaline Phosphatase 86, Total Protein 7.3, Albumin 3.5, Globulin 3.8, Albumin/Globulin Ratio 0.9, Lipase 65 L 12/01/19 15:25: Lactic Acid 1.7 12/02/19 06:00: WBC 11.7 H, RBC 4.30 L, Hgb 14.5, Hct 41.9, MCV 97.4 H, MCH 33.7 H, MCHC 34.6, RDW Std Deviation 45.5 H, RDW Coeff of Cynthia 12.7, Plt Count 340, MPV 9.0, Immature Gran % (Auto) 0.400, Neut % (Auto) 84.5 H, Lymph % (Auto) 7.1 L, Banner % (Auto) 7.7, Eos % (Auto) 0.0, Baso % (Auto) 0.3, Absolute Neuts (auto) 9.9 H, Absolute Lymphs (auto) 0.83, Nucleated RBC % 0 12/02/19 06:00: Sodium 139, Potassium 3.9, Chloride 104, Carbon Dioxide 29.0, Anion Gap 6, BUN 22 H, Creatinine 0.69 L, Estim Creat Clear Calc 110.14, Est GFR (MDRD) Af Amer 150, Est GFR (MDRD) Non-Af 124, BUN/Creatinine Ratio 31.8 H, Glucose 112 H, Calcium 9.1 Current Medications Acetaminophen (Tylenol) 650 mg PO Q6H PRN PRN PRN Reason: Pain Score 1-10/Temp > 100.7 F Albuterol Sulfate (Ventolin Aerosols) 2.5 mg INHALATION Q2H PRN PRN PRN Reason: Shortness of Breath/Wheezing Heparin Sodium (Porcine) (Heparin Na) 5,000 unit SC Q8 [facility] Last Admin: 12/01/19 21:54 Dose: Not Given Documented by: Lactated Ringer's () 1,000 mls @ 100 mls/hr IV .Q10H [facility] Last Admin: 12/02/19 07:12 Dose: 100 mls/hr Documented by: Famotidine 20 mg/ Sodium (Chloride) 10 mls @ 300 mls/hr IV Q12 [facility] Last Infusion: 12/01/19 21:37 Dose: Infused Documented by: Morphine Sulfate () 2 mg IV Q3H PRN PRN PRN Reason: Pain Score 6-10/10 Last Admin: 12/02/19 08:11 Dose: 2 mg Documented by: Ondansetron HCl (Zofran) 4 mg IV Q8H PRN PRN PRN Reason: NAUSEA/VOMITING Promethazine HCl (Phenergan) 6.25 mg IV Q6H PRN PRN PRN Reason: NAUSEA/VOMITING Sodium Chloride () 10 - 40 ml IV UD PRN PRN Reason: Midline Flush Last Admin: 12/02/19 08:11 Dose: 10 ml Documented by: Sodium Chloride (0.9% Nacl (Sterile) Posiflush) 10 - 40 ml IV UD PRN PRN Reason: Port access or dressing change Sodium Chloride () 10 - 40 ml IV UD PRN PRN Reason: SALINE FLUSH Throat Lozenges (Cepacol Sore Throat Lozenge) 2 lozenge MUCOUS MEM Q2H PRN PRN PRN Reason: sore throat Discharge Diet: - - npo Home Medications: Medications to take at Discharge Aspirin [Aspirin, Baby] 81 mg PO DAILY@0800 06/11/18 Atorvastatin Calcium 10 mg PO QHS 11/30/19 Hydrocodone Bitart/Apap 5-325 [[place] 5MG-325MG] 1 tab PO Q6H PRN PRN 3 Days #10 tab 11/30/19 Primary Care Physician: Nahum Casarez MD [Primary Care Provider] - Disposition: Acute care Hospital Minutes spent on discharge:: 15 Patient Condition:: Stable Medical Necessity - Tobacco Use Smoking Status: Current every day smoker Tobacco Use: Cigarettes Meaningful Use Info Meaningful Use Diagnoses (Choose all that apply): None applicable Inpatient E&M: 26216 Disch Hosp
[2019-12-02] MEDS: Famotidine 200 MG/20 ML MDV 20 MG in 0.9% Normal Saline (Pres. free 8 ML 300 MG IV (09:44)
--- NOTE | 2019-12-02 10:10 | NURSING ---
patients , Summer, called with update on transfer to [facility] room assignment and phone number provided to .
--- NOTE | 2019-12-02 10:15 | NURSING ---
attempted to call report, RN at [facility] left name and number for call back.
--- NOTE | 2019-12-02 10:42 | NURSING ---
report given to Angeli Aj RN.
== END 2019-12-02 10:50 | disposition short-term general hospital (02) | DRG 390 ==
LOC: ED 19:43 → MS3 20:09
PROVIDERS: Admitting Provider Hospitalist; Emergency Provider Emergency Medicine; PCP Family Medicine; Visit Provider Internal Medicine
DX: K56.609 Unspecified intestinal obstruction, unspecified as to partial versus complete obstruction (principal); K63.9 Disease of intestine, unspecified; E78.5 Hyperlipidemia, unspecified; M19.90 Unspecified osteoarthritis, unspecified site; I87.2 Venous insufficiency (chronic) (peripheral); F17.210 Nicotine dependence, cigarettes, uncomplicated; Z80.8 Family history of malignant neoplasm of other organs or systems; Z86.718 Personal history of other venous thrombosis and embolism
CPT/HCPCS: 36415; 74018; 74177; 80048; 80053; 83605; 83690; 85025; 99251; 99285; 99406; G2023; J7120; Q9967; A4216; G0463; J3490

== ENCOUNTER → 2020-02-05 15:30 | Outpatient (CLI) | payer BC, OTHER, SELFPAY ==
--- NOTE | 2020-02-05 15:35 | VDLE_ITS ---
Reason For Study: DVT RIGHT LEFT GSV is normal. GSV is normal. CFV is compressible, spontaneous, phasic, CFV is compressible, spontaneous, phasic, competent and demonstrates normal competent, and demonstrates normal augmentation. augmentation. RT SFJ is compressible. Left SFJ is PARTIALLY COMPRESSIBLE with RT Prox FV is compressible. partial color filling. RT Mid -Distal FV is PARTIALLY COMPRESSIBLE. Left FV is dilated and NONCOMPRESSIBLE RT POPV is dilated and NONCOMPRESSIBLE. throughout. RT T/P Trunk is dilated and NONCOMPRESSIBLE Left POPV is dilated and NONCOMPRESSIBLE with RT PTV Prox-Mid is dilated and echogenicities continuous with acute on NONCOMPRESSIBLE, the remainder of the PTV is chronic DVT. compressible. Left T/P Trunk is dilated and RT PEROV is dilated and NONCOMPRESSIBLE NONCOMPRESSIBLE. throughout. Left PTV is dilated and NONCOMPRESSIBLE Procedure throughout. Exam performed in department. Left PEROV is dilated and NONCOMPRESSIBLE A preliminary report was called and/or faxed throughout. to DR BAILEY. Interpretation Summary Acute deep vein thrombosis is noted in the femoral veins, popliteal veins, tibio-peroneal trunks, posterior tibial veins, and peroneal veins bilaterally. The common femoral veins are patent, compressible, and competent bilaterally. The great saphenous veins appear bilaterally patent and compressible segmentally. Ordering Physician: Samuel Bailey Referring Physician: Samuel Bailey Performed By: Tari Guardado, LASHAY, RVT
== END ==
PROVIDERS: PCP Family Medicine; Referring Provider Family Medicine; Visit Provider Family Medicine
DX: I82.403 Acute embolism and thrombosis of unspecified deep veins of lower extremity, bilateral (principal)
CPT/HCPCS: 93970

== ENCOUNTER → 2020-06-22 13:31 | Outpatient (CLI) | payer BC, OTHER, SELFPAY | PROVIDERS: PCP Family Medicine; Referring Provider Family Medicine; Visit Provider Family Medicine | DX: Z20.828 Contact with and (suspected) exposure to other viral communicable diseases (principal) | CPT/HCPCS: 87633; 87635; U0003 ==

== ENCOUNTER 2020-08-04 20:30 | Emergency (ER) | payer BC, OTHER, SELFPAY ==
[2020-08-04 20:31] VITALS: BP 119/93; PULSE 107; RESP 15; TEMP 35.9; O2SAT 96; BMI 28.8
--- NOTE | 2020-08-04 21:22 | ED.DCSUM_ITS ---
History of Present Illness Chief Complaint: Abd Pain Informant: Patient Onset: Days - 2 Narrative: Follow-up patient presents with intermittent abdominal cramping for the past 2 days. States would build up to the 3 times a day and then release of gas into his ileostomy. History of bowel obstruction in November 2019 when he was diagnosed with rectal cancer. He status post ileostomy this past May by Dr. Boyd) at [facility]. Radiation treatment currently on chemo followed by Dr. Sneed. Last treatment was 12 days ago. Treatments every 3 weeks. Denies fever cough or urinary symptoms. Denies any nausea or vomiting. Reports would feel the buildup to the 3 times a day and then a release of stools and gas into his ostomy with resolution of symptoms. Currently he is symptom- free. He states his typical ostomy output is up to 1 L/day. Prior similar symptoms: No Past Medical History - Allergies and Home Meds Allergies/Adverse Reactions: Allergies No Known Allergies Allergy (Verified 12/01/19 15:06) Primary Care Physician: Nahum Casarez MD [Primary Care Provider] - Past Medical History: - - Rectal cancer, small bowel obstruction Surgical History: cataract, - - Back surgery. Smoking Status: Current every day smoker Review of Systems General: Denies: Chills, Fever, Sweats Eyes: Denies: Visual changes - bilaterally, Diplopia ENT: Denies: Rhinorrhea, Sore throat Cardiovascular: Denies: Chest pain, Palpitations Respiratory: Denies: Dyspnea, Cough, Dyspnea on exertion Gastrointestinal: Reports: Abdominal pain. Denies: Nausea, Vomiting, Diarrhea, Melena, Hematochezia Genitourinary: Denies: Dysuria, Hematuria, Frequency Musculoskeletal: Denies: Back pain, Extremity Pain Skin: Denies: Rash, Wounds Neurological: Denies: Headache, Weakness, Numbness Physical Exam Vital Signs/Narrative: Vital Signs Temp Pulse Resp BP Pulse Ox 08/04/20 20:31 96.6 F L 107 H 15 119/93 H 96 Inital Vital Signs reviewed: Yes General: Well nourished, Well developed, No Acute Distress Head: Normocephalic, Atraumatic Eyes: Perrl, EOMI ENT: Moist mucous membranes, No rhinorrhea Neck: Supple, Nontender Cardiovascular: Regular rate, Regular rhythm, No murmurs Respiratory: No distress, CTA bilaterally, Chest nontender Abdomen: Soft, Nontender, Nondistended, Normal bowel sounds, - - Right lower quadrant ileostomy liquid brown stools with food particles. Nonbloody. Back: Nontender, Normal Inspection Extremities: Nontender, No edema Skin: Normal color, No rash Neurological: Alert, Oriented x3, Cranial nerves II-XII grossly intact, Normal Strength, Normal Sensation Psychological: Normal affect, Normal Mood Diagnostic/Tx/Re-eval Clinical Impression(s) from Imaging Studies Acute Abdomen Series 08/04/20 21:35 IMPRESSION: Nonspecific abdominal series Electronically Signed: Chris Curry MD at 21:58 EST , Service support , - Medical Decision Making Patient vital stable currently asymptomatic nonsurgical abdomen. History concerns for temporary obstruction that released. Labs were ordered and urine returned negative. Abdominal series with PA chest 5 views reviewed by myself and read by radiology notes nonobstructive bowel gas pattern. Reevaluation patient still symptom-free. Labs are pending, patient will be signed out to evening physician to follow-up on labs and disposition. ED Disposition - Plan for ED Patient: Diagnosis: Abdominal pain Referrals: Nahum Casarez MD [Primary Care Provider] -
[2020-08-04] MEDS: 0.9% Normal Saline 1,000 ML 125 ML IV (21:32)
--- NOTE | 2020-08-04 21:35 | RAD_ITS ---
STUDY: X-RAY - ACUTE ABDOMINAL SERIES REASON FOR EXAM: Male, 59 years old. HAS A ILIOSTOMY. ABD CRAMPING X COUPLE DAYS. STATES HE SEEMS TO HAVE MORE GAS THAN NORMAL. TECHNIQUE: Single view of the chest. Supine, and upright view(s) of the abdomen were obtained. COMPARISON: 12/02/2019 FINDINGS: Lungs are mildly hyperinflated but clear.. Normal size heart. Normal mediastinum and veena. Normal visualized pulmonary arteries. Normal visualized aortic arch and descending thoracic aorta. There is a non-specific bowel gas pattern. The soft tissue structures of the abdomen and pelvis are unremarkable. Lumbar spine demonstrates scoliosis and degenerative change RAD/Acute Abdomen Inc Chest IMPRESSION: Nonspecific abdominal series Electronically Signed: Chris Curry MD at 21:58 EST , Service support ,
[2020-08-04 21:41] LABS: Bacteria 0 SEEN /hpf (None Seen); Red Blood Cells-Urine 0 SEEN /hpf (0-5); Squamous Epithelial Cells - UA 0 SEEN /hpf (0-5); White Blood Cells 0 SEEN /hpf (0-5)
[2020-08-04 21:45] LABS: Color, Urine Yellow (Yellow); Glucose, Dipstick Normal (Normal); Ketone-Dipstick Negative (Negative); Leukocyte Esterase-Dipstick Negative /ul (Negative); Nitrite-Dipstick Negative (Negative); Occult Blood-Urine Negative /ul (Negative); Protein-Dipstick 15 mg/dl (Negative); Specific Gravity, Urine 1.015 (1.002-1.030); Urine Bilirubin Dipstick Negative (Negative); Urine Clarity Clear (Clear); Urine Urobilinogen Normal (Normal)
[2020-08-04 21:50] LABS: Mucous, Urine 1+ /hpf (<or=2+)
[2020-08-04 22:25] LABS: Absolute Lymphocyte Count 0.51 X10^3/uL (0.83-4.51); Absolute Neutrophil Count 4.5 X10^3/uL (2.0-7.7); Basophil# 0.01 X10^3/uL; Basophil% 0.2 % (0-1); Eosinophil# 0.04 X10^3/uL; Eosinophils% 0.7 % (0-5); Hematocrit 40.5 % (40-54); Hemoglobin 14.4 g/dL (13.0-16.5); Lymphocyte # 0.51 X10^3/ul (4.0); Mean Corp Hgb Conc 35.6 g/dL (32-36); Mean Corpuscular Hgb 33.9 pg (27.0-32.0); Mean Corpuscular Volume 95.3 fL (80-94); Mean Platelet Vol. 8.7 fl (6.2-12.0); Monocyte# 0.59 X10^3/uL; Monocyte% 10.4 % (0-10); NRBC Flagged by Analyzer 0 % (0-5); Neutrophil # 4.51 X10^3/uL (2.7-7.7); Neutrophil % 79.5 % (47-70); POSITIVE DIFFERENTIAL YES; Platelet Count 184 K/mm3 (150-450); RBC Distribution Width CV 12.3 % (11.6-14.6); RBC Distribution Width SD 40.8 fl (35.1-43.9); Red Blood Count 4.25 M/mm3 (4.6-6.2); White Blood Count 5.7 K/mm3 (4.4-11.0)
[2020-08-04 22:29] LABS: Differential Indicated SCAN CRITERIA MET
[2020-08-04 22:36] LABS: AST(SGOT) 33 U/L (15-37); Alanine Aminotransfer ALT/SGPT 57 U/L (16-61); Albumin, Serum 3.7 g/dL (3.2-5.0); Alkaline Phosphatase 95 U/L (45-117); Anion Gap 9 (5-15); BUN 17 mg/dL (7-18); BUN/Creat Ratio 17.7 RATIO (10-20); Calcium,Total 9.7 mg/dL (8.5-10.1); Chloride 102 mmol/L (98-107); Creatinine, Serum 0.96 mg/dL (0.70-1.30); EST Glomerular Filtration Rate 85 mL/min (>60); Est Glom Filt Rate - Afr Amer 103 mL/min (>60); Estimated Creatinine Clearance 79.17 ml/min; Globulin 3.7 g/dL (2.2-4.2); Glucose 107 mg/dL (74-106); Lipase 149 U/L (73-393); Potassium 3.6 mmol/L (3.5-5.1); Protein, Total 7.4 g/dL (6.4-8.2); Sodium Level 134 mmol/L (136-145)
[2020-08-04 22:55] LABS: Differential Comment SCANNED
--- NOTE | 2020-08-04 23:10 | ED.VISSUMM ---
- ER Visit Summary Date of Service: 08/04/20 This patient was checked out to me with labs pending. Test Results: Abnormal Lab Results 08/04/20 08/04/20 08/04/20 20:55 20:55 21:25 WBC 5.7 RBC 4.25 L Hgb 14.4 Hct 40.5 MCV 95.3 H MCH 33.9 H MCHC 35.6 RDW Std Deviation 40.8 RDW Coeff of Cynthia 12.3 Plt Count 184 MPV 8.7 Immature Gran % (Auto) 0.200 Neut % (Auto) 79.5 H Lymph % (Auto) 9.0 L Gaston % (Auto) 10.4 H Eos % (Auto) 0.7 Baso % (Auto) 0.2 Absolute Neuts (auto) 4.5 Absolute Lymphs (auto) 0.51 L Nucleated RBC % 0 Differential Comment SCANNED Sodium 134 L Potassium 3.6 Chloride 102 Carbon Dioxide 23.0 Anion Gap 9 BUN 17 Creatinine 0.96 Estim Creat Clear Calc 79.17 Est GFR (MDRD) Af Amer 103 Est GFR (MDRD) Non-Af 85 BUN/Creatinine Ratio 17.7 Glucose 107 H Calcium 9.7 Total Bilirubin 0.50 AST 33 ALT 57 Alkaline Phosphatase 95 Total Protein 7.4 Albumin 3.7 Globulin 3.7 Albumin/Globulin Ratio 1.0 Lipase 149 Urine Color Yellow Urine Clarity Clear Urine pH 6.0 Ur Specific [place] 1.015 Urine Protein 15 H Urine Glucose (UA) Normal Urine Ketones Negative Urine Occult Blood Negative Urine Nitrite Negative Urine Bilirubin Negative Urine Urobilinogen Normal Ur Leukocyte Esterase Negative Urine RBC 0 SEEN Urine WBC 0 SEEN Ur Squamous Epith Cells 0 SEEN Urine Bacteria 0 SEEN Urine Mucus 1+ Clinical Impression(s) from Imaging Studies Acute Abdomen Series 08/04/20 21:35 IMPRESSION: Nonspecific abdominal series Electronically Signed: Chris Curry MD at 21:58 EST , Service support , Emergency Department Course and Treatment: Patient is resting comfortably. He reports that he does have occasional cramping. However, his ileostomy is still draining normally. There is no blood present. Treatment Plan: Patient will be discharged instructions to follow-up his primary care physician in 1 to 2 days if not improving. If his ileostomy is not continuing to drain he is instructed return the emergency department. Disposition: To home in improved and stable condition. Impression: 1. Abdominal pain, uncertain cause. This note was generated with [employer] dictation software. It may contain incorrect words, spelling, and punctuation that were not noted in review of the chart prior to signing ED Disposition - Plan for ED Patient: Diagnosis: Abdominal pain Instructions: ED Unknown Causes of Abdominal ... Referrals: Nahum Casarez MD [Primary Care Provider] - 1-2 Days if not improving
[2020-08-04 23:19] VITALS: BP 110/68; PULSE 78; RESP 16
== END 2020-08-04 23:20 | disposition home or self-care (01) ==
LOC: ED 21:32
PROVIDERS: Emergency Provider Emergency Medicine; PCP Family Medicine
DX: R10.9 Unspecified abdominal pain (principal); Z85.048 Personal history of other malignant neoplasm of rectum, rectosigmoid junction, and anus; Z93.2 Ileostomy status; F17.200 Nicotine dependence, unspecified, uncomplicated
CPT/HCPCS: 74022; 80053; 81001; 83690; 85025; 96360; 96361; 99283; J7030; A4216

== ENCOUNTER 2020-08-05 17:56 | Emergency (ER) | payer BC, OTHER, SELFPAY ==
[2020-08-04 20:31] VITALS: BMI 28.8
[2020-08-05 17:57] VITALS: BP 111/76; PULSE 113; RESP 24; TEMP 37.2; O2SAT 100; BMI 28.8
[2020-08-05 18:01] VITALS: BP 111/76; PULSE 113; RESP 24; TEMP 37.2; O2SAT 100
--- NOTE | 2020-08-05 19:00 | CT_ITS ---
STUDY: CT ABDOMEN AND PELVIS WITH CONTRAST REASON FOR EXAM: Male, 59 years old. ABDOMINAL PAIN WITH CRAMPING X 4 DAYS.,DIARRHEA -- HX:HLD,SBO,RECTAL AND LUNG CANCER WITH RECENT COLOSTOMY 11-20 RADIATION DOSAGE (If Supplied By Facility): CTDIvol = ( 14.30 ) mGy, DLP = ( 889.23 ) mGycm TECHNIQUE: Transaxial images were obtained from the dome of the diaphragm to the symphysis pubis without oral contrast. Oral and amp; IV Gastrografin and amp; 100mL Isovue-300 was administered. Sagittal and coronal images were reconstructed. Individualized dose optimization techniques were used for this CT. COMPARISON: None. FINDINGS: The visualized lung bases are unremarkable. The visualized portions of the heart are within normal limits. Normal liver. Normal gallbladder and extrahepatic biliary system. Normal spleen. Normal pancreas. Normal bilateral adrenal glands. Normal right kidney. Normal left kidney. Normal visualized stomach. Normal small intestine. No evidence for small bowel obstruction however there are multiple loops of thick-walled small bowel in the right lower quadrant consistent with nonspecific enteritis. Postsurgical changes status post rectal resection and stoma placement in the right lower quadrant... The appendix is visualized and appears normal. Atherosclerotic changes of the aorta without evidence for aneurysm. Normal inferior vena cava. Normal retroperitoneum. . concentric thickening of the grove of the bladder. Nonspecific enlargement of prostate Normal abdominal wall. Lumbar spine demonstrates degenerative change. Grade 1 spondylolisthesis and spondylolysis at L5-S1 CT/Abdomen/Pelvis WITH Contrast IMPRESSION: Concentric thickening of the grove of several loops of small bowel in the right lower quadrant consistent with nonspecific enteritis. Postsurgical changes status post partial colectomy and rectal resection with stoma placement in the right lower quadrant. Electronically Signed: Chris Curry MD at 21:09 EST , Service support ,
[2020-08-05] MEDS: 0.9% Normal Saline 1,000 ML 1000 ML IV (19:05)
[2020-08-05] MEDS: Morphine 2 MG/ML Syringe IV (19:13)
[2020-08-05] MEDS: Ondansetron 4 MG/2 ML Vial IV (19:14)
[2020-08-05 19:15] LABS: Bacteria 0 SEEN /hpf (None Seen); Squamous Epithelial Cells - UA 0 SEEN /hpf (0-5); White Blood Cells 0 SEEN /hpf (0-5)
[2020-08-05 19:16] LABS: Color, Urine Yellow (Yellow); Glucose, Dipstick Normal (Normal); Ketone-Dipstick 5 mg/dl (Negative); Leukocyte Esterase-Dipstick 25 /ul (Negative); Nitrite-Dipstick Negative (Negative); Occult Blood-Urine Negative /ul (Negative); Protein-Dipstick 30 mg/dl (Negative); Urine Bilirubin Dipstick Negative (Negative); Urine Clarity Sl. Cloudy (Clear); Urine Urobilinogen Normal (Normal)
[2020-08-05 19:18] LABS: Absolute Lymphocyte Count 0.31 X10^3/uL (0.83-4.51); Absolute Neutrophil Count 2.3 X10^3/uL (2.0-7.7); Basophil# 0.01 X10^3/uL; Basophil% 0.3 % (0-1); Eosinophil# 0.02 X10^3/uL; Eosinophils% 0.7 % (0-5); Hematocrit 41.4 % (40-54); Hemoglobin 14.8 g/dL (13.0-16.5); Lymphocyte # 0.31 X10^3/ul (4.0); Lymphocyte % 10.2 % (19-41); Mean Corp Hgb Conc 35.7 g/dL (32-36); Mean Corpuscular Hgb 34.1 pg (27.0-32.0); Mean Corpuscular Volume 95.4 fL (80-94); Monocyte# 0.37 X10^3/uL; Monocyte% 12.1 % (0-10); NRBC Flagged by Analyzer 0 % (0-5); Neutrophil # 2.32 X10^3/uL (2.7-7.7); POSITIVE COUNT YES; POSITIVE DIFFERENTIAL YES; Platelet Count 182 K/mm3 (150-450); RBC Distribution Width CV 12.4 % (11.6-14.6); RBC Distribution Width SD 41.1 fl (35.1-43.9); Red Blood Count 4.34 M/mm3 (4.6-6.2); White Blood Count 3.1 K/mm3 (4.4-11.0)
[2020-08-05 19:28] LABS: Hyaline Cast 0-5 SEEN /lpf (0-5); Mucous, Urine 2+ /hpf (<or=2+)
[2020-08-05 19:29] LABS: Differential Indicated SCAN CRITERIA MET
[2020-08-05 19:31] LABS: ALB/GLOB Ratio 1.1 RATIO (0.9-2.4); AST(SGOT) 32 U/L (15-37); Alanine Aminotransfer ALT/SGPT 55 U/L (16-61); Albumin, Serum 3.9 g/dL (3.2-5.0); Alkaline Phosphatase 96 U/L (45-117); Anion Gap 7 (5-15); BUN 16 mg/dL (7-18); Calcium,Total 9.9 mg/dL (8.5-10.1); Chloride 98 mmol/L (98-107); EST Glomerular Filtration Rate 81 mL/min (>60); Est Glom Filt Rate - Afr Amer 98 mL/min (>60); Globulin 3.7 g/dL (2.2-4.2); Glucose 119 mg/dL (74-106); Lipase 84 U/L (73-393); Potassium 3.7 mmol/L (3.5-5.1); Protein, Total 7.6 g/dL (6.4-8.2); Sodium Level 129 mmol/L (136-145)
[2020-08-05 19:32] LABS: Red Blood Cells-Urine 0-5 SEEN /hpf (0-5)
--- NOTE | 2020-08-05 20:02 | ED.DCSUM_ITS ---
- ER Visit Summary Date of Service: 08/05/20 Chief Complaint: Abdominal pain History of Present Illness: The patient is a 59 M who presents with abdominal pain that has been getting worse over the past 4 days. Patient was seen here yesterday for similar symptoms. Patient states his pain is worse today. P atient states the pain waxes and wanes. Patient states the pain progressively gets worse and then improves after he passes some flatus into his ileostomy. Patient admits to nausea but denies any vomiting. Patient admits to watery diarrhea but denies any melena or hematochezia. Patient states his pain is diffuse across his abdomen. Patient denies any dysuria or hematuria. Physical Examination: Vital signs are stable except for mild tachycardia of 113 and mild tachypnea of 24. Patient is afebrile. Patient is in no acute distress. Neck is supple. Trachea is midline. There is no JVD. Heart was regular and tachycardic. Lungs are clear and equal bilaterally. There is good respiratory effort noted. Abdomen is soft. Bowel sounds are normal. There is diffuse tenderness. There is no rebound or guarding noted. Cranial nerves II through XII are intact. There are no focal motor or sensory deficits. Test Results: CBC shows white blood cell count 3.1. Comprehensive metabolic profile showed a sodium of 129 glucose of 119. Urinalysis does not show any evidence of urinary tract infection. CT scan of the abdomen and pelvis with oral and IV contrast was obtained. There is nonspecific enteritis in the right lower quadrant. There is no obstruction or perforation. This was interpreted by the radiologist and reviewed by myself. Emergency Department Course and Treatment: Patient was given morphine and Zofran initially. Patient was given a repeat dose of morphine. Patient was given a dose of Augmentin here. Patient was given a prescription for Augmentin. Patient was instructed to follow-up with his primary care physician in 5 to 7 days. Patient understood and was agreeable with the plan. All questions were answered. Disposition: Discharge home Impression: 1. Nonspecific enteritis This note was generated with [employer] dictation software. It may contain incorrect words, spelling, and punctuation that were not noted in review of the chart prior to signing ED Disposition - Plan for ED Patient: Disposition: Home or Assisted Living Diagnosis: Enteritis Instructions: ED Gastroenteritis, Bacterial (Adult) Prescriptions: Amox/Clavulanate Tablet [Augmentin Tablet] 454 mg PO Q12H #20 tab Transmission Status: Pending to [id number] Referrals: Nahum Casarez MD [Primary Care Provider] -
[2020-08-05] MEDS: Morphine 4 MG/ML Syringe IV (21:16)
[2020-08-05 21:17] VITALS: BP 112/84; PULSE 98; RESP 18; O2SAT 96
[2020-08-05 21:34] VITALS: BP 103/70
[2020-08-05] MEDS: Amox/Clavulanate 875 MG Tablet PO (21:44)
[2020-08-06 12:13] LABS: Pathologist Review Reviewed
== END 2020-08-05 21:44 | disposition home or self-care (01) ==
PROVIDERS: Emergency Provider Emergency Medicine; PCP Family Medicine
DX: K52.9 Noninfective gastroenteritis and colitis, unspecified (principal)
CPT/HCPCS: 74177; 80053; 81001; 83690; 85025; 99283; J7030; A4216; J2405

== ENCOUNTER 2020-10-30 15:30 | Emergency (ER) | payer BC, OTHER, SELFPAY ==
[2020-10-30 15:31] VITALS: BP 136/102; PULSE 69; RESP 20; TEMP 36.6; O2SAT 100; BMI 28.1
--- NOTE | 2020-10-30 15:39 | ED.RN ---
no old ekgs
--- NOTE | 2020-10-30 16:09 | EKG12_ITS ---
Test Reason : PALPS Blood Pressure : / mmHG Vent. Rate : 076 BPM Atrial Rate : 076 BPM P-R Int : 134 ms QRS Dur : 102 ms QT Int : 418 ms P-R-T Axes : 055 066 058 degrees QTc Int : 470 ms Normal sinus rhythm Normal ECG Confirmed by ELENA HENDERSON, EMELY ([id number]), editorial assistant POPEYE CARBALLO ([id number]) on 11/03/2020 10:58:06 AM Referred By: FREDERICK/CAIO Confirmed By:EMELY PARKER MD
--- NOTE | 2020-10-30 16:09 | EX.ED.DYSGE1 ---
HPI History of Present Illness Chief Complaint: Palpitations Informant: patient Narrative Narrative: 60-year-old male presents for evaluation of palpitations. Patient states that he began feeling them on Monday yesterday felt they are pretty much gone and he felt okay but then they returned again today. He states he has been checking his pulse and it palpates irregular. He denies any chest pain or shortness of breath. Patient is currently on apixaban. He tells me that he was treated for rectal cancer and has been clean of that for several months. In August he was admitted to [facility] and had his ileostomy reversed. He states that while he was in the hospital he had atrial fibrillation with RVR. He states that he has not had any problems since. He states he has never had a stress test or heart catheterization. [facility] Medical History (Updated 10/30/20 @ 17:[address] Omar Randolph DO) Atrial fibrillation Delayed wound healing Former smoker History of lymphadenopathy History of rectal cancer Hx of blood clots Hypertension Irregular heartbeat Ulcer of left lower extremity with fat layer exposed Venous (peripheral) insufficiency Home Medications aspirin 81 mg PO DAILY@0800 06/11/18 [History Last Taken Unknown] atorvastatin 10 mg PO QHS 11/30/19 [History Last Taken Unknown] amoxicillin-pot clavulanate 875 mg PO Q12H #20 tab 08/05/20 [Rx Last Taken Unknown] apixaban 5 mg PO BID 08/05/20 [History Last Taken Unknown] magnesium 200 mg PO DAILY 7 Days #7 tab 10/30/20 [Rx Last Taken Unknown] potassium chloride 20 meq PO BID 7 Days #14 ea 10/30/20 [Rx Last Taken Unknown] Allergy/AdvReac Type Severity Reaction Status Date / Time No Known Allergies Allergy Verified 10/30/20 15:30 Family History Mother Throat cancer Father Heart disease Brother Mouth cancer Surgical History (Updated 10/30/20 @ 16:[address] Omar Randolph DO) History of tonsillectomy Hx of breast biopsy Hx of right cataract extraction Status post reversal of ileostomy Social History household members: spouse housing: house Smoking Status: Former smoker second hand exposure: Yes alcohol intake: current alcohol intake frequency: 0-2 drinks per day Alcohol type: beer substance use type: does not use caffeine: Yes frequency: does not exercise ROS ROS ED Constitutional Constitutional ED: Denies chills or weight loss Eyes Eyes: Denies change in vision or diplopia ENT ENT ED: Denies ear pain, rhinorrhea or sore throat Cardiovascular Cardiovascular: Reports palpitations; Denies chest pain, orthopnea or racing heartbeat Respiratory/Chest Respiratory/Chest: Denies cough, dyspnea or orthopnea Gastrointestinal Gastrointestinal: Denies abdominal pain, diarrhea, nausea or vomiting Genitourinary Genitourinary ED: Denies dysuria, hematuria or urinary frequency Musculoskeletal Musculoskeletal: Denies arthralgias or myalgias Integumentary Denies abscess or rash Neurologic Neurologic: Denies headache(s) or weakness Psychiatric Psychiatric: Denies anxiety, depression, suicidal ideation or suicidal thoughts Endocrine Endocrinology: Denies polydipsia, polyphagia or polyuria Allergic/Immunologic Allergic/Immunologic ED: Denies mouth swelling, tongue swelling or urticaria EXAM Physical Exam Const Vital Signs: 10/30/20 15:31 10/30/20 16:09 Temperature 97.9 F Temperature Source Temporal Pulse Rate 69 Respiratory Rate 20 H Respiratory Effort Normal Non-Labored Respiratory Pattern Normal Blood Pressure 136/102 H Blood Pressure Mean 113 Pulse Ox 100 Oxygen Delivery Method Room Air Positive well nourished and well developed General Appearance ED: well developed HEENT Reports normocephalic, head/scalp atraumatic and moist mucous membranes Eyes PERRL and EOMs intact bilaterally Neck no lymphadenopathy, supple and no JVD Resp normal respiratory effort and clear to auscultation bilaterally Cardio regular rate, regular rhythm and no murmurs GI normal to inspection, nondistended, normoactive bowel sounds and non-tender Palpation: soft Back/Spine no CVA tenderness and normal ROM Extremity normal to inspection General Extremety ED: Negative for edema General Extremity: Negative for edema Neuro oriented x3 and CN's II-XII intact bilaterally Sensorium / Orientation: alert Motor Exam: strength 5/5 throughout Psych mental status grossly normal Mood & Affect: Negative for depressed or tearful Skin no rashes or lesions noted and no wounds MDM MDM MDM Narrative Medical decision making narrative: My interpretation of the single view portable chest x-ray is no acute process. Normal mediastinal silhouette. Patient was watched on the monitor. He continues to have PACs. Occasionally he will have 3 or 4 PACs in a row over the go back to a sinus rhythm. His potassium noted to be low at 3. Magnesium is also low. Hemoglobin at 11.5. Patient denies any black or bloody stools. This is down a couple grams from August. I am not to write for potassium and magnesium replacement at home. Patient was given return instructions. Recommend he follow-up with primary care in about 1 week for recheck of labs. I will also refer him to cardiology. Lab Data Labs: Laboratory Results - last 24 hr 10/30/20 10/30/20 15:45 15:45 WBC 5.0 RBC 3.42 L Hgb 11.5 L Hct 35.3 L MCV 103.2 H MCH 33.6 H MCHC 32.6 RDW Std Deviation 55.8 H RDW Coeff of Cynthia 14.5 Plt Count 281 MPV 8.8 Immature Gran % (Auto) 0.400 Neut % (Auto) 69.4 Lymph % (Auto) 15.1 L [place] % (Auto) 12.3 H Eos % (Auto) 2.4 Baso % (Auto) 0.4 Absolute Neuts (auto) 3.4 Absolute Lymphs (auto) 0.75 L Nucleated RBC % 0 Sodium 142 Potassium 3.0 L Chloride 108 H Carbon Dioxide 32.0 Anion Gap 2 L BUN 15 Creatinine 0.72 Estim Creat Clear Calc 104.24 Est GFR (MDRD) Af Amer 142 Est GFR (MDRD) Non-Af 117 BUN/Creatinine Ratio 20.7 H Glucose 88 Calcium 8.6 Magnesium 1.3 L Troponin I < 0.015 TSH 0.96 Radiography Diagnostic Testing: Radiology Impression Chest X-Ray 10/30/20 16:25 IMPRESSION: Normal x-ray examination of the chest. Electronically Signed: Art Doshi MD at 16:58 EDT Tel , Service support , EKG Initial EKG: Interpretation: Sinus Rhythm Comments: EKG shows a sinus rhythm with PACs at a rate of 76. Discharge Plan Triage Chief Complaint: Palpitations ED Provider: Omar Randolph Dx/Rx/DC Orders Clinical Impression: Heart palpitations, Acute hypokalemia, Hypomagnesemia Instructions: ED Hypokalemia, ED Palpitations Prescriptions: New potassium chloride 20 mEq packet 20 meq PO BID 7 Days Qty: 14 RF: 0 magnesium 200 mg tablet 200 mg PO DAILY 7 Days Qty: 7 RF: 0 No Action aspirin 81 MG tablet,chewable 81 mg PO DAILY@0800 RF: 0 atorvastatin 10 MG tablet 10 mg PO QHS RF: 0 apixaban 5 MG tablet 5 mg PO BID RF: 0 amoxicillin-pot clavulanate 875 MG tablet 875 mg PO Q12H Qty: 20 RF: 0 Primary Care Provider: Nahum Csaarez Referrals: Nahum Casarez MD [Primary Care Provider] - 1 Week (Follow-up in 1 week for recheck of your labs.) Disposition Disposition: Home, self care
[2020-10-30 16:25] LABS: Absolute Lymphocyte Count 0.75 X10^3/uL (0.83-4.51); Absolute Neutrophil Count 3.4 X10^3/uL (2.0-7.7); Basophil# 0.02 X10^3/uL; Basophil% 0.4 % (0-1); Eosinophil# 0.12 X10^3/uL; Eosinophils% 2.4 % (0-5); Hematocrit 35.3 % (40-54); Hemoglobin 11.5 g/dL (13.0-16.5); Lymphocyte # 0.75 X10^3/ul (0.83-4.51); Lymphocyte % 15.1 % (19-41); Mean Corp Hgb Conc 32.6 g/dL (32-36); Mean Corpuscular Hgb 33.6 pg (27.0-32.0); Mean Corpuscular Volume 103.2 fL (80-94); Mean Platelet Vol. 8.8 fl (6.2-12.0); Monocyte# 0.61 X10^3/uL; Monocyte% 12.3 % (0-10); NRBC Flagged by Analyzer 0 % (0-5); Neutrophil # 3.44 X10^3/uL (2.7-7.7); Neutrophil % 69.4 % (47-70); Platelet Count 281 K/mm3 (150-450); RBC Distribution Width CV 14.5 % (11.6-14.6); RBC Distribution Width SD 55.8 fl (35.1-43.9); Red Blood Count 3.42 M/mm3 (4.6-6.2)
--- NOTE | 2020-10-30 16:25 | RAD_ITS ---
STUDY: X-RAY CHEST REASON FOR EXAM: Male, 60 years old. chest pain TECHNIQUE: Single AP portable view of the chest. COMPARISON: 08/04/2020 FINDINGS: The lungs are clear and expanded. There is no demonstrated pleural abnormality. Normal size heart. Normal mediastinum and veena. Normal visualized pulmonary arteries. Normal visualized aortic arch and descending thoracic aorta. Normal visualized thoracic spine. Normal visualized ribs, clavicles, and shoulders. There is no demonstrated abnormality of the visualized soft tissue structures of the upper abdomen. RAD/Chest 1 View (Portable) IMPRESSION: Normal x-ray examination of the chest. Electronically Signed: Art Doshi MD at 16:58 EDT Tel , Service support ,
[2020-10-30 16:43] LABS: Anion Gap 2 (5-15); BUN 15 mg/dL (7-18); BUN/Creat Ratio 20.7 RATIO (10-20); Calcium,Total 8.6 mg/dL (8.5-10.1); Chloride 108 mmol/L (98-107); Creatinine, Serum 0.72 mg/dL (0.70-1.30); EST Glomerular Filtration Rate 117 mL/min (>60); Est Glom Filt Rate - Afr Amer 142 mL/min (>60); Estimated Creatinine Clearance 104.24 ml/min; Glucose 88 mg/dL (74-106); Magnesium 1.3 mg/dL (1.6-2.6); Sodium Level 142 mmol/L (136-145); Thyroid Stim Hormone (TSH) 0.96 uIU/mL (0.358-3.74)
[2020-10-30 17:00] VITALS: BP 134/80; PULSE 89; RESP 20; O2SAT 99
--- NOTE | 2020-10-30 18:14 | ED.RN ---
this nurse called pharmacy earlier for the meds and no one answered. During second call this nurse spoke with [facility] in pharmacy about the mg and kcl ordered for 18, they are going to send them up.
[2020-10-30] MEDS: Magnesium Chloride 64 MG Delay Rel.Tablet 128 MG PO (18:25)
[2020-10-30] MEDS: Potassium Chloride Oral Soln 20 MEQ/15 ML UDC 40 MEQ PO (18:25)
[2020-10-30 18:36] VITALS: BP 126/70; PULSE 74; RESP 18; O2SAT 97
== END 2020-10-30 18:37 | disposition home or self-care (01) ==
PROVIDERS: Emergency Provider Emergency Medicine; PCP Family Medicine
DX: R00.2 Palpitations (principal); E87.6 Hypokalemia; E83.42 Hypomagnesemia; I10 Essential (primary) hypertension; I48.91 Unspecified atrial fibrillation; I87.2 Venous insufficiency (chronic) (peripheral); Z87.891 Personal history of nicotine dependence; Z79.01 Long term (current) use of anticoagulants; Z79.82 Long term (current) use of aspirin; Z79.899 Other long term (current) drug therapy; Z85.048 Personal history of other malignant neoplasm of rectum, rectosigmoid junction, and anus; Z86.718 Personal history of other venous thrombosis and embolism
CPT/HCPCS: 71045; 80048; 83735; 84443; 84484; 85025; 93005; 99285; J7030; A4216

== ENCOUNTER 2020-11-01 14:24 | Observation (INO) | payer BC, OTHER, SELFPAY ==
[2020-11-01] VITALS (10 sets, daily range): BP systolic 104–155; BP diastolic 74–102; PULSE 64–188; RESP 16–18; TEMP 36.7–37.2; O2SAT 97–100; BMI 29.7; BMI 28.9
--- NOTE | 2020-11-01 14:33 | EKG12_ITS ---
Test Reason : PALPS Blood Pressure : / mmHG Vent. Rate : 180 BPM Atrial Rate : 187 BPM P-R Int : 000 ms QRS Dur : 080 ms QT Int : 256 ms P-R-T Axes : 000 084 049 degrees QTc Int : 443 ms Atrial fibrillation Abnormal ECG Confirmed by ELENA HENDERSON, EMELY ([id number]), video tape editor POPEYE CARBALLO ([id number]) on 11/04/2020 8:49:58 AM Referred By: CARINA Confirmed By:EMELY PARKER MD
--- NOTE | 2020-11-01 14:45 | RAD_ITS ---
STUDY: X-RAY CHEST REASON FOR EXAM: Male, 60 years old. Palpitations TECHNIQUE: Frontal portable view of the chest COMPARISON: 30 October 2020 FINDINGS: The lungs are clear and expanded. There is no demonstrated pleural abnormality. Normal size heart. Normal mediastinum and veena. Normal visualized pulmonary arteries. Normal visualized aortic arch and descending thoracic aorta. Normal visualized thoracic spine. Normal visualized ribs, clavicles, and shoulders. There is no demonstrated abnormality of the visualized soft tissue structures of the upper abdomen. RAD/Chest 1 View (Portable) IMPRESSION: Normal x-ray examination of the chest. Electronically Signed: Jimi Waldrop MD at 15:21 EDT Tel , Service support ,
--- NOTE | 2020-11-01 14:46 | EKG12_ITS ---
Test Reason : PALPS Blood Pressure : / mmHG Vent. Rate : 084 BPM Atrial Rate : 084 BPM P-R Int : 138 ms QRS Dur : 094 ms QT Int : 354 ms P-R-T Axes : 069 083 064 degrees QTc Int : 418 ms Sinus rhythm with Premature supraventricular complexes Otherwise normal ECG Confirmed by ELENA HENDERSON, EMELY ([id number]), editor in chief newspaper POPEYE CARBALLO ([id number]) on 11/04/2020 8:47:14 AM Referred By: CARINA Confirmed By:EMELY PARKER MD
[2020-11-01 14:55] LABS: Absolute Lymphocyte Count 0.76 X10^3/uL (0.83-4.51); Absolute Neutrophil Count 2.4 X10^3/uL (2.0-7.7); Basophil# 0.02 X10^3/uL; Basophil% 0.5 % (0-1); Eosinophil# 0.14 X10^3/uL; Eosinophils% 3.6 % (0-5); Hematocrit 35.5 % (40-54); Hemoglobin 11.3 g/dL (13.0-16.5); Lymphocyte # 0.76 X10^3/ul (0.83-4.51); Lymphocyte % 19.5 % (19-41); Mean Corp Hgb Conc 31.8 g/dL (32-36); Mean Corpuscular Hgb 33.1 pg (27.0-32.0); Mean Corpuscular Volume 104.1 fL (80-94); Mean Platelet Vol. 8.5 fl (6.2-12.0); Monocyte% 15.4 % (0-10); NRBC Flagged by Analyzer 0 % (0-5); Neutrophil # 2.38 X10^3/uL (2.7-7.7); Platelet Count 244 K/mm3 (150-450); RBC Distribution Width CV 14.4 % (11.6-14.6); RBC Distribution Width SD 55.1 fl (35.1-43.9); Red Blood Count 3.41 M/mm3 (4.6-6.2); White Blood Count 3.9 K/mm3 (4.4-11.0)
--- NOTE | 2020-11-01 14:56 | EDS_ITS ---
HPI History of Present Illness Chief Complaint: Palpitations Informant: patient Onset/Context/Timing Onset: Days Activity at onset: sudden Timing: Intermittent Quality: Positive for - (Skipping) Worsened By: Nothing Relieved By: Nothing Associated Symptoms: Positive for Palpitations; Negative for Nausea, Vomiting, Dyspnea, Cough and Fever Narrative Narrative: Patient presents with palpitations that have been intermittent over the last 5 days. Patient states that they come and go. Patient states the symptoms only last a few seconds. Patient was seen here 2 days ago. Patient was instructed to follow-up with cardiology at that time. Patient had intermittent episodes of A. fib with RVR that only lasted a few seconds. Patient is on Eliquis and metoprolol. Prior Similar Symptoms: Yes PFSH PFSH Medical History Atrial fibrillation Delayed wound healing Former smoker History of lymphadenopathy History of rectal cancer Hx of blood clots Hypertension Irregular heartbeat Ulcer of left lower extremity with fat layer exposed Venous (peripheral) insufficiency Home Medications aspirin 81 mg PO DAILY@0800 06/11/18 [History Last Taken Unknown] atorvastatin 10 mg PO QHS 11/30/19 [History Last Taken Unknown] amoxicillin-pot clavulanate 875 mg PO Q12H #20 tab 08/05/20 [Rx Last Taken Unknown] apixaban 5 mg PO BID 08/05/20 [History Last Taken Unknown] magnesium 200 mg PO DAILY 7 Days #7 tab 10/30/20 [Rx Last Taken Unknown] potassium chloride 20 meq PO BID 7 Days #14 ea 10/30/20 [Rx Last Taken Unknown] Allergy/AdvReac Type Severity Reaction Status Date / Time No Known Allergies Allergy Verified 11/01/20 14:24 Family History Mother Throat cancer Father Heart disease Brother Mouth cancer Surgical History History of tonsillectomy Hx of breast biopsy Hx of right cataract extraction Status post reversal of ileostomy Social History household members: spouse housing: house Smoking Status: Former smoker second hand exposure: Yes alcohol intake: current alcohol intake frequency: 0-2 drinks per day Alcohol type: beer substance use type: does not use caffeine: Yes frequency: does not exercise ROS ROS ED Constitutional Constitutional ED: Denies chills or fever(s) Eyes Eyes: Denies blurry vision or change in vision ENT ENT ED: Denies rhinorrhea or sore throat Cardiovascular Cardiovascular: Reports palpitations and racing heartbeat; Denies chest pain Respiratory/Chest Respiratory/Chest: Denies cough or dyspnea Gastrointestinal Gastrointestinal: Denies nausea or vomiting Genitourinary Genitourinary ED: Denies dysuria or hematuria Musculoskeletal Musculoskeletal: Reports back pain; Denies neck pain Integumentary Denies abscess or rash Neurologic Neurologic: Denies headache(s) or weakness Allergic/Immunologic Allergic/Immunologic ED: Denies mouth swelling or urticaria EXAM Physical Exam Const Vital Signs: 11/01/20 14:25 11/01/20 14:29 11/01/20 14:36 Temperature 98.3 F Temperature Source Temporal Pulse Rate 64 188 H Respiratory Rate 16 18 Respiratory Effort Normal Blood Pressure 137/89 H 155/102 H Blood Pressure Mean 105 119 Pulse Ox 98 99 Oxygen Delivery Method Room Air Room Air 11/01/20 15:08 11/01/20 16:31 Temperature Temperature Source Pulse Rate 94 122 H Respiratory Rate 16 17 Respiratory Effort Blood Pressure 122/93 H 118/85 H Blood Pressure Mean 102 96 Pulse Ox 98 100 Oxygen Delivery Method Room Air Room Air Positive well nourished and well developed General Appearance ED: well developed HEENT Reports moist mucous membranes Neck supple and no JVD Resp normal respiratory effort Effort and Inspection: respiratory distress Cardio regular rate and regular rhythm Rate: other Other Details: Patient has intermittent episodes of A. fib with RVR GI normal to inspection, nondistended, normoactive bowel sounds, soft to palpation and non-tender Extremity normal to inspection General Extremety ED: Negative for tenderness Neuro oriented x3, CN's II-XII intact bilaterally and no sensory deficits noted Sensorium / Orientation: awake and alert Motor Exam: strength 5/5 throughout MDM MDM MDM Narrative Medical decision making narrative: Initial EKG was obtained. On my interpretation it showed atrial fibrillation with a rate of 180. There are no acute ST or T wave changes. Repeat EKG approximately 30 seconds later was obtained. On my interpretation, it showed normal sinus rhythm with occasional PAC. There are no acute ST or T wave changes. While here in the emergency department, the patient would have intermittent episodes of atrial fibrillation with rapid ventricular response that would last 30 to 60 seconds and then resolve spontaneously. Portable 1 view chest x-ray was obtained. On my interpretation, lung hoffmann are clear. There is normal cardiac silhouette. Bony thorax is normal. There is no acute process noted. Radiologist also interpreted the x-ray and agrees. CBC was essentially within normal limits. Comprehensive metabolic profile was within normal limits. Troponin was normal. Magnesium was slightly low at 1.4. Patient was given a dose of IV magnesium. Case was discussed with cardiology. He recommended admitting the patient to the hospital for observation and replacing the magnesium. Case was discussed with the hospitalist. She will admit the patient for observation to PCU. Patient understood and was agreeable with the plan. All questions were answered. Lab Data Attestation: I reviewed the patient's lab results. Labs: Laboratory Results - last 24 hr 11/01/20 11/01/20 14:40 14:40 WBC 3.9 L RBC 3.41 L Hgb 11.3 L Hct 35.5 L MCV 104.1 H MCH 33.1 H MCHC 31.8 L RDW Std Deviation 55.1 H RDW Coeff of Cynthia 14.4 Plt Count 244 MPV 8.5 Immature Gran % (Auto) 0.000 Neut % (Auto) 61.0 Lymph % (Auto) 19.5 [place] % (Auto) 15.4 H Eos % (Auto) 3.6 Baso % (Auto) 0.5 Absolute Neuts (auto) 2.4 Absolute Lymphs (auto) 0.76 L Nucleated RBC % 0 Sodium 143 Potassium 3.9 Chloride 109 H Carbon Dioxide 30.0 Anion Gap 4 L BUN 15 Creatinine 0.70 Estim Creat Clear Calc 107.21 Est GFR (MDRD) Af Amer 148 Est GFR (MDRD) Non-Af 122 BUN/Creatinine Ratio 21.5 H Glucose 101 Calcium 8.5 Magnesium 1.4 L Total Bilirubin 0.30 AST 20 ALT 29 Alkaline Phosphatase 89 Troponin I < 0.015 Total Protein 6.6 Albumin 3.1 L Globulin 3.5 Albumin/Globulin Ratio 0.9 Radiography Chest X-Ray - ED: 1 View, Read by ED Physician, Read by Radiologist and Normal Diagnostic Testing: Radiology Impression Chest X-Ray 11/01/20 14:45 IMPRESSION: Normal x-ray examination of the chest. Electronically Signed: Jimi Waldrop MD at 15:21 EDT Tel , Service support , EKG Initial EKG: Attestation: I personally reviewed and interpreted this EKG as follows: Interpretation: Atrial Fibrillation (180) Follow-up EKG: Attestation: I personally reviewed and interpreted this EKG as follows: Interpretation: Sinus Rhythm, No Acute Injury Pattern and - (Occasional PACs) Treatment and Re-Evaluation Vital Sign Attestation:: Vital signs were reviewed at time of admission. Patient has been having intermittent episodes of atrial fibrillation with rapid ventricular response and his tachycardia resolved spontaneously. Discharge Plan Dx/Rx/DC Orders Clinical Impression: Paroxysmal atrial fibrillation with rapid ventricular response Disposition Disposition: Acute Care Hospital [facility]
[2020-11-01 15:13] LABS: ALB/GLOB Ratio 0.9 RATIO (0.9-2.4); AST(SGOT) 20 U/L (15-37); Alanine Aminotransfer ALT/SGPT 29 U/L (16-61); Albumin, Serum 3.1 g/dL (3.2-5.0); Alkaline Phosphatase 89 U/L (45-117); Anion Gap 4 (5-15); BUN 15 mg/dL (7-18); BUN/Creat Ratio 21.5 RATIO (10-20); Calcium,Total 8.5 mg/dL (8.5-10.1); Chloride 109 mmol/L (98-107); EST Glomerular Filtration Rate 122 mL/min (>60); Est Glom Filt Rate - Afr Amer 148 mL/min (>60); Estimated Creatinine Clearance 107.21 ml/min; Globulin 3.5 g/dL (2.2-4.2); Glucose 101 mg/dL (74-106); Magnesium 1.4 mg/dL (1.6-2.6); Potassium 3.9 mmol/L (3.5-5.1); Protein, Total 6.6 g/dL (6.4-8.2); Sodium Level 143 mmol/L (136-145)
--- NOTE | 2020-11-01 17:22 | ECHOCS_ITS ---
Reason For Study: Afib/Flutter Procedure This was a 2D Doppler, Color Flow transthoracic echocardiogram. The study was technically difficult. Contrast injection was performed. Patients HR flucuated between high 70's and 180 BPM. Exam performed portable in patient room. Left Ventricle Normal LV size. Left ventricular systolic function is normal. The estimated ejection fraction is 65 %. Normal diastology for age. No regional wall motion abnormalities noted. Right Ventricle Normal RV size. Normal systolic function. Atria Normal left atrium. Normal right atrium. Mitral Valve Normal mitral valve. Tricuspid Valve Normal tricuspid valve. Mild (1+) tricuspid valve insufficiency. Pulmonary artery systolic pressure is 33 mmHg. Aortic Valve Normal aortic valve. Pulmonic Valve Normal pulmonic valve. Great Vessels Normal aortic root. The pulmonary artery is normal size. Normal inferior vena cava. Pericardium/Pleural No pericardial effusion. Medication Diluted definity 3ml given slow IV push to enhance endocardial definition. MMode/2D Measurements & Calculations LVIDd: 4.6 cm IVSd: 1.1 cm LA dimension: 3.6 cm LVIDs: 3.4 cm LVPWd: 1.1 cm FS: 24.9 % LAV(MOD-bp): 38.1 ml LA A4 area: 15.9 cm2 LAV(MOD-bp) Indexed: 19.1 ml/m2 LAV(MOD-sp2): 39.4 ml LAV(MOD-sp4): 36.0 ml Time Measurements MV dec time: 0.20 sec Doppler Measurements & Calculations MV E max vikash: 95.9 cm/sec Lat Peak E' Vikash: 10.2 cm/sec Med Peak E' Vikash: 9.0 cm/sec MV A max vikash: 82.6 cm/sec E/E' lat: 9.4 E/E' med: 10.7 MV E/A: 1.2 MV V2 max: 105.0 cm/sec MV P1/2t max vikash: 104.7 cm/sec Ao V2 max: 110.3 cm/sec MV max P.4 mmHg MV P1/2t: 54.4 msec Ao max P.9 mmHg MV V2 mean: 64.5 cm/sec MV dec slope: 563.6 cm/sec2 MV mean P.0 mmHg MV V2 VTI: 26.0 cm MVA(P1/2t): 4.0 cm2 LV V1 max: 86.5 cm/sec PA V2 max: 72.0 cm/sec TR max vikash: 271.2 cm/sec LV V1 max P.0 mmHg TR max P.4 mmHg ECHO/Echo Complete W/ Contrast Interpretation Summary Normal LV size. Left ventricular systolic function is normal. The estimated ejection fraction is 65 %. Mild (1+) tricuspid valve insufficiency. Contrast injection was performed. Ordering Physician: Radha Holly Referring Physician: Samuel Casarez MD Performed By: Chico Monsivais RCS
--- NOTE | 2020-11-01 17:31 | HP.PCM.HOS_ITS ---
Documented by User: Mathew MOSHER 11/01/20 17:53 HPI - General HPI Narrative Patient is a 60-year-old male who presents to the emergency department at [facility] on 11/01/2020 with a chief complaint of heart palpitations. Patient reports a chronic history of palpitations, however notes that they have been worse the past 3 days. Patient was evaluated in the ED for the same symptoms a couple days prior, however those on only showed intermittent PVCs and patient was released home. Patient is already on metoprolol and Eliquis. Patient does endorse taking his metoprolol today. Patient denies any other associated symptoms to include chest pain, shortness of breath, productive cough, fever, chills, N/V/D. Patient recently spent the month of August in [facility] for reverse ileostomy and then the month of August for rehab. Patient states that he got the first dose of the Covid vaccine last . Today EKG demonstrated atrial fibrillation with rapid ventricular rate at a rate of 180. No acute ST or T wave changes. Repeat EKG showed normal sinus rhythm with occasional PACs. Chest x-ray obtained in the ED demonstrated no acute cardiopulmonary pathology. Troponins not elevated. Magnesium was slightly low at 1.4. CBC unremarkable. Patient was given a dose of IV magnesium in the ED. Case was discussed with the childbirth educator who recommended admitting the patient for evaluation. [facility] Medical History (Updated 11/01/20 @ 18:03 by Jesi Augustine) Atrial fibrillation Cancer Delayed wound healing Former smoker History of lymphadenopathy History of rectal cancer Hx of blood clots Hypertension Irregular heartbeat Ulcer of left lower extremity with fat layer exposed Venous (peripheral) insufficiency Home Medications aspirin 81 mg PO DAILY@0800 06/11/18 [History Last Taken Unknown] atorvastatin 10 mg PO QHS 11/30/19 [History Last Taken Unknown] amoxicillin-pot clavulanate 875 mg PO Q12H #20 tab 08/05/20 [Rx Last Taken Unknown] apixaban 5 mg PO BID 08/05/20 [History Last Taken Unknown] magnesium 200 mg PO DAILY 7 Days #7 tab 10/30/20 [Rx Last Taken Unknown] potassium chloride 20 meq PO BID 7 Days #14 ea 10/30/20 [Rx Last Taken Unknown] Allergy/AdvReac Type Severity Reaction Status Date / Time No Known Allergies Allergy Verified 11/01/20 14:24 Family History Mother Throat cancer Father Heart disease Brother Mouth cancer Surgical History History of tonsillectomy Hx of breast biopsy Hx of right cataract extraction Status post reversal of ileostomy Social History (Updated 11/01/20 @ 18:03 by Jesi Augustine) household members: spouse housing: house current occupational status: unemployed pets and animals: Yes (Dogs) Smoking Status: Former smoker second hand exposure: Yes alcohol intake: current alcohol intake frequency: 0-2 drinks per day Alcohol type: beer substance use type: does not use caffeine: Yes frequency: does not exercise ROS Constitutional Constitutional: Denies anorexia, change in weight, chills, fatigue, fever(s), malaise, night sweats, weakness or other Eyes Eyes: Denies blurry vision, change in eye color, change in vision, discharge from eye(s), double vision, erythema, eye pain, loss of vision or other ENT HEENT: Denies abnormal hearing, dysphagia, ear pain, epistaxis, headache(s), hearing loss, nasal congestion, nasal discharge, post nasal drip, sinus pressure, sore throat or other Cardiovascular Cardiovascular: Reports edema and palpitations; Denies chest pain, claudication, dyspnea on exertion, lightheadedness, orthopnea, paroxysmal nocturnal dyspnea, rapid heart rate, syncope or other Respiratory/Chest Respiratory/Chest: Denies cough, dyspnea, excessive phlegm production, hemoptysis, productive cough, shortness of breath at rest, shortness of breath with exertion, wheezing or other Gastrointestinal Gastrointestinal: Denies abdominal pain, coffee ground emesis, constipation, diarrhea, dyspepsia, hematemesis, hematochezia, loose stools, melena, nausea, vomiting or other Genitourinary Genitourinary: Denies burning urination, difficulty urinating, dysuria, hematuria, nocturia, urinary frequency, urinary hesitancy, urinary incontinence, urinary urgency or other Musculoskeletal Musculoskeletal: Denies arthralgias, back pain, joint pain, joint stiffness, joint swelling, myalgias, neck pain or other Neurologic Neurologic: Denies abnormal gait, abnormal speech, confusion, disequilibrium, dizziness, focal weakness, headache(s), numbness, paresthesias, seizure-like ac tivity, seizures, syncope, tingling, tremor(s) or other Psychiatric Psychiatric: Denies anxiety, depression, homicidal ideation, suicidal ideation or other Endocrine Endocrinology: Denies change in body appearance, cold intolerance, excessive sweating, heat intolerance, polydipsia, polyuria or other Hematologic/Lymphatic Hematologic/Lymphatic: Denies anemia, easy bleeding, easy bruising, lymphadenopathy or other Allergic/Immunologic Allergic/Immunologic: Denies rhinitis, hives, eczemia, asthma or other Vital Signs Vital Signs Vital Signs: 11/01/20 14:25 11/01/20 14:29 11/01/20 14:36 Temperature 98.3 F Temperature Source Temporal Pulse Rate 64 188 H Respiratory Rate 16 18 Respiratory Effort Normal Blood Pressure 137/89 H 155/102 H Blood Pressure Mean 105 119 Pulse Ox 98 99 Oxygen Delivery Method Room Air Room Air 11/01/20 15:08 11/01/20 16:31 Temperature Temperature Source Pulse Rate 94 122 H Respiratory Rate 16 17 Respiratory Effort Blood Pressure 122/93 H 118/85 H Blood Pressure Mean 102 96 Pulse Ox 98 100 Oxygen Delivery Method Room Air Room Air Physical Exam Const alert, oriented x3 and no apparent distress HEENT Head and Scalp: normal to inspection, normocephalic and atraumatic Eyes General Eye: normal appearance of both eyes Neck full ROM, no lymphadenopathy and supple Lymph Lymphatic: no lymphadenopathy noted Chest inspection of chest normal and palpation of chest normal Resp normal respiratory effort, normal air movement and clear to auscultation bilaterally Cardio regular rate, regular rhythm, S1 normal heart sound, S2 normal heart sound and no murmurs GI normal to inspection, nondistended, normoactive bowel sounds, soft to palpation and non-tender no CVA tenderness Back/Spine no CVA tenderness and normal ROM Extremity full ROM Skin no rashes or lesions noted and no wounds Neuro CN's II-XII intact bilaterally Psych mental status grossly normal and speech normal Lab / Micro Data Result Diagrams: 11/01/20 14:40 11/01/20 14:40 Labs: Laboratory Results - last 24 hr 11/01/20 11/01/20 14:40 14:40 WBC 3.9 L RBC 3.41 L Hgb 11.3 L Hct 35.5 L MCV 104.1 H MCH 33.1 H MCHC 31.8 L RDW Std Deviation 55.1 H RDW Coeff of Cynthia 14.4 Plt Count 244 MPV 8.5 Immature Gran % (Auto) 0.000 Neut % (Auto) 61.0 Lymph % (Auto) 19.5 Lyon % (Auto) 15.4 H Eos % (Auto) 3.6 Baso % (Auto) 0.5 Absolute Neuts (auto) 2.4 Absolute Lymphs (auto) 0.76 L Nucleated RBC % 0 Sodium 143 Potassium 3.9 Chloride 109 H Carbon Dioxide 30.0 Anion Gap 4 L BUN 15 Creatinine 0.70 Estim Creat Clear Calc 107.21 Est GFR (MDRD) Af Amer 148 Est GFR (MDRD) Non-Af 122 BUN/Creatinine Ratio 21.5 H Glucose 101 Calcium 8.5 Magnesium 1.4 L Total Bilirubin 0.30 AST 20 ALT 29 Alkaline Phosphatase 89 Troponin I < 0.015 Total Protein 6.6 Albumin 3.1 L Globulin 3.5 Albumin/Globulin Ratio 0.9 Radiology Impression Chest X-Ray 11/01/20 14:45 IMPRESSION: Normal x-ray examination of the chest. Electronically Signed: Jimi Waldrop MD at 15:21 EDT Tel , Service support , Assessment & Plan Assessment/Plan (1) Paroxysmal atrial fibrillation with rapid ventricular response: Status: Acute Code(s): I48.0 - Paroxysmal atrial fibrillation Plan: Patient is a 60-year-old male who presents to the emergency department at [facility] on 11/01/2020 with a chief complaint of heart palpitations. Patient reports a chronic history of palpitations, however notes that they have been worse the past 3 days. Patient is already on metoprolol and Eliquis. Patient does endorse taking his metoprolol today. Patient denies any other associated symptoms to include chest pain, shortness of breath, productive cough, fever, chills, N/V/D. Today EKG demonstrated atrial fibrillation with rapid ventricular rate at a rate of 180. No acute ST or T wave changes. Repeat EKG showed normal sinus rhythm with occasional PACs. Chest x-ray obtained in the ED demonstrated no acute cardiopulmonary pathology. Troponins not elevated. Magnesium was slightly low at 1.4. CBC unremarkable. Patient was given a dose of IV magnesium in the ED. Case was discussed with the childbirth educator who recommended admitting the patient for evaluation. 1) Paroxysmal atrial fibrillation with RVR Patient reports 3-day history of worsening heart palpitations. EKG in the ED as above. Troponins not elevated. Cardiology requested patient to be admitted as above. Plan; trend cardiac enzymes, obtain echocardiogram, check TSH, continue metoprolol, Eliquis, aspirin and statin, cardiology following. 2) Hypomagnesemia Magnesium was slightly low at 1.4. Repleted in the ED. Plan; continue magnesium repletion, obtain BMP in the morning. 3) hyperlipidemia Continue home statin. 4) history of blood clots Continue Eliquis. 5) Venous insufficiency. Stable, chronic. 6) Mass of colon Spent the month of August at a [facility] for ileostomy and rehab throughout the month of August. Patient reports no complications from procedure. Plan; continue outpatient management. DVT prophylaxis -Eliquis Patient seen by Mathew Lyel PA-C, under the supervision of Dr. Holly. (2) Hyperlipidemia: Status: Chronic Code(s): E78.5 - Hyperlipidemia, unspecified (3) Hx of blood clots: Status: Chronic Code(s): Z86.718 - Personal history of other venous thrombosis and embolism (4) Venous (peripheral) insufficiency: Status: Chronic Code(s): I87.2 - Venous insufficiency (chronic) (peripheral) (5) Mass of colon: Status: Acute Code(s): K63.89 - Other specified diseases of intestine (6) Small bowel obstruction: Status: Acute Code(s): K56.609 - Unspecified intestinal obstruction, unspecified as to partial versus complete obstruction (7) Arthritis: Status: Chronic Code(s): M19.90 - Unspecified osteoarthritis, unspecified site (8) Hypomagnesemia: Status: Acute Code(s): E83.42 - Hypomagnesemia Documented by User: Dr. Radha Holly MD 11/01/20 18:13 HPI - General General Date of Admission: 11/01/20 [facility] Medical History (Updated 11/01/20 @ 18:03 by Jesi Augustine) Atrial fibrillation Cancer Delayed wound healing Former smoker History of lymphadenopathy History of rectal cancer Hx of blood clots Hypertension Irregular heartbeat Ulcer of left lower extremity with fat layer exposed Venous (peripheral) insufficiency Home Medications aspirin 81 mg PO DAILY@0800 06/11/18 [History Last Taken Unknown] atorvastatin 10 mg PO QHS 11/30/19 [History Last Taken Unknown] amoxicillin-pot clavulanate 875 mg PO Q12H #20 tab 08/05/20 [Rx Last Taken Unknown] apixaban 5 mg PO BID 08/05/20 [History Last Taken Unknown] magnesium 200 mg PO DAILY 7 Days #7 tab 10/30/20 [Rx Last Taken Unknown] potassium chloride 20 meq PO BID 7 Days #14 ea 10/30/20 [Rx Last Taken Unknown] Allergy/AdvReac Type Severity Reaction Status Date / Time No Known Allergies Allergy Verified 11/01/20 14:24 Family History Mother Throat cancer Father Heart disease Brother Mouth cancer Surgical History History of tonsillectomy Hx of breast biopsy Hx of right cataract extraction Status post reversal of ileostomy Social History (Updated 11/01/20 @ 18:03 by Jesi Augustine) household members: spouse housing: house current occupational status: unemployed pets and animals: Yes (Dogs) Smoking Status: Former smoker second hand exposure: Yes alcohol intake: current alcohol intake frequency: 0-2 drinks per day Alcohol type: beer substance use type: does not use caffeine: Yes frequency: does not exercise Lab / Micro Data Result Diagrams: 11/01/20 14:40 11/01/20 14:40 Addendum Addendum: This patient was seen in conjunction with VIDHI Fleming. I have independently interviewed and examined the patient and reviewed pertinent historical, laboratory, and other data. Please refer to VIDHI Fleming's note for his patient's presentation, findings, and recommendations. I have reviewed and his note and concur with his documentation This is a 60-year-old male with past medical history of paroxysmal atrial fibrillation, history of rectal cancer status post resection, who was recently admitted in August 2020 to [facility] for reversal of his ileostomy. Patient stated at that time he had postop A. fib. He is on Eliquis for history of blood clots. He comes in with a 5-day history of palpitations. He was seen in the ED yesterday and he had hypokalemia and hypomagnesium Mari which was corrected. He denies specific chest pain but he could feel palpitations coming on several times today. He has a warm fuzzy feeling when he has the palpitations and he has some slight dizziness. There has been no change to his medications. He has taking all his meds today. There is no diarrhea. Physical Exam: Gen: Looks in some discomfort, not pale, not jaundiced, alert oriented x3 CVS:HS I +II, regular, no murmurs RESP: Diminished air entry at the lung bases, few crackles at bases GI: BS present and normal, soft, nontender, no palpable organs EXT: Bilateral leg edema +1 ASSESSMENT: 1. Tachyarrhythmia -A. fib with RVR alternating with normal sinus rhythm 2. Severe hypomagnesemia 3. History of DVT 4. Recent history of CVA, in remission 5. Hyperlipidemia Plan: Admit to PCU Replace magnesemia Continue on potassium po 2D-ECHO Trend cardiac enzymes Check BNPep, TSH I discussed and explained in details the various types of CODE STATUS-full code, DNR CCA, DNR CC. Patient chose Full code. He wants full measures in the event of a cardiopulmonary arrest. Time spent discussing CODE STATUS 16 minutes. Visit Charges Inpatient E&M: 14455 Init Hosp L3 Procedures Hospitalists Procedures: 19376 Advncd Care Plan 30 Min
[2020-11-01] MEDS: Magnesium Sulfate 2 GM IV IV (17:33)
[2020-11-01 18:25] LABS: Thyroid Stim Hormone (TSH) 1.23 uIU/mL (0.358-3.74)
[2020-11-01] MEDS: APIXABAN 5 MG TABLET PO (22:11)
[2020-11-01] MEDS: Atorvastatin Calcium 10 MG Tablet PO (22:12)
[2020-11-01] MEDS: Potassium Chloride Oral Tablet 20 MEQ PO (22:12)
[2020-11-01] MEDS: Metoprolol Tartrate 25 MG Tablet PO (22:13)
[2020-11-02] VITALS (7 sets, daily range): BP systolic 117–122; BP diastolic 79–83; PULSE 64–83; RESP 18; TEMP 36.7–36.8; O2SAT 97–100
[2020-11-02 06:00] LABS: Absolute Lymphocyte Count 0.66 X10^3/uL (0.83-4.51); Absolute Neutrophil Count 1.8 X10^3/uL (2.0-7.7); Basophil# 0.01 X10^3/uL; Basophil% 0.3 % (0-1); Eosinophil# 0.14 X10^3/uL; Eosinophils% 4.5 % (0-5); Hemoglobin 10.5 g/dL (13.0-16.5); Lymphocyte # 0.66 X10^3/ul (0.83-4.51); Lymphocyte % 21.2 % (19-41); Mean Corp Hgb Conc 31.8 g/dL (32-36); Mean Corpuscular Hgb 33.4 pg (27.0-32.0); Mean Corpuscular Volume 105.1 fL (80-94); Mean Platelet Vol. 8.9 fl (6.2-12.0); Monocyte# 0.54 X10^3/uL; Monocyte% 17.3 % (0-10); NRBC Flagged by Analyzer 0 % (0-5); Neutrophil # 1.76 X10^3/uL (2.7-7.7); Neutrophil % 56.4 % (47-70); Platelet Count 239 K/mm3 (150-450); RBC Distribution Width CV 14.3 % (11.6-14.6); RBC Distribution Width SD 55.2 fl (35.1-43.9); Red Blood Count 3.14 M/mm3 (4.6-6.2); White Blood Count 3.1 K/mm3 (4.4-11.0)
[2020-11-02 06:41] LABS: AST(SGOT) 19 U/L (15-37); Alanine Aminotransfer ALT/SGPT 25 U/L (16-61); Albumin, Serum 2.8 g/dL (3.2-5.0); Alkaline Phosphatase 75 U/L (45-117); Anion Gap 4 (5-15); BUN 13 mg/dL (7-18); BUN/Creat Ratio 24.4 RATIO (10-20); Calcium,Total 8.4 mg/dL (8.5-10.1); Chloride 112 mmol/L (98-107); Creatinine, Serum 0.53 mg/dL (0.70-1.30); EST Glomerular Filtration Rate 167 mL/min (>60); Est Glom Filt Rate - Afr Amer 202 mL/min (>60); Globulin 2.8 g/dL (2.2-4.2); Glucose 89 mg/dL (74-106); Magnesium 2.2 mg/dL (1.6-2.6); Potassium 3.8 mmol/L (3.5-5.1); Protein, Total 5.6 g/dL (6.4-8.2); Sodium Level 143 mmol/L (136-145)
[2020-11-02] MEDS: Multivitamins,Therapeutic Tablet 1 TABLET PO (09:40)
[2020-11-02] MEDS: Aspirin 81 MG TAB.CHEW PO (09:40)
[2020-11-02] MEDS: APIXABAN 5 MG TABLET PO (09:40)
[2020-11-02] MEDS: Potassium Chloride Oral Tablet 20 MEQ PO (09:41)
[2020-11-02] MEDS: Metoprolol Tartrate 25 MG Tablet PO (09:41)
[2020-11-02] MEDS: Magnesium Chloride 64 MG Delay Rel.Tablet 128 MG PO (09:41)
[2020-11-02] MEDS: 0.9% Saline Lock 10 ML Syringe IV (09:56)
--- NOTE | 2020-11-02 11:13 | DCINST_ITS ---
Discharge Instructions Outpatient Procedure Reason For Visit: PALPITATIONS Diet Discharge Diet: No restrictions Activity Discharge Activity: Return to Normal Activity Follow Up Care Please Follow Up With: Dr. Rutledge When: Within the next two weeks. Test Results: Test results from this visit will be discussed in further detail at your follow-up appointment, if applicable. Discharge Plan Admission Admit Date/Time: 11/01/20 17:18 Primary Reason for Your Visit: Palpitations Attending Provider: Michoacano Mcfarlane Primary Care Provider: Nahum Casarez Consulting Providers: Sonal Chandra ; Valentin Rutledge ; Omar Paul ; Catracho Elkins ; Angelito Do ; Siva Ocasio ; Janae Lazo ; Lucas Clifton ; Alvaro Davis ; Mathew Tapia NP ; Hailee Enriquez Instructions Patient Instructions: Atrial Fibrillation Discharge Orders/Prescriptions Prescriptions: New amiodarone 200 mg tablet 200 mg PO DAILY Qty: 30 RF: 0 Continued atorvastatin 10 MG tablet 40 mg PO QHS RF: 0 apixaban 5 MG tablet 5 mg PO BID RF: 0 potassium chloride 20 mEq packet 20 meq PO BID 7 Days Qty: 14 RF: 0 magnesium 200 mg tablet 200 mg PO DAILY 7 Days Qty: 7 RF: 0 multivitamin Tablet 1 tab PO DAILY RF: 0 loperamide 2 mg Capsule 2 mg PO 4X/DAY PRN (Reason: Diarrhea) RF: 0 metoprolol tartrate 25 mg Tablet 12.5 mg PO BID RF: 0 Probiotic 1 cap DAILY RF: 0 meloxicam 15 mg PO/SL DAILY RF: 0 tramadol 50 mg PO/SL PRN (Reason: Pain) RF: 0 Referrals: Nahum Casarez MD [Primary Care Provider] - Mathew Lyle [PHYSICIAN [employer]IDENTIAL [employer]ILD[employer] DES[employer]ER] - Disposition Disposition (needs filled in before D/C Order can be placed): Home, self care
--- NOTE | 2020-11-02 12:01 | PHA.DC.MR ---
Pharmacy Service has performed discharge medication reconciliation for this patient. No new medications at time of discharge. Medications reviewed at discharge review are from previously reported home medications. Home Medications atorvastatin 40 mg PO QHS 11/30/19 apixaban 5 mg PO BID 08/05/20 magnesium 200 mg PO DAILY 7 Days #7 tab 10/30/20 potassium chloride 20 meq PO BID 7 Days #14 ea 10/30/20 Probiotic 1 cap DAILY 11/01/20 loperamide 2 mg PO 4X/DAY PRN 11/01/20 meloxicam 15 mg PO/SL DAILY 11/01/20 metoprolol tartrate 12.5 mg PO BID 11/01/20 multivitamin 1 tab PO DAILY 11/01/20 tramadol 50 mg PO/SL PRN 11/01/20 The patient's discharge medication list was reviewed for discrepancies and discrepancies were resolved.
--- NOTE | 2020-11-02 13:38 | CASEMGMT ---
Pt's inquiring if [employer] is in network with their insurance. CM looked it up on pt's insurance website, Dr. Rutledge is in network. SW let pt and know. ABBE Ruiz
--- NOTE | 2020-11-02 14:01 | CON.PCM.CA_ITS ---
Assessment & Plan Assessment/Plan (1) Paroxysmal atrial fibrillation with rapid ventricular response: Status: Acute Code(s): I48.0 - Paroxysmal atrial fibrillation Plan: Patient is noted to have paroxysmal atrial fibrillation with rapid ventricular response rate. He appears to be stable at this particular time and is asymptomatic. His echocardiogram demonstrated preserved left ventricular systolic function. My recommendation would be to increase his metoprolol to 25 mg twice a day and add amiodarone 200 mg once a day to his current regimen. He will be followed up as an outpatient and depending on his findings further recommendations will be made. I have discussed the above with the hospitalist as well as the patient. HPI Consult Data Date of Consult: 11/02/20 HPI Narrative HPI Narrative: EMBER ANDERSON, is a 60 M who presents to the emergency room with palpitations. He apparently had this during a recent admission to [facility] where he was admitted with a GI problems. He was placed on medications and discharged. It does appear that he presented to the emergency room a few days ago with palpitations and an EKG demonstrated intermittent premature ventricular complexes. He was already on metoprolol and Eliquis. He presented to the emergency room and was noted to be in atrial fibrillation with a rapid ventricular response rate of 180 bpm. No other acute changes were noted. He has had low magnesium and was treated with intravenous magnesium. He was admitted for further evaluation and management. At this particular time he appears to doing well and is asymptomatic he had an echocardiogram performed which demonstrated preserved ejection fraction. [facility] Medical History Atrial fibrillation Cancer Delayed wound healing Former smoker History of lymphadenopathy History of rectal cancer Hx of blood clots Hypertension Irregular heartbeat Ulcer of left lower extremity with fat layer exposed Venous (peripheral) insufficiency Home Medications atorvastatin 40 mg PO QHS 11/30/19 [History Last Taken 10/31/20] apixaban 5 mg PO BID 08/05/20 [History Last Taken 11/01/20] magnesium 200 mg PO DAILY 7 Days #7 tab 10/30/20 [Rx Last Taken 11/01/20] potassium chloride 20 meq PO BID 7 Days #14 ea 10/30/20 [Rx Last Taken 11/01/20] Probiotic 1 cap DAILY 11/01/20 [History Last Taken 10/31/20] loperamide 2 mg PO 4X/DAY PRN 11/01/20 [History Last Taken 10/30/20] meloxicam 15 mg PO/SL DAILY 11/01/20 [History Last Taken 10/31/20] metoprolol tartrate 12.5 mg PO BID 11/01/20 [History Last Taken 11/01/20] multivitamin 1 tab PO DAILY 11/01/20 [History Last Taken 11/01/20] tramadol 50 mg PO/SL PRN 11/01/20 [History Last Taken Unknown] Allergy/AdvReac Type Severity Reaction Status Date / Time No Known Allergies Allergy Verified 11/01/20 14:24 Family History Mother Throat cancer Father Heart disease Brother Mouth cancer Surgical History History of tonsillectomy Hx of breast biopsy Hx of right cataract extraction Status post reversal of ileostomy Social History household members: spouse housing: house current occupational status: unemployed pets and animals: Yes (Dogs) Smoking Status: Former smoker second hand exposure: Yes alcohol intake: current alcohol intake frequency: 0-2 drinks per day Alcohol type: beer substance use type: does not use caffeine: Yes frequency: does not exercise ROS ROS Narrative Patient is noted to have palpitations but no shortness of breath or paroxysmal nocturnal dyspnea or pedal edema Constitutional Constitutional: Reports systems reviewed and no addt'l complaints, except as documented Eyes Eyes: Reports systems reviewed and no addt'l complaints, except as documented ENT HEENT: Reports systems reviewed and no addt'l complaints, except as documented Cardiovascular Cardiovascular: Reports irregular heart rhythm Respiratory/Chest Respiratory/Chest: Reports as per HPI Gastrointestinal Gastrointestinal: Reports systems reviewed and no addt'l complaints, except as documented Genitourinary Genitourinary: Reports systems reviewed and no addt'l complaints, except as documented Musculoskeletal Musculoskeletal: Reports systems reviewed and no addt'l complaints, except as documented Psychiatric Psychiatric: Reports systems reviewed and no addt'l complaints, except as documented Endocrine Endocrinology: Reports systems reviewed and no addt'l complaints, except as documented Hematologic/Lymphatic Hematologic/Lymphatic: Reports systems reviewed and no addt'l complaints, except as documented Allergic/Immunologic Allergic/Immunologic: Reports systems reviewed and no addt'l complaints, except as documented
--- NOTE | 2020-11-02 14:19 | PCM.DC.SUM ---
Documented by User: Mathew MOSHER 11/02/20 14:30 Providers Date of Admission: 11/01/20 Primary Care Physician: Dr. Nahum Casarez MD Consultations 11/01/20 17:22 Consult: Cardiology Routine Consulting Provider: [facility] Reason for Consult: Tachyarrhythmias EMERGENT Consult: No MD Notified: Yes Date Notified:: 11/01/20 Time Notified: 17:23 Method of Notification: Text Method of Consult:: In-Person Reason For Visit: PALPITATIONS Diagnosis Discharge Diagnosis (1) Paroxysmal atrial fibrillation with rapid ventricular response: Status: Acute Code(s): I48.0 - Paroxysmal atrial fibrillation Medications at Discharge Home Medications atorvastatin 40 mg PO QHS 11/30/19 apixaban 5 mg PO BID 08/05/20 magnesium 200 mg PO DAILY 7 Days #7 tab 10/30/20 potassium chloride 20 meq PO BID 7 Days #14 ea 10/30/20 Probiotic 1 cap DAILY 11/01/20 loperamide 2 mg PO 4X/DAY PRN 11/01/20 meloxicam 15 mg PO/SL DAILY 11/01/20 metoprolol tartrate 12.5 mg PO BID 11/01/20 multivitamin 1 tab PO DAILY 11/01/20 tramadol 50 mg PO/SL PRN 11/01/20 amiodarone 200 mg PO DAILY #30 tab 11/02/20 Hospital Course Procedures 2-D Echocardiogram Summary of Care Provided Minutes Spent on Discharge: 35 Hospital Course: Patient is a 60-year-old male who was admitted to [facility] on 11/01/2020 with a chief complaint of heart palpitations. Patient was subsequently admitted for atrial fibrillation with RVR and hypomagnesemia. Echocardiogram from 11/02/2020 demonstrated normal LV size and systolic function, an estimated EF of 65% and mild tricuspid valve insufficiency. Cardiology consulted; recommendation amiodarone 200 mg p.o. daily. Patient will be discharged today. 1) Paroxysmal atrial fibrillation with RVR Initial presentation in the ED demonstrated paroxysmal A. fib with RVR at a rate of 180. Troponins not elevated. Echocardiogram as above. Subsequent cardiac monitoring demonstrated repeated tachycardia, with an rate above 150. Plan; initiate amiodarone 200 mg p.o. daily, continue metoprolol 25 mg p.o. twice daily, continue Eliquis, follow-up with Dr. Rutledge as an outpatient. 2) Hypomagnesemia Resolved, 2.2 today. Replete in the ED. plan; continue home magnesium prescription. 3) hyperlipidemia Continue home statin. 4) history of blood clots Continue Eliquis. 5) Venous insufficiency. Stable, chronic. 6) Mass of colon Spent the month of August at a [facility] for ileostomy and rehab throughout the month of August. Patient reports no complications from procedure. Plan; continue outpatient management. Patient seen by Mathew Lyle PA-C, under the supervision of Dr. Mcfarlane . Physical Exam Narrative Patient is a 60-year-old male who is comfortably resting in bed, alert and oriented x3. Patient still reports feeling heart palpitations, however denies chest pain, shortness of breath, fever, chills, N/V/D. Const alert, oriented x3 and no apparent distress HEENT normocephalic, head/scalp atraumatic and hearing grossly normal bilaterally Eyes EOMs intact bilaterally Neck no lymphadenopathy, supple and no JVD Resp normal respiratory effort, no use of accessory muscles and clear to auscultation bilaterally Cardio regular rate, regular rhythm, no murmurs and no rub GI normal to inspection, nondistended, normoactive bowel sounds, soft to palpation and non-tender Extremity normal to inspection, full ROM and no clubbing, cyanosis or edema Skin no rashes or lesions noted and no wounds Neuro CN's II-XII intact bilaterally Psych affect normal ABG / Lab / Microbiology Data Result Diagrams: 11/02/20 05:32 11/02/20 05:32 Laboratory: Laboratory Results - last 24 hr 11/01/20 11/01/20 11/01/20 14:40 14:40 14:40 WBC 3.9 L RBC 3.41 L Hgb 11.3 L Hct 35.5 L MCV 104.1 H MCH 33.1 H MCHC 31.8 L RDW Std Deviation 55.1 H RDW Coeff of Cynthia 14.4 Plt Count 244 MPV 8.5 Immature Gran % (Auto) 0.000 Neut % (Auto) 61.0 Lymph % (Auto) 19.5 Power % (Auto) 15.4 H Eos % (Auto) 3.6 Baso % (Auto) 0.5 Absolute Neuts (auto) 2.4 Absolute Lymphs (auto) 0.76 L Nucleated RBC % 0 Sodium 143 Potassium 3.9 Chloride 109 H Carbon Dioxide 30.0 Anion Gap 4 L BUN 15 Creatinine 0.70 Estim Creat Clear Calc 107.21 Est GFR (MDRD) Af Amer 148 Est GFR (MDRD) Non-Af 122 BUN/Creatinine Ratio 21.5 H Glucose 101 Calcium 8.5 Magnesium 1.4 L Total Bilirubin 0.30 AST 20 ALT 29 Alkaline Phosphatase 89 Troponin I < 0.015 B-Natriuretic Peptide Total Protein 6.6 Albumin 3.1 L Globulin 3.5 Albumin/Globulin Ratio 0.9 TSH 1.23 11/01/20 11/01/20 11/01/20 14:40 18:19 20:43 WBC RBC Hgb Hct MCV MCH MCHC RDW Std Deviation RDW Coeff of Cynthia Plt Count MPV Immature Gran % (Auto) Neut % (Auto) Lymph % (Auto) Power % (Auto) Eos % (Auto) Baso % (Auto) Absolute Neuts (auto) Absolute Lymphs (auto) Nucleated RBC % Sodium Potassium Chloride Carbon Dioxide Anion Gap BUN Creatinine Estim Creat Clear Calc Est GFR (MDRD) Af Amer Est GFR (MDRD) Non-Af BUN/Creatinine Ratio Glucose Calcium Magnesium Total Bilirubin AST ALT Alkaline Phosphatase Troponin I < 0.015 < 0.015 B-Natriuretic Peptide 418.0 H Total Protein Albumin Globulin Albumin/Globulin Ratio TSH 11/02/20 11/02/20 05:32 05:32 WBC 3.1 L RBC 3.14 L Hgb 10.5 L Hct 33.0 L MCV 105.1 H MCH 33.4 H MCHC 31.8 L RDW Std Deviation 55.2 H RDW Coeff of Cynthia 14.3 Plt Count 239 MPV 8.9 Immature Gran % (Auto) 0.300 Neut % (Auto) 56.4 Lymph % (Auto) 21.2 Power % (Auto) 17.3 H Eos % (Auto) 4.5 Baso % (Auto) 0.3 Absolute Neuts (auto) 1.8 L Absolute Lymphs (auto) 0.66 L Nucleated RBC % 0 Sodium 143 Potassium 3.8 Chloride 112 H Carbon Dioxide 27.0 Anion Gap 4 L BUN 13 Creatinine 0.53 L Estim Creat Clear Calc 141.60 Est GFR (MDRD) Af Amer 202 Est GFR (MDRD) Non-Af 167 BUN/Creatinine Ratio 24.4 H Glucose 89 Calcium 8.4 L Magnesium 2.2 Total Bilirubin 0.30 AST 19 ALT 25 Alkaline Phosphatase 75 Troponin I B-Natriuretic Peptide Total Protein 5.6 L Albumin 2.8 L Globulin 2.8 Albumin/Globulin Ratio 1.0 TSH Radiography Diagnostic Testing: Radiology Impression Chest X-Ray 11/01/20 14:45 IMPRESSION: Normal x-ray examination of the chest. Electronically Signed: Jimi Waldrop MD at 15:21 EDT Tel , Service support , Echocardiogram 11/01/20 17:22 Interpretation Summary Normal LV size. Left ventricular systolic function is normal. The estimated ejection fraction is 65 %. Mild (1+) tricuspid valve insufficiency. Contrast injection was performed. Ordering Physician: Radha Holly Referring Physician: Samuel Casarez MD Performed By: Chico Monsivais RCS D/C Instructions Discharge Diet: No restrictions Discharge Activity: Return to Normal Activity Please Follow Up With: Dr. Rutledge When: Within the next two weeks. Meaningful Use Info Meaningful Use Diagnoses (Choose all that apply): None applicable Discharge Plan Admission Admit Date/Time: 11/01/20 17:18 Primary Reason for Your Visit: Palpitations Attending Provider: Michoacano Mcfarlane Primary Care Provider: Nahum Casarez Consulting Providers: Sonal Chandra ; Valentin Rutledge ; Omar Paul ; Catracho Elkins ; Angelito Do ; Siva Ocasio ; Janae Lazo ; Lucas Clifton ; Alvaro Davis ; Mathew Tapia NP ; Hailee Enriquez Instructions Patient Instructions: Atrial Fibrillation Discharge Orders/Prescriptions Prescriptions: New amiodarone 200 mg tablet 200 mg PO DAILY Qty: 30 RF: 0 Continued atorvastatin 10 MG tablet 40 mg PO QHS RF: 0 apixaban 5 MG tablet 5 mg PO BID RF: 0 potassium chloride 20 mEq packet 20 meq PO BID 7 Days Qty: 14 RF: 0 magnesium 200 mg tablet 200 mg PO DAILY 7 Days Qty: 7 RF: 0 multivitamin Tablet 1 tab PO DAILY RF: 0 loperamide 2 mg Capsule 2 mg PO 4X/DAY PRN (Reason: Diarrhea) RF: 0 metoprolol tartrate 25 mg Tablet 12.5 mg PO BID RF: 0 Probiotic 1 cap DAILY RF: 0 meloxicam 15 mg PO/SL DAILY RF: 0 tramadol 50 mg PO/SL PRN (Reason: Pain) RF: 0 Referrals: Nahum Casarez MD [Primary Care Provider] - Mathew Lyle [PHYSICIAN DICTATING TRANSCRIBING MACHINE SERVICER] - Disposition Disposition (needs filled in before D/C Order can be placed): Home, self care Documented by User: Dr. Michoacano Mcfarlane MD 11/02/20 15:37 Providers Date of Admission: 11/01/20 Reason For Visit: PALPITATIONS Medications at Discharge Home Medications atorvastatin 40 mg PO QHS 11/30/19 apixaban 5 mg PO BID 08/05/20 magnesium 200 mg PO DAILY 7 Days #7 tab 10/30/20 potassium chloride 20 meq PO BID 7 Days #14 ea 10/30/20 Probiotic 1 cap DAILY 11/01/20 loperamide 2 mg PO 4X/DAY PRN 11/01/20 meloxicam 15 mg PO/SL DAILY 11/01/20 metoprolol tartrate 12.5 mg PO BID 11/01/20 multivitamin 1 tab PO DAILY 11/01/20 tramadol 50 mg PO/SL PRN 11/01/20 amiodarone 200 mg PO DAILY #30 tab 11/02/20 ABG / Lab / Microbiology Data Result Diagrams: 11/02/20 05:32 11/02/20 05:32 Discharge Plan Admission Admit Date/Time: 11/01/20 17:18 Primary Reason for Your Visit: Palpitations Attending Provider: Michoacano Mcfarlane Primary Care Provider: Nahum Casarez Consulting Providers: Sonal Chandra ; Valentin Rutledge ; Omar Paul ; Catracho Elkins ; Angelito Do ; Siva Ocasio ; Janae Lazo ; Lucas Clifton ; Alvaro Davis ; Mathew Tapia NP ; Hailee Enriquez Instructions Patient Instructions: Atrial Fibrillation Discharge Orders/Prescriptions Prescriptions: New amiodarone 200 mg tablet 200 mg PO DAILY Qty: 30 RF: 0 Continued atorvastatin 10 MG tablet 40 mg PO QHS RF: 0 apixaban 5 MG tablet 5 mg PO BID RF: 0 potassium chloride 20 mEq packet 20 meq PO BID 7 Days Qty: 14 RF: 0 magnesium 200 mg tablet 200 mg PO DAILY 7 Days Qty: 7 RF: 0 multivitamin Tablet 1 tab PO DAILY RF: 0 loperamide 2 mg Capsule 2 mg PO 4X/DAY PRN (Reason: Diarrhea) RF: 0 metoprolol tartrate 25 mg Tablet 12.5 mg PO BID RF: 0 Probiotic 1 cap DAILY RF: 0 meloxicam 15 mg PO/SL DAILY RF: 0 tramadol 50 mg PO/SL PRN (Reason: Pain) RF: 0 Referrals: Nahum Casarez MD [Primary Care Provider] - Mathew Lyle [PHYSICIAN DICTATING TRANSCRIBING MACHINE SERVICER] - Disposition Disposition (needs filled in before D/C Order can be placed): Home, self care Visit Charges Inpatient E&M: 76087 Disch Hosp Multi Select Codes Addendum Addendum: This patient was seen in conjunction with Mathew Lyle PA-C. I have independently interviewed and examined the patient and reviewed pertinent historical, laboratory, and other data. Please refer to Mathew Lyle PA-C's note for details of this patient's presentation, findings, and recommendations. I have reviewed Mathew Lyle PA-C's note and concur with documented findings. In brief, patient is a 60-year-old gentleman with history of paroxysmal A. fib who presented with A. fib with RVR. Admitted to monitored bed for subsequent management Hospital course: As documented above
--- NOTE | 2020-11-02 15:32 | CHAPLAIN ---
Type of Pastoral Visit _x__ Initial Visit ___ Follow-up Visit ___ On-call Visit ___ General Patient Visit ___ Spiritual Assessment ___ Family Conference ___ Bereavement ___ Rapid Response ___ Code Blue ___ Other (describe below) Pastoral Care Referral From _x__ Patient ___ Family ___ Nurse ___ Physician ___ Data Entry Representative ___ Oil Dipper ___ Other (describe below) Sacrament/Intervention _x__ Active listening ___ Anointing ___ Confucianist ___ Bereavement ___ Communion ___ My exploration ___ ___ Life review _x__ Prayer ___ Reconciliation ___ Sacrament of Sick ___ Supportive presence ___ Wedding ___ Other (describe below) Pastoral Comments
[2020-11-02] MEDS: Amiodarone 200 MG Tablet PO (15:33)
== END 2020-11-02 14:17 | disposition home or self-care (01) ==
LOC: ED 17:21 → PCU 17:39
PROVIDERS: Admitting Provider Internal Medicine; Emergency Provider Emergency Medicine; PCP Family Medicine; Visit Provider Internal Medicine
DX: I48.0 Paroxysmal atrial fibrillation (principal); I10 Essential (primary) hypertension; I87.2 Venous insufficiency (chronic) (peripheral); I49.9 Cardiac arrhythmia, unspecified; I49.3 Ventricular premature depolarization; E78.5 Hyperlipidemia, unspecified; E83.42 Hypomagnesemia; M19.90 Unspecified osteoarthritis, unspecified site; Z79.01 Long term (current) use of anticoagulants; Z87.891 Personal history of nicotine dependence; Z86.718 Personal history of other venous thrombosis and embolism; Z85.048 Personal history of other malignant neoplasm of rectum, rectosigmoid junction, and anus; Z79.82 Long term (current) use of aspirin; Z79.899 Other long term (current) drug therapy; Z86.73 Personal history of transient ischemic attack (TIA), and cerebral infarction without residual deficits; R00.0 Tachycardia, unspecified
CPT/HCPCS: 36415; 71045; 80053; 83735; 83880; 84443; 84484; 85025; 93005; 93306; 96365; 96366; 97802; 99218; 99285; J7050; Q9957; A4216; C8929; G0378; J3475

== ENCOUNTER → 2020-11-09 12:26 | Outpatient (CLI) | payer BC, OTHER, SELFPAY ==
[2020-11-01 18:31] VITALS: BMI 28.9
[2020-11-09 15:32] LABS: Anion Gap 3 (5-15); BUN 20 mg/dL (7-18); Calcium,Total 9.5 mg/dL (8.5-10.1); Chloride 106 mmol/L (98-107); Creatinine, Serum 0.77 mg/dL (0.70-1.30); EST Glomerular Filtration Rate 109 mL/min (>60); Est Glom Filt Rate - Afr Amer 132 mL/min (>60); Glucose 95 mg/dL (74-106); Potassium 4.5 mmol/L (3.5-5.1); Sodium Level 138 mmol/L (136-145)
== END ==
PROVIDERS: PCP Family Medicine; Referring Provider Family Medicine; Visit Provider Family Medicine
DX: E87.6 Hypokalemia (principal); R79.0 Abnormal level of blood mineral
CPT/HCPCS: 36415; 80048; 83735

== ENCOUNTER → 2021-03-25 15:18 | Outpatient (CLI) | payer BC, OTHER, SELFPAY ==
[2021-03-25 16:15] LABS: Amphetamine Urine VISTA NEGATIVE (<1000 ng/mL); Barbiturate Urine VISTA NEGATIVE (< 200 ng/mL); Benzodiazepine Urine VISTA NEGATIVE (< 200 ng/mL); Cocaine Urine VISTA NEGATIVE (< 300 ng/mL); Ecstacy Urine VISTA NEGATIVE (< 500 ng/mL); Methadone Urine VISTA NEGATIVE (< 300 ng/mL); PCP Urine VISTA NEGATIVE (< 25 ng/mL); THC Urine VISTA NEGATIVE (< 50 ng/mL); Vista UDS pH Range 7
== END ==
PROVIDERS: PCP Family Medicine; Referring Provider Anesthesiology Pain Medicine; Visit Provider Anesthesiology Pain Medicine
DX: F11.20 Opioid dependence, uncomplicated (principal)
CPT/HCPCS: 80307

== ENCOUNTER → 2021-04-15 16:51 | Outpatient (CLI) | payer BC, OTHER, SELFPAY ==
--- NOTE | 2021-04-15 16:58 | RAD_ITS ---
STUDY: X-RAY - ABDOMEN/PELVIS REASON FOR EXAM: Male, 60 years old. Abdominal pain. TECHNIQUE: AP supine and upright views of the abdomen and pelvis. COMPARISON: None. FINDINGS: Normal visualized lung bases. There is a nonspecific bowel gas pattern. There is air in small bowel loops and colon predominantly in the left upper quadrant. There is no evidence of obstruction or mass. There is no demonstrated free abdominal air. The visualized liver, spleen and kidneys are grossly normal in size and morphology. Normal soft tissue structures. Dextroscoliosis and degenerative changes of the lumbar spine. RAD/Abd Inc Decub and/or Erect IMPRESSION: Nonspecific bowel gas pattern. Question ileus. Electronically Signed: Nick Perez DO at 17:50 EDT Tel [phone], Service support ,
[2021-04-15 17:54] LABS: Absolute Lymphocyte Count 0.71 X10^3/uL (0.83-4.51); Basophil# 0.02 X10^3/uL; Basophil% 0.3 % (0-1); Eosinophil# 0.02 X10^3/uL; Eosinophils% 0.3 % (0-5); Hematocrit 36.6 % (40-54); Hemoglobin 12.6 g/dL (13.0-16.5); Lymphocyte # 0.71 X10^3/ul (0.83-4.51); Lymphocyte % 11.1 % (19-41); Mean Corp Hgb Conc 34.4 g/dL (32-36); Mean Corpuscular Hgb 34.6 pg (27.0-32.0); Mean Corpuscular Volume 100.5 fL (80-94); Mean Platelet Vol. 8.8 fl (6.2-12.0); Monocyte# 0.65 X10^3/uL; Monocyte% 10.1 % (0-10); NRBC Flagged by Analyzer 0 % (0-5); Neutrophil # 4.99 X10^3/uL (2.7-7.7); Neutrophil % 77.7 % (47-70); Platelet Count 243 K/mm3 (150-450); RBC Distribution Width CV 12.5 % (11.6-14.6); RBC Distribution Width SD 46.1 fl (35.1-43.9); Red Blood Count 3.64 M/mm3 (4.6-6.2); White Blood Count 6.4 K/mm3 (4.4-11.0)
[2021-04-15 18:51] LABS: AST(SGOT) 23 U/L (15-37); Alanine Aminotransfer ALT/SGPT 31 U/L (16-61); Albumin, Serum 3.6 g/dL (3.2-5.0); Alkaline Phosphatase 91 U/L (45-117); Anion Gap 5 (5-15); BUN 25 mg/dL (7-18); BUN/Creat Ratio 25.9 RATIO (10-20); Calcium,Total 9.3 mg/dL (8.5-10.1); Chloride 105 mmol/L (98-107); Creatinine, Serum 0.96 mg/dL (0.70-1.30); EST Glomerular Filtration Rate 84 mL/min (>60); Est Glom Filt Rate - Afr Amer 102 mL/min (>60); Globulin 3.6 g/dL (2.2-4.2); Glucose 90 mg/dL (74-106); Lipase 44 U/L (73-393); Potassium 3.8 mmol/L (3.5-5.1); Protein, Total 7.2 g/dL (6.4-8.2); Sodium Level 137 mmol/L (136-145)
== END ==
PROVIDERS: PCP Family Medicine; Referring Provider Family Medicine; Visit Provider Family Medicine
DX: R10.9 Unspecified abdominal pain (principal)
CPT/HCPCS: 36415; 74019; 80053; 83690; 85025

== ENCOUNTER → 2021-04-20 11:37 | Outpatient (CLI) | payer BC, OTHER, SELFPAY ==
--- NOTE | 2021-04-20 17:05 | STRESSREP ---
Stress Test Report Exercise stress test. 60-year-old man with a history of paroxysmal atrial fibrillation for flecainide initiation. Stress test. Resting EKG demonstrates normal sinus rhythm with a rate of 60 bpm resting blood pressure is 124/78 mmHg. The patient exercised according to regular Miki protocol for total duration of 4 minutes. The maximum heart rate attained was 139 bpm which was 87% of max impact her heart rate the maximum workload was 7 metabolic equivalents. The patient maintained sinus rhythm throughout the recording. No episodes of atrial fibrillation were noted and no EKG changes were noted. The peak blood pressure was 162/84 mmHg. The test was terminated due to leg discomfort. Conclusion: Exercise stress test with no EKG criteria for ischemia at a moderate workload. No arrhythmias noted.
== END ==
PROVIDERS: PCP Family Medicine; Referring Provider Nurse Practitioner Family; Visit Provider Nurse Practitioner Family
DX: I48.0 Paroxysmal atrial fibrillation (principal); I10 Essential (primary) hypertension; E78.5 Hyperlipidemia, unspecified
CPT/HCPCS: 93017

== ENCOUNTER → 2021-05-05 18:01 | Outpatient (CLI) | payer BC, OTHER, SELFPAY | PROVIDERS: PCP Family Medicine; Visit Provider Family Medicine | DX: U07.1 COVID-19 (principal) | CPT/HCPCS: 87635; U0005; U0003 ==

== ENCOUNTER 2021-05-07 11:59 | Outpatient (CLI) | payer BC, OTHER, SELFPAY ==
[2021-05-07] MEDS: 0.9% Saline Lock 10 ML Syringe IV (12:15)
[2021-05-07 12:20] VITALS: BP 137/82; PULSE 67; RESP 16; TEMP 37.1; O2SAT 100; BMI 30.4
[2021-05-07 12:56] VITALS: BP 114/67; PULSE 59; RESP 16; TEMP 36.9; O2SAT 99
[2021-05-07 13:46] VITALS: BP 116/70; PULSE 61; RESP 16; TEMP 36.6; O2SAT 100
== END 2021-05-07 13:58 | disposition home or self-care (01) ==
LOC: MS3OUT 12:00 → MS3 12:00
PROVIDERS: PCP Family Medicine; Referring Provider Nurse Practitioner Adult Health; Visit Provider Nurse Practitioner Adult Health
DX: Z23 Encounter for immunization (principal); U07.1 COVID-19
CPT/HCPCS: J7050; M0245; Q0245; A4216

== ENCOUNTER → 2021-11-30 | Outpatient (CLI) | payer BC, OTHER, SELFPAY ==
--- NOTE | 2021-11-30 10:22 | RAD_ITS ---
STUDY: X-RAY - RIGHT SHOULDER REASON FOR EXAM: Male, 61 years old. Shoulder pain. TECHNIQUE: 4 view(s) of the shoulder. COMPARISON: None. FINDINGS: Osteopenia. Mild arthrosis of the glenohumeral moderate arthrosis of the AC joint. Normal acromion. Normal humeral head and visualized proximal humerus. 2 small calcifications projected below the glenoid which may represent small intra-articular osteochondral bodies, the largest of which measures 5 mm in widest diameter. Normal visualized pulmonary apex. RAD/Shoulder min 2 Views IMPRESSION: Osteopenia with osteoarthritic changes of the glenohumeral and acromioclavicular joints. Small intra-articular osteochondral bodies. Electronically Signed: Jeffery Childers MD at 10:44 EDT ,
== END | disposition home or self-care (01) ==
PROVIDERS: PCP Family Medicine; Referring Provider Nurse Practitioner Family; Visit Provider Nurse Practitioner Family
DX: M25.511 Pain in right shoulder (principal)
CPT/HCPCS: 73030

== ENCOUNTER → 2021-12-06 | Outpatient (CLI) | payer BC, OTHER, SELFPAY ==
--- NOTE | 2021-12-06 16:10 | MRI_ITS ---
STUDY: MRI LUMBAR SPINE WITH AND WITHOUT CONTRAST REASON FOR EXAM: Male, 61 years old. SPONDYLOLISTHESIS AT L5-S1;DDD LUMBAR TECHNIQUE: Standardized fat and water weighted pulse sequences were obtained in the sagittal and axial planes. IV 18 DOTAREM was administered for the contrast portion of the examination. COMPARISON: None FINDINGS: T12-L1: Mild broad disc protrusion produces mild spinal stenosis and mild bilateral neural foraminal stenosis. Normal lumbar lordosis. Mild dextroscoliosis of the thoracolumbar spine. Normal conus medullaris that terminates at the L1/L2. L1-2: Moderate bilateral facet hypertrophy and mild ligament flavum hypertrophy. Mild bilobed disc protrusion asymmetric to the left produces mild spinal stenosis with mild right lateral recess stenosis, moderate left lateral recess stenosis with abutment of the left L2 nerve root, mild right neural foraminal stenosis and moderate left neural foraminal stenosis. L2-3: Moderate bilateral facet hypertrophy and ligament flavum hypertrophy. Moderate broad disc protrusion produces moderate spinal stenosis with moderate lateral recess stenosis with abutment of the L3 nerve roots bilaterally and moderate bilateral neural foraminal stenosis with abutment of the exiting L2 nerve roots bilaterally. L3-4: Moderate bilateral facet hypertrophy and ligament flavum hypertrophy. Mild broad disc protrusion asymmetric to the left produces mild spinal stenosis and moderate bilateral neural foraminal stenosis. L4-5: Moderate bilateral facet hypertrophy and ligament flavum hypertrophy. 2 mm retrolisthesis of L4 and L5 with a mild broad disc protrusion produces moderate spinal stenosis with mild bilateral lateral recess stenosis and moderate bilateral neural foraminal stenosis. L5-S1: Suspected bilateral pars defects the L5 vertebra consistent with L5 spondylolysis. 12 mm of anterolisthesis of L5 on S1 consistent with grade 2 spondylolisthesis. No spinal stenosis but severe bilateral neural foraminal stenosis with effacement of the L5 nerve roots bilaterally. Normal visualized sacral ala. Normal visualized paraspinous soft tissue structures. There is no demonstrated abnormal enhancement. MRI/Spine Lumbar W/WO Contrast IMPRESSION: 1. L5 spondylolysis with grade 2 spondylolisthesis of L5 on S1 with severe bilateral neural foraminal stenosis with effacement of the L5 nerve roots bilaterally. 2. Scoliosis and diffuse degenerative disc disease as described above. Electronically Signed: Art Doshi MD at 14:57 EDT ,
[2021-12-06 16:21] LABS: CREATININE FINGERSTICK < 0.9 mg/dL (0.70-1.30); EGFR FINGERSTICK > 60.0000 mL/min (>60)
== END | disposition home or self-care (01) ==
LOC: MRI 15:56
PROVIDERS: PCP Family Medicine; Visit Provider Nurse Practitioner Acute Care
DX: M43.17 Spondylolisthesis, lumbosacral region (principal); M51.36 Other intervertebral disc degeneration, lumbar region
CPT/HCPCS: 72158; A9575

== ENCOUNTER → 2022-01-19 | Outpatient (CLI) | payer BC, OTHER, SELFPAY ==
--- NOTE | 2022-01-19 15:19 | RAD_ITS ---
EXAM: XR CHEST, 2 VIEWS CLINICAL INDICATION: PRE-OP TECHNIQUE: Frontal and lateral views of the chest. This report was created using [employer] report generation technology. COMPARISON: 11/01/2020. FINDINGS: LUNGS AND PLEURAL SPACES: Unremarkable. No consolidation or edema. No pneumothorax. No effusion. HEART: Unremarkable. Cardiac silhouette not enlarged. MEDIASTINUM: Central airways and mediastinal contour are unremarkable. BONES/JOINTS: Unremarkable. SOFT TISSUES: Unremarkable. RAD/Chest PA and Lateral IMPRESSION: No acute cardiopulmonary abnormality. Electronically Signed: Dinesh Lomeli MD at 3:00 EDT ,
[2022-01-19 17:53] LABS: Hematocrit 38.4 % (40-54); Mean Corp Hgb Conc 33.9 g/dL (32-36); Mean Corpuscular Hgb 33.3 pg (27.0-32.0); Mean Corpuscular Volume 98.5 fL (80-94); Mean Platelet Vol. 9.2 fl (6.2-12.0); Platelet Count 255 K/mm3 (150-450); RBC Distribution Width SD 47.3 fl (35.1-43.9); White Blood Count 6.1 K/mm3 (4.4-11.0)
[2022-01-19 18:06] LABS: Anion Gap 5 (5-15); BUN 18 mg/dL (7-18); BUN/Creat Ratio 21.6 RATIO (10-20); Calcium,Total 10.1 mg/dL (8.5-10.1); Chloride 106 mmol/L (98-107); Creatinine, Serum 0.83 mg/dL (0.70-1.30); EST Glomerular Filtration Rate 99 mL/min (>60); Est Glom Filt Rate - Afr Amer 120 mL/min (>60); Glucose 100 mg/dL (74-106); Sodium Level 139 mmol/L (136-145)
== END | disposition home or self-care (01) ==
PROVIDERS: PCP Family Medicine; Referring Provider Family Medicine; Visit Provider Family Medicine
DX: Z01.818 Encounter for other preprocedural examination (principal)
CPT/HCPCS: 36415; 71046; 80048; 85027

== ENCOUNTER → 2022-08-06 | Outpatient (CLI) | payer BC, OTHER, SELFPAY ==
--- NOTE | 2022-08-06 07:49 | MRI_ITS ---
INDICATION: RT SHOULDER PAIN EXAMINATION: MRI - RIGHT MR Shoulder W/O Contrast TECHNIQUE: Multiplanar and multisequence MR images of the shoulder. IV Contrast Dosage and Agent: None. COMPARISON: None. FINDINGS: BONE: No fracture or abnormal bone marrow signal. ACROMIOCLAVICULAR JOINT: Moderate acromioclavicular hypertrophy. This produces mild impression of the distal belly of the supraspinatus due to its high position. Moderate distal inferior acromial spurring producing moderate compression of the proximal fibers of the supraspinatus portion of the conjoint tendon SUBACROMIAL-SUBDELTOID SPACE: Mild subacromial subdeltoid bursitis GLENOHUMERAL JOINT: Degenerative cyst subjacent to middle one third of the posterior glenoid. This measures 0.7 cm transverse. Articular cartilage intact. No joint effusion. No rotator interval edema. ROTATOR CUFF: The distal two thirds of the supraspinatus demonstrates intermediate signal intensity on T1-weighted imaging. This portion of the rotator cuff demonstrates intrasubstance increased signal intensity on fat saturation imaging consistent with a 70% thickness partial intrasubstance tear. Fermin image series 5 image #10. There is no cuff muscle atrophy. LABRUM: Intact, limited evaluation on non-arthrographic exam. BICEPS TENDON: There is discontinuity of the bicipital tendon. This is seen on series #8 images 18 through 20. Findings are consistent with tear versus dislocation of the long head of the biceps. The intra-articular biceps tendon is normal. OTHER SOFT TISSUES: Small glenohumeral joint effusion extends into the anterior glenohumeral recess. MRI/Upper Ext Joint Only(Routine) IMPRESSION: 70% thickness intrasubstance tear distal two thirds of supraspinatus. Moderate acromioclavicular hypertrophy and moderate distal inferior acromial spurring with overall moderate impingement. Tear versus dislocation long head of biceps in the region of the bicipital groove. Small glenohumeral joint effusion. Mild subacromial subdeltoid bursitis. Electronically Signed: George Morse MD, RAJAT at 17:31 EST ,
== END | disposition home or self-care (01) ==
LOC: MRI 07:44
PROVIDERS: PCP Family Medicine; Referring Provider Family Medicine; Visit Provider Family Medicine
DX: M25.519 Pain in unspecified shoulder (principal)
CPT/HCPCS: 73221

== ENCOUNTER 2022-08-12 09:51 | Day surgery (SDC) | payer BC, OTHER, SELFPAY ==
--- NOTE | 2022-08-09 13:38 | EKG12_ITS ---
Test Reason : PRE-OP Blood Pressure : / mmHG Vent. Rate : 071 BPM Atrial Rate : 071 BPM P-R Int : 136 ms QRS Dur : 104 ms QT Int : 400 ms P-R-T Axes : 061 071 051 degrees QTc Int : 434 ms Normal sinus rhythm Normal ECG Confirmed by PARMINDER HENDERSON, BRIANNE ([id number]), market editor POPEYE CARBALLO ([id number]) on 08/10/2022 9:29:04 AM Referred By: MARTY Confirmed By:BRIANNE ZURITA MD
[2022-08-09 14:21] LABS: Absolute Lymphocyte Count 1.38 X10^3/uL (0.83-4.51); Absolute Neutrophil Count 3.8 X10^3/uL (2.0-7.7); Basophil# 0.03 X10^3/uL; Basophil% 0.5 % (0-1); Eosinophil# 0.08 X10^3/uL; Eosinophils% 1.3 % (0-5); Lymphocyte # 1.38 X10^3/ul (0.83-4.51); Lymphocyte % 22.8 % (19-41); Mean Corp Hgb Conc 35.1 g/dL (32-36); Mean Corpuscular Hgb 34.3 pg (27.0-32.0); Mean Corpuscular Volume 97.6 fL (80-94); Mean Platelet Vol. 8.7 fl (6.2-12.0); Monocyte# 0.75 X10^3/uL; Monocyte% 12.4 % (0-10); NRBC Flagged by Analyzer 0 % (0-5); Neutrophil # 3.79 X10^3/uL (2.7-7.7); Neutrophil % 62.7 % (47-70); Platelet Count 242 K/mm3 (150-450); RBC Distribution Width CV 12.5 % (11.6-14.6); Red Blood Count 3.79 M/mm3 (4.6-6.2); White Blood Count 6.1 K/mm3 (4.4-11.0)
[2022-08-09 14:53] LABS: Anion Gap 4 (5-15); BUN 18 mg/dL (7-18); BUN/Creat Ratio 20.5 RATIO (10-20); Calcium,Total 9.8 mg/dL (8.5-10.1); Chloride 107 mmol/L (98-107); Creatinine, Serum 0.88 mg/dL (0.70-1.30); EST Glomerular Filtration Rate 93 mL/min (>60); Est Glom Filt Rate - Afr Amer 113 mL/min (>60); Glucose 95 mg/dL (74-106); Sodium Level 140 mmol/L (136-145)
[2022-08-12] MEDS: Lactated Ringers 1,000 ML 15 ML IV ×2 (10:15→14:29)
[2022-08-12 10:35] VITALS: BP 119/73; PULSE 60; RESP 12; TEMP 36.7; O2SAT 99; BMI 32.5
--- NOTE | 2022-08-12 12:34 | PCM.HP.BLA ---
History and Physical Date of Admission: 08/12/22 Intake Vital Signs ? 05/07/2112:20 07/07/2307:58 Height 5 ft 8 in 5 ft 8 in Weight: ? 217 lb 6 oz BMI ? 33.0 BP ? 122/78 H Blood Pressure Location ? Rt brachial Position ? Sitting Respiration ? 17 Pulse ? 64 Pulse Source ? Monitor Temp ? 98.1 F Temp Source ? Oral Pulse Oximetry (%) ? 97 Oxygen Delivery Method ? 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: No Is patient in pain?: No Allergies No Known Allergies Allergy (Verified 07/07/22 09:00) Medications metoprolol tartrate 25 mg tablet 12.5 mg PO BID 11/01/20 [History Confirmed 07/07/22] multivitamin 1 tab PO DAILY supplement 11/01/20 [History Confirmed 07/07/22] lactobacillus combination no.9 4 billion cell capsule (Adult 50 Plus Probiotic) 4,000 mmu cells PO DAILY 11/25/20 [History Confirmed 07/07/22] apixaban 5 mg tablet (Eliquis) 5 mg PO BID 05/07/21 [History Confirmed 07/07/22] atorvastatin 10 mg tablet 40 mg PO QHS cholesterol 07/07/22 [History Confirmed 07/07/22] pregabalin 50 mg capsule 50 mg PO BID 07/07/22 [History Confirmed 07/07/22] PFSH Medical History?(Updated 07/07/22 @ 11:[address] Jose F Melendez MD) Acute diastolic (congestive) heart failure (11/01/20) Arthritis Delayed wound healing Essential (primary) hypertension Former smoker History of lymphadenopathy History of rectal cancer Mass of colon Recurrent deep vein thrombosis Small bowel obstruction Ulcer of left lower extremity with fat layer exposed Venous (peripheral) insufficiency Surgical History?(Updated 07/07/22 @ 08:58 by Maame Munguia) History of rectal surgery History of tonsillectomy Hx of breast biopsy Hx of right cataract extraction Status post reversal of ileostomy Family History? Mother Throat cancerFather Heart diseaseBrother Mouth cancer Social History? household members:? spouse housing:? house current occupational status:? unemployed pets and animals:? Yes (Dogs) Smoking Status:? Former smoker second hand exposure:? Yes alcohol intake:? current alcohol intake frequency: 0-2 drinks per day Alcohol type: beer substance use type:? does not use caffeine:? Yes frequency:? does not exercise HPI HPI HPI: Patient is a 61-year-old male here with ventral hernia.? Patient has never had surgery at that site.? He has had several abdominal surgeries including rectal cancer and colostomy reversal.? The ventral hernia is in his epigastric area and bowel does protrude and he is able to hear gurgling when he pushes it back in.? He denies any nausea or vomiting.? Denies any fevers or chills. ROS General General: Yes weight change and fatigue; No appetite, colon cancer, breast cancer or weakness HEENT HEENT: Yes eye injury and eye surgery; No difficulty swallowing, swollen glands or hoarseness Endo Endocrine: No thyroid disease, diabetes mellitus, thyroid cancer, Hair loss, heat intolerance or cold intolerance Skin Skin: No rash or changing moles Breast Breast: No left breast lump, right breast lump, nipple discharge, breast pain, abnormal mammogram, abnormal US or breast enlargement Musc Musculoskeletal: Yes back problems and arthritis; No rheumatoid arthritis, gout or joint pain Cardio Cardiovascular: Yes high blood pressure; No murmur, pacemaker, heart disease, atrial fibrillation, heart attack, heart stent, palpitations, shortness of breat with exertion or chest pain Psych Psychiatric: No depression, anxiety or hearing voices Resp Respiratory: No shortness of breath, No sleep apnea, No cough, No COPD, No asthma, No emphysema and No wheezing Gastro Gastrointestinal: No abdominal pain, No nausea or vomiting, No diarrhea, No constipation, No blood in stool, No acid reflux, No hemorrhoids, No ulcers, No gallbladder problem and No black,tarry stools Avel Hematologic: Yes blood thinners, No blood disorders, No bleeding, No anemia and No blood clots Neuro Neurologic: No system reviewed and no additional complaints, except as documented, No as per HPI, No abnormal gait, No abnormal hearing, No abnormal movements, No abnormal speech, No behavioral changes, No burning sensations, No confusion, No convulsions, No disequilibrium, No dizziness, No localized weakness, No frequent falls, No headache(s), No lack of coordination, No loss of vision, No memory loss, Yes numbness, No other visual disturbances, No radicular pain, No restless legs, No sensory deficit, No syncope, Yes tingling, No tremor(s), No weakness and No other Exam Const General: cooperative Orientation: alert and oriented x3 HENMT Head: normal to inspection Neck Neck: normal visual inspection and full ROM Chest Chest palpation & inspection: normal inspection of the chest Resp Effort & Inspection: normal respiratory effort Auscultation: clear to auscultation bilaterally Cardio Rate: regular rate Rhythm: regular rhythm GI Inspection: non-distended Palpation: soft, hernia ventral and nontender Skin General: no rashes or lesions noted Neuro General: patient alert and patient oriented x3 Extrem General: full ROM Psych Appearance: grossly normal Mental Status: mental status grossly normal Assessment and Plan Assessment and Plan (1) Ventral hernia: ?Status:?Acute ?Qualifiers: ?Obstruction and gangrene presence:?without obstruction or gangrene? Qualified Code(s):?K43.9 - Ventral hernia without obstruction or gangrene ?Plan: Patient has a ventral hernia in the epigastric region.? It is in the midline where he has no prior incisions.? It does make bowel sounds when reducing it but it does easily reduce.? Patient had a CT scan in April and he is retrieving the disc to give me.? I offered the patient open ventral hernia repair with mesh as he has had several abdominal surgeries in the past.? I discussed the procedure as well as the risks of bleeding, infection, injury to underlying organs.? Patient understands the risks and is willing proceed.? Also discussed mesh placement with him and he understands and is consenting for surgery. Jose F Melendez MD Pager: [facility] [address] [place] [address], [address] [place] [address] Office: I have examined the patient and the H&P has been reviewed. There are no clinical changes since date of exam.
[2022-08-12] MEDS: Cefazolin 2 GM in 0.9% Normal Saline 100 ML IV (12:47)
[2022-08-12] MEDS: Bupiv/Epi 0.5% Mpf 30 ML Vial (13:05)
[2022-08-12 13:45] VITALS: BP 119/73; BP 139/93; PULSE 79; RESP 16; TEMP 36.3; O2SAT 98
[2022-08-12 14:00] VITALS: BP 119/73; BP 126/75; PULSE 70; RESP 16; O2SAT 97
--- NOTE | 2022-08-12 14:00 | PCM.OPRPT ---
Report of Operation Date of Procedure: 08/12/22 Pre-Operative Diagnosis: Ventral hernia Post-Operative Diagnosis: Ventral hernia 2 cm Surgery/Procedure Performed:: Ventral hernia repair with mesh Specimen's removed: None Description of Procedure: Patient was brought back the operating room and general anesthesia was induced. The abdomen was prepped and draped in usual sterile fashion. A midline incision was made superior to the umbilicus over the hernia and deepened to the hernia sac. Hernia sac was dissected free circumferentially using electrocautery. Fascia was identified and elevated. The hernia sac was reduced. The hernia was approximately 2 cm. Circumferentially preperitoneal space was developed. The hernia sac was entered and inspected and contained no bowel. The hernia sac was then fully reduced and then reclosed using 3-0 Vicryl suture. Next a medium Ventralex ST mesh was placed in the preperitoneal space. Next the fascia was closed in a transverse fashion with interrupted 0 Prolene sutures incorporating the mesh. The subcutaneous tissue was irrigated and suctioned dry and then subcutaneous tissue was closed with interrupted 3-0 Vicryl suture. The incision was closed with interrupted 3-0 Vicryl sutures and a running 4-0 Monocryl suture. Steri-Strips and bandages were applied and the patient was awoken and taken to PACU in stable condition. Grafts/Implants Used: Medium Ventralex ST mesh Admit VTE Documentation VTE Mechan Device Prophylaxis: SCD's
--- NOTE | 2022-08-12 14:02 | DCINST_ITS ---
Discharge Instructions Procedure Hernia Diet Discharge Diet: Light diet - advance as tolerated Activity Discharge Activity: May Not Drive (for 2-3 days or while taking narcotic pain meds.) and May Shower (with the bandage in place 1-2 days after surgery.) Lifting Restrictions: 20 pounds for 6 weeks. Additional Activity Instructions:: Climbing stairs is fine, walking is encouraged. Sitting in bed may be uncomfortable. Sitting up using your lateral muscles (sitting up sideways) is usually more comfortable. Do not drive, work heavy equipment of sign legal documents for 24 hours. An ice pack can provide more comfort. Pain medications may cause nausea, you should typically eat light foods as you take your pain medications. Pain medications may also cause constipation. If you have difficulty with this, discuss with your doctor. Dressing / Incision Call your doctor if your incision/area has: Continuous Slow Oozing, Sudden Increased Bleeding, Increased Pain/ Swelling, Increased Redness and Foul Smelling Discharge Call your doctor if you observe: Fever of 101 or Higher Suture Line Care: Avoid Pulling/Pushing and Avoid Pinching/Bending Remove Dressing in: 2 days (Remove clear bandages in 2 days, remove Steri-Strips in 7 to 10 days.) Cleanse incision/area with: Soap & Water Follow Up Care Please Follow Up With: Jose F Melendez MD When: Please call to schedule 2 week follow up appointment. [phone] Test Results: Test results from this visit will be discussed in further detail at your follow- up appointment, if applicable. Discharge Plan Admission Attending Provider: Jose F Melendez Primary Care Provider: Nahum Casarez Instructions Additional Instructions / Restrictions: Resume blood thinner Monday Discharge Orders/Prescriptions Prescriptions: New oxycodone 5 mg tablet 5 - 10 mg PO Q6H PRN (Reason: pain) 5 Days Qty: 30 0RF No Action Adult 50 Plus Probiotic 4 billion cell capsule 4,000 mmu cells PO DAILY Rx Instructions: administer with a meal pregabalin 50 mg capsule 50 mg PO BID Rx Instructions: 50 MG IN AM 100 MG AT HS atorvastatin 10 mg tablet 40 mg PO QHS multivitamin Tablet 1 tab PO DAILY metoprolol tartrate 25 mg Tablet 12.5 mg PO BID Eliquis 5 mg tablet 5 mg PO BID Label Comments: TAKE 1 TABLET BY MOUTH TWICE DAILY Other Ambulatory Orders: 12 Lead EKG (Routine) Timeframe: [id number] Location: None Selected Ordered By: Dr. Angelito Powell Referrals / Follow Up: Nahum Casarez MD [Primary Care Provider] - Disposition Disposition (needs filled in before D/C Order can be placed): Home, Self Care
[2022-08-12 14:15] VITALS: BP 119/73; BP 121/75; PULSE 64; RESP 14; O2SAT 96
[2022-08-12 14:31] VITALS: BP 107/77; BP 119/73; PULSE 62; RESP 16; TEMP 36.7; O2SAT 100
[2022-08-12 16:39] VITALS: BP 119/73; BP 125/78; PULSE 64; RESP 16; TEMP 36.2; O2SAT 100
== END 2022-08-12 16:45 | disposition home or self-care (01) ==
LOC: SDC 09:52 → AC 09:53
PROVIDERS: Anesthesiology; PCP Family Medicine; Referring Provider Surgery; Visit Provider Surgery
PROC: (CPT 49591; principal; 2022-08-12 11:45)
DX: K43.9 Ventral hernia without obstruction or gangrene (principal); I48.91 Unspecified atrial fibrillation; Z80.8 Family history of malignant neoplasm of other organs or systems; K42.9 Umbilical hernia without obstruction or gangrene; Z87.891 Personal history of nicotine dependence; Z86.16 Personal history of COVID-19; I10 Essential (primary) hypertension; Z85.048 Personal history of other malignant neoplasm of rectum, rectosigmoid junction, and anus; R23.3 Spontaneous ecchymoses
CPT/HCPCS: 49591; 00752; 36415; 80048; 85025; 93005; C1781; J7120; J2405

== ENCOUNTER → 2022-11-29 | Outpatient (CLI) | payer BC, OTHER, SELFPAY ==
--- NOTE | 2022-11-29 09:00 | PET_ITS ---
EXAMINATION: FDG PET-CT INDICATIONS: A 62-year-old male with history of colorectal and primary lung carcinoma presenting for restaging examination. COMPARISON EXAMINATION: None available INDEX LESION SIZE SUV INTERPRETATION Bilateral sacral ala, sacroiliac joints 2.2 (max) Correlation with plain film radiography and/or magnetic resonance imaging may be of benefit for further evaluation NON-INDEX LESION SIZE SUV INTERPRETATION Left infrahilar region 1.8 (max) Quantitative criteria for viable neoplasm are not fulfilled TECHNIQUE: Following the intravenous administration of 14.11 mCi of F-18 deoxyglucose via the right hand, multiplanar image acquisitions of the neck, chest, abdomen and pelvis to level of mid thigh, obtained at one hour post radiopharmaceutical administration contemporaneously interpreted with the current CT of the neck, chest, abdomen and pelvis, to level of mid thigh, dated 11/29/22 via coregistration reveals: BLOOD GLUCOSE LEVEL:?? 106 mg/dl?HEIGHT:?60 inches?WEIGHT: 218 lbs. FINDINGS: Head/Neck: There is no evidence of abnormal increased glucose metabolism in the pharyngeal mucosal space, parapharyngeal space, bilateral-lateral and anterior neck, hypopharynx and distribution of the laryngeal structures. The visualized portion of the cerebral cortical-subcortical structures demonstrate symmetric and preserved glucose metabolism. CHEST: Mild increased radiopharmaceutical concentration is defined in the left infrahilar region generating a calculated maximal standard uptake value of 1.8. Quantitative criteria for viable neoplasm are not fulfilled. Prominent uptake is defined in the descending thoracic aorta commensurate with activated leukocytes associated with atherosclerotic plaque formation. Pertinent chest CT findings are as follows. No additional parenchymal densities-nodules are defined in the right and left hemithorax with quantitatively significant increased FDG uptake. There is atherosclerotic calcification defined in the thoracic aorta without evidence of dilatation-aneurysm formation. Coronary arterial calcification is observed. Bilateral axillary soft tissue densities are non-glucose avid. Mediastinal soft tissue densities reveal no evidence of increased tracer uptake. Abdomen/Pelvis: Normal physiologic distribution of the radiopharmaceutical is apparent in the hepatic (3.7) and splenic parenchyma, both renal units, bladder and visualized intestinal tract. Prominent ureteric activity is identified bilaterally extending from the renal pelvis to the ureterovesical junction bilaterally. Pertinent abdomen and pelvis CT findings are as follows. There is atherosclerotic calcification defined in the abdominal aorta without evidence of dilatation-aneurysm formation. Pelvic arterial calcification is observed. Apparent postsurgical change is defined in the lower anterior abdominal mesentery in the midline. Right and left inguinal soft tissue densities are ametabolic. Skeletal: Increased uptake is defined in the right?left sacral ala, sacroiliac joints. The calculated maximal standard uptake value is 2.2. PET/PET/CT Tumor Base -Thigh Subs IMPRESSION: 1. The increase in radiopharmaceutical concentration defined in the bilateral sacral ala, sacroiliac joints may be further investigated with plain film radiography and/or magnetic resonance imaging secondary to the quantitative degree of uptake. 2. Enhanced tracer uptake noted in the left infrahilar region does not fulfill quantitative criteria for malignant transformation. Electronic Signature Art Elliott D.O. Accurate Quantification of SUVs for this report are calculated using the exclusive [employer]. ([place]. Patent No. [phone] B2 [phone] [place] patent [phone]). Standardization and correction of the FDG SUV metric via [employer] technology allow for vendor non-specific objective quantitative examination comparison and optimization of the sensitivity and specificity of the FDG PET-CT examination. Electronically Signed: Art Elliott, at 12:52 EDT ,
== END | disposition home or self-care (01) ==
LOC: ONC 08:31
PROVIDERS: PCP Family Medicine; Referring Provider Internal Medicine Hematology & Oncology; Visit Provider Internal Medicine Hematology & Oncology
DX: C34.32 Malignant neoplasm of lower lobe, left bronchus or lung (principal)
CPT/HCPCS: 78815; A9552

== ENCOUNTER → 2022-12-23 | Outpatient (CLI) | payer BC, OTHER, SELFPAY ==
--- NOTE | 2022-12-23 14:13 | MRI_ITS ---
STUDY: MR PELVIS WITH T WITHOUT CONTRAST REASON FOR EXAM: Male, 62 years old. SACRAL PAIN,,F/U PET,LUNG CA TECHNIQUE: Standardized fat and water weighted pulse sequences were obtained in all 3 orthogonal planes, pre-and post contrast administration. IV 20ML CLARISCAN was administered for the contrast portion of the examination. COMPARISON: FINDINGS: Normal urinary bladder. Normal visualized small intestine. Normal visualized colon. There is no pelvic fluid. There is no pelvic mass lesion or lymphadenopathy. Normal visualized pelvic arteries. Normal abdominal wall. At L5-S1 with grade 2 spondylolisthesis with bilateral spondylolysis. This accounts for some of the activity seen on prior PET/CT. However there is edema seen within the right and left sacral alar corresponds to areas of uptake seen on PET/CT. Discrete fracture is not visualized. Given the lytic process seen on prior PET/CT findings are of concern for neoplastic disease. Occult sacral insufficiency fracture considered less likely. There is also enhancement in the posterior right iliac bone which is suspicious for metabolically active lesion. MRI/Pelvis W/WO Contrast IMPRESSION: Lytic lesions in the sacral alar bilaterally with a marrow edema and contrast enhancement at the periphery of these lesions. Findings are suspicious for neoplastic disease less likely atypical sacral insufficiency fractures. L5-S1 grade 2 spondylolisthesis with bilateral spondylolysis. Electronically Signed: George Morse MD, RAJAT at 13:24 EDT ,
[2022-12-23 14:41] LABS: CREATININE FINGERSTICK < 0.9 mg/dL (0.70-1.30); EGFR FINGERSTICK > 60.0000 mL/min (>60)
== END | disposition home or self-care (01) ==
LOC: MRI 14:04
PROVIDERS: PCP Family Medicine; Referring Provider Internal Medicine Hematology & Oncology; Visit Provider Internal Medicine Hematology & Oncology
DX: M53.3 Sacrococcygeal disorders, not elsewhere classified (principal); C77.1 Secondary and unspecified malignant neoplasm of intrathoracic lymph nodes; C34.32 Malignant neoplasm of lower lobe, left bronchus or lung
CPT/HCPCS: 72197; A9575

== ENCOUNTER → 2023-01-02 | Outpatient (CLI) | payer BC, OTHER, SELFPAY ==
[2023-01-02] VITALS (9 sets, daily range): BP systolic 99–132; BP diastolic 64–81; PULSE 54–68; RESP 12–16; TEMP 36.6; O2SAT 96–100; BMI 33.4
--- NOTE | 2023-01-02 | LES_PTH ---
PATIENT: EMBER ANDERSON LOC: CT U#:[id number] AGE/SX: 62/M ROOM: RE01/02/[address]: Dr. Lucas Sneed DO : 1960 BED: DIS: 01/02/2023 SPEC #: [id number] RECD: 01/02/23 12:57 STATUS: TRISH JIMY #: [id number] MATTIE: 01/02/23 00:[address]: Lucas Sneed DEPT: SURGICAL PATHOLOGY RECD BY: Roger Wahl ENTERED: 01/02/23 12:57 SP TYPE: Lesion OTHR DR: Dr. Samuel Casarez MD Tissues: Skin of buttock, NOS Procedures: Decalcification bone/plaque Surgery Specimen Level V HEADER OPERATION: Biopsy sacral ala PRE-OP DIAGNOSIS: Squamous cell carcinoma TISSUE SUBMITTED: Sacral ala MICROSCOPIC DIAGNOSIS Sacral ala, bone core biopsy: No evidence of malignancy. See comment. AM:hipolito 01/04/2023 COMMENT The specimen contains bone and narrow space occupied mostly by fatty tissue. Only rare maturing bone marrow elements are present. Clinical correlation is suggested. MICROSCOPIC DESCRIPTION Slides are reviewed. GROSS DESCRIPTION Received is one container labeled with the patient's name and not further designated. The specimen consists of two cores of hernandez bone measuring 0.2 and 0.3 cm in length and 0.1 cm in diameter. The entire specimen is submitted in one cassette after decalcification. / SJ:hipolito 01/02/2023 TC:5 CPT: 28608, 90371
--- NOTE | 2023-01-02 07:34 | CT_ITS ---
PROCEDURE: CT GUIDED biopsy of the right sacral ala DATE: January 02, 2023. INDICATION: Male, 62 years old. Abnormal MRI scan. PHYSICIAN: Jason Eduardo M.D. RADIATION DOSAGE (If Supplied By Facility): CTDIvol = ( 20 ) mGy, DLP = ( 615.23 ) mGycm. Individualized dose optimization techniques were utilized. PROCEDURE: The risks, benefits, and alternatives to the procedure were explained to the patient. The specific risk of hemorrhage requiring further treatment or intervention was detailed and accepted. Follow-up instructions were discussed with the patient as well. Written informed consent was obtained. The patient was brought into the CT suite and placed in the prone position. . An appropriate entry site was identified. The overlying skin was prepped and draped in the usual sterile fashion. 1% lidocaine was administered subcutaneously for local anesthesia. Conscious sedation was performed. The patient received 2 mg of Versed and 50 mcg of fentanyl intravenously. Conscious sedation was started at 9:04 AM and terminated at 9:24 AM. The patient was independently monitored by the department nurse. Under CT guidance, bone biopsies of the right sacral wing were performed. The specimens were then placed in the appropriate fluid and transported to the laboratory for analysis. Hemostasis was obtained. The patient tolerated the procedure well without immediate complications. CT/Biopsy/Inj or Needle Placement IMPRESSION: Successful CT guided biopsy of the right sacral wing, as described above. The conscious sedation protocol was followed. Electronically Signed: Jason Eduardo MD at 9:53 EDT ,
[2023-01-02 07:40] LABS: Platelet Count 221 K/mm3 (150-450)
[2023-01-02 08:10] LABS: Partial Thromboplast Time 29.3 Seconds (24.1-36.2); Prothrombin Time (Protime)PT. 13.1 SECONDS (11.7-14.9)
[2023-01-02] MEDS: Midazolam 2 MG/2 ML Syringe IV (09:04)
[2023-01-02] MEDS: fentaNYL 100 MCG/2 ML Ampul IV (09:06)
[2023-01-02] MEDS: Lidocaine 2% (20 ml mdv) 20 ML Vial INFILT (09:14)
== END | disposition home or self-care (01) ==
LOC: CT 07:25
PROVIDERS: PCP Family Medicine; Referring Provider Internal Medicine Hematology & Oncology; Visit Provider Internal Medicine Hematology & Oncology
DX: C34.32 Malignant neoplasm of lower lobe, left bronchus or lung (principal); C77.1 Secondary and unspecified malignant neoplasm of intrathoracic lymph nodes
CPT/HCPCS: 20220; 36415; 77012; 85049; 85610; 85730; 88305; 88307; 88311; 99156; J7050

== ENCOUNTER 2023-01-13 06:38 | Day surgery (SDC) | payer BC, OTHER, SELFPAY ==
[2023-01-13] VITALS (7 sets, daily range): BP systolic 89–99; BP diastolic 61–68; PULSE 52–82; RESP 16–18; TEMP 36.6–36.9; O2SAT 97–99; BMI 42.5
[2023-01-13] MEDS: Lactated Ringers 1,000 ML 15 ML IV (07:05)
--- NOTE | 2023-01-13 07:48 | H&P.OPEN ---
HPI - General HPI Narrative EMBER ANDERSON, is a 62 M who presents for surveillance anoscopy. The patient had a rectal cancer in 2019 and had resection and chemotherapy and radiation. Patient does not report any blood in the stool or abdominal pain at this time. He had a colonoscopy about a year and a half ago which had a polyp in the sigmoid. [facility] Medical History (Updated 01/10/23 @ 14:59 by Taylor Marsh) Acute diastolic (congestive) heart failure (11/01/20) Arthritis Arthritis Back pain Bruising Cancer Cardiology follow-up encounter Delayed wound healing Essential (primary) hypertension Former smoker History of atrial fibrillation History of lymphadenopathy History of rectal cancer Hx of colonic polyps Hypertension Lung nodule Mass of colon Recurrent deep vein thrombosis Small bowel obstruction Ulcer of left lower extremity with fat layer exposed Venous (peripheral) insufficiency Wears dentures Wears glasses Wears hearing aid Home Medications metoprolol tartrate 25 mg tablet 12.5 mg PO BID 11/01/20 [History Last Taken 01/13/23] multivitamin 1 tab PO DAILY supplement 11/01/20 [History Last Taken 11/01/20] lactobacillus combination no.9 4 billion cell capsule (Adult 50 Plus Probiotic) 4,000 mmu cells PO DAILY 11/25/20 [History Last Taken Unknown] apixaban 5 mg tablet (Eliquis) 5 mg PO BID 05/07/21 [History Last Taken 01/10/23] atorvastatin 10 mg tablet 40 mg PO QHS cholesterol 07/07/22 [History Last Taken Unknown] pregabalin 50 mg capsule 100 mg PO BID 12/29/22 [History Last Taken Unknown] Allergy/AdvReac Type Severity Reaction Status Date / Time chlorhexidine AdvReac Rash Verified 01/10/23 14:53 Family History Mother Throat cancer Father Heart disease Brother Mouth cancer Surgical History (Updated 01/10/23 @ 14:59 by Taylor Marsh) History of back surgery History of left cataract extraction History of lung biopsy History of rectal surgery History of ventral hernia repair Hx of breast biopsy Hx of right cataract extraction Status post reversal of ileostomy Social History household members: spouse housing: house current occupational status: unemployed pets and animals: Yes (Dogs) Smoking Status: Former smoker second hand exposure: Yes alcohol intake: current alcohol intake frequency: 0-2 drinks per day Alcohol type: beer substance use type: does not use caffeine: Yes frequency: does not exercise Past Medical/Surgical History Planned Operation Planned Operative Procedure/s: CSCOPE OA Previous Hospitalizations/Surgeries HX Hospitalizations: No HX of Surgeries: ileostomy w/ reversal back surgery cataract removal tonsillectomy Any Problems With Anesthesia: No You/Your Family Experience Fever (Hyperthermia) With Anes: No Cholinesterase deficiency: No Cardiovascular Hx Chest Pain within Last 2 months: No Hx of Irregular Heartbeat and/or Afib: No Hx Heart Attack: No Hx Congestive Heart Failure: No Hx Rheumatic Fever: No Hx Hypertension: Yes (CONTROLLED WITH MED) Hx Internal Defibrillator: No Hx Pacemaker: No Hx Cardiac Catheterization: No Hx Cardiac Surgery/Stents/Etc.: No Hx Stress Test: No Hx Pain in Legs when Walking/Leg Cramps: No Respiratory HX of Shortness of Breath: No Hoarseness: No Hx Chronic Obstructive Pulmonary Disease (COPD): No Hx Asthma: No Hx Emphysema: No Hx Sleep Apnea: No CPAP: No BIPAP: No Hx Respiratory Tract Infection/Cold (presently): No Do You Snore Loudly (louder than talking or can be heard): No Do You Often Feel Tired/ Fatigued/ Sleepy Dring Daytime?: Yes Has Anyone Observed You Stop Breathing During Sleep?: No Result (for STOP score): Positive Smoking Status: Former smoker Gastrointestinal Hx Gastroesophageal Reflux: No Controlled With Meds: No Hx Gastrointestinal Disorders: No Hx Gastrointestinal Bleed: No Hx Ulcer: No Hx Hiatal Hernia: No Difficulty Chewing/Swallowing: No Hx Unplanned Weight Loss of 20#: No Neurological Hx Seizures: No HX Syncope/Blackout Spells/Unconsciousness: No Hx Multiple Sclerosis: No Hx Parkinson's Disease: No Hx Head/Neck Injury: No Hx Headaches: No Hx Back Injury/Pain: Yes (DDD) Restless Legs: No Does patient have nerve stimulator: No Blood Disorder Hx Leukemia: No Bleeding Tendencies: No Hx Deep Vein Thrombosis: Yes Hx High Cholesterol: Yes Hx Hepatitis: No Hx Cirrhosis: No Hx Anemia: No Hx Blood Disorders: No Genitourinary Hx Renal Disease: No Hx Dialysis: No Musculoskeletal Hx Arthritis: Yes Hx Rheumatoid Arthritis: No Endocrine Hx Diabetes: No Insulin: No Thyroid Disease: No Hx Steroid Therapy: No Psycho/Social Hx Substance Use: No Hx Alcohol Use: No (previous) Hx Anxiety: No Hx Depression: No Hx Dementia: No Miscellaneous Hx Cancer: Yes (rectal cancer) Recent Exposure to Contagious Disease: No Any Loose Teeth: No Allergies chlorhexidine Adverse Reaction (Verified 01/10/23 14:53) Rash Discharge Is Pt Admitted From a Penitentiary, or a Assisted: No After D/C, Where Do you Plan to Go: Return Home From the [facility] History Number of Risk Factors: 3 Vital Signs Vital Signs Vital Signs: 01/13/23 07:06 01/13/23 07:06 Temperature 97.8 F Temperature Source Temporal Pulse Rate 65 Respiratory Rate 18 Respiratory Pattern Normal Blood Pressure 98/68 Blood Pressure Mean 78 Blood Pressure Source Monitor Blood Pressure Position Semi-Fowlers Blood Pressure Location Right Arm Pulse Ox 99 Oxygen Delivery Method Room Air Weight Weight: 218 lb Body Mass Index (BMI) 42.5 Physical Exam Const alert and oriented x3 HEENT normocephalic Eyes PERRL Resp normal respiratory effort and normal air movement Cardio regular rate and regular rhythm GI soft to palpation, non-tender and non-distended Extremity normal to inspection Assessment & Plan Assessment/Plan (1) History of rectal cancer: PLAN: I explained endoscopy in detail to the patient. I explained the risks including but not limited to stroke or heart attack with anesthesia, perforation of the GI tract, bleeding, infection. I explained that any of these could necessitate further emergency surgery. The patient understands and all questions were answered sufficiently. The patient wishes to proceed with procedure. Patient has held his [place] Jose F Melendez MD Pager: [facility] [address] [place] [address], [address] [place] [address] Office: Surgery Risks - Colonoscopy Risks Include but are not Limited To: Risks include but are not limited to: Bleeding, perforation requiring further surgery, inability to complete colonoscopy requiring barium enema.
--- NOTE | 2023-01-13 08:18 | OP.COLON_ITS ---
Patient Name: Harpreet Kauffman Procedure Date: 01/13/2023 7:53 AM Date of : 1960 Age: 62 Procedure: Colonoscopy Indications: High risk colon cancer surveillance: Personal history of colon cancer Providers: Jose F Melendez MD Medicines: Monitored Anesthesia Care Patient Profile: This is a 62 year old male. Refer to note in patient chart for documentation of history and physical. Last Colonoscopy: within the past 3 years. Complications: No immediate complications. Procedure: Pre-Anesthesia Assessment: - Prior to the procedure, a History and Physical was performed, and patient medications and allergies were reviewed. The patient's tolerance of previous anesthesia was also reviewed. The risks and benefits of the procedure and the sedation options and risks were discussed with the patient. All questions were answered, and informed consent was obtained. Prior Anticoagulants: The patient has taken Eliquis (apixaban), last dose was 3 days prior to procedure. After reviewing the risks and benefits, the patient was deemed in satisfactory condition to undergo the procedure. After I obtained informed consent, the scope was passed under direct vision. Throughout the procedure, the patient's blood pressure, pulse, and oxygen saturations were monitored continuously. The was introduced through the anus and advanced to the cecum, identified by appendiceal orifice and ileocecal valve. The colonoscopy was performed without difficulty. The patient tolerated the procedure well. The quality of the bowel preparation was good. Scope In: 8:04:34 AM Scope Withdrawal Time 0 hours 6 minutes 7 seconds Scope Out: 8:14:14 AM Total Procedure Duration Time 0 hours 9 minutes 40 seconds Findings: The entire examined colon appeared normal on direct and retroflexion views. Impression: - The entire examined colon is normal on direct and retroflexion views. - No specimens collected. Recommendation: - Discharge patient to home. - Resume previous diet. - Resume Eliquis (apixaban) at prior dose today. - Repeat colonoscopy in 3 years for surveillance. Procedure Code(s): --- Professional --- 55339, Colonoscopy, flexible; diagnostic, including collection of specimen(s) by brushing or washing, when performed (separate procedure) Diagnosis Code(s): --- Professional --- Z85.038, Personal history of other malignant neoplasm of large intestine CPT copyright 2017 [employer]. All rights reserved. The codes documented in this report are preliminary and upon rough rounder review may be revised to meet current compliance requirements. Jose F Melendez MD 01/13/2023 8:18:30 AM This report has been signed electronically. Number of Addenda: 0 Note Initiated On: 01/13/2023 7:53 AM
--- NOTE | 2023-01-13 08:19 | OP.CCLET_ITS ---
01/13/2023 Nahum Casarez [address] [place] [address] Re : Colonoscopy procedure for Harpreet Kauffman Dear Dr. Casarez This procedure was performed on Friday, January 13, 2023. My impressions and recommendations are as follows: Impressions : - The entire examined colon is normal on direct and retroflexion views. - No specimens collected. Recommendations : - Discharge patient to home. - Resume previous diet. - Resume Eliquis (apixaban) at prior dose today. - Repeat colonoscopy in 3 years for surveillance. My findings are described in the full procedure note, which is enclosed. If I can be of further assistance, please feel free to contact me at Doctor phone number(s): , Work: . Sincerely, Jose F Melendez MD 01/13/2023 8:18:30 AM This report has been signed electronically.
== END 2023-01-13 09:02 | disposition home or self-care (01) ==
LOC: EN 06:39 → AC 06:40
PROVIDERS: PCP Family Medicine; Referring Provider Family Medicine; Visit Provider Surgery
PROC: 0DJD8ZZ Inspection of Lower Intestinal Tract, Via Natural or Artificial Opening Endoscopic (ICD-10-PCS; CPT 45378; principal; 2023-01-13 07:55)
DX: Z12.11 Encounter for screening for malignant neoplasm of colon (principal); I10 Essential (primary) hypertension; Z92.3 Personal history of irradiation; Z87.891 Personal history of nicotine dependence; Z85.038 Personal history of other malignant neoplasm of large intestine; Z86.010 Personal history of colon polyps
CPT/HCPCS: 45378; J7120; J2405

== ENCOUNTER → 2023-09-07 | Outpatient (CLI) | payer BC, OTHER, SELFPAY ==
--- NOTE | 2023-09-07 16:02 | RAD_ITS ---
STUDY: X-RAY - LEFT SHOULDER REASON FOR EXAM: Male, 62 years old. Left shoulder, pain. TECHNIQUE: 4 views of the left shoulder. COMPARISON: Left shoulder radiographs dated 12/10/2013. FINDINGS: Normal glenohumeral articulation. There is stable mild acromioclavicular arthrosis. Normal acromion. Normal humeral head and visualized proximal humerus. The soft tissue structures are unremarkable. There is no demonstrated fracture. Normal visualized pulmonary apex. RAD/Shoulder min 2 Views IMPRESSION: Stable mild acromioclavicular arthrosis. No demonstrated fracture. Electronically Signed: Lc Lucia MD at 14:48 EST ,
== END | disposition home or self-care (01) ==
PROVIDERS: PCP Family Medicine; Referring Provider Family Medicine; Visit Provider Family Medicine
DX: M25.511 Pain in right shoulder (principal)
CPT/HCPCS: 73030

== ENCOUNTER → 2023-10-09 | Outpatient (CLI) | payer BC, OTHER, SELFPAY ==
--- NOTE | 2023-10-09 16:15 | MRI_ITS ---
STUDY: MRI LEFT SHOULDER REASON FOR EXAM: Male, 63 years old. LT SHOULDER PAIN, BICEP BURSITIS,TENDONITIS TECHNIQUE: Standardized fat and water weighted pulse sequences were obtained in all 3 orthogonal planes. COMPARISON: Left shoulder x-ray dated September 07, 2023 FINDINGS: A moderate size 8.8 mm undersurface tear is present at the supraspinatus insertion site on the greater tuberosity. There is mild tendinosis of the more proximal overlying fibers but no full-thickness tear or retraction. A small to moderate size glenohumeral joint effusion is also present. Small split tears are present in the intracapsular aspect elongated biceps tendon. There is also moderate tendinosis with some focal areas of attenuation in the intracapsular aspect elongated biceps tendon proximal to its labral insertion site. There is a 360 degree labral tear with partial displacement noted at the anterior superior insertion site. Diffuse degeneration of the labral tissue also noted. There is infraspinatus tendinosis with tendon attrition, but without a demonstrated infraspinatus tendon tear. There is partial tearing in the superior lateral fibers of the subscapularis tendon proximal to its insertion site. Normal teres minor tendon. Normal supraspinatus muscle. Normal infraspinatus muscle. Normal subscapularis muscle. Normal teres minor muscle. Normal glenohumeral articulation. Normal humeral head and visualized proximal humerus. Normal biceps labral complex. Normal capsulo- ligamentous complex. Normal rotator interval. There is mild osteoarthritis of the acromioclavicular articulation. There is a Type II morphology (curved), with a neutral orientation. There is minimal fluid distention of the subacromial bursa, consistent with mild subacromial-subdeltoid bursitis. Normal visualized coracohumeral and coracoacromial ligaments. Normal quadrilateral space. Normal axillary space. Normal deltoid muscle. Normal trapezius muscle. MRI/Upper Ext Joint Only(Routine) IMPRESSION: 1. 8.8 mm undersurface tear the supraspinatus tendon 2. Small split tear is and tendinosis of the intracapsular and extracapsular aspect elongated biceps tendon 3. 360 degrees labral tear 4. Small to moderate size glenohumeral joint effusion 5. Partial tear of the superior lateral fibers of the subscapularis tendon Electronically Signed: Elvin Zhao MD at 10:53 EDT Reading Location ID and State: [facility] / [place] , Service support ,
== END | disposition home or self-care (01) ==
LOC: MRI 15:28
PROVIDERS: PCP Family Medicine; Referring Provider Family Medicine; Visit Provider Family Medicine
DX: M25.511 Pain in right shoulder (principal)
CPT/HCPCS: 73221

== ENCOUNTER → 2023-11-03 | Outpatient (CLI) | payer BC, OTHER, SELFPAY ==
[2023-11-03 15:25] LABS: Absolute Lymphocyte Count 1.36 X10^3/uL (0.83-4.51); Absolute Neutrophil Count 4.5 X10^3/uL (2.0-7.7); Basophil# 0.03 X10^3/uL; Basophil% 0.4 % (0-1); Eosinophil# 0.12 X10^3/uL; Eosinophils% 1.8 % (0-5); Hematocrit 37.2 % (40-54); Hemoglobin 12.5 g/dL (13.0-16.5); Lymphocyte # 1.36 X10^3/ul (0.83-4.51); Lymphocyte % 20.2 % (19-41); Mean Corp Hgb Conc 33.6 g/dL (32-36); Mean Corpuscular Hgb 33.3 pg (27.0-32.0); Mean Corpuscular Volume 99.2 fL (80-94); Mean Platelet Vol. 9.2 fl (6.2-12.0); Monocyte# 0.71 X10^3/uL; Monocyte% 10.6 % (0-10); NRBC Flagged by Analyzer 0 % (0-5); Neutrophil # 4.47 X10^3/uL (2.7-7.7); Neutrophil % 66.6 % (47-70); Platelet Count 294 K/mm3 (150-450); Prothrombin Time (Protime)PT. 13.6 SECONDS (11.7-14.9); RBC Distribution Width CV 12.2 % (11.6-14.6); RBC Distribution Width SD 44.2 fl (35.1-43.9); Red Blood Count 3.75 M/mm3 (4.6-6.2); White Blood Count 6.7 K/mm3 (4.4-11.0)
[2023-11-03 15:26] LABS: Partial Thromboplast Time 32.4 Seconds (24.1-36.2)
[2023-11-03 15:43] LABS: Anion Gap 5 (5-15); BUN 22 mg/dL (7-18); BUN/Creat Ratio 31.9 RATIO (10-20); Calcium,Total 9.6 mg/dL (8.5-10.1); Chloride 110 mmol/L (98-107); Creatinine, Serum 0.69 mg/dL (0.70-1.30); EST Glomerular Filtration Rate 123 mL/min (>60); Est Glom Filt Rate - Afr Amer 149 mL/min (>60); Glucose 96 mg/dL (74-106); Potassium 3.9 mmol/L (3.5-5.1); Sodium Level 140 mmol/L (136-145)
[2023-11-03 16:28] LABS: Microalbumin,Random Urine < 5.0 mg/L (NO RANGE EST.)
== END | disposition home or self-care (01) ==
LOC: MTLAB 13:37
PROVIDERS: PCP Family Medicine; Referring Provider Family Medicine; Visit Provider Family Medicine
DX: Z01.818 Encounter for other preprocedural examination (principal); D69.6 Thrombocytopenia, unspecified
CPT/HCPCS: 36415; 80048; 82043; 82570; 85025; 85610; 85730

== ENCOUNTER 2023-12-18 04:33 | Emergency (ER) | payer BC, OTHER, SELFPAY ==
[2023-12-18 04:35] VITALS: BP 123/72; PULSE 72; RESP 16; TEMP 36.4; O2SAT 98
--- NOTE | 2023-12-18 04:47 | CT_ITS ---
INDICATION: left flank pain EXAMINATION: CT ABDOMEN AND PELVIS WITHOUT CONTRAST - CT Abdomen And Pelvis W/O Contrast Injection TECHNIQUE: Helically acquired images were obtained of the abdomen and pelvis without oral or IV contrast. A radiation dose optimization technique was used for this scan. IV Contrast dosage and agent: None. Oral contrast: None. RADIATION DOSAGE (If Supplied By Facility): CTDIvol = ( 21.37 ) mGy, DLP = ( 1008.78 ) mGycm COMPARISON: No relevant prior comparison study available FINDINGS: LOWER CHEST: Bibasilar atelectasis. Coronary artery calcification. No cardiomegaly or pericardial effusion. LIVER: The liver is normal in size, shape, and attenuation. No focal mass. GALLBLADDER AND BILIARY TREE: The gallbladder is normally distended. No gallstones. No gallbladder wall thickening or edema. No intra- or extrahepatic biliary ductal dilation. PANCREAS: No focal cystic or solid mass. SPLEEN: Normal size without focal cystic or solid mass. ADRENAL GLANDS: No nodules. KIDNEYS AND URETERS: Normal renal size and position. No hydronephrosis or nephrolithiasis. PERITONEUM: No ascites or free air. No other fluid collection. BOWEL: The stomach is unremarkable. Normal caliber small bowel. No obstruction. Small bowel anastomosis at the anterior mid abdomen. No colonic wall thickening or inflammatory changes. Distal colonic anastomosis. No evidence of acute appendicitis. LYMPH NODES: No enlarged mesenteric or retroperitoneal lymph nodes. VESSELS: Aorta is non-dilated. Mild atherosclerotic calcification. URINARY BLADDER: Unremarkable. REPRODUCTIVE ORGANS: No pelvic masses. ABDOMINAL WALL: No discrete abdominal or pelvic wall hernia. BONES: No acute or suspicious osseous abnormality. Multilevel degenerative changes of the spine. Bilateral L5 pars defects. CT/Abdomen/Pelvis without Cont IMPRESSION: No acute finding in the abdomen or pelvis. No hydronephrosis or nephrolithiasis. No inflammatory changes. Electronically Signed: Chalino Phelps MD at 5:42 EDT ,
--- NOTE | 2023-12-18 04:48 | EDS_ITS ---
HPI HPI - GI History of Present Illness Chief Complaint: Flank Pain Informant: patient Narrative Narrative: Patient presenting at 4:30 AM for left flank pain that has been off and on for 3 weeks but worse in the past hour or 2 this morning, giving him nausea. The pain has not been any different location, just the left side, not so much in his back, not in his abdomen or groin. No trouble urinating. No history of kidney stones. He has not had any syncopal episodes, chest discomfort, dyspnea, fevers or chills. PFSH PFSH Medical History Hx of colonic polyps Lung nodule Wears hearing aid Wears glasses Wears dentures Cancer Bruising Arthritis Back pain Cardiology follow-up encounter Hypertension History of atrial fibrillation Recurrent deep vein thrombosis Acute diastolic (congestive) heart failure (11/01/20) Essential (primary) hypertension History of lymphadenopathy History of rectal cancer Former smoker Mass of colon Small bowel obstruction Arthritis Delayed wound healing Venous (peripheral) insufficiency Ulcer of left lower extremity with fat layer exposed Home Medications ?Medication ?Instructions ?Recorded ?Last Taken ?Type metoprolol tartrate 25 mg tablet 12.5 mg PO BID 11/01/20 01/13/23 History multivitamin 1 tab PO DAILY supplement 11/01/20 11/01/20 History lactobacillus combination no.9 4 4,000 mmu cells PO DAILY 11/25/20 Unknown History billion cell capsule (Adult 50 Plus Probiotic) apixaban 5 mg tablet (Eliquis) 5 mg PO BID 05/07/21 01/10/23 History atorvastatin 10 mg tablet 40 mg PO QHS cholesterol 07/07/22 Unknown History pregabalin 50 mg capsule 100 mg PO BID 12/29/22 Unknown History dicyclomine 10 mg capsule 20 mg (2 x 10 mg) PO Q6H PRN PRN 12/18/23 Unknown Rx abdominal discomfort #20 CAPSULES magnesium citrate 150 ml PO DAILY PRN constipation 12/18/23 Unknown Rx #296 mL Allergy/AdvReac Type Severity Reaction Status Date / Time chlorhexidine AdvReac Rash Verified 12/18/23 04:40 Family History Mother Throat cancer Father Heart disease Brother Mouth cancer Surgical History History of lung biopsy History of ventral hernia repair History of back surgery History of left cataract extraction History of rectal surgery Status post reversal of ileostomy Hx of breast biopsy Hx of right cataract extraction Social History household members: spouse housing: house current occupational status: unemployed pets and animals: Yes (Dogs) Smoking Status: Former smoker second hand exposure: Yes alcohol intake: current alcohol intake frequency: 0-2 drinks per day Alcohol type: beer substance use type: does not use caffeine: Yes frequency: does not exercise ROS ROS ED Constitutional Constitutional ED: Denies chills or fever(s) Eyes Eyes: Denies change in vision or diplopia ENT ENT ED: Denies rhinorrhea or sore throat Cardiovascular Cardiovascular: Denies chest pain or palpitations Respiratory/Chest Respiratory/Chest: Denies cough or dyspnea Gastrointestinal Gastrointestinal: Reports abdominal pain and nausea; Denies diarrhea or vomiting Genitourinary Genitourinary ED: Reports as per HPI and flank pain; Denies dysuria, hematuria, urinary frequency or urinary urgency Musculoskeletal Musculoskeletal: Denies back pain or neck pain Integumentary Denies abscess or rash Neurologic Neurologic: Denies headache(s), paresthesias or weakness Psychiatric Psychiatric: Denies anxiety or suicidal thoughts EXAM Physical Exam Const Vital Signs: 12/18/23 04:35 Temperature 97.6 F L Temperature Source Temporal Pulse Rate 72 Respiratory Rate 16 Blood Pressure 123/72 H Blood Pressure Mean 89 Pulse Ox 98 Oxygen Delivery Method Room Air Positive well nourished and well developed General Appearance ED: well developed and NAD HEENT Reports moist mucous membranes normocephalic and atraumatic Eyes PERRL and EOMs intact bilaterally Neck full ROM and supple Resp normal respiratory effort and clear to auscultation bilaterally Cardio regular rate, regular rhythm and no murmurs GI non-tender and non-distended Auscultation: normoactive bowel sounds Palpation: soft Back/Spine no CVA tenderness General Back: other FROM Extremity normal to inspection General Extremety ED: Negative for edema, pulses abnormal or tenderness General Extremity: Negative for edema or pulses abnormal Neuro oriented x3, CN's II-XII intact bilaterally and no sensory deficits noted Sensorium / Orientation: awake and alert Motor Exam: strength 5/5 throughout Skin no rashes or lesions noted and no wounds MDM MDM MDM Narrative Medical decision making narrative: Differential includes kidney stone, AAA, intestinal/colonic pain, pyelonephritis. Labs and a CT were obtained in addition to urinalysis. I reviewed the images and the report which I agree with. All of the above are normal. Patient initially treated with Zofran, Toradol, morphine. After this had more of a discussion with him, he indicates that he has been somewhat constipated lately, and I suggest since he does not have any evidence of colitis, urolithiasis, hydronephrosis, or urine infection, that may be this is colonic spasms due to constipation. I am giving him a dose of Norflex in case this is muscle spasm, as well as dicyclomine for colonic spasms and advising magnesium citrate or a laxative as needed, and prescribed him dicyclomine to use as needed and advising close outpatient follow-up. Lab Data Attestation: I reviewed the patient's lab results. Labs: Laboratory Results - last 24 hr 12/18/23 12/18/23 04:48 05:34 WBC 6.1 RBC 4.11 L Hgb 13.5 Hct 40.5 MCV 98.5 H MCH 32.8 H MCHC 33.3 RDW Std Deviation 43.8 RDW Coeff of Cynthia 12.1 Plt Count 242 MPV 8.7 Immature Gran % (Auto) 0.500 Neut % (Auto) 64.2 Lymph % (Auto) 21.8 [place] % (Auto) 10.7 H Eos % (Auto) 2.1 Baso % (Auto) 0.7 Absolute Neuts (auto) 3.9 Absolute Lymphs (auto) 1.34 Nucleated RBC % 0 Sodium 138 Potassium 3.9 Chloride 107 Carbon Dioxide 26.0 Anion Gap 5 BUN 19 H Creatinine 0.82 Est GFR (MDRD) Af Amer 122 Est GFR (MDRD) Non-Af 101 BUN/Creatinine Ratio 23.3 H Glucose 143 H Calcium 9.6 Urine Color Yellow Urine Clarity Clear Urine pH 6.5 Ur Specific [place] 1.010 Urine Protein Negative Urine Glucose (UA) Normal Urine Ketones Negative Urine Occult Blood Negative Urine Nitrite Negative Urine Bilirubin Negative Urine Urobilinogen Normal Ur Leukocyte Esterase Negative Urine RBC 0 SEEN Urine WBC 0 SEEN Ur Squamous Epith Cells 0 SEEN Urine Bacteria 0 SEEN Urine Mucus 0 SEEN Radiography Diagnostic Testing: Clinical Impression(s) from Imaging Studies Abdomen/Pelvis CT 12/18/23 04:47 IMPRESSION: No acute finding in the abdomen or pelvis. No hydronephrosis or nephrolithiasis. No inflammatory changes. Electronically Signed: Chalino Phelps MD at 5:42 EDT Reading Location ID and State: [facility] / [place] Tel , Service support , Discharge Plan Triage Chief Complaint: Flank Pain ED Provider: Salinas Hodge Dx/Rx/DC Orders Clinical Impression: Acute left flank pain, Constipation Instructions: ED Constipation (Adult), ED Flank Pain, Uncertain Cause Prescriptions: New dicyclomine 10 mg capsule 20 mg PO Q6H PRN PRN (Reason: abdominal discomfort) Qty: 20 0RF magnesium citrate Solution 150 ml PO DAILY PRN (Reason: constipation) Qty: 296 0RF No Action Adult 50 Plus Probiotic 4 billion cell capsule 4,000 mmu cells PO DAILY Rx Instructions: administer with a meal pregabalin 50 mg capsule 100 mg PO BID Rx Instructions: 100 MG IN AM 100 MG AT HS atorvastatin 10 mg tablet 40 mg PO QHS multivitamin Tablet 1 tab PO DAILY metoprolol tartrate 25 mg Tablet 12.5 mg PO BID Eliquis 5 mg tablet 5 mg PO BID Patient Comments: TAKE 1 TABLET BY MOUTH TWICE DAILY Primary Care Provider: Samuel Casarez Referrals: Samuel Casarez MD [Primary Care Provider] - 1 Week if not improving Print Language: Faroese Disposition Disposition: Home, Self Care
[2023-12-18] MEDS: Morphine 4 MG/ML Syringe IV (04:53)
[2023-12-18] MEDS: Ketorolac 15 MG/ML Vial IV (04:53)
[2023-12-18] MEDS: Ondansetron 4 MG/2 ML Vial IV (04:54)
[2023-12-18 04:59] LABS: Absolute Lymphocyte Count 1.34 X10^3/uL (0.83-4.51); Absolute Neutrophil Count 3.9 X10^3/uL (2.0-7.7); Basophil# 0.04 X10^3/uL; Basophil% 0.7 % (0-1); Eosinophil# 0.13 X10^3/uL; Eosinophils% 2.1 % (0-5); Hematocrit 40.5 % (40-54); Hemoglobin 13.5 g/dL (13.0-16.5); Lymphocyte # 1.34 X10^3/ul (0.83-4.51); Lymphocyte % 21.8 % (19-41); Mean Corp Hgb Conc 33.3 g/dL (32-36); Mean Corpuscular Hgb 32.8 pg (27.0-32.0); Mean Corpuscular Volume 98.5 fL (80-94); Mean Platelet Vol. 8.7 fl (6.2-12.0); Monocyte# 0.66 X10^3/uL; Monocyte% 10.7 % (0-10); NRBC Flagged by Analyzer 0 % (0-5); Neutrophil # 3.94 X10^3/uL (2.7-7.7); Neutrophil % 64.2 % (47-70); Platelet Count 242 K/mm3 (150-450); RBC Distribution Width CV 12.1 % (11.6-14.6); RBC Distribution Width SD 43.8 fl (35.1-43.9); Red Blood Count 4.11 M/mm3 (4.6-6.2); White Blood Count 6.1 K/mm3 (4.4-11.0)
[2023-12-18 05:14] LABS: Anion Gap 5 (5-15); BUN 19 mg/dL (7-18); BUN/Creat Ratio 23.3 RATIO (10-20); Calcium,Total 9.6 mg/dL (8.5-10.1); Chloride 107 mmol/L (98-107); Creatinine, Serum 0.82 mg/dL (0.70-1.30); EST Glomerular Filtration Rate 101 mL/min (>60); Est Glom Filt Rate - Afr Amer 122 mL/min (>60); Glucose 143 mg/dL (74-106); Potassium 3.9 mmol/L (3.5-5.1); Sodium Level 138 mmol/L (136-145)
[2023-12-18 05:43] LABS: Bacteria 0 SEEN /hpf (None Seen); Mucous, Urine 0 SEEN /hpf (<or=2+); Red Blood Cells-Urine 0 SEEN /hpf (0-5); Squamous Epithelial Cells - UA 0 SEEN /hpf (0-5); White Blood Cells 0 SEEN /hpf (0-5)
[2023-12-18 05:47] LABS: Color, Urine Yellow (Yellow); Glucose, Dipstick Normal (Normal); Ketone-Dipstick Negative (Negative); Leukocyte Esterase-Dipstick Negative /ul (Negative); Nitrite-Dipstick Negative (Negative); Occult Blood-Urine Negative /ul (Negative); Protein-Dipstick Negative (Negative); Urine Bilirubin Dipstick Negative (Negative); Urine Clarity Clear (Clear); Urine Urobilinogen Normal (Normal); Urine pH 6.5 (5.0 - 8.0)
[2023-12-18] MEDS: Orphenadrine 60 MG/2 ML Ampul IV (06:15)
[2023-12-18] MEDS: Dicyclomine 20 MG/2 ML Vial IM (06:15)
[2023-12-18 06:34] VITALS: O2SAT 94
== END 2023-12-18 23:59 | disposition home or self-care (01) ==
PROVIDERS: Emergency Provider Emergency Medicine; PCP Family Medicine; Visit Provider Emergency Medicine
DX: R10.9 Unspecified abdominal pain (principal); I48.91 Unspecified atrial fibrillation; K59.00 Constipation, unspecified; Z87.891 Personal history of nicotine dependence; Z86.010 Personal history of colon polyps; I10 Essential (primary) hypertension
CPT/HCPCS: 74176; 80048; 81001; 85025; 96372; 96374; 96375; 99282; A4216; J2405

== ENCOUNTER 2023-12-20 13:22 | Emergency (ER) | payer BC, OTHER, SELFPAY ==
[2023-12-20 13:23] VITALS: BP 117/87; PULSE 110; RESP 18; TEMP 36.3; O2SAT 98
--- NOTE | 2023-12-20 14:45 | CT_ITS ---
INDICATION: radicular pain EXAMINATION: CT LUMBAR SPINE - CT Spine Lumbar W/O Contrast Injection TECHNIQUE: Helically acquired images were obtained of the lumbar spine. 2D reformats were reviewed. A radiation dose optimization technique was used for this scan. The protocol utilizes one or more of the following dose reduction techniques: automated exposure control, adjustment of mA and/or kV according to patient size,and/or use of iterative reconstruction technique. IV Contrast dosage and agent: None. RADIATION DOSAGE (If Supplied By Facility): CTDIvol = ( 37.02 ) mGy, DLP = ( 1381.05 ) mGycm COMPARISON: MRI lumbar spine December 06, 2021, CT abdomen pelvis 12/18/2023 FINDINGS: VERTEBRAE: Vertical linear sclerosis with subtle linear lucency along the lateral sacral wings paralleling the sacroiliac joints consistent with fracture, reference axial image 97 and coronal image 29. Normal sacroiliac normal alignment. Chronic bilateral pars defects L5 with unchanged grade 2 anterolisthesis L5 on S1. No vertebral body fracture or acute compression deformity. . Mild chronic vertebral height loss and lower thoracic spine. Chronic endplate degenerative sclerotic changes throughout the upper lumbar spine as well as L5-S1. Diffuse facet arthropathy. DISCS and SPINAL CANAL: L1-L2. Slight posterior disc bulge with endplate osteophyte formation mild facet arthropathy causing no significant spinal canal stenosis and moderate left neural foraminal stenosis with osseous elements likely contacting the exiting left L1 nerve root.. L2-L3: Slight posterior disc bulge with endplate osteophyte formation and mild bilateral facet arthropathy causing no significant spinal canal stenosis. Moderate right neural foraminal stenosis with osseous elements likely contacting the exiting right L2 nerve root. Mild left neural foraminal narrowing. L3-L4: Minimal posterior disc bulge and endplate osteophyte formation and moderate facet arthropathy together causing minimal spinal canal narrowing and mild neural foraminal stenosis. L4-5: Small posterior disc protrusion with calcified annulus and moderate bilateral facet arthropathy, together causing minimal spinal canal narrowing, moderate right lateral recess narrowing, and mild bilateral neural foraminal stenosis. L5-S1: Uncovering of the posterior superior disc secondary to grade 2 anterolisthesis without central spinal stenosis. Moderate to severe bilateral neural foraminal stenosis with osseous elements contacting the exiting bilateral L5 nerve roots. VISUALIZED ABDOMEN: Aortic atherosclerosis without ectasia. There is no retroperitoneal adenopathy. CT/Spine Lumbar without Contrast IMPRESSION: Nondisplaced age-indeterminate bilateral sacral insufficiency fractures, new compared with December 06, 2021 Bilateral pars defects L5 with grade 2 anterolisthesis L5 on S1. Corresponding moderate to severe bilateral neural foraminal stenosis with uncovered disc and osseous elements contacting the exiting L5 nerve roots. Calcified right central posterior disc protrusion L4-5 with moderate right lateral recess narrowing, likely contacting L5 nerve rootlets in the lateral recess. Diffuse spondylosis with up to moderate additional neural foraminal stenosis, with osseous elements contacting the exiting left L1 and right L2 nerve roots as above. Correlate with distribution of symptoms. Electronically Signed: Sharan Arteaga MD at 17:16 EDT ,
--- NOTE | 2023-12-20 14:46 | ED.VIS.BACK ---
HPI History of Present Illness Chief Complaint: Back Narrative Narrative: 63-year-old male past medical history of 2 previous back surgeries including decompression, presents with left flank pain that has had since Monday morning. This was 2 days ago when it began. He states that he had awoken with left-sided flank pain and burning. He was seen in the emergency department and had a workup including CT scan, and states that his blood work and urine were normal. They could not find anything in regards to the kidney stone but diagnosed him with constipation. He presents with worsening left flank pain and burning. He denies any fevers or chills, no loss of bowel or bladder, no saddle anesthesia. It does not radiate down his leg. It is mainly in his left hip and flank area. His pain seems to be better when he lies down, but he states when getting up, it is difficult for him and it exacerbates his pain. He has to walk and lean towards the right side in order to alleviate some of his pain as well. [facility] Medical History Hx of colonic polyps Lung nodule Wears hearing aid Wears glasses Wears dentures Cancer Bruising Arthritis Back pain Cardiology follow-up encounter Hypertension History of atrial fibrillation Recurrent deep vein thrombosis Acute diastolic (congestive) heart failure (11/01/20) Essential (primary) hypertension History of lymphadenopathy History of rectal cancer Former smoker Mass of colon Small bowel obstruction Arthritis Delayed wound healing Venous (peripheral) insufficiency Ulcer of left lower extremity with fat layer exposed Home Medications ?Medication ?Instructions ?Recorded ?Last Taken ?Type metoprolol tartrate 25 mg tablet 12.5 mg PO BID 11/01/20 01/13/23 History multivitamin 1 tab PO DAILY supplement 11/01/20 11/01/20 History lactobacillus combination no.9 4 4,000 mmu cells PO DAILY 11/25/20 Unknown History billion cell capsule (Adult 50 Plus Probiotic) apixaban 5 mg tablet (Eliquis) 5 mg PO BID 05/07/21 01/10/23 History atorvastatin 10 mg tablet 40 mg PO QHS cholesterol 07/07/22 Unknown History pregabalin 50 mg capsule 100 mg PO BID 12/29/22 Unknown History dicyclomine 10 mg capsule 20 mg (2 x 10 mg) PO Q6H PRN PRN 12/18/23 Unknown Rx abdominal discomfort #20 CAPSULES magnesium citrate 150 ml PO DAILY PRN constipation 12/18/23 Unknown Rx #296 mL cyclobenzaprine 10 mg tablet 10 mg PO TID PRN Muscle Spasm #20 12/20/23 Unknown Rx TABLETS Allergy/AdvReac Type Severity Reaction Status Date / Time chlorhexidine AdvReac Rash Verified 12/20/23 13:25 Family History Mother Throat cancer Father Heart disease Brother Mouth cancer Surgical History History of lung biopsy History of ventral hernia repair History of back surgery History of left cataract extraction History of rectal surgery Status post reversal of ileostomy Hx of breast biopsy Hx of right cataract extraction Social History household members: spouse housing: house current occupational status: unemployed pets and animals: Yes (Dogs) Smoking Status: Former smoker second hand exposure: Yes alcohol intake: current alcohol intake frequency: 0-2 drinks per day Alcohol type: beer substance use type: does not use caffeine: Yes frequency: does not exercise ROS ROS ED ROS Narrative Constitutional: No fever, no chills. HEENT: No sore throat. No neck pain. No loss of vision. No rhinorrhea. Cardiovascular: No chest pain. No palpitations. No pedal edema. Respiratory: No cough, no shortness of breath. Abdominal: No abdominal pain. No nausea. No vomiting. Positive left flank pain and burning Genitourinary: No dysuria. No hematuria. Musculoskeletal: No myalgias. Left hip pain and burning. Neurologic: No headaches. No dizziness. No lightheadedness. Skin: No rash. No change in color. Psychiatric: No depression. No anxiety. EXAM Physical Exam Narrative Exam Narrative: Afebrile. Vital signs noted. HEENT: Normocephalic. Atraumatic. PERRL, EOMI. Neck soft and supple. No point tenderness or step off. Cardiovascular: Regular rate and rhythm. No murmurs, rubs, or gallops appreciated. Respiratory: No tachypnea. Lungs clear to auscultation bilaterally. Gastrointestinal: Abdomen soft, nontender, with normoactive bowel sounds. No rebound or guarding. Neurological: Awake. Alert. Nonfocal, nonlateralizing. Skin: No rash. Normal color. No pallor. Musculoskeletal: No pedal edema. Full range of motion extremities. Positive well-healed scar on his back more towards the right. No vertebral point tenderness or bony step-off. Straight leg raising negative bilaterally. Const Vital Signs: 12/20/23 13:23 Temperature 97.3 F L Temperature Source Temporal Pulse Rate 110 H Respiratory Rate 18 Blood Pressure 117/87 H Blood Pressure Mean 97 Pulse Ox 98 Oxygen Delivery Method Room Air MDM MDM MDM Narrative Medical decision making narrative: In the differential diagnosis is radicular pain versus musculoskeletal pain. I reviewed his prior records and workup. I do not feel that he needs a CT of the abdomen as he just had this performed 2 days ago. With the thought more of radicular pain, although I do not feel he requires an emergent MRI, CT will be obtained to rule out any fracture or malalignment or spinal stenosis. He was given an intramuscular injection of morphine and Norflex for analgesia. There was considerable delay in the reading of the CT of the lumbar spine. I did review the radiology report and there are bilateral pars defects at L5 with grade 2 anterolisthesis L5 on S1 with moderate to severe bilateral neural foraminal stenosis with uncovered disc and osseous elements contacting the exiting L5 nerve roots. There is diffuse spondylosis with up to moderate additional neural foraminal stenosis with osseous elements contacting the exiting left L1 and right L2 nerve roots as above. He does have nondisplaced age-indeterminate bilateral sacral insufficiency fractures new when compared to December 06, 2021. At this point in time, I do feel that he needs close follow-up with his spine surgeon at the [facility]. Additionally, he states he usually receives oxycodone from pain management. He will be given an oxycodone prior to discharge. However, as he is in pain management, I do not feel that I should write a prescription for narcotic pain medication for him. He is to call pain management tomorrow. I did write him a prescription for Flexeril. I feel he can be discharged safely home for follow-up with his spine surgeon. Return instructions to the emergency department were reviewed. Disposition is discharged home in stable condition. History & Record Review Discussion w/independent historian: Patient and Family Radiography Diagnostic Testing: Clinical Impression(s) from Imaging Studies Lumbar Spine CT 12/20/23 14:45 IMPRESSION: Nondisplaced age-indeterminate bilateral sacral insufficiency fractures, new compared with December 06, 2021 Bilateral pars defects L5 with grade 2 anterolisthesis L5 on S1. Corresponding moderate to severe bilateral neural foraminal stenosis with uncovered disc and osseous elements contacting the exiting L5 nerve roots. Calcified right central posterior disc protrusion L4-5 with moderate right lateral recess narrowing, likely contacting L5 nerve rootlets in the lateral recess. Diffuse spondylosis with up to moderate additional neural foraminal stenosis, with osseous elements contacting the exiting left L1 and right L2 nerve roots as above. Correlate with distribution of symptoms. Electronically Signed: Sharan Arteaga MD at 17:16 EDT Reading Location ID and State: [facility] / [place] Tel , Service support , Discharge Plan Triage Chief Complaint: Back ED Provider: Bang Pugh Dx/Rx/DC Orders Clinical Impression: Acute exacerbation of chronic low back pain, Degeneration of intervertebral disc of lumbar region with osteophyte of lumbar vertebra, Lumbar radicular pain Instructions: ED Back Pain (Acute or Chronic), ED Chronic Pain, ED Degenerative Disk Disease Prescriptions: New cyclobenzaprine 10 mg tablet 10 mg PO TID PRN (Reason: Muscle Spasm) Qty: 20 0RF No Action Adult 50 Plus Probiotic 4 billion cell capsule 4,000 mmu cells PO DAILY Rx Instructions: administer with a meal pregabalin 50 mg capsule 100 mg PO BID Rx Instructions: 100 MG IN AM 100 MG AT HS atorvastatin 10 mg tablet 40 mg PO QHS multivitamin Tablet 1 tab PO DAILY metoprolol tartrate 25 mg Tablet 12.5 mg PO BID Eliquis 5 mg tablet 5 mg PO BID Patient Comments: TAKE 1 TABLET BY MOUTH TWICE DAILY dicyclomine 10 mg capsule 20 mg PO Q6H PRN PRN (Reason: abdominal discomfort) Qty: 20 0RF magnesium citrate Solution 150 ml PO DAILY PRN (Reason: constipation) Qty: 296 0RF Primary Care Provider: Samuel Casarez Referrals: Samuel Casarez MD [Primary Care Provider] - Activity Restrictions/Additional Instructions: Follow-up with your pain management doctor as soon as possible. Call tomorrow for possible increase in your oxycodone. Inform them that you have also been given a prescription for Flexeril. Print Language: Maltese Disposition Disposition: Home, Self Care
[2023-12-20] MEDS: Morphine 4 MG/ML Syringe IM (14:55)
[2023-12-20] MEDS: Orphenadrine 60 MG/2 ML Ampul IM (14:55)
[2023-12-20 17:22] VITALS: BP 146/88; PULSE 89; RESP 20; O2SAT 97
[2023-12-20 17:43] VITALS: BP 146/88; PULSE 89; RESP 20; TEMP 36.6; O2SAT 97
[2023-12-20] MEDS: oxyCODONE 5 MG Tablet 10 MG PO (17:45)
== END 2023-12-20 17:46 | disposition home or self-care (01) ==
PROVIDERS: Emergency Provider Emergency Medicine; PCP Family Medicine; Visit Provider Emergency Medicine
DX: M54.50 Low back pain, unspecified (principal); M48.061 Spinal stenosis, lumbar region without neurogenic claudication; M51.16 Intervertebral disc disorders with radiculopathy, lumbar region; N20.0 Calculus of kidney; M47.26 Other spondylosis with radiculopathy, lumbar region; M43.19 Spondylolisthesis, multiple sites in spine; Z87.891 Personal history of nicotine dependence; G89.29 Other chronic pain; I10 Essential (primary) hypertension; Z85.048 Personal history of other malignant neoplasm of rectum, rectosigmoid junction, and anus
CPT/HCPCS: 72131; 96372; 99282

== ENCOUNTER → 2024-01-08 | Outpatient (CLI) | payer BC, OTHER, SELFPAY ==
--- NOTE | 2024-01-08 11:05 | MRI_ITS ---
STUDY: MRI LUMBAR SPINE WITHOUT CONTRAST REASON FOR EXAM: Male, 63 years old. SCIATICA RT SIDED, BACK PAIN, PREVIOUS LUMBAR CT AND XRAYS TECHNIQUE: Standardized fat and water weighted pulse sequences were obtained in the sagittal and axial planes. COMPARISON: 12/06/2021 FINDINGS: T12-L1: Mild bilobed disc protrusion produces mild spinal stenosis and mild bilateral neural foraminal stenosis. Normal lumbar lordosis. There is no substantial scoliosis. Normal conus medullaris that terminates at the L1/L2. L1-2: Moderate bilateral facet hypertrophy and ligament flavum hypertrophy. No change in the mild bilobed disc protrusion which produces mild spinal stenosis and moderate left neural foraminal stenosis. L2-3: Mild bilateral facet hypertrophy and ligament flavum hypertrophy. No change in the moderate bilateral disc protrusion which produces moderate spinal stenosis and moderate bilateral neural foraminal stenosis. L3-4: Mild bilateral facet hypertrophy and moderately inflamed hypertrophy. No change in the mild broad disc protrusion which produces mild spinal stenosis and mild bilateral neural foraminal stenosis. L4-5: Status post right laminotomy. Moderate bilateral facet hypertrophy. No change in the 2 mm retrolisthesis of L4 and L5 with a moderate broad disc protrusion produces moderate spinal stenosis and moderate bilateral neural foraminal stenosis. L5-S1: Suspected bilateral pars defects at L5 vertebra consistent with L5 spondylolysis. No change in the 12 mm of anterolisthesis of L5 on S1 consistent with grade 2 spondylolisthesis. No change in the mild broad disc protrusion which produces mild spinal stenosis with severe bilateral neural foraminal stenosis with effacement of the L5 nerve roots bilaterally. Interval development of linear hypointensities of the sacral ala bilaterally consistent with insufficiency fractures. Normal visualized paraspinous soft tissue structures. MRI/Spine Lumbar (Routine) IMPRESSION: 1. Degenerative disc disease, similar to the prior study. 2. L5 spondylolysis with grade 2 spondylolisthesis of L5 on S1 with severe bilateral neural foraminal stenosis similar to the prior study. 3. Interval development of sacral insufficiency fractures. Electronically Signed: Art Doshi MD at 17:04 EDT ,
== END | disposition home or self-care (01) ==
LOC: MRI 08:51
PROVIDERS: PCP Family Medicine; Referring Provider Family Medicine; Visit Provider Family Medicine
DX: M54.41 Lumbago with sciatica, right side (principal)
CPT/HCPCS: 72148

== ENCOUNTER 2024-05-23 13:48 | Outpatient (CLI) | payer BC, OTHER, SELFPAY ==
--- NOTE | 2024-05-23 13:56 | BD_ITS ---
STUDY: DUAL ENERGY X-RAY ABSORPTIOMETRY / DXA REASON FOR EXAM: Male, 63 years old. M84.48XA TECHNIQUE: Bone Mineral Density (BMD) measurements of lumbar spine and bilateral hips were obtained. COMPARISON: None. FINDINGS: Lumbar Spine (L1-L4): g/cm2 (1.328) / T-score (2.5) / Z-score (3.2) Findings are suggestive of normal bone density with a low fracture risk. Left Femur Total: g/cm2 (1.015) / T-score (-0.1) / Z-score (0.4) Left Femoral Neck: g/cm2 (0.775) / T-score (-1.1) / Z-score (-0.1) Right Femur Total: g/cm2 (0.943) / T-score (-0.6) / Z-score (-0.1) Right Femoral Neck: g/cm2 (0.728) / T-score (-1.5) / Z-score (-0.5) BD/Dexa Bone Density Study IMPRESSION: The patient is considered osteopenic as outlined below according to World Isaiah Organization (WHO) criteria with a low fracture risk. Reference Information: The T-score is the number of standard deviations above or below the standard which is normal for young adults at their peak bone mineral density. The World Health Organization (WHO) interprets the T-scores as follows: Above -1 Normal bone density Between -1 and -2.5 Osteopenia Equal to / or below -2.5 Osteoporosis As a practical clinical guideline, osteopenia may be graded as follows: Mild -1 through -1.5 Moderate -1.6 through -2.0 Severe -2.1 through -2.4 The Z-score is the number of standard deviations above or below age-matched controls. A Z-score of less than -1.5 would be considered abnormal. References: 1. NIH Osteoporosis and Related Bone Diseases www osteo.org 2. International Society for Clinical Densitometry www iscd.org 3. National Osteoporosis Foundation www nof.org Electronically Signed: Jason Eduardo MD at 14:50 EST ,
== END 2024-05-23 23:59 | disposition home or self-care (01) ==
LOC: OPBD 13:48
PROVIDERS: PCP Family Medicine; Referring Provider Family Medicine; Visit Provider Family Medicine
DX: M84.48XA Pathological fracture, other site, initial encounter for fracture (principal)
CPT/HCPCS: 77080

== ENCOUNTER 2024-12-31 15:46 | Outpatient (CLI) | payer BC, OTHER, SELFPAY ==
[2024-12-31 18:29] LABS: Hematocrit 40.2 % (40-54); Hemoglobin 13.9 g/dL (13.0-16.5); Immature Granulocytes Count 0.030 X10^3/uL (0.0-0.0); Mean Corp Hgb Conc 34.6 g/dL (32-36); Mean Corpuscular Volume 97.6 fL (80-94); Mean Platelet Vol. 9.6 fl (6.2-12.0); NRBC Flagged by Analyzer 0 % (0-5); Platelet Count 280 K/mm3 (150-450); RBC Distribution Width CV 12.2 % (11.6-14.6); RBC Distribution Width SD 44.1 fl (35.1-43.9); Red Blood Count 4.12 M/mm3 (4.6-6.2); White Blood Count 7.3 K/mm3 (4.4-11.0)
[2024-12-31 18:32] LABS: AST(SGOT) 35 U/L (<=37); Alanine Aminotransfer ALT/SGPT 29 U/L (<=46); Albumin, Serum 4.2 g/dL (3.4-4.8); Alkaline Phosphatase 85 U/L (40-129); Anion Gap 13 (5-15); BUN 17 mg/dL (4-19); BUN/Creat Ratio 20.6 RATIO (10-20); Calcium,Total 10.1 mg/dL (7.6-11.0); Carbon Dioxide 20.4 mmol/L (21.0-32.0); Chloride 105 mmol/L (98-108); Cholesterol 173 mg/dL (<=200); Globulin 2.7 g/dL (2.2-4.2); Glucose 96 mg/dL (70-99); Low Density Lipoprotein Calc. 82 mg/dL; Potassium 4.4 mmol/L (3.3-5.1); Triglycerides 95 mg/dL; Uric Acid 4.4 mg/dL (3.5-7.2); Very Low Density Lipoprotein 19 mg/dL (5-40); cholesterol:hdl ratio screen 2.40
[2024-12-31 18:43] LABS: PSA,Total - Annual Screen 1.99 ng/mL (0.02-4.00); Vitamin D,25 Hydroxy 31.3 ng/mL (30-100)
== END 2024-12-31 23:59 | disposition home or self-care (01) ==
PROVIDERS: PCP Family Medicine; Referring Provider Student in an Organized Health Care Education/Training Program; Visit Provider Student in an Organized Health Care Education/Training Program
DX: Z01.818 Encounter for other preprocedural examination (principal); Z12.5 Encounter for screening for malignant neoplasm of prostate; D69.6 Thrombocytopenia, unspecified; I10 Essential (primary) hypertension; M10.9 Gout, unspecified; M85.80 Other specified disorders of bone density and structure, unspecified site
CPT/HCPCS: 36415; 80053; 80061; 82306; 84153; 84550; 85025; 85027; G0103

== ENCOUNTER 2025-06-06 14:41 | Outpatient (CLI) | payer BC, OTHER, SELFPAY ==
--- NOTE | 2025-06-06 14:43 | RAD_ITS ---
PROCEDURE: HAND MIN 3 VIEWS 06/06/2025 REASON FOR EXAM: PAIN AND SWELLING TECHNIQUE: Procedure Code: YULIA Modality: DX Procedure: HAND MIN 3 VIEWS Right hand four views COMPARISON: No FINDINGS: There is no acute fracture or dislocation. There is osteoarthritis of the 1st carpometacarpal articulation, metacarpophalangeal articulations, and interphalangeal joints. Soft tissue swelling is noted at the metacarpal phalangeal articulations. Osteopenia is noted. There is no visible radiopaque foreign body. RAD/Hand Min 3 Views IMPRESSION: Degenerative changes with no acute fracture or dislocation. Reading Location: [facility]
== END 2025-06-06 23:59 | disposition home or self-care (01) ==
LOC: MTRAD 14:42
PROVIDERS: PCP Family Medicine; Referring Provider Family Medicine; Visit Provider Family Medicine
DX: M19.041 Primary osteoarthritis, right hand (principal)
CPT/HCPCS: 73130

== ENCOUNTER → 2025-06-20 | Outpatient (CLI) | payer BC, OTHER, SELFPAY ==
--- NOTE | 2025-06-20 15:04 | RAD_ITS ---
PROCEDURE: HIPS B/L MIN 2 VIEWS W/ PELVIS 06/20/2025 REASON FOR EXAM: PAIN WITH WALKING TECHNIQUE: Procedure Code: [id number] Modality: DX Procedure: HIPS B/L MIN 2 VIEWS W/ PELVIS COMPARISON: None FINDINGS: The bony pelvis is intact. The SI joints are normal. There is moderate degenerative disc disease, L4-5 and L5-S1. There are no pelvic soft tissue abnormalities. AP and lateral views of the right hip demonstrate no evidence of fracture or dislocation. There is no significant arthropathy. There are vascular calcifications. AP and lateral views of the left hip demonstrate no evidence of fracture or dislocation. There is no significant arthropathy. There are vascular calcifications. RAD/Hips B/L min 2 views w/ Pelvis IMPRESSION: No significant abnormality of either hip. Reading Location: [id number]
== END | disposition home or self-care (01) ==
LOC: MTRAD 15:03
PROVIDERS: PCP Family Medicine; Referring Provider Family Medicine; Visit Provider Family Medicine
DX: M25.551 Pain in right hip (principal); M25.552 Pain in left hip
CPT/HCPCS: 73521